=== PATIENT | male | born 1960 | race Caucasian/White ===

== ENCOUNTER 2023-10-06 09:21 | Outpatient (CLI) | payer OTHER, SELFPAY | END 2023-10-06 09:22 | disposition home or self-care (01) | PROVIDERS: PCP Family Medicine; Visit Provider Family Medicine | DX: Z00.00 Encounter for general adult medical examination without abnormal findings (principal); R53.83 Other fatigue; E01.0 Iodine-deficiency related diffuse (endemic) goiter; R06.00 Dyspnea, unspecified; Z12.5 Encounter for screening for malignant neoplasm of prostate | CPT/HCPCS: 80053; 84439; 84443; G0103 ==

== ENCOUNTER 2023-10-13 16:35 | Outpatient (CLI) | payer OTHER, SELFPAY ==
--- NOTE | 2023-10-13 17:00 | US_ITS ---
Patient: DAISY PATEL Facility:?[facility] Patient ID:?[id number] Site Patient ID:?[id number]. Site :?1960 Study:?US-Thyroid THYROID-10/13/2023 5:09:00 PM Ordering Physician:?VAIBHAV MEADE M.D. Final Report: INDICATION: Iodine-deficiency related diffuse (endemic) goiter COMPARISON: none TECHNIQUE: Aguilar scale and color Doppler images were acquired of the thyroid gland. FINDINGS: Large isoechoic/hypoechoic mostly solid nodule left thyroid lobe with a few internal cystic areas measuring 7.0 x 4.2 x 4.6 cm. The right lobe measures 3.7 x 1.5 x 1.5 cm and the left lobe measures 7.4 x 5.3 x 5.0 cm in size. Isthmus measures 3 millimeters. The color Doppler images demonstrate normal vascularity. There is no evidence of cervical lymphadenopathy or parathyroid mass. IMPRESSION: 7.0 cm left thyroid lobe nodule. FNA recommended. Dictated by Eddie Tenorio MD @ 10/14/2023 8:54:34 AM Signed by:?Eddie Tenorio MD @10/14/2023 8:54:34 AM (Electronic Signature)
== END 2023-10-13 16:36 | disposition home or self-care (01) ==
LOC: US 16:36
PROVIDERS: PCP Family Medicine; Visit Provider Family Medicine
DX: E01.0 Iodine-deficiency related diffuse (endemic) goiter (principal); E04.1 Nontoxic single thyroid nodule
CPT/HCPCS: 76536

== ENCOUNTER 2023-11-12 07:43 | Outpatient (CLI) | payer OTHER, SELFPAY ==
--- NOTE | 2023-11-12 08:15 | US_ITS ---
Patient: DAISY PATEL Facility:?[facility] Patient ID:?[id number] Site Patient ID:?[id number] Site :?1960 Study:?US-Thyroid Dr. Tenorio to read-11/12/2023 9:42:49 AM Ordering Physician:?Kenroy Ly Final Report: INDICATION : Left thyroid nodule. TECHNIQUE : Ultrasound-guided fine needle aspiration of thyroid nodule. Comparison : 10/13/2023 FINDINGS : PROCEDURE: After the informed consent and time-out, multiple fine needle aspirations were obtained from the thyroid nodule. Fine needle performed. 25 gauge needles were used. No complications. Lidocaine was used for local anesthesia. The preliminary cytology was adequate for interpretation. Real-time imaging was used for guidance and needle placement. Post imaging ultrasound demonstrates no immediate complication. IMPRESSION : Successful fine needle aspiration of left thyroid nodule. Dictated by Eddie Tenorio MD @ 11/12/2023 10:00:33 AM Signed by:?Eddie Tenorio MD @11/12/2023 10:00:33 AM (Electronic Signature)
== END 2023-11-12 07:44 | disposition home or self-care (01) ==
LOC: US 07:44
PROVIDERS: PCP Family Medicine; Visit Provider Family Medicine
DX: E04.1 Nontoxic single thyroid nodule (principal); D34 Benign neoplasm of thyroid gland
CPT/HCPCS: 10005; 88173

== ENCOUNTER 2023-12-10 16:26 | Outpatient (CLI) | payer OTHER, SELFPAY ==
--- NOTE | 2023-12-10 16:45 | CRLHL7_ITS ---
For Patients: As a result of the Century Cures Act, medical imaging exams and procedure reports are released immediately into your electronic medical record. You may view this report before your referring provider. If you have questions, please contact your health care provider. INDICATION: Nontoxic single thyroid nodule. COMPARISON: Ultrasound 11/12/2023. TECHNIQUE: CT soft tissue neck with IV contrast. ICD 370, 112 cc. FINDINGS: Normal bilateral parotid and submandibular glands. Large heterogeneous enhancing mass of the left thyroid lobe measures 4.9 x 5.2 x 5.8 cm (transverse by AP by cephalocaudal) and has been biopsied previously. This mass extends just below the thoracic inlet. No surrounding inflammatory change. Associated mass effect and deviation of the trachea esophagus to the right. Scattered small normal-sized cervical lymph nodes bilaterally. No supraclavicular or superior mediastinal adenopathy. Nasopharynx and oropharynx are clear. No inflammation within the parapharyngeal fat pads or retropharyngeal space. Normal thickness of the epiglottis. Normal glottis with symmetric vocal cords. Airway patent. Lung apices are clear. Normal alignment of the cervical spine. No prevertebral soft tissue swelling. Visualized paranasal sinuses and mastoid air cells are clear. IMPRESSION: 1. Heterogeneous enhancing mass of the left thyroid lobe. This has been biopsied previously. Mass effect and deviation of the trachea and esophagus to the right. 2. No adenopathy. 3. Normal deep soft tissues of the neck. Please note that all CT scans at this facility use dose modulation, iterative reconstruction, and/or weight-based dosing when appropriate to reduce radiation dose to as low as reasonably achievable. Dictated by Myles Grace MD @ 12/13/2023 12:45:36 PM (Electronically Signed)
[2023-12-10 16:58] LABS: Creatinine* 0.8 mg/dL (0.5-1.5); Estimated Glomerular Filt Rate 100 ml/min
== END 2023-12-10 16:27 | disposition home or self-care (01) ==
LOC: CT 16:27
PROVIDERS: PCP Family Medicine; Visit Provider Surgery
DX: E04.1 Nontoxic single thyroid nodule (principal)
CPT/HCPCS: 36415; 70491; 82565; Q9967

== ENCOUNTER 2023-12-17 16:35 | Outpatient (CLI) | payer OTHER, SELFPAY | END 2023-12-17 16:36 | disposition home or self-care (01) | LOC: LKVREF 18:54 | PROVIDERS: PCP Family Medicine; Referring Provider Family Medicine; Visit Provider Surgery | DX: C73 Malignant neoplasm of thyroid gland (principal) | CPT/HCPCS: 82308; 82310; 82378; 83835 ==

== ENCOUNTER 2024-02-05 01:36 | Inpatient (IN) | payer OTHER, SELFPAY ==
[2024-02-05] VITALS (40 sets, daily range): BP systolic 136–206; BP diastolic 87–116; PULSE 68–96; RESP 20–24; TEMP 36.2–36.8; O2SAT 81–95; BMI 32.3; BMI 33.6
--- OUTSIDE RECORDS SUMMARY | 2024-02-05 02:22 | XMS_ITS | Encounter Summary ---
Author Organization [facility] Address [address] [place] [address] Care Team Providers Care Prison Guard Supervisor Name Role Phone No Ref-Primary, Physician Primary Care Provider Clinic - [facility] Unavailabl e Encounter Details Date Type Department Care Team (Late st Contact Info) Description 11/18/2023 MyC Medical Advice [facility] [id number] [place] [phone] Caitlyn Alfred, SCREWDOWN OPERATOR Social History Tobacco Use Types Packs/Day Years Used Date Smoking Tobacco: Never Smokeless Tobacco: Never Social Connection and Isolat ion Panel [NHANES] Answer Date Recorded Frequency of Communication w ith Friends and Family Not on file 04/02/2023 How often do you get togethe r with friends or relatives? Twice a week 04/02/2023 How often do you attend [facility] or adventist services? 1 to 4 times per year 04/02/2023 Do you belong to any clubs o r organizations such as worship groups, unions, fraternal or athletic groups, or school groups? Yes 04/02/2023 How often do you attend meet ings of the clubs or organizations you belong to? More than 4 times per year 04/02/2023 Are you , , di vorced, , never , or living with a partner? 04/02/2023 AUDIT-C Answer Date Recorded Q1: How often do you have a drink containing alcohol? Never 04/02/2023 Q2: How many drinks containi ng alcohol do you have on a typical day when you are drinking? Patient does not drink 3 Q3: How often do you have si x or more drinks on one occasion? Never 04/02/2023 PHQ-2 Answer Date Recorded PHQ-2 Score 0 04/02/2023 [facility] - Occupational Stress Questionnaire Answer Date Recorded Do you feel stress - tense, restless, nervous, or anxious, or unable to sleep at night because your mind is troubled all the time - these days? Not at all 04/02/2023 Exercise Vital Sign Answer Date Recorde d On average, how many days pe r week do you engage in moderate to strenuous exercise (like a brisk walk)? 3 days 04/02/2023 On average, how many minutes do you engage in exercise at this level? 150+ min 04/02/2023 Adolescent Education Answer Date Record ed Getting School Help Needed Not on file 04/03 Food Insecurity Answer Date Recorded Within the past 12 months, d id you worry that your food would run out before you got money to buy more? No 04/02/2023 Within the past 12 months, d id the food you bought just not last and you didn? t have money to get more? No 04/02/2023 Housing Stability Answer Date Recorded Do you have housing? (Gem oseguera is defined as stable permanent housing and does not include staying ouside in a car, in a tent, in an abandoned building, in an overnight mcc, or couch-surfing.) Yes 04/02/2023 Are you worried about losing your housing? No 04/02/2023 Financial Resource Strain Answer Date R ecorded Within the past 12 months, h ave you or your family members you live with been unable to get utilities (heat, electricity) when it was really needed? No 04/02/2023 Transportation Needs Answer Date Record ed Within the past 12 months, h as lack of transportation kept you from medical appointments, getting your medicines, non-medical meetings or appointments, work, or from getting things that you need? No 04/02/2023 Interpersonal Safety Answer Date Record ed Do you feel physically and e motionally safe where you currently live? Yes 04/02/2023 Within the past 12 months, h ave you been hit, slapped, kicked or otherwise physically hurt by someone? No 04/02/2023 Within the past 12 months, h ave you been humiliated or emotionally abused in other ways by your partner or ex-partner? No 04/02/2023 Sex and Gender Information Value Date Recorded Sex Assigned at Not on file Gender Identity Not on file Sexual Orientation Not on file documented as of this encounter Plan of Treatment Not on file documented as of this encounter Visit Diagnoses Not on filedocumented in this encounter Care Teams Prison Guard Supervisor Relationship Specialty Start Date End Date No Ref-Primary, Physician PCP - General 04/05/23 Clinic - [facility] [address] [place] [address] Assigned PCP 11/02/23 documented as of this encounter
--- OUTSIDE RECORDS SUMMARY | 2024-02-05 02:22 | XMS_ITS | Encounter Summary ---
Author Organization [facility] Address [address] [place] [id number] Care Team Providers Care Record Press Supervisor Name Role Phone No Ref-Primary, Physician Primary Care Provider Clinic - [facility] Unavailabl e Reason for Visit * Reason Onset Date Comments Panel Management 11/11/2023 Encounter Details Date Type Department Care Team (Late st Contact Info) Description 11/11/2023 MyC Medical Advice [facility] [id number] [place] [phone] Deysi Patel, [facility] Panel Management Social History Tobacco Use Types Packs/Day Years Used Date Smoking Tobacco: Never Smokeless Tobacco: Never Social Connection and Isolat ion Panel [NHANES] Answer Date Recorded Frequency of Communication w ith Friends and Family Not on file 04/02/2023 How often do you get togethe r with friends or relatives? Twice a week 04/02/2023 How often do you attend chur ch or caodaism services? 1 to 4 times per year 04/02/2023 Do you belong to any clubs o r organizations such as baptism groups, unions, fraternal or athletic groups, or [...] you are drinking? Patient does not drink Q3: How often do you have si x or more drinks on one occasion? Never 04/02/2023 PHQ-2 Answer Date Recorded PHQ-2 Score 0 04/02/2023 [facility] - Occupational Stress Questionnaire Answer Date Recorded [...] on file documented as of this encounter Miscellaneous Notes * Telephone Encounter - Deysi Patel CMA - 11/11/2023 11:34 AM CDT Patient Quality Outreach Patient is due for the following: Colon Cancer Screening Next Steps: No follow up needed at this time. Type of outreach: Sent Phase III Development message. Next Steps: Reach out within 90 days via Phase III Development. Max number of attempts reached: No. Will try again in 90 days if patient still on fail list. Questions for provider review: None Deysi Patel CMA Chart routed to Care Team. documented in this encounter Plan of Treatment Not on file documented as of this encounter Visit Diagnoses Not on filedocumented in this encounter Care Teams Record Press Supervisor Relationship Specialty Start Date End Date No Ref-Primary, Physician PCP - General 04/05/23 Clinic - [facility] [address] [place] [address] Assigned PCP 11/02/23 documented as of this encounter
--- OUTSIDE RECORDS SUMMARY | 2024-02-05 02:22 | XMS_ITS | Encounter Summary ---
Author Organization [facility] Address [address] [place] [address] Care Team Providers Care Passenger Agent Name Role Phone No Primary/Referring, Phy Primary Care Provider Unavailable Encounter Details Date Type Department Care Team (Late st Contact Info) Description 11/04/2018 Correspondence None No Primary/Referring, Phy SPIROMETRY PRESCREEN QUESTIONNAIRE Social History Tobacco Use Types Packs/Day Years Used Date Smoking Tobacco: Never Smokeless Tobacco: Never Alcohol Use Standard Drinks/Week Comments Yes 0 (1 standard drink = 0.6 oz pur e alcohol) very rare Sex and Gender Information Value Date Recorded Sex Assigned at Not on file Gender Identity Not on file Sexual Orientation Not on file documented as of this encounter Plan of Treatment Not on file documented as of this encounter Visit Diagnoses Not on filedocumented in this encounter Care Teams Passenger Agent Relationship Specialty Start Date End Date No Primary/Referring, Phy PCP - General 11/04/18 documented as of this encounter
--- OUTSIDE RECORDS SUMMARY | 2024-02-05 02:22 | XMS_ITS | Encounter Summary ---
Author Organization [place] Address [address] [place] [address] Care Team Providers Care Striper Machine Name Role Phone No Ref-Primary, Physician Primary Care Provider Clinic - [facility] Unavailabl e Reason for Visit * Reason Onset Date Comments Consult Referral 12/20/2023 Encounter Details Date Type Department Care Team (Late st Contact Info) Description 12/20/2023 Telephone [facility] [place] [address] [place] [phone] Self, ReferredMD Consult Referral Social History Tobacco Use Types Packs/Day Years Used Date Smoking Tobacco: Never Smokeless Tobacco: Never Social Connection and Isolat ion Panel [NHANES] Answer Date Recorded Frequency of Communication w ith Friends and Family Not on file 04/02/2023 How often do you get togethe r with friends or relatives? Twice a week 04/02/2023 How often do you attend chur ch or jew services? 1 to 4 times per year 04/02/2023 Do you belong to any clubs o r organizations such as amish groups, unions, fraternal or athletic groups, or [...] Answer Date Recorded PHQ-2 Score 0 04/02/2023 [facility] - Occupational Stress Questionnaire Answer Date [...] Answer Date Recorded Do you have housing? (Housin g is defined as stable permanent housing and does not include staying ouside in a car, in a tent, in an abandoned building, in an overnight halfway, or couch-surfing.) Yes 04/02/2023 Are you worried [...] encounter Miscellaneous Notes * Telephone Encounter - Kristyn Mandujano - 12/20/2023 12:21 PM CDT [facility] received a referral for: Forest Long Sabina. Male, 63 year old, 1960 [facility] Thyroid Cancer Referring Dr. Carmela Basurto #1 VM 12/14/23 cag-let pt. know first available with [facility] is 01/20/24. [facility] does have openings 12/21/23 per Aysha... let know that also and provided phone #s for both offices. VM #2 12/16/23 cag VM #3 12/17/23 cag VM #4 12/20/23cag.... OK to send to [facility]. documented in this encounter Plan of Treatment Not on file documented as of this encounter Visit Diagnoses Not on filedocumented in this encounter Care Teams Striper Machine Relationship Specialty Start Date End Date No Ref-Primary, Physician PCP - General 04/05/23 Clinic - [facility] [address] [place] [address] Assigned PCP 11/02/23 documented as of this encounter
--- OUTSIDE RECORDS SUMMARY | 2024-02-05 02:22 | XMS_ITS | Encounter Summary ---
Author Organization [facility] Address [address] [place] [address] Care Team Providers Care Polyethylene Bag Machine Operator Name Role Phone No Primary/Referring, Phy Primary Care Provider Unavailable Encounter Details Date Type Department Care Team (Late st Contact Info) Description 11/04/2018 Correspondence None No Primary/Referring, Phy RESPIRATOR MEDICAL EVAL QUESTIONNAIRE Social History Tobacco Use Types Packs/Day [...] on filedocumented in this encounter Care Teams Polyethylene Bag Machine Operator Relationship Specialty Start Date End Date No Primary/Referring, Phy PCP - General 11/04/18 documented as of this encounter
--- OUTSIDE RECORDS SUMMARY | 2024-02-05 02:22 | XMS_ITS | Encounter Summary ---
Author Organization [facility] Address [address] [place] [address]. [place] [address] Care Team Providers Care Endbander Name Role Phone No Ref-Primary, Physician Primary Care Provider Clinic - [facility] Unavailabl e Encounter Details Date Type Department Care Team (Late st Contact Info) Description 12/14/2023 Medical Correspondence [facility] [address] [place] [phone] Scan, Non-Provider Social History Tobacco Use Types Packs/Day Years Used Date Smoking Tobacco: Never Smokeless Tobacco: Never Social Connection and Isolat ion Panel [NHANES] Answer Date Recorded Frequency of Communication w ith Friends and Family Not on file 04/02/2023 How often do you get togethe r with friends or relatives? Twice a week 04/02/2023 How often do you attend chur ch or religion services? 1 to 4 times per year 04/02/2023 Do you belong to any clubs o r organizations such as holiness groups, unions, fraternal or athletic groups, or [...] Answer Date Recorded PHQ-2 Score 0 04/02/2023 [facility]ational Stress Questionnaire Answer Date Recorded [...] in an abandoned building, in an overnight correction, or couch-surfing.) Yes 04/02/2023 Are you worried [...] on filedocumented in this encounter Care Teams Endbander Relationship Specialty Start Date End Date No Ref-Primary, Physician PCP - General 04/05/23 Clinic - [facility] [address] [place] [address] Assigned PCP 11/02/23 documented as of this encounter
--- OUTSIDE RECORDS SUMMARY | 2024-02-05 02:22 | XMS_ITS | Clinical Summary ---
Author Organization [facility] Address [address] [place] [address]. [place] [address] Care Team Providers Care Lock Master Name Role Phone No Ref-Primary, Physician Primary Care Provider [facility] Unavailabl e Allergies Active Allergy Reactions Criticality Noted Date Comments Seasonal Allergies 04/02/2023 Medications Medication Sig Dispensed Refills Start Date End Date Status loratadine (CLARITIN) 10 MG tablet Take 10 mg by mouth daily as needed (Takes daily during Spring and Summer) Active aspirin-acetaminophen -caffeine (EXCEDRIN MIGRAINE) 250-250-65 MG per tablet Take 1-2 tablets by mouth every 6 hours as needed for headaches Active albuterol (PROAIR HFA/PROVENTIL HFA/VENTOLIN HFA) 108 (90 Base) MCG/ACT inhaler Inhale 1-2 puffs into the lungs every 4 hours as needed for shortness of breath, wheezing or cough 08/04/2021 Active Active Problems Problem Noted Date Diagnosed Date 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 Encounters Date Type Department Care Team Description 12/20/2023 Telephone [facility] [place] [address] [place] [address] Self, Referred, Consult Referral 12/14/2023 Medical Correspondence [facility] [address] [facility] [place] [address] Scan, Non-Provider 11/18/2023 My[facility] Medical Advice [facility] [address] [phone] Caitlyn Alfred, KIERA 11/11/2023 MyC Medical Advice M [address] [address] Deysi Patel, KIERA Panel Management from Last 3 Months Immunizations Name Administration Dates Next Due [id number] Novel Flu- Nasal 08/10/2009 TDAP (Adacel,Boostrix) 04/02/2023,02/16/2007 Social History Tobacco Use Types Packs/Day Years Used Date Smoking Tobacco: Never Smokeless Tobacco: Never Tobacco Cessation:Counseling Given: Not Answered Social Connection and Isolat ion Panel [NHANES] Answer Date Recorded Frequency of Communication w ith Friends and Family Not on file 04/02/2023 How often do you get togethe r with friends or relatives? Twice a week 04/02/2023 How often do you attend [facility] or [facility] services? 1 to 4 times per year 04/02/2023 Do you belong to any clubs o r organizations such as christian groups, unions, fraternal or athletic groups, or [...] Answer Date Recorded PHQ-2 Score 0 04/02/2023 [facility] [place] of Occupat ional Health - Occupational Stress Questionnaire Answer Date [...] Date Recorded Do you have housing? (Gem g is defined as stable permanent housing and does not include staying ouside in a car, in a tent, in an abandoned building, in an overnight penitentiary, or couch-surfing.) Yes 04/02/2023 Are you worried [...] on file Sexual Orientation Not on file Last Filed Vital Signs Vital Sign Reading Time Taken Comments Blood Pressure 156/108 04/02/2023 9:00 AM CDT Pulse 78 04/02/2023 8:14 AM CDT Temperature 36.4 ??C (97.5 ??F) 04/02/2023 8:14 AM CD T Respiratory Rate 18 04/02/2023 8:14 AM CDT Oxygen Saturation 96% 04/02/2023 8:14 AM CDT Inhaled Oxygen Concentration - - Weight 107 kg (236 lb) 04/02/2023 8:14 AM CDT Height 171.5 cm (5' 7.5) 04/02/2023 8:14 AM CDT Body Mass Index 36.42 04/02/2023 8:14 AM CDT Plan of Treatment Health Maintenance Due Date Last Done Comments CT COLONOGRAPHY 1961 FIT 1961 FLEX SIG 1961 sDNA (Cologuard) 1961 COLONOSCOPY 1971 COLORECTAL CANCER SCREENING 1971 ZOSTER IMMUNIZATION (1 of 2) 2011 RSV VACCINE ( & 60+) (1 - 1-dose 60+ series) 2021 COVID-19 Vaccine ( season) 2023 06/10/2021, 11/01/2020, 10/01/2020 PHQ-2 (once per calendar year) 2023 04/02/2023 INFLUENZA VACCINE (#1) 2024 08/10/2009 ANNUAL REVIEW OF HM ORDERS 04/02/2024 04/02/2023 YEARLY PREVENTIVE VISIT 04/02/2024 04/02/2023 GLUCOSE 04/02/2026 04/02/2023, 08/12, 08/23/2016, Additional history exists ADVANCE CARE PLANNING 04/02/2028 04/02/2023 LIPID 04/02/2028 04/02/2023 DTAP/TDAP/TD IMMUNIZATION (3 - Td or Tdap) 04/02/2033 04/02/2023, 02/16/2007 HEPATITIS C SCREENING Completed 04/02/2023 HIV SCREENING Completed 04/02/2023 HPV IMMUNIZATION Aged Out No longer e ligible based on patient's age to complete this topic IPV IMMUNIZATION Aged Out No longer e ligible based on patient's age to complete this topic MENINGITIS IMMUNIZATION Aged Out No l onger eligible based on patient's age to complete this topic Pneumococcal Vaccine: Pediatrics (0 to 5 Years) and At-Risk Patients (6 to 64 Years) Aged Out No longer eligible based on patient's age to complete this topic RSV MONOCLONAL ANTIBODY Aged Out No l onger eligible based on patient's age to complete this topic Procedures Procedure Name Priority Date/Time Associated Diagnosis Comments CT IMAGING - HIM SCAN 12/10/2023 12:[address] IMAGING - HIM SCAN 12/10/2023 12:00 AM CDT US IMAGING - HIM SCAN 11/12/2023 12:00 AM CDT US IMAGING - HIM SCAN 11/12/2023 12:00 AM CDT COMPREHENSIVE METABOLIC PANEL Routine 04/02/2023 9:11 AM CDT Routine general medical examination at a [facility] White coat syndrome with high blood pressure but without hypertension HIV ANTIGEN ANTIBODY COMBO Routine 04/02/2023 9:11 AM CDT Screening for HIV (human immunodeficiency virus) HEPATITIS C SCREEN REFLEX TO HCV RNA QUANT AND GENOTYPE Routine 04/02/2023 9:11 AM CDT Need for hepatitis C screening test LIPID REFLEX TO DIRECT LDL PANEL Routine 04/02/2023 9:11 AM CDT Screening for lipid disorders from Last 3 Months or Most Recently Relevant to Health Maintenance Results * CT Imaging - HIM Scan (12/10/2023 12:00 AM CDT) Only the most recent of2 resultswithin the time period is included. Anatomical Region Laterality Modality Computed Tomogra phy 12/10/2023 Provider Outside [facility] CT ORDERABLES * US Imaging - HIM Scan (11/12/2023 12:00 AM CDT) Only the most recent of2 resultswithin the time period is included. Anatomical Region Laterality Modality Other 11/12/2023 Provider Outside [facility] US ORDERABLES * HIV Antigen Antibody Combo (04/02/2023 9:11 AM CDT) HIV Antigen Antibody Combo Nonreactive Nonreactive 04/03/2023 12:48 PM CDT [facility]EN DO Comment:HIV-1 p24 Ag & HIV-1 /HIV-2 Ab Not Detected Blood BLOOD SPECIMEN / Unknown Venipuncture / Unknown 04/02/2023 9:11 AM CDT 04/02/2023 9:11 AM CDT Cassandra Crystal RICHARDS LAB - BLOOD ORDERABL ES [facility]PROT/ENDO [facility]/Prot/Endo [address] [facility], [address] [phone] * Hepatitis C Screen Reflex to HCV RNA Quant and Genotype (04/02/2023 9:11 AM CDT) Hepatitis C Antibody Nonreactive Nonreactive 04/03/2023 10:46 AM CDT [facility]/EN DO Blood BLOOD SPECIMEN / Unknown Venipuncture / Unknown 04/02/2023 9:11 AM CDT 04/02/2023 9:11 AM CDT Narrative [facility]/ENDO - 04/03/2023 10:46 AM CDT Assay performance characteristics have not been established for newborns, infants, and children. Cassandra Rojas NP LAB - BLOOD ORDERABL ES Performing Organization Address City/[facility]/ZIP Co de Phone Number [facility]PROT/ENDO Specialty Core/Prot/Endo [address] [facility], [address] [phone] * (ABNORMAL) Lipid panel reflex to direct LDL Fasting (04/02/2023 9:11 AM CDT) Cholesterol 191 <200 mg/dL 04/02/2023 3:06 PM CDT [facility] Triglycerides 124 <150 mg/dL 04/02/2023 3:06 PM CDT [facility] Direct Measure HDL 40 >=40 mg/dL 04/02/2023 3:06 PM CDT [facility] LDL Cholesterol Calculated 126(H) <=100 mg/dL 04/02/2023 3:06 PM CDT [facility] Non HDL Cholesterol 151(H) <130 mg/dL 04/02/2023 3:06 PM CDT [facility] Blood BLOOD SPECIMEN / Unknown Venipuncture / Unknown 04/02/2023 9:11 AM CDT 04/02/2023 9:11 AM CDT Narrative [facility] - 04/02/2023 3:06 PM CDT Cholesterol Desirable: ??<200 mg/dL Triglycerides Normal: ??Less than 150 mg/dL Borderline High: ??150-199 mg/dL High: ??200-499 mg/dL Very High: ??Greater than or equal to 500 mg/dL Direct Measure HDL Female: ??Greater than or equal to 50 mg/dL Male: ??Greater than or equal to 40 mg/dL LDL Cholesterol Desirable: ??<100mg/dL Above Desirable: ??100-129 mg/dL Borderline High: ??130-159 mg/dL High: ??160-189 mg/dL Very High: ??>= 190 mg/dL Non HDL Cholesterol Desirable: ??130 mg/dL Above Desirable: ??130-159 mg/dL Borderline High: ??160-189 mg/dL High: ??190-219 mg/dL Very High: ??Greater than or equal to 220 mg/dL Cassandra Rojas NP LAB - BLOOD ORDERABL ES [facility] [address] [facility], [address] [place] [address], [facility] [phone] * (ABNORMAL) Comprehensive metabolic panel (BMP + Alb, Alk Phos, ALT, AST, Total. Bili, TP) (04/02/2023 9:11 AM CDT) Sodium 140 136 - 145 mmol/L 04/02/2023 3:06 PM CDT [facility] Potassium 4.2 3.4 - 5.3 mmol/L 04/02/2023 3:06 PM CDT [facility] Chloride 104 98 - 107 mmol/L 04/02/2023 3:06 PM CDT [facility] Carbon Dioxide (CO2) 21(L) 22 - 29 mmol/L 04/02/2023 3:06 PM CDT [facility] Anion Gap 15 7 - 15 mmol/L 04/02/2023 3:06 PM CDT [facility] Urea Nitrogen 13.4 8.0 - 23.0 mg/dL 04/02/2023 3:06 PM CDT [facility] Creatinine 0.75 0.67 - 1.17 mg/dL 04/02/2023 3:06 PM CDT [facility] Calcium 9.2 8.8 - 10.2 mg/dL 04/02/2023 3:06 PM CDT [facility] Glucose 94 70 - 99 mg/dL 04/02/2023 3:06 PM CDT [facility] Alkaline Phosphatase 88 40 - 129 U/L 04/02/2023 3:06 PM CDT [facility] AST 27 0 - 45 U/L 04/02/2023 3:06 PM CDT [facility] Comment:Reference intervals for this test were updated on 12/21/2022 to more accurately reflect our healthy population. There may be differences in the flagging of prior results with similar values performed with this method. Interpretation of those prior results can be made in the context of the updated reference intervals. ALT 28 0 - 70 U/L 04/02/2023 3:06 PM CDT [facility] Comment:Reference intervals for this test were updated on 12/21/2022 to more accurately reflect our healthy population. There may be differences in the flagging of prior results with similar values performed with this method. Interpretation of those prior results can be made in the context of the updated reference intervals. Protein Total 7.3 6.4 - 8.3 g/dL 04/02/2023 3:06 PM CDT [facility] Albumin 4.3 3.5 - 5.2 g/dL 04/02/2023 3:06 PM CDT [facility] Bilirubin Total 0.7 <=1.2 mg/dL 04/02/2023 3:06 PM CDT [facility] GFR Estimate >90 >60 mL/min/1. 73m2 04/02/2023 3:06 PM CDT [facility] Blood BLOOD SPECIMEN / Unknown Venipuncture / Unknown 04/02/2023 9:11 AM CDT 04/02/2023 9:11 AM CDT Cassandra Rojas NP LAB - BLOOD ORDERABL ES [facility] [address] [facility], [address] [place] [address], [facility] [phone] from Last 3 Months or Most Recently Relevant to Health Maintenance Advance Directives For more information, please contact: [phone] * Full Code (Latest Code Status on File) Date Activated Date Inactivated Comments 08/24/2016 12:28 PM * Full Code Date Activated Date Inactivated Comments 08/23/2016 5:10 PM 08/24/2016 12:28 PM Care Teams Lock Master Relationship Specialty Start Date End Date No Ref-Primary, Physician PCP - General 04/05/23 [facility] [address] [place] [address] Assigned PCP 11/02/23
--- OUTSIDE RECORDS SUMMARY | 2024-02-05 02:22 | XMS_ITS | Referral Summary ---
Author Organization [facility] Address [address] [place] [address]. [place] [address] Care Team Providers Care Order Analyst Name Role Phone No Ref-Primary, Physician Primary Care Provider [facility] Encounters Date Type Department Care Team Description 12/20/2023 Telephone [facility] [place] [id number] [place] [address] Self, Referred, MD Consult Referral 12/14/2023 Medical Correspondence [facility] [address] [place] [phone] Scan, Non-Provider 11/18/2023 [facility] Medical Advice [facility] [id number] [place] [phone] Caitlyn Alfred CMA 11/11/2023 MyC Medical Advice [facility] [address] [place] [phone] Deysi Patel, KIERA Panel Management from Last 3 Months Allergies Active Allergy Reactions Criticality Noted Date [...] Noted Date Diagnosed Date 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 1 to 4 times per year 04/02/2023 Do you belong to any clubs o r organizations such as hoahaoism groups, unions, fraternal or athletic groups, or [...] Answer Date Recorded PHQ-2 Score 0 04/02/2023 [facility] [place] of Occupat ional Health - Occupational Stress [...] in an abandoned building, in an overnight usp, or couch-surfing.) Yes 04/02/2023 Are you worried [...] 04/02/2023 8:14 AM CDT Plan of Treatment Not on file Procedures Procedure Name Priority Date/Time Associated Diagnosis Comments CT IMAGING - HIM SCAN 12/10/2023 12:[address] IMAGING - HIM SCAN 12/10/2023 12:00 AM CDT US IMAGING - HIM SCAN 11/12/2023 12:00 AM CDT US IMAGING - HIM SCAN 11/12/2023 12:00 AM CDT COMPREHENSIVE METABOLIC PANEL Routine 04/02/2023 9:11 AM CDT Routine general medical examination at a health care facility White coat syndrome with high [...] Modality Computed Tomogra phy 12/10/[address] ORDERABLES * US Imaging - HIM Scan (11/12/2023 12:00 AM CDT) Only the most recent of2 resultswithin the time period is included. Anatomical Region Laterality Modality Other 11/12/2023 Provider Outside [facility] US ORDERABLES * HIV Antigen Antibody Combo (04/02/2023 9:11 AM CDT) HIV Antigen Antibody Combo Nonreactive Nonreactive 04/03/2023 12:48 PM CDT [facility] DO Comment:HIV-1 p24 Ag & HIV-1 /HIV-2 Ab Not Detected Blood BLOOD SPECIMEN / Unknown Venipuncture / Unknown 04/02/2023 9:11 AM CDT 04/02/2023 9:11 AM CDT Cassandra Rojas NP LAB - BLOOD ORDERABL ES [facility]ENDO Specialty Core/Prot/Endo [address] [facility], [address] [phone] * Hepatitis C Screen Reflex to HCV RNA Quant and Genotype (04/02/2023 9:11 AM CDT) Hepatitis C Antibody Nonreactive Nonreactive 04/03/2023 10:46 AM CDT SPECIALTY CORE/PROT/EN DO Blood BLOOD SPECIMEN / Unknown Venipuncture / Unknown 04/02/2023 9:11 AM CDT 04/02/2023 9:11 AM CDT Narrative [facility]/ENDO - 04/03/2023 10:46 AM CDT Assay performance characteristics have not been established for newborns, infants, and children. Cassandra Rojas NP LAB - BLOOD ORDERABL ES [facility]/PROT/ENDO Specialty Core/Prot/Endo [address] [facility], [address] [phone] * (ABNORMAL) Lipid panel reflex to direct [...] LAB - BLOOD ORDERABL ES [facility] [place] [facility] [address] [facility], [address] [place] [address], [facility] [phone] * (ABNORMAL) Comprehensive metabolic panel (BMP + [...] LAB - BLOOD ORDERABL ES [facility] [place] [facility] [address] [facility] [address] [facility], [address] [place] [address], [facility] [phone] from Last 3 Months or Most Recently Relevant to Health Maintenance Advance Directives For more information, please contact: [phone] * Full Code (Latest Code Status on File) Date Activated Date Inactivated Comments 08/24/2016 12:28 PM * Full Code Date Activated Date Inactivated Comments 08/23/2016 5:10 PM 08/24/2016 12:28 PM Care Teams Order Analyst Relationship Specialty Start Date End Date No Ref-Primary, Physician PCP - General 04/05/23 [facility] [address] [place] [address] Assigned PCP 11/02/23
--- OUTSIDE RECORDS SUMMARY | 2024-02-05 02:22 | XMS_ITS | Clinical Summary ---
Author Organization [facility] Address [address], [place] [address] Care Team Providers Care Head Stock Transfer Clerk Name Role Phone No Primary/Referring, Phy Primary Care Provider Unavailable Source Comments You are receiving this document as you are listed as the primary care provider,follow-up provider, or the patient has been referred to you for consultation.This is in compliance with the Medicare and[facility] EHR Incentive Program,which states Providers who transition their patient to another setting of careor provider of care or refers their patient to another provider of care shouldprovide summary care record for each transition of care or referral. [facility] Allergies No known active allergies Medications Medication Sig Dispensed Refills Start Date End Date Status ibuprofen (MOTRIN) 200 MG tablet Take 200-400 mg by mouth every 4 hours as needed for Pain. Active Active Problems No known active problems Social History Tobacco Use Types Packs/Day Years [...] Sign Reading Time Taken Comments Blood Pressure 123/77 11/04/2018 1:58 PM CDT Pulse 80 11/04/2018 1:58 PM CDT Temperature 37 ??C (98.6 ??F) 09/12/2018 2:54 PM INCLUSION SPECIAL EDUCATOR Respiratory Rate 16 09/12/2018 4:43 PM INCLUSION SPECIAL EDUCATOR Oxygen Saturation 95% 09/12/2018 4:43 PM INCLUSION SPECIAL EDUCATOR Inhaled Oxygen Concentration - - Weight 103 kg (227 lb) 11/04/2018 1:58 PM CDT Height 177.8 cm (5' 10) 11/04/2018 1:58 PM CDT Body Mass Index 32.57 11/04/2018 1:58 PM CDT Plan of Treatment Health Maintenance Due Date Last Done Comments Colon Cancer Screening Plan Due 1960 Hep C Screening (Preventive Services) 1961 PSA Screening Discussion 1961 HIV Screening (Preventive Services) 1977 Adult Preventive Visit 1979 Cholesterol 1996 Zoster/Shingles (1 of 2) 2011 DTaP/Tdap/Td (2 - Tdap) 02/16/2017 02/16/2007 COVID-19 Vaccine (2 - 2022-2 4 season) 2023 10/01/2020 Influenza (#1) 2024 HepA Aged Out No longer eligi ble based on patient's age to complete this topic HepB Aged Out No longer eligi ble based on patient's age to complete this topic Hib Aged Out No longer eligi ble based on patient's age to complete this topic IPV (Polio) Aged Out No longer eligi ble based on patient's age to complete this topic MCV4 Aged Out No longer eligi ble based on patient's age to complete this topic Pneumococcal Aged Out No longer eligi ble based on patient's age to complete this topic Advance Directives * Full Code (Latest Code Status on File) Date Activated Date Inactivated Comments 09/12/2018 1:21 PM 09/12/2018 7:27 PM Full code in e ffect for 30 days Care Teams Head Stock Transfer Clerk Relationship Specialty Start Date End Date No Primary/Referring, Phy PCP - General 11/04/18
--- OUTSIDE RECORDS SUMMARY | 2024-02-05 02:22 | XMS_ITS | Encounter Summary ---
Author Organization [facility] Address [address] [place] [address] Care Team Providers Care Ui Ux Web Developer Name Role Phone No Primary/Referring, Phy Primary Care Provider Unavailable Encounter Details Date Type Department Care Team (Latest Contact Info) Description 11/04/2018 Correspondence None No Primary/Referring, Phy RESPIRATOR EXAM Social History Tobacco Use Types Packs/Day Years [...] on filedocumented in this encounter Care Teams Ui Ux Web Developer Relationship Specialty Start Date End Date No Primary/Referring, Phy PCP - General 11/04/18 documented as of this encounter
--- OUTSIDE RECORDS SUMMARY | 2024-02-05 02:23 | XMS_ITS | Encounter Summary ---
Author Organization [facility] Address [address] [place] [address] Care Team Providers Care Field Laborer Name Role Phone Elsewhere, Pcp Primary Care Provider Unavailabl e Encounter Details Date Type Department Care Team (Late st Contact Info) Description 01/31/2024 Orders Only Division of Endocrinology in [place], [place] [address] [place] [phone] Phuc Torres M.D. [address] [place] [address] Social History Tobacco Use Types Packs/Day Years Used Date Smoking Tobacco: Never Assessed [facility] Utilities Answer Date Recorded In the past 12 months has th e electric, gas, oil, or water company threatened to shut off services in your home? No 01/23/2024 Exercise Vital Sign Answer Date Recorde d On average, how many days pe r week do you engage in moderate to strenuous exercise (like a brisk walk)? 3 days 01/23/2024 On average, how many minutes do you engage in exercise at this level? 130 min 01/23/2024 Hunger Vital Sign Answer Date Recorded Within the past 12 months, y ou worried that your food would run out before you got the money to buy more. Never true 01/23/20 24 Within the past 12 months, t he food you bought just didn't last and you didn't have money to get more. Never true 01/23/2024 PRAPARE - Transportation Answer Date Re corded In the past 12 months, has l ack of transportation kept you from medical appointments or from getting medications? No 01/09 In the past 12 months, has l ack of transportation kept you from meetings, work, or from getting things needed for daily living? No 01/23/2024 Nutrition Answer Date Recorded On average, how many serving s of fruits and vegetables do you eat per day (serving size is equal to 1 cup or approximately the size of a tennis ball)? 0-2 01/23/2024 Dental Answer Date Recorded Dental: Regular Dentist No 01/23/20 Employment Answer Date Recorded Employment status Employed and actively working without restrictions 01/23/2024 Housing Stability Answer Date Recorded What is your living situation today? I have a [facility] place to live 01/23/2024 Sex and Gender Information Value Date Recorded Sex Assigned at Male 01/23/2024 9:14 PM CDT Gender Identity Male 01/23/2024 9:14 PM CDT Sexual Orientation Straight 01/23/2024 9: 14 PM CDT documented as of this encounter Plan of Treatment Not on file documented as of this encounter Visit Diagnoses Not on filedocumented in this encounter Care Teams Field Laborer Relationship Specialty Start Date End Date Elsewhere, Pcp PCP - General Internal Medicine 01/27/24 documented as of this encounter
--- OUTSIDE RECORDS SUMMARY | 2024-02-05 02:23 | XMS_ITS | Encounter Summary ---
Author Organization [facility] Address [address] [place] [address] Care Team Providers Care [employer] Safety Program Coordinator Name Role Phone Elsewhere, Pcp Primary Care Provider Unavailabl e Reason for Referral * Outpatient (Routine) - Closed Specialty Diagnoses / Procedures Referred By Vinicius t Referred To Contact Diagnoses Malignant Neoplasm Of Thyroid (HCC) Procedures US Superficial Tissue Fine Needle Aspiration Phuc Torres M.D. [address] [place] [address] [facility] Referral ID Status Reason Start Date Expiration Date Visits Re quested Visits Authorized [id number] Closed 01/27/2024 01/26/2025 1 1 Reason for Visit * Outpatient (Routine) - Closed Specialty Diagnoses / Procedures Referred By Vinicius reid Referred To Contact Diagnoses Malignant Neoplasm Of Thyroid (HCC) Procedures US Superficial Tissue Fine Needle Aspiration Phuc Torres M.D. [address] [place] [address] [facility] Referral ID Status Reason Start Date Expiration Date Visits Re quested Visits Authorized [id number] Closed 01/27/2024 01/26/2025 1 1 Encounter Details Date Type Department Care Team (Latest Contact Info) Description 01/31/2024 8:37 AM CDT - 01/31/2024 10:21 AM CDT Hospital Encounter Department of Radiology, [facility], in [place], [place] [address] [place] [phone] Phuc Torres M.D. [address] [place] [address] Agueda Larios M.D. [address] [place] [address] Malignant Neoplasm Of Thyroid (HCC) Discharge Disposition: Home or Self Care Social History Tobacco Use Types Packs/Day Years Used Date Smoking Tobacco: Never Assessed [facility] Utilities Answer Date Recorded In the past [...] money to buy more. Never true 01/23/20 Within the past 12 months, t he [...] Date Recorded Dental: Regular Dentist No 01/23/20 24 Employment Answer Date Recorded Employment status Employed and actively working without restrictions 01/23/2024 Housing Stability Answer Date Recorded What is your living situation today? I have a [facility] place to live 01/23/2024 Sex and Gender Information Value Date Recorded Sex Assigned at Male 01/23/2024 9:14 PM CDT Gender Identity Male 01/23/2024 9:14 PM CDT Sexual Orientation Straight 01/23/2024 9: 14 PM CDT documented as of this encounter Medications at Time of Discharge Medication Sig Dispensed Refills Start Date End Date acetaminophen (TylenoL) 500 mg tablet Take 2 tablets (1,000 mg total) by mouth every 6 (six) hours as needed for pain. 02/04/2024 albuterol 90 mcg/actuation inhaler Inhale 1-2 puffs every 4 (four) hours as needed. Patient states he takes Advair, and does not have any other inhaler prescriptions. 08/04/2021 cholecalciferol (Vitamin D3) 1,250 mcg (50,000 Unit) capsule Take 1 capsule (50,000 Units total) by mouth 2 (two) times a week. 16 capsule 01/31/2024 clotrimazole (Lotrimin AF, clotrimazole,) 1 % cream Apply 1 Application topically 2 (two) times a day as needed (Rash). 09/12/2004 fluticasone propion-salmeteroL 250-50 mcg/dose diskus inhaler Inhale 1 puff 2 (two) times a day. Rinse mouth with water after use to reduce aftertaste and incidence of candidiasis. Do not swallow. ibuprofen 200 mg tablet Take 400 mg by mouth every 6 (six) hours as needed for pain. levothyroxine 175 mcg tablet Take 1 tablet (175 mcg total) by mouth daily before morning meal. 60 tablet 02/04/2024 loratadine (Claritin) 10 mg tablet Take 10 mg by mouth 2 (two) times a day. 10/06/2023 oxyCODONE (Roxicodone) 5 mg immediate release tabletIndications:Acu te Pain Take 1 tablet (5 mg total) by mouth every 4 (four) hours as needed for severe pain or score 7-10 of 10 Indication: Acute Pain. 10 tablet 02/04/2024 levothyroxine 150 mcg tablet Take 1 tablet (150 mcg total) by mouth daily before morning meal. 60 tablet 02/04/2024 02/04/2024 documented as of this encounter Plan of Treatment Not on file documented as of this encounter Procedures Procedure Name Priority Date/Time Associated Diagnosis Comments US SUPERFICIAL TISSUE FINE NEEDLE ASPIRATION RAD - Routine (most inpatients and all outpatients) 01/31/2024 10:20 AM CDT Malignant Neoplasm Of Thyroid (HCC) CYTOLOGY FINE NEEDLE ASPIRATION (INCLUDES CORE BIOPSIES Routine 01/31/2024 9:19 AM CDT Malignant Neoplasm Of Thyroid (HCC) CYTOLOGY FINE NEEDLE ASPIRATION (INCLUDES CORE BIOPSIES Routine 01/31/2024 9:17 AM CDT Malignant Neoplasm Of Thyroid (HCC) CALCITONIN, FNAB, LYMPH NODE Routine 01/31/2024 9:16 AM CDT Malignant Neoplasm Of Thyroid (HCC) CALCITONIN, FNAB, LYMPH NODE Timed 01/31/2024 9:12 AM CDT documented in this encounter Results * US Superficial Tissue Fine Needle Aspiration (01/31/2024 10:20 AM CDT) Anatomical Region Laterality Modality Body, Ultrasound RST LOS, Mu sculoskeletal ARZ LOS, Ultrasound ARZ LOS, Ultrasound FLA LOS, Procedure FLA LOS, Muskuloskeletal FLA LOS, Abdominal FLA LOS, Procedural, Procedural NWWI LOS N/A Ultrasound Impressions 01/31/2024 10:27 AM CDT 1. Ultrasound-guided fine-needle aspiration of right cervical level 4 and left cervical level 5. 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 COMPARISON: Thyroid sonogram dated 01/25/2024. PRE-PROCEDURE: Patient seen and evaluated. Allergies, pertinent medications, and history reviewed. Discussed risks, benefits, alternatives for procedure, and obtained informed consent. Patient understands information and questions answered. Immediately prior to starting the procedure, in the presence of the assisting personnel, procedural pause was conducted to verify correct patient identity and verification of procedure to be performed, and as applicable, correct side and site, correct patient position, availability of implants, special equipment, or special requirements, and all image and specimen identification data. The roles and responsibilities of care team members, residents, and fellows were discussed. TECHNIQUE: Sterile. 1% lidocaine for local anesthesia. Location: Right cervical level 4 lymph node (near junction of cervical level 3 and 4). Target lesion size: 0.7 x 0.8 x 2.0 cm. Needle size: 25-gauge Number of passes: 6 Complication: None. Blood loss: None. Location: Left cervical level 5 lymph node Target lesion size: 0.9 x 0.8 x 1.1 cm Needle size: 25-gauge Number of passes: 6 Complication: None. Blood loss: None. PATIENT INSTRUCTIONS: Patient may be dismissed from the radiology department when dismissal criteria met. POST-PROCEDURE DIAGNOSIS: Suspicious bilateral cervical lymph nodes. Procedure Note Agueda Larios M.D. - 01/31/2024 EXAM: US SUPERFICIAL TISSUE FINE NEEDLE ASPIRATION HISTORY: Medullary thyroid cancer with suspicious bilateral cervical lymphnodes. COMPARISON: Thyroid sonogram dated 01/25/2024. PRE-PROCEDURE: Patient seen and evaluated. Allergies, pertinentmedications, and history reviewed. Discussed risks, benefits, alternativesfor procedure, and obtained informed consent. Patient understandsinformation and questions answered. Immediately prior to starting the procedure, in the presence of the assistingpersonnel, procedural pause was conducted to verify correct patientidentity and verification of procedure to be performed, and as applicable,correct side and site, correct patient position, availability of implants, special equipment, or specialrequirements, and all image and specimen identification data. The rolesand responsibilities of care team members, residents, and fellows werediscussed. TECHNIQUE: Sterile. 1% lidocaine for local anesthesia. Location: Right cervical level 4 lymph node (near junction of cervicallevel 3 and 4). Target lesion size: 0.7 x 0.8 x 2.0 cm. Needle size: 25-gauge Number of passes: 6 Complication: None. Blood loss: None. Location: Left cervical level 5 lymph node Target lesion size: 0.9 x 0.8 x 1.1 cm Needle size: 25-gauge Number of passes: 6 Complication: None. Blood loss: None. PATIENT INSTRUCTIONS: Patient may be dismissed from the radiologydepartment when dismissal criteria met. POST-PROCEDURE DIAGNOSIS: Suspicious bilateral cervical lymph nodes. IMPRESSION: 1. Ultrasound-guided fine-needle aspiration of right cervical level 4 andleft cervical level 5. NR Phuc Torres M.D. IMG US PROCEDURES * Cytology Fine Needle Aspiration (including core biopsies) (01/31/2024 9:19 AM CDT) 01/31/2024 11:34 AM CDT DTL Report electronically signed by Forest Aguero M.D., Ph.D. I verify that I have examined all relevant slides/materi als for the specimen(s) and rendered or confirmed the diagnosis. 01/31/2024 11:34 AM CDT DTL Gross Description Received 12 alcohol-fixed smears. 01/31/2024 11:34 AM CDT DTL Source A. Lymph node, Right neck, Right cervical level 4, fine needle aspiration 01/31/2024 11:34 AM CDT DTL Interpretation A. Lymph node, Right neck, Right cervical level 4, fine needle aspiration (smears): Negative for malignancy. Lymphocytes consistent with sampled lymph node. 01/31/2024 11:34 AM CDT DTL Aspirate (Neck, Right) 01/31/2024 9:19 AM CDT Comment:Right Cervical Level 4 Phuc Torres M.D. LAB SURG PATH [facility] [address] [place] [address], [facility] DTL [address] [place] [address] * (ABNORMAL) Cytology Fine Needle Aspiration (including core biopsies) (01/31/2024 9:17 AM CDT) (A ) 01/31/2024 11:37 AM CDT DTL Report electronically signed by Forest Aguero M.D., Ph.D. I verify that I have examined all relevant slides/materi als for the specimen(s) and rendered or confirmed the diagnosis. (A) 01/31/2024 11:37 AM CDT DTL Gross Description Received 12 alcohol-fixed smears.(A) 01/31/2024 11:37 AM CDT DTL Source A. Lymph node, Left neck, Left cervical level 5, fine needle aspiration (A) 01/31/2024 11:37 AM CDT DTL Interpretation A. Lymph node, Left neck, Left cervical level 5, fine needle aspiration (smears): Positive for malignancy. Cytomorpholog ic features consistent with medullary thyroid carcinoma. (A) 01/31/2024 11:37 AM CDT DTL Aspirate (Neck, Left) 01/31/2024 9:17 AM CDT Comment:Left Cervical Level 5 Phuc Torres M.D. LAB SURG PATH [facility] [address] [place] [address], [facility] DTL [address] [facility] [address] [place] [address] * Calcitonin, Fine-Needle Aspiration Biopsy (FNAB)-Needle Wash, Lymph Node (01/31/2024 9:16 AM CDT) Calcitonin, FNAB, Lymph Node [id number] pg/mL 01/31/2024 6:10 PM CDT [facility] Comment: Calcitonin values = or > 5.0 pg/mL are suspicious for the presence of medullary thyroid carcinoma at the biopsied lymph node. ??This result assumes thyroid tissue and/or patient blood was not inadvertently aspirated. In the context of an elevated serum calcitonin, blood contamination during the biopsy might lead to false elevations of calcitonin in the FNAB washings. ??If blood was present in the washings, only calcitonin values significantly higher than the serum should be considered as true positives. ??This test should be interpreted in the context of clinical presentation, serum calcitonin levels, imaging and cytology findings. ----ADDITIONAL INFORMATION---- This test has been modified from the hr business partner's instructions. Its performance characteristics were determined by [facility] in a manner consistent with CLIA requirements. This test has not been cleared or approved by the U.S. Food and Drug Administration. The testing method is an electrochemiluminescence assay manufactured by [employer] and performed on the [employer] System. Values obtained with different assay methods or kits may be different and cannot be used interchangeably. Site Left FNA Needle Washings, Lymph Node 02/01/2024 10:16 AM CDT [facility] Comment:REVISED RESULTS FNA Needle Washings (Lymph Node) 01/31/2024 9:16 AM CDT Phuc Torres M.D. LAB BODY FLUIDS AN D STOOLS ORDERABLES [facility] [address] [place] [address] [facility] [address] [place] [address] * Calcitonin, Fine-Needle Aspiration Biopsy (FNAB)-Needle Wash, Lymph Node (01/31/2024 9:12 AM CDT) Pathologist [facility] Calcitonin, FNAB, Lymph Node 31 pg/mL 02/01/2024 9:36 AM CDT [facility] Comment: Calcitonin values = or > 5.0 pg/mL are suspicious for the presence of medullary thyroid carcinoma at the biopsied lymph node. ??This result assumes thyroid tissue and/or patient blood was not inadvertently aspirated. In the context of an elevated serum calcitonin, blood contamination during the biopsy might lead to false elevations of calcitonin in the FNAB washings. ??If blood was present in the washings, only calcitonin values significantly higher than the serum should be considered as true positives. ??This test should be interpreted in the context of clinical presentation, serum calcitonin levels, imaging and cytology findings. ----ADDITIONAL INFORMATION---- This test has been modified from the hr business partner's instructions. Its performance characteristics were determined by [facility] in a manner consistent with CLIA requirements. This test has not been cleared or approved by the U.S. Food and Drug Administration. The testing method is an electrochemiluminescence assay manufactured by [employer] and performed on the [employer] System. Values obtained with different assay methods or kits may be different and cannot be used interchangeably. Site Right FNA Needle Washings, Lymph Node 02/01/2024 10:17 AM CDT [facility] Comment:REVISED RESULTS FNA Needle Washings (Lymph Node) 01/31/2024 9:12 AM CDT 01/31/2024 3:14 PM CDT Narrative Authorizing Provider Result Clive Trores M.D. LAB BODY FLUIDS AN D STOOLS ORDERABLES [facility] [address] [place] [address] [facility] [address] [place] [address] documented in this encounter Visit Diagnoses Diagnosis Malignant Neoplasm Of Thyroid (HCC) documented in this encounter Administered Medications Inactive Administered Medications - up to 3 most recent administrations Medication Order MAR Action Action Date Dose Rate Site lidocaine 10 mg/mL (1 %) injection (Xylocaine) As needed, Starting on Wed01/31/24 at 0951, Intra-Op Given 01/31/2024 9:51 AM CDT 12 mL documented in this encounter Active and Recently Administered Medications Times are shown in CDT. PRN Medication Order 01/29/2024 01/30/2024 01/31/2024 lidocaine 10 mg/mL (1 %) injection (Xylocaine) (COMPLETED) As needed, Starting on Wed01/31/24 at 0951, Intra-Op 0951 (Given - Provid er: Agueda Larios M.D. - Comment: Bilateral Neck) documented in this encounter Care Teams [employer] Safety Program Coordinator Relationship Specialty Start Date End Date Elsewhere, Pcp PCP - General Internal Medicine 01/27/24 documented as of this encounter
--- OUTSIDE RECORDS SUMMARY | 2024-02-05 02:23 | XMS_ITS | Encounter Summary ---
Author Organization [facility] Address [address] [place] [address] Care Team Providers Care Painter Assistant Name Role Phone Elsewhere, Pcp Primary Care Provider Unavailabl e Reason for Visit * Reason Onset Date Comments Pathology Request 01/27/2024 Encounter Details Date Type Department Care Team (Latest Contact Info) Description 01/27/2024 Clinical Communication Division of Endocrinology in [place], [place] [address] [place] [address] Phuc Torres M.D. [address] [place] [address] Pathology Request Social History Tobacco Use Types Packs/Day Years Used Date Smoking Tobacco: Never Assessed [facility] Utilities Answer Date Recorded In [...] your living situation today? I have a [facility] place to live 01/23/2024 Sex and Gender Information Value Date Recorded Sex Assigned at Male 01/23/2024 9:14 PM CDT Gender Identity Male 01/23/2024 9:14 PM CDT Sexual Orientation Straight 01/23/2024 9: 14 PM CDT documented as of this encounter Plan of Treatment Not on file documented as of this encounter Visit Diagnoses Not on filedocumented in this encounter Care Teams Painter Assistant Relationship Specialty Start Date End Date Elsewhere, Pcp PCP - General Internal Medicine 01/27/24 documented as of this encounter
--- OUTSIDE RECORDS SUMMARY | 2024-02-05 02:23 | XMS_ITS | Encounter Summary ---
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 [address] [place] [address] Referral ID Status Reason Start Date Expiration Date Visits Re quested Visits Authorized [id number] 1 1 Encounter Details Date Type Department Care Team (Late st Contact Info) Description 02/03/2024 12:13 PM CDT - 02/03/2024 3:42 PM CDT Surgery [facility] [address] [place] [id number] Dakota Morrow M.D. [address] [place] [phone] THYROIDECTOMY - TOTAL. Social History Tobacco Use Types Packs/Day Years Used Date Smoking Tobacco: Never Smokeless Tobacco: Never Alcohol Use Standard Drinks/Week Comments Not Currently 0 (1 standard drink = 0.6 oz pur e alcohol) [facility] Utilities Answer Date Recorded In the past 12 months has e [employer], gas, oil, or water [employer] threatened to shut off services in your [...] your living situation today? I have a [facility] place to live 01/23/2024 Sex and Gender Information Value Date Recorded Sex Assigned at Male 01/23/2024 9:14 PM CDT Gender Identity Male 01/23/2024 9:14 PM CDT Sexual Orientation Straight 01/23/2024 9: 14 PM CDT documented as of this encounter Last Filed Vital Signs Vital Sign Reading Time Taken Comments Blood Pressure 180/97 02/03/2024 11:03 AM CDT Pulse 82 02/03/2024 11:03 AM CDT Temperature 36.7 ??C (98.1 ??F) 02/03/2024 11:03 AM C DT Respiratory Rate - - Oxygen Saturation 95% 02/03/2024 11:03 AM CDT Inhaled Oxygen Concentration - - Weight 104 kg (229 lb 4.5 oz) 02/03/2024 11:03 A M CDT Height 171.5 cm (5' 7.52) 02/03/2024 11:03 AM C DT Body Mass Index 35.36 02/03/2024 11:03 AM CDT documented in this encounter Discharge Summaries * Hemalatha Barrow M.D. - 02/04/2024 7:48 AM CDT DISCHARGE SUMMARY BRIEF OVERVIEW Hospital: [facility] Discharge Provider: Dakota Morrow M.D. Primary Team: Mya General Surgery - Cristhian Primary Care Providers: Elsewhere, Pcp (General) No address on file Primary Care Provider Phone Number: None Primary Care Provider Fax Number: None Admission Date: 02/03/2024 Discharge Date: 02/04/24 PRINCIPAL DIAGNOSIS Malignant Neoplasm Of Thyroid Medullary (HCC) SECONDARY DIAGNOSES Principal Problem: Malignant Neoplasm Of Thyroid Medullary (HCC) Resolved Problems: * No resolved hospital problems. * Surgery Information This Encounter Past Procedures (02/04/2023 to Today) Date Procedures Providers Loc / Dept 02/03/2024 THYROIDECTOMY - TOTAL., MODIFIED DISSECTION NECK, LEVEL 2, 3, 4 AND 5A Dakota Morrow M.D.Flaris, Alexandros N, M.D.Pierce, Erika M, M.D. [facility] OR DISCHARGE DISPOSITION Home or Self Care [1] ACTIVE ISSUES REQUIRING FOLLOW UP Check TSH with PCP or supervisor audit clerks in 6 weeks OUTPATIENT FOLLOW UP For appointment details refer to your Patient Appointment Guide. TEST RESULTS PENDING AT DISCHARGE Pending Labs Order Current Status Surgical Pathology, Frozen Lab Preliminary result DETAILS OF HOSPITAL STAY REASON FOR ADMISSION Malignant Neoplasm Of Thyroid Medullary (HCC) HOSPITAL COURSE Malignant neoplasm of thyroid status post total thyroidectomy and modified lateral neck dissection,Levels 2, 3, 4, 5A, 02/03/24 The patient was admitted to [facility]. The patient was taken to the operating room and underwent the above procedures on 02/03/24. The patient tolerated the procedure well. After ashort stay in the post-anesthesia care unit, the patient was transferred to the general surgical floor. The patients PTH in the PACU was 28 pg/mL. He does not require calcium or calcitriol supplementation. Patient was discharged with levothyroxine dose of 175 mcg. He requires follow-up with his PCP or supervisor audit clerks in 6 weeks. At the time of discharge, the patient was tolerating a general diet, and pain was controlled on oral pain medication alone. CONSULTS ORDERED DURING THIS ADMISSION None CONDITION AT DISCHARGE stable Discharge instructions were provided to the patient and caregiver(s). documented in this encounter Discharge Instructions * Attachments The following attachments cannot be sent through Care Everywhere. * Acetaminophen (By mouth) (Indonesian) * Levothyroxine (By mouth) (Indonesian) * Oxycodone, Rapid Release (By mouth) (Indonesian) documented in this encounter Medications at Time of Discharge [...] 10/06/2023 oxyCODONE (Roxicodone) 5 mg immediate release tabletIndications:Acut e Pain Take 1 tablet (5 mg total) by mouth every 4 (four) hours as needed for severe pain or score 7-10 of 10 Indication: Acute Pain. 10 tablet 02/04/2024 documented as of this encounter Progress Notes * Leland Walters, Pharm.D., R.Ph. - 02/03/2024 10:25 PM CDT Images from the original note were not included. Admission Medication History Note Adherence issues: No concerns Medication list source: Patient Medication related information: Confirms he hasn't taken albuterol or clotrimazole in several months or possibly even years. Prior to Admission Medications Med List Status: Pharmacy Complete Set By: Leland Walters PharmKeith., R.Ph. at 02/03/2024 10:23 PM Taking? Last Dose Informant Start Date End Date LT albuterol 90 mcg/actuation inhaler Unknown at 0800 -- 08/04/21 -- Inhale 1-2 puffs every 4 (four) hours as needed. Patient states he takes Advair, and does not have any other inhaler prescriptions. cholecalciferol (Vitamin D3) 1,250 mcg (50,000 Unit) capsule 02/02/2024 -- 01/31/24 -- Take 1 capsule (50,000 Units total) by mouth 2 (two) times a week. Patient taking differently: Take 1,250 mcg by mouth 2 (two) times a week. Wednesday and Wednesday 1250mcg = 50,000 Units clotrimazole (Lotrimin AF, clotrimazole,) 1 % cream Unknown -- 09/12/04 -- Apply 1 Application topically 2 (two) times a day as needed (Rash). fluticasone propion-salmeteroL 250-50 mcg/dose diskus inhaler 02/03/2024 at 0700 -- -- -- Inhale 1 puff 2 (two) times a day. Rinse mouth with water after use to reduce aftertaste and incidence of candidiasis. Do not swallow. ibuprofen 200 mg tablet Past Month -- -- -- Take 400 mg by mouth every 6 (six) hours as needed for pain. loratadine (Claritin) 10 mg tablet 02/03/2024 at 0800 -- 10/06/23 -- Take 10 mg by mouth 2 (two) times a day. documented in this encounter Nursing Notes * Carol Dean R.N. - 02/04/2024 12:43 PM CDT Shift Goals: Clinical Goals for the Shift: Prepare to discharge Identify possible barriers to meeting goals/advancing plan of care: None End of Shift Summary: VSS. Patient is ambulating independently. Patient is tolerating a regular diet. Patient is voiding,but has not yet had a BM. Patient stated no pain upon discharge. Education was given to patient andfamily. All questions and concerns were addressed. Patient's oxygen saturations were 87-89 on room air when leaving. Patient reported some shortness of breath this morning, but then said he was feeling asymptomatic. Patient took several laps around the unit and reported feeling okay. Service was notified of oxygen saturation and came to see patient. Patient left unit with family on foot. Problem: SAFETY ADULT Goal: Maintain a safe environment Outcome: Adequate for Discharge Problem: SAFETY ADULT - RISK FOR FALL AND OR FALL INJURY Goal: Patient remains free from fall/fall injury Outcome: Adequate for Discharge Problem: PAIN - ADULT Goal: PT VERBALIZES/DEMONSTRATES ADEQUATE COMFORT LEVEL OR BASELINE Outcome: Adequate for Discharge Problem: KNOWLEDGE DEFICIT Goal: Patient/family/caregiver demonstrates understanding of disease process, treatment plan, medications, and discharge instructions Outcome: Adequate for Discharge Problem: INFECTION - ADULT Goal: Absence of infection during hospitalization Outcome: Adequate for Discharge Problem: SKIN/TISSUE INTEGRITY Goal: Skin/Tissue integrity maintained or improved Outcome: Adequate for Discharge Goal: Oral and Nasal mucous membranes remain intact Outcome: Adequate for Discharge Problem: DISCHARGE PLANNING Goal: Patient discharge needs identified Outcome: Adequate for Discharge documented in this encounter OR Notes * Op Note - Dakota Morrow M.D. - 02/03/2024 2:38 PM CDT Pre-op Diagnosis Malignant Neoplasm Of Thyroid Medullary (HCC) Post-op Diagnosis Malignant Neoplasm Of Thyroid Medullary (HCC) Aligning Inspector A animal care assistant actively participated and was necessary for one or more of the following: opening, exposure and visualization during the case, maintaining hemostasis, wound closure resulting in itssafe and expeditious completion. Findings As expected. Complications None Operative Note Narrative Patient was brought to the operating room and placed in the supine position. Under general endotracheal anesthesia, a transverse Fadi incision was made. We dissected through the subcutaneous tissueand platysma. The strap muscles were identified and divided in the avascular plane. The strap muscles were retracted laterally. We began on the left side. The superior pole was isolated and the vessels divided using the LigaSure device. The thyroid was rotated medially. The recurrent laryngeal nerve and superior and inferior parathyroids were identified and protected throughout the case. The thyroid was dissected off the trachea. The procedure was repeated on the contralateral side in a similar fashion. This was sent to pathology. Hemostasis was obtained. We then directed our attention to the lateral neck. The sternocleidomastoid was retracted laterally. The omohyoid was divided. The lymph node tissue from levels IIa, III, IV and Va were resected and sent to pathology. Hemostasis was obtained. The strap muscles were reapproximated using interrupted 3 Vicryl suture. Platysma was closed using interrupted 3 0 Vicryl suture. Skin was closed using running 4 Monocryl suture. Patient was extubated and transferred to PACU in satisfactory condition. Dakota Morrow M.D. documented in this encounter Plan of Treatment Pending Results Name Type Priority Associated Diagnoses Date /Time Surgical Pathology, Frozen Lab Pathology and Cytology Routine Malignant Neoplasm Of Thyroid Medullary (HCC) 02/03/2024 3:20 PM CDT documented as of this encounter Procedures Procedure Name Priority Date/Time Associated Diagnosis Comments ADULT OXYGEN THERAPY Routine 02/03/2024 9:17 PM CDT PARATHYROID HORMONE (PTH), S Routine 02/03/2024 7:15 PM CDT ADULT OXYGEN THERAPY Routine 02/03/2024 6:51 PM CDT SURGICAL PATHOLOGY, [facility] LAB Routine 02/03/2024 3:20 PM CDT Malignant Neoplasm Of Thyroid Medullary (HCC) MODIFIED DISSECTION NECK 02/03/2024 1:31 PM CDT Malignant Neoplasm Of Thyroid Medullary (HCC) THYROIDECTOMY - TOTAL 02/03/2024 1:31 PM CDT Malignant Neoplasm Of Thyroid Medullary (HCC) documented in this encounter Results * Parathyroid Hormone (PTH) (02/03/2024 7:15 PM CDT) Parathyroid Hormone (PTH), S 28 15 - 65 pg/mL 02/03/2024 8:48 PM CDT DTL Blood (Blood, Venous) 02/03/2024 7:15 PM CDT 02/03/2024 8:02 PM CDT Jaret Salas M.D. LAB BLOOD ADD-O N [facility] [address] [place] [address], [facility] [address] [place] [address] documented in this encounter Visit Diagnoses Diagnosis Malignant Neoplasm Of Thyroid Medullary (HCC)- Primary Malignant Neoplasm Of Thyroid Medullary (HCC) documented in this encounter Admitting Diagnoses Diagnosis Malignant Neoplasm Of Thyroid Medullary (HCC) Thyroidectomy Status Post documented in this encounter Administered Medications Inactive Administered Medications - up to 3 most recent administrations Medication Order MAR Action Action Date Dose Rate Site acetaminophen injection 1,000 mg 1,000 mg, intravenous, at 400 mL/hr, Administer over 15 Minutes, Once, On Renata 02/03/24 at 2000, For 1 dose, PACU (only), Restriction Criteria (Pharmacy will review and approve if criteria met): Unable to take or tolerate medications administered via the enteral route or orally (not just NPO) New Bag 02/03/2024 7:30 PM CDT 1,000 mg 400 mL/hr acetaminophen tablet 1,000 mg (TylenoL) 1,000 mg, oral, Once, On Renata 02/03/24 at 1300, For 1 dose, Pre-Op, Rater Associate, PreOp with sips Given 02/03/2024 12:52 PM CDT 1,000 mg acetaminophen tablet 1,000 mg (TylenoL) 1,000 mg, oral, Every 6 hours, First dose on Wed02/04/24 at 0200, (not to exceed 4 grams in 24 hours) Given 02/04/2024 1:10 AM CDT 1,000 mg benzocaine-menthoL 15-3.6 mg per lozenge 1 lozenge (CepacoL) 1 lozenge, oral, As needed, sore throat, Starting on Wed02/03/24 at 2147 Given 02/03/2024 10:12 PM CDT 1 lozenge cellulose, oxidized 1 X 2 pad (Surgicel) As needed, Starting on Wed02/03/24 at 1724, Intra-Op Given 02/03/2024 5:24 PM CDT 1 each fentaNYL injection 25 mcg (Sublimaze) 25 mcg, intravenous, Every 2 min PRN, moderate pain or score 4-6 of 10, severe pain or score 7-10 of 10, Starting on Wed02/03/24 at 1851, PACU (only), Up to maximum total dose of 200 mcg Given 02/03/2024 8:11 PM CDT 25 mcg Given 02/03/2024 7:55 PM CDT 25 mcg Given 02/03/2024 7:40 PM CDT 25 mcg fluticasone furoate-vilanteroL 100-25 mcg/actuation inhaler 1 puff (Breo Ellipta) 1 puff, inhalation, Daily (RT), First dose on Wed02/04/24 at 0800, fluticasone/vilanterol diskus 100/25 mcg was interchanged for fluticasone/salmeterol MDI 250/50 mcg 1. Hold device upright in right hand with rough edge. 2. Using left hand open lid (toward left) until click is heard. 3. Tilt inhaler flat so air entrainment vents & counter face up. 4. Inhale to full breath somewhat fast. 5. Hold breath up to 10 seconds. 6. Remove inhaler from mouth. 7. Close lid. Given 02/04/2024 9:03 AM CDT 1 puff ipratropium-albuteroL 0.5-2.5 mg/3 mL nebulizer solution 3 mL (DuoNeb) 3 mL, nebulization, Once, On Renata 02/03/24 at 1315, For 1 dose, Pre-Op Given 02/03/2024 1:01 PM CDT 3 mL ipratropium-albuteroL 0.5-2.5 mg/3 mL nebulizer solution 3 mL (DuoNeb) 3 mL, nebulization, 4 times daily PRN, wheezing, shortness of breath, Starting on Renata 02/03/24 at 2147 Given 02/03/2024 10:11 PM CDT 3 mL Lactated Ringer's 1,000 mL 1,000 mL, intravenous, at 100 mL/hr, Continuous, Starting on Renata 02/03/24 at 1300, Pre-Op New Bag 02/03/2024 1:02 PM CDT 1,000 mL 100 mL/hr Lactated Ringer's 75 mL/hr, intravenous, Continuous, Starting on Renata 02/03/24 at 1800, PACU & Post-Op Continued from OR 02/03/2024 7:04 PM CDT 75 mL/hr 75 mL/hr levothyroxine tablet 150 mcg 150 mcg, oral, Daily before morning meal, First dose on Wed02/04/24 at 0830 Given 02/04/2024 9:03 AM CDT 150 mcg loratadine tablet 10 mg (Claritin) 10 mg, oral, 2 times daily, First dose (after last modification) on Renata 02/03/24 at 2245 Given 02/04/2024 8:28 AM CDT 10 mg oxyCODONE IR tablet 10 mg (Roxicodone) 10 mg, oral, Every 4 hours PRN, severe pain or score 7-10 of 10, Starting on Renata 02/03/24 at 2117 oxyCODONE IR tablet 5 mg (Roxicodone) 5 mg, oral, Every 4 hours PRN, moderate pain or score 4-6 of 10, Starting on Renata 02/03/24 at 2117 oxyCODONE IR tablet 5 mg (Roxicodone) 5 mg, oral, Every 3 hours PRN, moderate pain or score 4-6 of 10, severe pain or score 7-10 of 10, Starting on Renata 02/03/24 at 1935, PACU (only) Given 02/03/2024 7:25 PM CDT 5 mg prochlorperazine injection 5 mg (Compazine) 5 mg, intravenous, Every 6 hours PRN, nausea, vomiting, Starting on Renata 02/03/24 at 2117, For 48 hours, RASS must be -2 or higher to administer. Reassess for nausea/vomiting after at least 10 minutes. If nausea or vomiting persists administer next ordered antiemetic medications (order for antiemetic medication administration ondansetron then prochlorperazine) Given 02/03/2024 10:23 PM CDT 5 mg documented in this encounter Active and Recently Administered Medications Times are shown in CDT. Scheduled Medication Order 02/02/2024 02/03/2024 02/04/2024 acetaminophen injection 1,000 mg (COMPLETED) 1,000 mg, intravenous, at 400 mL/hr, Administer over 15 Minutes, Once, On Renata 02/03/24 at 2000, For 1 dose, PACU (only), Restriction Criteria (Pharmacy will review and approve if criteria met): Unable to take or tolerate medications administered via the enteral route or orally (not just NPO) 1930 (New Bag - Provider: Filomena Lomas RRenateNRenate) acetaminophen tablet 1,000 mg (TylenoL) (COMPLETED) 1,000 mg, oral, Once, On Renata 02/03/24 at 1300, For 1 dose, Pre-Op, Rater Associate, PreOp with sips 1252 (Given - Provider: Sarai Yip RDerrell) acetaminophen tablet 1,000 mg (TylenoL) 1,000 mg, oral, Every 6 hours, First dose on Wed02/04/24 at 0200, (not to exceed 4 grams in 24 hours) 0110 (Given - Provid er: Peng Brooks RRenateNRenate)0808 (Not Given - Provider: Carol Dean RDiamond. - Reason: Patient/family refused) fluticasone furoate-vilanteroL 100-25 mcg/actuation inhaler 1 puff (Breo Ellipta) 1 puff, inhalation, Daily (RT), First dose on Wed02/04/24 at 0800, fluticasone/vilanterol diskus 100/25 mcg was interchanged for fluticasone/salmeterol MDI 250/50 mcg 1. Hold device upright in right hand with rough edge. 2. Using left hand open lid (toward left) until click is heard. 3. Tilt inhaler flat so air entrainment vents & counter face up. 4. Inhale to full breath somewhat fast. 5. Hold breath up to 10 seconds. 6. Remove inhaler from mouth. 7. Close lid. 0903 (Given - Provid er: Michelle Hylton R.N.) ipratropium-albuteroL 0.5-2.5 mg/3 mL nebulizer solution 3 mL (DuoNeb) (COMPLETED) 3 mL, nebulization, Once, On Renata 02/03/24 at 1315, For 1 dose, Pre-Op 1301 (Given - Provider: Sarai Yip R.N.) levothyroxine tablet 150 mcg 150 mcg, oral, Daily before morning meal, First dose on Wed02/04/24 at 0830 0903 (Given - Provid er: Michelle Hylton R.N.) loratadine tablet 10 mg (Claritin) 10 mg, oral, 2 times daily, First dose (after last modification) on Renata 02/03/24 at 2245 2247 (Not Given - Provider: Gwendolyn Coleman R.N. - Reason: Patient/family refused) 0828 (Given - Provider: Carol Dean R.N.) sennosides-docusate sodium 8.6-50 mg per tablet 2 tablet (Senokot-S) 2 tablet, oral, Daily at bedtime, First dose on Wed02/03/24 at 2200, hold for diarrhea 2212 (Not Given - Provider: Gwendolyn Coleman R.N. - Reason: Patient/family refused) Continuous Medication Order 02/02/2024 02/03/2024 02/04/2024 Lactated Ringer's 1,000 mL (CANCELED) 1,000 mL, intravenous, at 100 mL/hr, Continuous, Starting on Renata 02/03/24 at 1300, Pre-Op 1302 (New Bag - Provider: Sarai Yip R.N.) Lactated Ringer's (CANCELED) 75 mL/hr, intravenous, Continuous, Starting on Renata 02/03/24 at 1800, PACU & Post-Op 1904 (Continued from OR - Provider: Filomena Lomas R.N. - Comment: full bag) PRN Medication Order 02/02/2024 02/03/2024 02/04/2024 albuterol nebulizer solution 2.5 mg 2.5 mg, nebulization, Every 4 hours PRN, wheezing, shortness of breath, Starting on Renata 02/03/24 at 2143, Albuterol nebs were interchanged for albuterol/levalbuterol MDI (same frequency) benzocaine-menthoL 15-3.6 mg per lozenge 1 lozenge (CepacoL) 1 lozenge, oral, As needed, sore throat, Starting on Renata 02/03/24 at 2147 2212 (Given - Provider: Gwendolyn Coleman R.N.) cellulose, oxidized 1 X 2 pad (Surgicel) (CANCELED) As needed, Starting on Renata 02/03/24 at 1724, Intra-Op 1724 (Given - Provider: Jaret Salas M.D. - Comment: Neck) fentaNYL injection 25 mcg (Sublimaze) (CANCELED) 25 mcg, intravenous, Every 2 min PRN, moderate pain or score 4-6 of 10, severe pain or score 7-10 of 10, Starting on Renata 02/03/24 at 1851, PACU (only), Up to maximum total dose of 200 mcg 1931 (Given - Provider: Alfred Lomas RDerrell)1939 (Given - Provider: Filomena Lomas R.N.)1954 (Given - Provider: Graciela FangN.)2010 (Given - Provider: Graciela FangN.) ipratropium-albuteroL 0.5-2.5 mg/3 mL nebulizer solution 3 mL (DuoNeb) 3 mL, nebulization, 4 times daily PRN, wheezing, shortness of breath, Starting on Renata 02/03/24 at 2147 2211 (Given - Provider: Gwendolyn Coleman R.N.) naloxone injection 0.2 mg (Narcan) 0.2 mg, intravenous, As needed, respiratory depression, Starting on Renata 02/03/24 at 2117, For RASS Score -4 or less, respiratory rate of less than 8 breaths/min. Notify provider/service and rapid response team (if available at institution). ondansetron (PF) injection 4 mg (Zofran) 4 mg, intravenous, Every 6 hours PRN, nausea, vomiting, Starting on Renata 02/03/24 at 2117, For 48 hours, Reassess for nausea or vomiting after at least 10 minutes. If nausea or vomiting persists administer next ordered antiemetic medications (order for antiemetic medication administration ondansetron then prochlorperazine). oxyCODONE IR tablet 10 mg (Roxicodone)(Linked Group 1) 10 mg, oral, Every 4 hours PRN, severe pain or score 7-10 of 10, Starting on Renata 02/03/24 at 2116 oxyCODONE IR tablet 5 mg (Roxicodone)(Linked Group 1) 5 mg, oral, Every 4 hours PRN, moderate pain or score 4-6 of 10, Starting on Renata 02/03/24 at 2116 oxyCODONE IR tablet 5 mg (Roxicodone) (CANCELED) 5 mg, oral, Every 3 hours PRN, moderate pain or score 4-6 of 10, severe pain or score 7-10 of 10, Starting on Renata 02/03/24 at 1935, PACU (only) 192 (Given - Provider: Alfred Lomas RDerrell) prochlorperazine injection 5 mg (Compazine) 5 mg, intravenous, Every 6 hours PRN, nausea, vomiting, Starting on Renata 02/03/24 at 2116, For 48 hours, RASS must be -2 or higher to administer. Reassess for nausea/vomiting after at least 10 minutes. If nausea or vomiting persists administer next ordered antiemetic medications (order for antiemetic medication administration ondansetron then prochlorperazine) 2223 (Given - Provider: Gwendolyn Coleman R.N.) Linked Groups Order Group 1: oxyCODONE IR tablet 5 mg (Roxicodone)Jump to med 5 mg, oral, Every 4 hours PRN, moderate pain or score 4-6 of 10, Starting on Renata 02/03/24 at 2116 Or oxyCODONE IR tablet 10 mg (Roxicodone)Jump to med 10 mg, oral, Every 4 hours PRN, severe pain or score 7-10 of 10, Starting on Renata 7/25/24 at 2117 documented in this encounter Care Teams Stone Repairer Relationship Specialty Start Date End Date Elsewhere, Pcp PCP - General Internal Medicine 01/27/24 documented as of this encounter
--- OUTSIDE RECORDS SUMMARY | 2024-02-05 02:23 | XMS_ITS | Encounter Summary ---
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 [address] [place] [address] [facility] Referral ID Status Reason Start Date Expiration Date Visits Re quested Visits Authorized [id number] Closed 01/27/2024 01/26/2025 1 1 Encounter Details Date Type Department Care Team (Latest Contact Info) Description 01/27/2024 3:23 PM CDT - 01/27/2024 11:59 PM CDT Hospital Encounter Department of Laboratory Medicine and Pathology, [facility] in [place], [place] [address] [place] [address] Phuc Torres M.D. [address] [place] [address] Malignant Neoplasm Of Thyroid (HCC) Discharge Disposition: Home or Self Care Social History Tobacco Use Types Packs/Day Years Used Date Smoking Tobacco: Never Assessed [facility] Utilities Answer Date Recorded In the past 12 months has th e [employer], gas, oil, or water [employer] threatened to shut off services in your [...] your living situation today? I have a [facility] place to live 01/23/2024 Sex and Gender [...] not have any other inhaler prescriptions. 08/04/2021 clotrimazole (Lotrimin AF, clotrimazole,) 1 % cream [...] as of this encounter Plan of Treatment Pending Results Name Type Priority Associated Diagnoses Date /Time Multiple Endocrine Neoplasia Type 2 Syndrome, RET Full Gene Analysis Lab Routine Malignant Neoplasm Of Thyroid (HCC) 01/27/2024 3:44 PM CDT Scheduled Orders Name Type Priority Associated Diagnoses Orde r Schedule Multiple Endocrine Neoplasia Type 2 Syndrome, RET Full Gene Analysis Lab Routine Malignant Neoplasm Of Thyroid (HCC) Once for 1 Occurrences starting 01/27/2024 until 01/27/2024 documented as of this encounter Visit Diagnoses Diagnosis Malignant Neoplasm Of Thyroid (HCC) documented in this encounter Care Teams 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
--- OUTSIDE RECORDS SUMMARY | 2024-02-05 02:23 | XMS_ITS | Referral Summary ---
Author Organization [facility] Address [address] [place] [address] Care Team Providers Care Blocker Metal Base Name Role Phone Elsewhere, Pcp Primary Care Provider Unavailabl e Source Comments Patient records contain information from all sites at [facility]. For routine questions regarding patient records, call [phone] during business hours, M-F 8:00 AM - 5:00 PM Central Time. Record requests for emergency care only can be directed to [phone] at any time.[facility] Encounters Date Type Department Care Team Description 02/03/2024 10:28 AM CDT - 02/04/2024 12:44 PM CDT Hospital Encounter [facility], [facility], Sixth Floor [address] [place] [address] Dakota Morrow M.D. Malignant Neoplasm Of Thyroid Medullary (HCC) Discharge Disposition: Home or Self Care 02/03/2024 1:52 PM CDT Anesthesia Event [facility] OR [address] [place] [address] Paulino Love D.O. Willem Baker M.D., M.S. 02/03/2024 12:13 PM CDT - 02/03/2024 3:42 PM CDT Surgery [facility] MAIN OR [address] [place] [address] Dakota Morrow M.D. THYROIDECTOMY - TOTAL. 02/02/2024 2:00 PM CDT Office Visit Division of Endocrine Surgery in [place], [place] [address] [place] [phone] Dakota Morrow M.D. Castro, M. Regina, M.D. Malignant Neoplasm Of Thyroid Medullary (HCC) (Primary Dx) 01/31/2024 Orders Only Division of Endocrinology in [place], [place] [address] [place] [phone] Phuc Torres M.D. 01/31/2024 8:37 AM CDT - 01/31/2024 10:21 AM CDT Hospital Encounter Department of Radiology, [place], [place] [address] [place] [phone] Phuc Torres M.D. Robinson, Kathryn A, M.D. Malignant Neoplasm Of Thyroid (HCC) Discharge Disposition: Home or Self Care 01/27/2024 Clinical Communication Division of Endocrinology in [place], [place] [address] [place] [phone] Phuc Torres M.D. Pathology Request 01/27/2024 3:23 PM CDT - 01/27/2024 11:59 PM CDT Hospital Encounter Department of Laboratory Medicine and Pathology, [facility] in [place], [place] [address] [place] [phone] Phuc Torres M.D. Malignant Neoplasm Of Thyroid (HCC) Discharge Disposition: Home or Self Care 01/27/2024 2:40 PM CDT Lab RST [facility] [address] [place] [phone] Phuc Torres M.D. Malignant Neoplasm Of Thyroid (HCC) 01/27/2024 6:21 AM CDT - 01/27/2024 3:22 PM CDT Hospital Encounter Department of Laboratory Medicine and Pathology, [facility] in [place], [place] [address] [place] [phone] Phuc Torres M.D. Malignant Neoplasm Of Thyroid Medullary (HCC) Discharge Disposition: Home or Self Care 01/27/2024 1:30 PM CDT Comprehensive Visit Division of Endocrinology in [place], [place] [address] [place] [phone] Phuc Torres M.D. Malignant Neoplasm Of Thyroid (HCC) 01/27/2024 3:00 PM CDT Comprehensive Visit Division of Endocrine Surgery in [place], [place] [address] [place] [address] Dakota Morrow M.D. Castro, M. Regina, M.D. Malignant Neoplasm Of Thyroid Medullary (HCC) 01/25/2024 10:16 AM CDT - 01/25/2024 11:59 PM CDT Hospital Encounter Department of Radiology, [facility], in [place], [place] [address] [place] [address] Phuc Torres M.D. Malignant Neoplasm Of Thyroid Medullary (HCC) Discharge Disposition: Home or Self Care 12/30/2023 Clinical Communication Division of Endocrine Surgery in [place], [place] [address] [place] [address] Dakota Morrow M.D. 12/28/2023 2:00 PM CDT Clinical Communication Division of Endocrinology in [place], [place] [address] [place] [address] Pre-visit Intake (thyroid) 12/23/2023 Clinical Communication Department of Otorhinolaryngology in [place], [place] [address] [place] [phone] Provider, Unknown [facility] (ENT ) 12/22/2023 [facility] AND [address] [address] Carmela Basurto M.D. Malignant Neoplasm Of Thyroid (HCC) (Primary Dx) from Last 3 Months Allergies Active Allergy Reactions Criticality Noted Date Comments House Dust Shortness of breath 01/27/2024 Mold Shortness of breath 01/27/2024 Pollen Extracts Other (see comments) 04/02/2023 Medications Medication Sig Dispensed Refills Start Date End Date Status albuterol 90 mcg/actuation inhaler Inhale 1-2 puffs every 4 (four) hours as needed. Patient states he takes Advair, and does not have any other inhaler prescriptions. 08/04/2021 Active clotrimazole (Lotrimin AF, clotrimazole,) 1 % cream Apply 1 Application topically 2 (two) times a day as needed (Rash). 09/12/2004 Active ibuprofen 200 mg tablet Take 400 mg by mouth every 6 (six) hours as needed for pain. Active loratadine (Claritin) 10 mg tablet Take 10 mg by mouth 2 (two) times a day. 10/06/2023 Active cholecalciferol (Vitamin D3) 1,250 mcg (50,000 Unit) capsule Take 1 capsule (50,000 Units total) by mouth 2 (two) times a week. 16 capsule 01/31/2024 Active Additional Information Patient taking differently: 1,250 mcgoral 2 times weekly,Wednesday and Wednesday 1250 mcg = 50,000 Units, Reported on 02/03/2024 fluticasone propion-salmeter oL 250-50 mcg/dose diskus inhaler Inhale 1 puff 2 (two) times a day. Rinse mouth with water after use to reduce aftertaste and incidence of candidiasis. Do not swallow. Active acetaminophen (TylenoL) 500 mg tablet Take 2 tablets (1,000 mg total) by mouth every 6 (six) hours as needed for pain. 02/04/2024 Active oxyCODONE (Roxicodone) 5 mg immediate release tabletIndication s:Acute Pain Take 1 tablet (5 mg total) by mouth every 4 (four) hours as needed for severe pain or score 7-10 of 10 Indication: Acute Pain. 10 tablet 02/04/2024 Active levothyroxine 175 mcg tablet Take 1 tablet (175 mcg total) by mouth daily before morning meal. 60 tablet 02/04/2024 Active amoxicillin (AmoxiL) 500 mg capsule 01/10/2024 4 Discontinued amoxicillin-pot clavulanate (Augmentin) 875-125 mg per tablet 10/25/2023 4 Discontinued aspirin-acetamin ophen-caffeine (Excedrin Migraine) 250-250-65 mg per tablet Take 1-2 tablets by mouth. 4 Discontinued doxycycline monohydrate (Adoxa) 100 mg tablet Take 1 tablet by mouth 2 (two) times a day. 12/14/2021 4 Discontinued fluticasone propion-salmeter oL 250-50 mcg/dose diskus inhaler Inhale 2 (two) times a day. 10/20/2023 4 Discontinued predniSONE (Deltasone) 5 mg tablet Take 20 mg oral daily for 2 days, then Take 10 mg oral daily for 2 days, then Take 5 mg oral daily for 2 days, take with foods 12/14/2021 4 Discontinued levothyroxine 150 mcg tablet Take 1 tablet (150 mcg total) by mouth daily before morning meal. 60 tablet 02/04/2024 4 Discontinued Active Problems Problem Noted Date Diagnosed Date Thyroidectomy Status Post 02/04/2024 Malignant Neoplasm Of Thyroid Medullary 12/30/19 Social History Tobacco Use Types Packs/Day Years Used Date Smoking Tobacco: Never Smokeless Tobacco: Never Alcohol Use Standard Drinks/Week Comments Not Currently 0 (1 standard drink = 0.6 oz pur e alcohol) [facility] [employer] Answer Date Recorded In the past 12 months has e [employer], gas, oil, or water [employer] threatened to shut off services in your [...] your living situation today? I have a [facility] place to live 01/23/2024 Sex and Gender Information Value Date Recorded Sex Assigned at Male 01/23/2024 9:14 PM CDT Gender Identity Male 01/23/2024 9:14 PM CDT Sexual Orientation Straight 01/23/2024 9: 14 PM CDT Last Filed Vital Signs Vital Sign Reading Time Taken Comments Blood Pressure 138/73 02/04/2024 12:10 PM CDT Pulse 84 02/04/2024 12:10 PM CDT Temperature 37.1 ??C (98.8 ??F) 02/04/2024 12:10 PM C DT Respiratory Rate 24 02/04/2024 12:10 PM CDT Oxygen Saturation 93% 02/04/2024 12:10 PM CDT Inhaled Oxygen Concentration - - Weight 104 kg (229 lb 4.5 oz) 02/03/2024 11:03 A M CDT Height 171.5 cm (5' 7.52) 02/03/2024 11:03 AM C DT Body Mass Index 35.36 02/03/2024 11:03 AM CDT Plan of Treatment Not on file Medical Devices Implanted Type Area Radio Frequency Engineer Device Identifier Shelf Expiration Date Model / Serial / Lot Clp Hrzn Ti 6 Clp Sm Red - [id number] Implanted:Qty: 1 on 02/03/2024 by Dakota Morrow M.D. at [facility] Hardware e.g. pins/screws/r ods Neck Teleflex [place] [id number] / / Procedures Procedure Name Priority Date/Time Associated Diagnosis Comments ADULT OXYGEN THERAPY Routine 02/03/2024 9:17 PM CDT PARATHYROID HORMONE (PTH), S Routine 02/03/2024 7:15 PM CDT ADULT OXYGEN THERAPY Routine 02/03/2024 6:51 PM CDT SURGICAL PATHOLOGY, [facility] Routine 02/03/2024 3:20 PM CDT Malignant Neoplasm Of Thyroid Medullary (HCC) AIRWAY MANAGEMENT Routine 02/03/2024 2:0 4 PM CDT MODIFIED DISSECTION NECK 02/03/2024 1:31 PM CDT Malignant Neoplasm Of Thyroid Medullary (HCC) THYROIDECTOMY - TOTAL 02/03/2024 1:31 PM CDT Malignant Neoplasm Of Thyroid Medullary (HCC) US SUPERFICIAL TISSUE FINE NEEDLE ASPIRATION RAD [...] LYMPH NODE Timed 01/31/2024 9:12 AM CDT 25-HYDROXYVITAMIN D2 AND D3, S Routine 01/27/2024 6:47 AM CDT Malignant Neoplasm Of Thyroid Medullary (HCC) CALCIUM, TOT, S/P Routine 01/27/2024 6:4 7 AM CDT Malignant Neoplasm Of Thyroid Medullary (HCC) METANEPHRINES, FRACTIONATED, FREE, P Routine 01/27/2024 6:47 AM CDT Malignant Neoplasm Of Thyroid Medullary (HCC) CARCINOEMBRYONIC AG (CEA), S Routine 01/27/2024 6:47 AM CDT Malignant Neoplasm Of Thyroid Medullary (HCC) CALCITONIN, S Routine 01/27/2024 6:47 AM CDT Malignant Neoplasm Of Thyroid Medullary (HCC) T4 (THYROXINE), FREE, S Routine 01/27/2024 6:47 AM CDT Malignant Neoplasm Of Thyroid Medullary (HCC) THYROID-STIMULATING HORMONE-SENSITIVE (S-TSH) Routine 01/27/2024 6:47 AM CDT Malignant Neoplasm Of Thyroid Medullary (HCC) US THYROID RAD - Routine (most inpatients and all outpatients) 01/25/2024 11:23 AM CDT Malignant Neoplasm Of Thyroid Medullary (HCC) OUTSIDE CT NEURO Routine 12/10/2023 5:20 PM CDT PATHOLOGY REVIEW OF OUTSIDE MATERIAL Routine 11/12/2023 8:45 AM CDT Malignant Neoplasm Of Thyroid (HCC) OUTSIDE US BODY Routine 11/12/2023 8:10 AM CDT from Last 3 Months Results * Parathyroid Hormone (PTH) (02/03/2024 7:15 PM CDT) Parathyroid Hormone (PTH), S 28 15 - 65 pg/mL 02/03/2024 8:48 PM CDT DTL Blood (Blood, Venous) 02/03/2024 7:15 PM CDT 02/03/2024 8:02 PM CDT Jaret Salas M.D. LAB BLOOD ADD-O N [facility] [address] [place] [address], [facility] [address] [place] [address] * Airway (02/03/2024 2:04 PM CDT) Narrative Lenny Hebert M.D. - 02/03/2024 2:04 PM CDT Lenny Hebert M.D. ? 02/03/2024 ??3:02 PM Airway Date/Time: 02/03/2024 2:04 PM Performed by: Lenny Hebert M.D. Authorized by: Willem Baker M.D., M.S. ?? Patient location during procedure: OR / Procedure Area PROCEDURE DETAILS: Mask difficulty assessment: oral/nasal airway needed Final airway type: video laryngoscope Laryngeal Manipulation: no ?? Final best view of glottic structures - Cormack/Lehane Score: grade 2A ETT location: oral VL device: glide scope [place] scope blade size: 4 Tube size: 7 ETT distance at teeth/gum: 22 Oral tube type: monitored ETT Cuffed: yes Number of attempt to successful placement: 1 Airway confirmation: bilateral breath sounds, positive ETCO2 and bilateral chest rise Other previous techniques attempted: none PRE PROCEDURE DETAILS: Pre evaluation for airway management: procedure Urgency: elective Preop assessment of probable difficulty: no difficulty anticipated Preoxygenation: bag valve mask SEDATION / ANESTHESIA Anesthesia method: anesthesia POST PROCEDURE DETAILS: ? Procedure outcome: successful ?? Notable Events: no complications Willem Baker M.D., M.S. ANESTHESIA ORDERABLES * US Superficial Tissue Fine Needle Aspiration [...] (including core biopsies) (01/31/2024 9:19 AM CDT) Only the most recent of2 resultswithin the time period is included. 01/31/2024 11:34 AM CDT DTL Report electronically [...] Torres M.D. LAB SURG PATH [facility] [address] [place] [address], [facility] DTL [address] [place] [address] * Calcitonin, Fine-Needle Aspiration Biopsy (FNAB)-Needle Wash, Lymph Node (01/31/2024 9:16 AM CDT) Only the most recent of2 resultswithin the time period is included. Calcitonin, FNAB, Lymph Node [id number] pg/mL 01/31/2024 6:10 PM CDT [facility] Comment: Calcitonin values = or > 5.0 [...] This test has been modified from the welding machine operator helper gas's instructions. Its performance characteristics were determined by [facility] in a manner consistent with CLIA requirements. [...] Washings, Lymph Node 02/01/2024 10:16 AM CDT [facility] Comment:REVISED RESULTS FNA Needle Washings (Lymph Node) 01/31/2024 9:16 AM CDT Phuc Torres M.D. LAB BODY FLUIDS AN D STOOLS ORDERABLES [facility] [address] [place] [address] [facility] [address] [place] [address] * Metanephrines, Fractionated, Free (01/27/2024 6:47 AM CDT) Normetanephrine, Free 0.64 <0.90 nmol/L 01/28/2024 3:30 PM CDT [facility] Metanephrine, Free <0.20 <0.50 nmol/L 01/28/2024 3:30 PM CDT [facility] Comment: ----ADDITIONAL INFORMATION---- This test was developed and its performance characteristics determined by [facility] in a manner consistent with CLIA requirements. This test has not been cleared or approved by the U.S. Food and Drug Administration. Blood (Blood, Venous) 01/27/2024 6:47 AM CDT 01/27/2024 10:31 AM CDT Phuc Torres M.D. LAB BLOOD NON ADD- ON Performing Organization Address [facility]/ZIP Co de Phone Number [facility] [address] [place] [address] [facility] [address] [place] [address] [place] [address] * (ABNORMAL) 25-Hydroxyvitamin D2 and D3 (01/27/2024 6:47 AM CDT) 25-Hydroxy D2 <4.0 ng/mL 01/29/2024 3:28 PM CDT SDS 25-Hydroxy D3 16 ng/mL 01/29/2024 3:28 PM CDT SDS 25-Hydroxy D Total 16(L) ng/mL 2023 3:28 PM CDT [facility] Comment: Interpretation: 10-19 ng/mL (mild to moderate deficiency) ----REFERENCE VALUE---- 25-HYDROXY D TOTAL (D2+D3) Optimum levels in the healthy population are 20-50. ----ADDITIONAL INFORMATION---- This test was developed and its performance characteristics determined by [facility] in a manner consistent with CLIA requirements. This test has not been cleared or approved by the U.S. Food and Drug Administration. Blood (Blood, Venous) 01/27/2024 6:47 AM CDT 01/27/2024 9:16 AM CDT Phuc Torres M.D. LAB BLOOD ADD-ON Performing Organization Address [facility] Co de Phone Number [facility] [address] [place] [address] [facility] [address] [place] [address] [place] [address] * (ABNORMAL) Calcitonin (01/27/2024 6:47 AM CDT) Calcitonin, S 5061(H) <=14.3 pg/mL 01/27/2024 1:35 PM CDT [facility] Comment: ----ADDITIONAL INFORMATION---- The testing method is an electrochemiluminescence assay manufactured by [employer] and performed on the Lovely system. Values obtained with different assay methods or kits may be different and cannot be used interchangeably. Test results cannot be interpreted as absolute evidence for the presence or absence of malignant disease. Blood (Blood, Venous) 01/27/2024 6:47 AM CDT 01/27/2024 11:54 AM CDT Phuc Torres M.D. LAB BLOOD NON ADD- ON Performing Organization Address City/[facility]/ZIP Co de Phone Number [facility] [address] [place] [address] [facility] [address] [place] [address] * S-TSH (Thyroid-Stimulating Hormone - Sensitive) (01/27/2024 6:47 AM CDT) Pathologist [facility] TSH, Sensitive 2.3 0.3 - 4.2 mIU/L 01/27/2024 8:08 AM CDT DTL Blood (Blood, Venous) 01/27/2024 6:47 AM CDT 01/27/2024 7:31 AM CDT Phuc Torres M.D. LAB BLOOD ADD-ON Performing Organization Address [facility]/ZIP Co de Phone Number [facility] [address] [place] [address] * T4 (Thyroxine), Free (01/27/2024 6:47 AM CDT) T4 (Thyroxine), Free, S 1.4 0.9 - 1.7 ng/dL 01/27/2024 8:08 AM CDT DTL Blood (Blood, Venous) 01/27/2024 6:47 AM CDT 01/27/2024 7:31 AM CDT Phuc Torres M.D. LAB BLOOD ADD-ON Performing Organization Address City/[facility]/ZIP Co de Phone Number [facility] [address] [place], [place] [id number] [place] [address] [address] [place] [address] * (ABNORMAL) CEA (Carcinoembryonic Antigen) (01/27/2024 6:47 AM CDT) Pathologist [facility] Carcinoembryonic Ag (CEA), S 313.0(H) ng/mL 01/27/2024 10:54 AM CDT [facility] Comment: ----REFERENCE VALUE---- <=3.0 (Non-smokers) Some smokers may have elevated CEA, usually <5.0. ----ADDITIONAL INFORMATION---- The testing method is an immunoenzymatic assay manufactured by [employer]. and performed on the AtteroI 800. ? Values obtained with different assay methods or kits may be different and cannot be used interchangeably. ? Test results cannot be interpreted as absolute evidence for the presence or absence of malignant disease. Blood (Blood, Venous) 01/27/2024 6:47 AM CDT 01/27/2024 9:56 AM CDT Phuc Torres M.D. LAB BLOOD ADD-ON [facility] [address] [place] [address] [facility] [address] [place] [address] * Calcium, Total (01/27/2024 6:47 AM CDT) Pathologist [facility] Calcium, Total, S 9.3 8.8 - 10.2 mg/dL 01/27/2024 8:08 AM CDT DTL Blood (Blood, Venous) 01/27/2024 6:47 AM CDT 01/27/2024 7:31 AM CDT Phuc Torres M.D. LAB BLOOD ADD-ON [facility] [address] [place] [address], [place] DTL [facility] [address] [place] [address] * US Thyroid (01/25/2024 11:23 AM CDT) Anatomical Region Laterality Modality Head and Neck, Ultrasound RS T LOS, Ultrasound ARZ LOS, Ultrasound FLA LOS N/A Ultrasound Impressions 01/25/2024 1:52 PM CDT 1. Dominant left 7 cm thyroid nodule, with previous outside biopsy. 2. Suspicious left level 3 and 5 lymph nodes with abnormal morphology. 3. Indeterminate right level 4 node with effaced hilum. Narrative 01/25/2024 1:52 PM CDT EXAM: US THYROID COMPARISON: CT neck 12/10/2023 and outside thyroid ultrasounds from 11/12/2023 and 10/13/2023. FINDINGS: The right thyroid lobe measures: 1.6 cm x 1.8 cm x 5.3 cm The left thyroid lobe measures: 4.8 cm x 4.7 cm x 7.4 cm The isthmus measures: 3.6 mm in AP diameter. Thyroid parenchymal evaluation shows: A few nodules, with remarkable nodules described below. RIGHT LOBE: 1. Solid 3 x 4 x 5 mm hypoechoic nodule in the mid lobe, not taller than wide, with smooth margins and no associated calcifications. Intermediate suspicion, but below size threshold for FNA or follow-up. LEFT LOBE: 1. Dominant 4.7 x 4.8 x 6.9 cm solid hypoechoic nodule in the left lobe, not taller than wide, with smooth margins and no associated calcifications. Intermediate suspicion, reportedly biopsied in November 2022. Lymph nodes: ??Neck levels 1-7 were surveyed and demonstrated: -Indeterminate prominent right 4 lymph node measuring 7 x 7 x 21 mm without clear fatty hilum. -Suspicious morphologically abnormal left level 5 nodes, largest 9 x 9 x 10 mm, irregular-shaped and with effaced fatty hilum. A smaller adjacent left level 5 node measuring 4 x 5 x 6 mm is rounded in shape, has effaced fatty hilum, and contains a punctate echogenic focus. -Suspicious left level 3 node, 5 x 12 x 19 mm, with effaced fatty hilum and a few echogenic foci. Procedure Note Brandi Garcia M.D. - 01/25/2024 EXAM: US THYROID COMPARISON: CT neck 12/10/2023 and outside thyroid ultrasounds from11/12/2023 and 10/13/2023. FINDINGS: The right thyroid lobe measures: 1.6 cm x 1.8 cm x 5.3 cm The left thyroid lobe measures: 4.8 cm x 4.7 cm x 7.4 cm The isthmus measures: 3.6 mm in AP diameter. Thyroid parenchymal evaluation shows: A few nodules, with remarkablenodules described below. RIGHT LOBE: 1. Solid 3 x 4 x 5 mm hypoechoic nodule in the mid lobe, not taller thanwide, with smooth margins and no associated calcifications. Intermediatesuspicion, but below size threshold for FNA or follow-up. LEFT LOBE: 1. Dominant 4.7 x 4.8 x 6.9 cm solid hypoechoic nodule in the left lobe,not taller than wide, with smooth margins and no associatedcalcifications. Intermediate suspicion, reportedly biopsied in November 2022. Lymph nodes: Neck levels 1-7 were surveyed and demonstrated: -Indeterminate prominent right 4 lymph node measuring 7 x 7 x 21 mmwithout clear fatty hilum. -Suspicious morphologically abnormal left level 5 nodes, largest 9 x 9 x10 mm, irregular-shaped and with effaced fatty hilum. A smaller adjacentleft level 5 node measuring 4 x 5 x 6 mm is rounded in shape, has effacedfatty hilum, and contains a punctate echogenic focus. -Suspicious left level 3 node, 5 x 12 x 19 mm, with effaced fatty hilumand a few echogenic foci. IMPRESSION: 1. Dominant left 7 cm thyroid nodule, with previous outside biopsy. 2. Suspicious left level 3 and 5 lymph nodes with abnormal morphology. 3. Indeterminate right level 4 node with effaced hilum. Phuc VALVERDE US PROCEDURES * CT SOFT TISSUE NECK W CON-Outside CT Neuro (12/10/2023 5:20 PM CDT) Narrative [facility] - 12/22/2023 10:05 AM CDT This order has been created and auto-finalized to support the import of outside images. If available, original interpretation can be found on the Media Tab in Chart Review, in Document Viewer, as an image in QREADS or as an Addendum. If a re-interpretation or overread is required please follow defined workflow.?? Provider Not In System IMG CT PROCEDURES [facility]IMO NA * Pathology Review of Outside Material (11/12/2023 8:45 AM CDT) 02/03/2024 10:51 AM CDT DTL Report electronically signed by Marsha Graff M.D. I verify that I have examined all relevant slides/materials for the specimen(s) and rendered or confirmed the diagnosis. A comprehensive consult with review of records that included clinical notes was performed to assist in the diagnostic assessment of the case. 02/03/2024 10:51 AM CDT DTL Material Received A. [id number]: Left thyroid ? 7 stained slides 02/03/2024 10:51 AM CDT DTL Interpretation FINAL DIAGNOSIS Thyroid, left lobe nodule ultrasound-guide d fine needle aspiration ([id number]; smears and thin prep; 11/12/2023): Suspicious for malignancy. ??Discohesive cells with nuclear hyperchromasia and atypia worrisome for medullary carcinoma. 02/03/2024 10:51 AM CDT DTL Varies 11/12/2023 8:45 AM CDT 02/02/2024 11:56 AM CDT Phuc Torres M.D. LAB SURG PATH [facility] [address] [place] [address], [facility] DTL [address] [place] [address] * US biopsy (FNA) thyroid-Outside US Body (11/12/2023 8:10 AM CDT) Narrative [facility] - 12/22/2023 10:03 AM CDT This order has been created and auto-finalized to support the import of outside images. If available, original interpretation can be found on the Media Tab in Chart Review, in Document Viewer, as an image in QREADS or as an Addendum. If a re-interpretation or overread is required please follow defined workflow.?? Provider Not In System IMG US PROCEDURES [facility]IMS NA from Last 3 Months Advance Directives For more information, please contact: [phone] * Full Code (Latest Code Status on File) Date Activated Date Inactivated Comments 02/03/2024 10:45 AM 02/04/2024 2:49 PM Question Answer Comments Full Code: Not Discussed Due to: Patient not available Care Teams [employer] Relationship Specialty Start Date End Date Elsewhere, Pcp PCP - General Internal Medicine 01/27/24
--- OUTSIDE RECORDS SUMMARY | 2024-02-05 02:23 | XMS_ITS | Encounter Summary ---
Author Organization [facility] Address [address] [place] [id number] Care Team Providers Care Transitional Studies Instructor Name Role Phone Elsewhere, Pcp Primary Care Provider Unavailabl e Encounter Details Date Type Department Care Team (Late st Contact Info) Description 01/27/2024 2:40 PM CDT Lab RST RO LMP [address] [place] [phone] Phuc Torres M.D. [address] [place] [phone] Malignant Neoplasm Of Thyroid (HCC) Social History Tobacco Use Types Packs/Day Years Used Date Smoking Tobacco: Never Assessed [facility] Utilities Answer Date Recorded In the [...] your living situation today? I have a [facility] place to live 01/23/2024 Sex and Gender Information Value Date Recorded Sex Assigned at Male 01/23/2024 9:14 PM CDT Gender Identity Male 01/23/2024 9:14 PM CDT Sexual Orientation Straight 01/23/2024 9: 14 PM CDT documented as of this encounter Plan of Treatment Not on file documented as of this encounter Procedures Procedure Name Priority Date/Time Associated Diagnosis Comments PATHOLOGY REVIEW OF OUTSIDE MATERIAL Routine 11/12/2023 8:45 AM CDT Malignant Neoplasm Of Thyroid (HCC) documented in this encounter Results * Pathology Review of Outside Material (11/12/2023 [...] 10:51 AM CDT DTL Material Received A. [id number]: Left thyroid ? 7 stained slides 02/03/2024 10:51 AM CDT DTL Interpretation FINAL DIAGNOSIS Thyroid, left lobe nodule ultrasound-guide d fine needle aspiration ([id number]; smears and thin prep; 11/12/2023): Suspicious for malignancy. ??Discohesive cells with nuclear hyperchromasia and atypia worrisome for medullary carcinoma. 02/03/2024 10:51 AM CDT DTL Varies 11/12/2023 8:45 AM CDT 02/02/2024 11:56 AM CDT Phuc Torres M.D. LAB SURG PATH AMY [facility] Performing Organization Address City/State/[facility] Co de Phone Number [facility] [address] [place] [address], [facility] DTL [address] [place] [address] documented in this encounter Visit Diagnoses Diagnosis Malignant Neoplasm Of Thyroid (HCC) documented in this encounter Care Teams Transitional Studies Instructor Relationship Specialty Start Date End Date Elsewhere, Pcp PCP - General Internal Medicine 01/27/24 documented as of this encounter
--- OUTSIDE RECORDS SUMMARY | 2024-02-05 02:23 | XMS_ITS | Encounter Summary ---
Author Organization [facility] Address [address] [place] [address] Care Team Providers Care Powder Line Repairer Name Role Phone Elsewhere, Pcp Primary Care Provider Unavailabl e Reason for Visit * Outpatient (Routine) - Closed Specialty Diagnoses / Procedures Referred By Vinicius t Referred To Contact General Surgery Dakota Morrow M.D. [address] [place] [phone] Dakota Morrow M.D. [address] [place] [phone] Referral ID Status Reason Start Date Expiration Date Visits Re quested Visits Authorized [id number] Closed 01/27/2024 07/28/2025 1 1 Encounter Details Date Type Department Care Team (Late st Contact Info) Description 02/02/2024 2:00 PM CDT Office Visit Division of Endocrine Surgery in [place], [place] [address] [place] [phone] Dakota Morrow M.D. [address] [place] [phone] Phuc Torres M.D. [address] [place] [phone] Malignant Neoplasm Of Thyroid Medullary (HCC) (Primary Dx) Social History Tobacco Use Types Packs/Day Years Used Date Smoking Tobacco: Never Assessed [facility] Utilities Answer Date Recorded In the past 12 months has th e [email or web address], gas, oil, or water [employer] threatened to shut off services in your [...] your living situation today? I have a [facility] place to live 01/23/2024 Sex and Gender Information Value Date Recorded Sex Assigned at Male 01/23/2024 9:14 PM CDT Gender Identity Male 01/23/2024 9:14 PM CDT Sexual Orientation Straight 01/23/2024 9: 14 PM CDT documented as of this encounter Consult Notes * Dakota Morrow M.D. - 02/02/2024 2:00 PM CDT SUBJECTIVE CHIEF COMPLAINT / REASON FOR VISIT Forest Long is a 63 y.o. male presenting in referral from Dakota Morrow M.D. for consultation in the evaluation of metastatic medullary thyroid cancer. HISTORY OF PRESENT ILLNESS Had FNA of lateral neck. Left side came back positive for medullary cancer in level 5. On right side level 4 lymph node was negative for cancer on cytology. REVIEW OF SYSTEMS REVIEW OF SYSTEMS OBJECTIVE PHYSICAL EXAM Physical Exam No acute distress Neck is soft supple ASSESSMENT / PLAN 1. Medullary thyroid cancer Recommend total thyroidectomy and left modified radical neck dissection. documented in this encounter Plan of Treatment Not on file documented as of this encounter Visit Diagnoses Diagnosis Malignant Neoplasm Of Thyroid Medullary (HCC)- Primary documented in this encounter Care Teams Powder Line Repairer Relationship Specialty Start Date End Date Elsewhere, Pcp PCP - General Internal Medicine 01/27/24 documented as of this encounter
--- OUTSIDE RECORDS SUMMARY | 2024-02-05 02:23 | XMS_ITS | Encounter Summary ---
Author Organization [facility] Address [address] [place] [address] Care Team Providers Care Mc Kay Machine Operator Name Role Phone Elsewhere, Pcp Primary Care Provider Unavailabl e Reason for Visit * Auth/Cert (Routine) Specialty Diagnoses / Procedures Referred By Vinicius t Referred To Contact Diagnoses Malignant Neoplasm Of Thyroid Medullary (HCC) Malignant Neoplasm Of Thyroid Medullary (HCC) [C73] Procedures VT LBCTMY THYROID TOTAL UNILAT VT THYROIDECTOMY TOTAL/COMPLETE VT CERV LMPH MOD/RAD NECK DISSECT THYROIDECTOMY - LOBECTOMY, MODIFIED NECK DISSECTION Dakota Morrow M.D. 200 [place] [phone] Referral ID Status Reason Start Date Expiration Date Visits Re quested Visits Authorized [id number] 1 1 Encounter Details Date Type Department Care Team (Latest Contact Info) Description 02/03/2024 10:28 AM CDT - 02/04/2024 12:44 PM CDT Hospital Encounter [facility], Sixth Floor [address] [place] [phone] Dakota Morrow M.D. 200 [place] [phone] Malignant Neoplasm Of Thyroid Medullary (HCC) Discharge Disposition: Home or Self Care Social History Tobacco Use Types Packs/Day Years Used Date Smoking Tobacco: Never Smokeless Tobacco: Never Alcohol Use Standard Drinks/Week Comments Not Currently 0 (1 standard drink = 0.6 oz pur e alcohol) [facility] Utilities Answer Date Recorded In the past 12 months has th e [employer], gas, oil, or water [employer] threatened to shut off services in your [...] your living situation today? I have a [facility] place to live 01/23/2024 Sex and [...] AM CDT DISCHARGE SUMMARY BRIEF OVERVIEW Hospital: [facility] [place] Provider: Dakota Morrow M.D. Primary Team: T General Surgery - Cristhian Primary Care Providers: [...] M.D.Flaris, Alexandros N, M.D.Pierce, Erika M, M.D. [facility] OR DISCHARGE DISPOSITION Home or Self Care [1] ACTIVE ISSUES REQUIRING FOLLOW UP Check TSH with PCP or fork lift mechanic in 6 weeks OUTPATIENT FOLLOW UP For [...] 5A, 02/03/24 The patient was admitted to [facility]. The patient was taken to the operating [...] He requires follow-up with his PCP or fork lift mechanic in 6 weeks. At the time of [...] through Care Everywhere. * Acetaminophen (By mouth) (Yakut) * Levothyroxine (By mouth) (Yakut) * Oxycodone, Rapid Release (By mouth) (Yakut) documented in this encounter Medications at Time [...] this encounter Progress Notes * Leland Walters, PharmRenateD., R.Ph. - 02/03/2024 10:25 PM CDT Images from the original note were not included. Admission Medication History Note Adherence issues: No concerns Medication list source: Patient Medication related information: Confirms he hasn't taken albuterol or clotrimazole in several months or possibly even years. Prior to Admission Medications Med List Status: Pharmacy Complete Set By: Leland Walters, Pharm.D., R.Ph. at 02/03/2024 10:23 PM Taking? Last [...] Diagnosis Malignant Neoplasm Of Thyroid Medullary (HCC) Routeman A sampler first actively participated and was necessary for one [...] Jaret Salas M.D. LAB BLOOD ADD-O N [address] [address], [facility] [address] [address] documented in this encounter Visit Diagnoses Diagnosis Malignant Neoplasm Of Thyroid Medullary (HCC)- Primary Thyroidectomy Status Post documented in this encounter Admitting Diagnoses Diagnosis [...] 02/03/24 at 1300, For 1 dose, Pre-Op, Head Teacher, PreOp with sips Given 02/03/2024 12:52 PM [...] Given 02/03/2024 10:12 PM CDT 1 lozenge fentaNYL injection 25 mcg (Sublimaze) 25 mcg, [...] mL (DuoNeb) 3 mL, nebulization, Once, On Wed02/03/24 at 1315, For 1 dose, Pre-Op Given [...] 02/03/24 at 1300, For 1 dose, Pre-Op, Head Teacher, PreOp with sips 1252 (Given - Provider: Sarai Yip RDerrell) acetaminophen tablet 1,000 mg (TylenoL) 1,000 mg, oral, Every 6 hours, First dose on Wed02/04/24 at 0200, (not to exceed 4 grams in 24 hours) 0110 (Given - Provid er: ePng Brooks RDerrell)0827 (Not Given - Provider: Carol Dean RDerrell - Reason: Patient/family refused) fluticasone furoate-vilanteroL 100-25 [...] (DuoNeb) (COMPLETED) 3 mL, nebulization, Once, On Wed02/03/24 at 1315, For 1 dose, Pre-Op 1301 (Given - Provider: Sarai Yip R.N.) levothyroxine tablet 150 mcg 150 mcg, oral, Daily before morning meal, First dose on Wed02/04/24 at 0830 0903 (Given - Provid er: Michelle Hylton R.N.) loratadine tablet 10 mg (Claritin) 10 mg, oral, 2 times daily, First dose (after last modification) on Wed02/03/24 at 2245 2247 (Not Given - Provider: Gwendolyn Coleman R.N. - Reason: Patient/family refused) 0828 (Given - Provider: Carol Dean R.N.) sennosides-docusate sodium 8.6-50 mg per tablet 2 tablet (Senokot-S) 2 tablet, oral, Daily at bedtime, First dose on Wed02/03/24 at 2200, hold for diarrhea 2211 (Not Given - Provider: Gwendolyn Coleman R.N. - Reason: Patient/family refused) Continuous Medication Order 02/02/2024 02/03/2024 02/04/2024 Lactated Ringer's 1,000 mL (CANCELED) 1,000 mL, intravenous, at 100 mL/hr, Continuous, Starting on Wed02/03/24 at 1300, Pre-Op 1302 (New Bag - Provider: Sarai Yip R.N.) Lactated Ringer's (CANCELED) 75 mL/hr, intravenous, Continuous, Starting on Wed02/03/24 at 1800, PACU & Post-Op 1904 (Continued [...] sore throat, Starting on Renata 02/03/24 at 214 221 (Given - Provider: Gwendolyn Coleman R.N.) cellulose, [...] mcg 1931 (Given - Provider: Alfred Lomas RRenateN.)1939 (Given - Provider: Graciela FangN.)1954 (Given - Provider: Filomena Lomas R.N.)2010 (Given - Provider: Filomena Lomas R.N.) ipratropium-albuteroL 0.5-2.5 mg/3 mL nebulizer solution 3 mL (DuoNeb) 3 mL, nebulization, 4 times daily PRN, wheezing, shortness of breath, Starting on Rneata 02/03/24 at 7 2211 (Given - Provider: Gwendolyn Coleman RRenateN.) naloxone injection 0.2 mg (Narcan) 0.2 mg, intravenous, As needed, respiratory depression, Starting on Renata 02/03/24 at 2116, For RASS Score -4 or less, respiratory rate of less than 8 breaths/min. Notify provider/service and rapid response team (if available at institution). ondansetron (PF) injection 4 mg (Zofran) 4 mg, intravenous, Every 6 hours PRN, nausea, vomiting, Starting on Renata 02/03/24 at 7, For 48 hours, Reassess for nausea or [...] on Renata 02/03/24 at 1935, PACU (only) 1925 (Given - Provider: Alfred Lomas R.N.) prochlorperazine injection 5 mg (Compazine) 5 mg, [...] 10, Starting on Renata 02/03/24 at 2116 documented in this encounter Care Teams Mc Kay Machine Operator Relationship Specialty Start Date End Date Elsewhere, Pcp PCP - General Internal Medicine 01/27/24 documented as of this encounter
--- OUTSIDE RECORDS SUMMARY | 2024-02-05 02:23 | XMS_ITS | Encounter Summary ---
Author Organization [facility] Address [address] [place] [id number] Care Team Providers Care Textile Slitting Machine Operator Name Role Phone Elsewhere, Pcp Primary Care Provider Unavailabl e Reason for Visit * Auth/Cert (Routine) Specialty Diagnoses / Procedures Referred By Vinicius t Referred To Contact Diagnoses Malignant Neoplasm Of Thyroid Medullary (HCC) Malignant Neoplasm Of Thyroid Medullary (HCC) [C73] Procedures NM LBCTMY THYROID TOTAL UNILAT NM THYROIDECTOMY TOTAL/COMPLETE NM CERV LMPH MOD/RAD NECK DISSECT THYROIDECTOMY - LOBECTOMY, MODIFIED NECK DISSECTION Dakota Morrow M.D. [address] [place] [phone] Referral ID Status Reason Start Date Expiration Date Visits Re quested Visits Authorized [id number] 1 1 Encounter Details Date Type Department Care Team (Late st Contact Info) Description 02/03/2024 1:52 PM CDT Anesthesia Event [facility] [address] [place] [phone] Paulino Love, D.O. [address] [place] [phone] Willem Baker M.D., M.S. [address] [place] [phone] Anesthesia Record Procedure Summary Procedure Name Responsible Anesthesiologist Anesthesia Start Time Anesthesia Stop Time THYROIDECTOMY - TOTAL. Paulino Love, D.O. 1352 02/03/24 1848 Events Date Time Event Comment 02/03/2024 1322 1352 An Start Machine/Equipme nt Checked Infection Precautions Followed Procedure/Site Verified NPO Status Verified Supine Standard ASA Monitors Applied 1400 An Induction 1404 An Intubation 1404 Turnover to Proceduralist 1438 Proc Start 1452 Quick Note Changed BP cuff to L calf 1511 Anes CS Handoff I, Lenny Strauss M.D., attest that I have reconciled the controlled substances and that I have reviewed all the significant information with the next anesthesia provider assuming care of this patient. 1552 an serene now 1809 Proc Fin 1827 Turnover to ANE Staff 1836 Airway Removal Criteria Met 1836 Extubation/Airway Removed 183 an stop data 1848 An End I completed my handoff to the receiving staff during which we 1. Identified the patient 2. Identified the responsible provider 3. Reviewed the pertinent medical history 4. Discussed the surgical course 5. Reviewed intra-op anesthesia management and issues during anesthesia 6. Set expectations for post-procedure period 7. Allowed opportunity for questions and acknowledgement of understanding. Meds Name Total lidocaine 2% (mg) injection 100 mg succinylcholine 20 mg/mL injection 100 m g phenylephrine 100 mcg/mL injection 1,200 mcg ePHEDrine PF 5 mg/mL syringe injection 2 5 mg ondansetron 4 mg/2 mL injection 4 mg propofol 10 mg/mL infusion 2,639 mg propofol 10 mg/mL injection 85 mg ketamine 10 mg/mL injection 100 mg remifentaniL 20 mcg/mL in NaCl 0.9% 100 mL infusion (Ultiva) 3.73 mg dexAMETHasone (Decadron) injection 4 mg/ mL 4 mg phenylephrine 20 mg/250 mL infusion 6.1 mg ketorolac (TORADOL) 15 mg/mL injection 1 5 mg Lactated Ringers Free Drip 1,000 mL * Agents No agents on file. * Blood No blood administrations on file. Lines, Drains, and Airways Type Details Placement Removal Wound 02/03/24; 1439; N; Incision; Neck 02/03/24 1439 by Bushra Quan, R.NRenate Peripheral IV Placement Date: 01/10 12/02; Placement Time: 1117; Catheter Size: 20 G; Orientation: Anterior, Distal, Left, Lower; Location: Forearm; Site Prep: Chlorhexidine (Preferred); Technique: Anatomical landmarks; Inserted by: JORDYN; Insertion Attempts: 1; Removal Date: 02/04/24; Removal Time: 1215; Removal Reason: Per order 02/03/24 1117 by Lynda Rausch R.N. 02/04/24 1215 by Lucy Munroe ETT Placement Date: 01/10 12/02; Placement Time: 1404 (created via procedure documentation); Mask Ventilation: Oral/Nasal airway needed; Technique: Video laryngoscopy; Single Lumen Tube Size: 7 mm; Cuffed: Yes; Location: Oral; Grade View: Grade 2A; Insertion Attempts: 1; Placement Verification: Bilateral breath sounds, Positive ETCO2, Symmetrical chest wall movement; Removal Date: 02/03/24; Removal Time: 183502/03/24 1404 by Lenny Hebert M.D. 02/03/24 183 by Cassandra Cedeno APRN, HONING JOB SETTER, DNAP documented in this encounter Social History Tobacco Use Types Packs/Day Years Used Date Smoking Tobacco: Never Smokeless Tobacco: Never Alcohol Use Standard Drinks/Week Comments Not Currently 0 (1 standard drink = 0.6 oz pur e alcohol) [facility] Utilities Answer Date Recorded In the past 12 months has [employer] gas, oil, or water [employer] threatened to shut off services in your [...] your living situation today? I have a [facility] place to live 01/23/2024 Sex and Gender Information Value Date Recorded Sex Assigned at Male 01/23/2024 9:14 PM CDT Gender Identity Male 01/23/2024 9:14 PM CDT Sexual Orientation Straight 01/23/2024 9: 14 PM CDT documented as of this encounter OR Notes * Anesthesia Postprocedure Evaluation - Paulino Love D.O. - 02/04/2024 6:58 AM CDT Patient: Forest Long Procedure Summary Date: 02/03/24 Room / Location: [address] / [facility] in [place], [place] Anesthesia Start: 1352 Anesthesia Stop: 1847 Procedures: THYROIDECTOMY - TOTAL. MODIFIED DISSECTION NECK, LEVEL 2, 3, 4 AND 5A (Left) Diagnosis: Malignant Neoplasm Of Thyroid Medullary (HCC) (Malignant Neoplasm Thyroid Medullary (HCC) [C73].) Providers: Dakota Morrow M.D. Responsible Provider: Paulino Love DMoe Anesthesia Type: general ASA Status: 2 Anesthesia Type: general Last vitals Vitals Value Taken Time BP 170/92 02/03/242044 Temp 37 ??C 02/03/242054 Pulse 97 02/03/242099 Resp 19 02/03/24 2100 SpO2 92 % 02/03/242099 Please reference Vitals flowsheet for most recent vital signs. Anesthesia Post Evaluation Patient Disposition: general care unit Cardiovascular status: hemodynamics (HR & BP) acceptable Respiratory status: patent airway with spontaneous effort Temperature: normothermic Oxygen requirements: nasal cannula Level of consciousness: awake Pain score: pain adequately controlled and/or at baseline Post Op nausea/vomiting: none Hydration status: euvolemic * Anesthesia Procedure Notes - Lenny Hebert M.D. - 02/03/2024 3:02 PM CDTAssociated Order(s): Airway Airway Date/Time: 02/03/2024 2:04 PM Performed by: Lenny Hebert M.D. Authorized by: Willem Baker M.D., M.S. Patient location during procedure: OR / Procedure Area PROCEDURE DETAILS: Mask difficulty assessment: oral/nasal airway needed Final airway type: video laryngoscope Laryngeal Manipulation: no Final best view of glottic structures - Cormack/Lehane Score: grade 2A ETT location: oral VL device: glide scope [place] scope blade size: 4 Tube size: 7 [...] ANESTHESIA Anesthesia method: anesthesia POST PROCEDURE DETAILS: Procedure outcome: successful Notable Events: no complications * Anesthesia Preprocedure Evaluation - Willem Baker M.D., M.S. - 02/03/2024 11:37 AM CDT Preprocedure Anesthesia & H&P Assessment Procedure Summary Date/Time: 02/03/24 1213 Procedures: *Consent Scanned into [facility]* THYROIDECTOMY - TOTAL. 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 Location: [address] [facility] / [facility] in [place], [place] Providers: Dakota Morrow M.D. Pertinent components of the patient's history including current problem list, medical history, surgical history, family history, social history, medications and allergies were reviewed. Present illness and pre-op diagnosis were confirmed. The planned surgery / procedure was verified with the patient / legal guardian. The patient's general health condition remains unchanged RELEVANT COMORBID CONDITIONS No relevant active problems OBJECTIVE PHYSICAL EXAMINATION Airway (HEENT) Mallampati: III TM Distance: >3 FB Neck ROM: Full Mouth Opening: >3 cm Cardiovascular Rhythm: Regular Rate: Normal Functional Capacity: >4 METS Pulmonary Pulmonary Assessment: Non labored General / Constitutional Constitutional Assessment: Obese General State of Health:: healthy appearing and calm Neurological Neurologic Assessment: alert and alert and oriented x 3 Dental Dental Assessment: dentition intact ASSESSMENT / PLAN ANESTHESIA PLAN ASA: 2 Anesthesia Plan: general Patient seen and allergies reviewed, anesthesia plan and risks discussed directly with patient /legal guardian or through an amusement centre manager. The use of blood products not discussed Approval to Proceed: approved for anesthesia documented in this encounter Plan of Treatment Not on file documented as of this encounter Procedures Procedure Name Priority Date/Time Associated Diagnosis Comments AIRWAY MANAGEMENT Routine 02/03/2024 2:0 4 PM CDT documented in this encounter Results * Airway (02/03/2024 2:04 PM CDT) Narrative [...] ETT location: oral VL device: glide scope [place] scope blade size: 4 Tube size: 7 [...] complications Willem Baker M.D., M.S. ANESTHESIA ORDERABLES documented in this encounter Visit Diagnoses Not on filedocumented in this encounter Administered Medications Inactive Administered Medications - up to 3 most recent administrations Medication Order MAR Action Action Date Dose Rate Site dexAMETHasone injection (Decadron) intravenous, As needed, Starting on Renata 02/03/24 at 1438, Anesthesia Intra-op Given 02/03/2024 2:38 PM CDT 4 mg ePHEDrine (PF) injection intravenous, As needed, Starting on Ernata 02/03/24 at 1412, Anesthesia Intra-op Given 02/03/2024 2:41 PM CDT 5 mg Given 02/03/2024 2:26 PM CDT 10 mg Given 02/03/2024 2:12 PM CDT 10 mg ketamine injection (Ketalar) intravenous, As needed, Starting on Renata 02/03/24 at 1401, Anesthesia Intra-op Given 02/03/2024 5:01 PM CDT 5 mg Given 02/03/2024 4:00 PM CDT 10 mg Given 02/03/2024 2:01 PM CDT 85 mg ketorolac injection (ToradoL) intravenous, As needed, Starting on Renata 02/03/24 at 1736, Anesthesia Intra-op Given 02/03/2024 5:36 PM CDT 15 mg Lactated Ringer's intravenous, Continuous Infusion: Per Instructions PRN, Starting on Renata 02/03/24 at 1401, Anesthesia Intra-op New Bag 02/03/2024 6:25 PM CDT New Bag 02/03/2024 2:01 PM CDT lidocaine (PF) (cardiac) injection intravenous, As needed, Starting on Renata 02/03/24 at 1400, Anesthesia Intra-op Given 02/03/2024 2:00 PM CDT 100 mg ondansetron (PF) injection (Zofran) intravenous, As needed, Starting on Renata 02/03/24 at 1750, Anesthesia Intra-op Given 02/03/2024 5:50 PM CDT 4 mg phenylephrine 80 mcg/mL in NaCl 0.9% 250 mL infusion intravenous, Continuous Infusion: Per Instructions PRN, Starting on Renata 02/03/24 at 1424, Anesthesia Intra-op Rate/Dose Change 02/03/2024 4:43 PM CDT 0.3 mcg/kg/min 23.4 mL/hr Rate/Dose Change 02/03/2024 4:02 PM CDT 0.2 mcg/kg/min 15. 6 mL/hr Rate/Dose Change 02/03/2024 3:26 PM CDT 0.1 mcg/kg/min 7.8 mL/hr phenylephrine injection intravenous, As needed, Starting on Renata 02/03/24 at 1410, Anesthesia Intra-op Given 02/03/2024 6:25 PM CDT 200 mcg Given 02/03/2024 6:13 PM CDT 100 mcg Given 02/03/2024 2:41 PM CDT 100 mcg propofol 10 mg/mL infusion (Diprivan) intravenous, Continuous Infusion: Per Instructions PRN, Starting on Renata 02/03/24 at 1400, Anesthesia Intra-op Rate/Dose Change 02/03/2024 4:13 PM CDT 115 mcg/kg/min 71.76 mL/hr Rate/Dose Change 02/03/2024 2:18 PM CDT 125 mcg/kg/min 78 mL/hr New Bag 02/03/2024 2:00 PM CDT 100 mcg/kg/min 62.4 mL/h r propofoL injection (Diprivan) intravenous, As needed, Starting on Renata 02/03/24 at 1401, Anesthesia Intra-op Given 02/03/2024 2:01 PM CDT 85 mg remifentaniL 20 mcg/mL in NaCl 0.9% 100 mL infusion (Ultiva) intravenous, Continuous Infusion: Per Instructions PRN, Starting on Renata 02/03/24 at 1401, Anesthesia Intra-op Rate/Dose Change 02/03/2024 5:50 PM CDT 0.05 mcg/kg/min 15.6 mL/hr Rate/Dose Change 02/03/2024 5:21 PM CDT 0.1 mcg/kg/min 31. 2 mL/hr New Bag 02/03/2024 4:39 PM CDT 0.15 mcg/kg/min 46.8 mL/ hr succinylcholine (PF) injection (Anectine) intravenous, As needed, Starting on Renata 02/03/24 at 1401, Anesthesia Intra-op Given 02/03/2024 2:01 PM CDT 100 mg documented in this encounter Care Teams Textile Slitting Machine Operator Relationship Specialty Start Date End Date Elsewhere, Pcp PCP - General Internal Medicine 01/27/24 documented as of this encounter
--- OUTSIDE RECORDS SUMMARY | 2024-02-05 02:23 | XMS_ITS | Encounter Summary ---
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 [address] [place] [phone] [facility] Referral ID Status Reason Start Date Expiration Date Visits Re quested Visits Authorized [id number] Closed 01/27/2024 01/26/2025 1 1 * Outpatient (Routine) - Closed Specialty Diagnoses / Procedures Referred By Vinicius reid Referred To Contact Diagnoses Malignant Neoplasm Of Thyroid (HCC) Procedures US Superficial Tissue Fine Needle Aspiration Phuc Torres M.D. [address] [place] [phone] [facility] Referral ID Status Reason Start Date Expiration Date Visits Re quested Visits Authorized [id number] Closed 01/27/2024 01/26/2025 1 1 Reason for Visit * Appointment Request (Routine) - Closed Specialty Diagnoses / Procedures Referred By Vinicius reid Referred To Contact Endocrinology Diagnoses Malignant Neoplasm Of Thyroid Medullary (HCC) Referral ID Status Reason Start Date Expiration Date Visits Re quested Visits Authorized [id number] Closed 12/20/2023 12/19/2024 1 1 Encounter Details Date Type Department Care Team (Latest Contact Info) Description 01/27/2024 1:30 PM CDT Comprehensive Visit Division of Endocrinology in [place], [place] [address] [place] [phone] Phuc Torres M.D. [address] [place] [phone] Malignant Neoplasm Of Thyroid (HCC) Social History Tobacco Use Types Packs/Day Years Used Date Smoking Tobacco: Never Assessed [facility] Utilities Answer Date Recorded In [...] your living situation today? I have a [facility] place to live 01/23/2024 Sex and Gender Information Value Date Recorded Sex Assigned at Male 01/23/2024 9:14 PM CDT Gender Identity Male 01/23/2024 9:14 PM CDT Sexual Orientation Straight 01/23/2024 9: 14 PM CDT documented as of this encounter Last Filed Vital Signs Vital Sign Reading Time Taken Comments Blood Pressure 151/95 01/27/2024 1:30 PM CDT Pulse 79 01/27/2024 1:30 PM CDT Temperature - - Respiratory Rate - - Oxygen Saturation - - Inhaled Oxygen Concentration - - Weight 107 kg (235 lb 10.8 oz) 01/27/2024 1:30 P M CDT Height 176.9 cm (5' 9.65) 01/27/2024 1:30 PM CD T Body Mass Index 34.16 01/27/2024 1:30 PM CDT documented in this encounter Consult Notes * Phuc Torres M.D. - 01/27/2024 1:30 PM CDT SUBJECTIVE REASON FOR CONSULT Patient is here for evaluation of thyroid cancer. HISTORY OF PRESENT ILLNESS Mr. Ethan Wise) is a 63-year-old man from [facility], about [place] hour [place] 15 minutes away, who about 4 months ago had an episode of acute bronchitis. Symptoms persisted, and he hadcontinued breathing issues for which he ultimately saw his PCP. Because he has struggled with allergies, they thought he had asthma, but during examination his primary care doc noted a lump in his neck. He recommended getting an ultrasound which showed what he describes as a ping-pong ball sized nodule. A biopsy was performed locally, which was read as suspicious for a thyroid neoplasm, includingpossibilities of a follicular adenoma, follicular carcinoma, or a follicular variant of PTC. Duringit appears additional testing, calcitonin and CEA were obtained, and reportedly his calcitonin cameback at around 7000, and CEA was also elevated around 300, which prompted a change in the diagnosisto medullary thyroid cancer. As such, he was referred to us for further management, as his local surgeon did not feel comfortable managing this case. His father has some sort of thyroid problem, but not cancer; there is no known family history of thyroid cancer. He has some white coat hypertension,but otherwise his blood pressure has been okay when tested at home. No history of any other adrenaltumors. He denies any significant pressure, dysphonia, or dysphagia. He has had the issues with breathing trouble, but is uncertain whether it relates to this. MEDICAL HISTORY Significant for allergies on inhaler, question asthma, an episode of global amnesia happening a dayafter zip lining. He had a surgery for a torn meniscus. No other past medical history of significance. SOCIAL HISTORY He is . Has 3 children ages 31-34, all in good health. He had 1 child who before the age of 2 from Down syndrome. No tobacco. 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 Review of his chart, though, shows that in [address] of the chest done, which at the time mentioned the presence of a 4.1-cm nodule in the thyroid, but it does not appear that this was subsequently followed up with additional imaging or ultrasound or biopsy. Aside from this, no other issues of significance. He had lab work as well as imaging done here during this visit. The thyroid ultrasound shows a 4.7 x 4.8 x 7 cm solid hypoechoic nodule in the left lobe with smooth margins and no calcifications. This is the nodule that was biopsied locally that is now known to represent a medullary thyroid cancer.There is an additional 3 x 4 x 5 mm hypoechoic nodule in the mid lobe, not taller than wide, of intermediate suspicion. This is located in the right lobe. There are several abnormal-looking lymph nodes including a right prominent level 4 measuring 21 mm without a clear fatty hilum as well as suspicious morphologically abnormal left level 5 lymph nodes, largest 1 measuring 9 x 9 x 10, which is irregularly-shaped with effaced fatty hilum and an adjacent level 5 nodule measuring 4 x 5 x 6, rounded, without fatty hilum as well, and with punctate echogenic foci. An additional left level 3 lymph node measures 19 mm in greatest dimension, again without a fatty hilum and few echogenic foci. Laboratory testing done during this visit includes a normal TSH of 2.3, free T4 of 1.4, calcitonin that is m arkedly elevated at 5061, a CEA that is elevated at 313, a normal serum calcium of 9.3, and a vitamin D that is currently pending and metanephrines that are currently pending. Unfortunately, althoughthe path slides were requested over a month ago, they were never received for confirmation of the diagnosis. He is expected to meet with Dr. Morrow later today for consideration of surgery. OBJECTIVE PHYSICAL EXAMINATION General: This is a pleasant middle-aged man in no acute distress. Vital Signs: Height 176.9 cm. Weight 106.9 kg. Pulse 79. Blood pressure 151/95. Eyes: Negative. Neck: He has a short, thick neck. There is an easily palpable mass on the left lobe of the thyroid that moves freely with swallowing. No palpable masses on the right. No palpable neck adenopathy. Lungs: Clear to auscultation bilaterally. Heart: Regular without murmurs. Extremities: Show no edema, clubbing, or cyanosis. ASSESSMENT / PLAN #1 7-cm left thyroid nodule consistent with medullary thyroid cancer #2 Suspicious bilateral lymphadenopathy I reviewed with Forest the results of our labs as well as imaging. Before proceeding with surgery,we need to sort out a few things. We discussed that although medullary thyroid cancer is more rare,the majority of the medullary thyroid cancers (about 75%) are sporadic and not familial. Genetic testing with measurement of red oncogene is indicated. Although highly unlikely, we also need to awaitthe results of the metanephrines to rule out possibility of MEN2, even though this is highly unlikely given the lack of any family history of either pheo or even thyroid cancer. Before proceeding with surgery, it will also be important to evaluate the abnormal lymph nodes on both sides of the neck, as if positive, that would entail a more extensive surgery. Because of the sheer size of the tumor, a total thyroidectomy would be indicated with or without lateral neck dissection depending on the outcome of the FNAs. We will arrange for biopsies of the right level 4 and leftlevel 3 lymph nodes at the earliest opportunity. I have also requested red oncogene testing to be completed as soon as possible. After surgery, we will need to continue to monitor including testing, followup calcitonin postoperatively, and subsequent imaging depending on the calcitonin levels postop. If they remain elevated, we will proceed with additional testing with CT chest and abdomen to rule out any potential distant METS. I reviewed with patient current plan and impressions and recommendations. I will communicate with him when the results become available. He will be meeting with Dr. Morrow later today with whom I have already had the opportunity to discuss the clinical scenario of this patient. Phuc Torres M.D. CT CT Job ID: [id number] documented in this encounter Plan of Treatment [...] Lab Routine Malignant Neoplasm Of Thyroid (HCC) Expected: 01/27/2024, Expires: 04/28/2025 documented as of this encounter Results * US Superficial Tissue [...] Phuc Torres M.D. IMG US PROCEDURES * Pathology Review of Outside Material (11/12/2023 [...] 10:51 AM CDT DTL Material Received A. [id number]: Left thyroid ? 7 stained slides 02/03/2024 10:51 AM CDT DTL Interpretation FINAL DIAGNOSIS Thyroid, left lobe nodule ultrasound-guide d fine needle aspiration ([id number]; smears and thin prep; 11/12/2023): Suspicious for malignancy. ??Discohesive cells with nuclear hyperchromasia and atypia worrisome for medullary carcinoma. 02/03/2024 10:51 AM CDT DTL Varies 11/12/2023 8:45 AM CDT 02/02/2024 11:56 AM CDT Phuc Torres M.D. LAB SURG PATH [facility] [address] [place] [address], [facility] [address] [place] [address] documented in this encounter Visit Diagnoses Diagnosis Malignant Neoplasm Of Thyroid (HCC) Malignant Neoplasm Of Thyroid (HCC) documented in this encounter Care Teams Education Professor Relationship Specialty Start Date End Date Elsewhere, Pcp PCP - General Internal Medicine 01/27/24 documented as of this encounter
--- OUTSIDE RECORDS SUMMARY | 2024-02-05 02:23 | XMS_ITS | Clinical Summary ---
Author Organization [facility] Address [address] [place] [address] Care Team Providers Care Ostrich Farmer Name Role Phone Elsewhere, Pcp Primary Care Provider Unavailabl e Source Comments Patient records contain information from all sites at [facility]. For routine questions regarding patient records, call [phone] during business hours, M-F 8:00 AM - 5:00 PM Central Time. Record requests for emergency care only can be directed to [phone] at any time.[facility] Allergies Active Allergy Reactions Criticality Noted Date [...] 02/04/2024 Malignant Neoplasm Of Thyroid Medullary 12/30/19 24 Encounters Date Type Department Care Team Description 02/03/2024 1:52 PM CDT Anesthesia Event RST [facility] [place] [address] [place] [address] Paulino Love D.O. Smischney, Nathan J, M.D., M.S. 02/03/2024 12:13 PM CDT - 02/03/2024 3:42 PM CDT Surgery RST [facility] [place] [address] [place] [address] Dakota Morrow M.D. THYROIDECTOMY - TOTAL. 02/03/2024 10:28 AM CDT - 02/04/2024 12:44 PM CDT Hospital Encounter [facility], [facility], Sixth Floor [address] [place] [address] Dakota Morrow M.D. Malignant Neoplasm Of Thyroid Medullary (HCC) Discharge Disposition: Home or Self Care 02/02/2024 2:00 PM CDT Office Visit Division of Endocrine Surgery in [place], [place] [address] [place] [address] Dakota Morrow M.D. Castro, M. Regina, M.D. Malignant Neoplasm Of Thyroid Medullary (HCC) (Primary Dx) 01/31/2024 8:37 AM CDT - 01/31/2024 10:21 AM CDT Hospital Encounter Department of Radiology, [facility] in [place], [place] [address] [place] [address] Phuc Torres M.D. Robinson, Kathryn A, M.D. Malignant Neoplasm Of Thyroid (HCC) Discharge Disposition: Home or Self Care 01/31/2024 Orders Only Division of Endocrinology in [place], [place] [address] [place] [phone] Phuc Torres M.D. 01/27/2024 3:23 PM CDT - 01/27/2024 11:59 PM CDT Hospital Encounter Department of Laboratory Medicine and Pathology, [facility] in [place], [place] [address] [place] [address] Phuc Torres M.D. Malignant Neoplasm Of Thyroid (HCC) Discharge Disposition: Home or Self Care 01/27/2024 3:00 PM CDT Comprehensive Visit Division of Endocrine Surgery in [place], [place] [address] [place] [phone] Dakota Morrow M.D. Castro, M. Regina, M.D. Malignant Neoplasm Of Thyroid Medullary (HCC) 01/27/2024 2:40 PM CDT Lab RST RO [facility] [address] [place] [phone] Phuc Torres M.D. Malignant Neoplasm Of Thyroid (HCC) 01/27/2024 1:30 PM CDT Comprehensive Visit Division of Endocrinology in [place], [place] [address] [place] [phone] Phuc Torres M.D. Malignant Neoplasm Of Thyroid (HCC) 01/27/2024 6:21 AM CDT - 01/27/2024 3:22 PM CDT Hospital Encounter Department of Laboratory Medicine and Pathology, [facility] in [place], [place] [address] [place] [address] Phuc Torres M.D. Malignant Neoplasm Of Thyroid Medullary (HCC) Discharge Disposition: Home or Self Care 01/27/2024 Clinical Communication Division of Endocrinology in [place], [place] [address] [place] [phone] Phuc Torres M.D. Pathology Request 01/25/2024 10:16 AM CDT - 01/25/2024 11:59 PM CDT Hospital Encounter Department of Radiology, [facility] in [place], [place] [address] [place] [address] Phuc Torres M.D. Malignant Neoplasm Of Thyroid Medullary (HCC) Discharge Disposition: Home or Self Care 12/30/2023 Clinical Communication Division of Endocrine Surgery in [place], [place] [address] [place] [address] Dakota Morrow M.D. 12/28/2023 2:00 PM CDT Clinical Communication Division of Endocrinology in [place], [place] [address] [place] [address] Pre-visit Intake (thyroid) 12/23/2023 Clinical Communication Department of Otorhinolaryngology in [place], [place] [address] [place] [address] Provider, Unknown [facility] (ENT ) 12/22/2023 [facility] [address] [place] [address] Carmela Basurto M.D. Malignant Neoplasm Of Thyroid (HCC) (Primary Dx) from Last 3 Months Social History Tobacco Use Types Packs/Day Years Used Date Smoking Tobacco: Never Smokeless Tobacco: Never Alcohol Use Standard Drinks/Week Comments Not Currently 0 (1 standard drink = 0.6 oz pur e alcohol) [facility] Utilities Answer Date Recorded In the past 12 months has e electric, gas, oil, or water [employer] threatened to shut off services in your [...] Answer Date Recorded Dental: Regular Dentist No 07/14/20 24 Employment Answer Date Recorded Employment status Employed and actively working without restrictions 01/23/2024 Housing Stability Answer Date Recorded What is your living situation today? I have a [facility] place to live 01/23/2024 Sex and [...] 02/03/2024 11:03 AM CDT Plan of Treatment Health Maintenance Due Date Last Done Comments CT Colonography 1961 Cologuard 1961 Colonoscopy 1961 Colorectal Cancer Screening 1961 FIT 1961 HIV Screening 1961 Hepatitis C Screening 1961 Zoster Vaccines (1 of 2) 2011 COVID-19 Vaccine (4 - 2022-2 4 season) 2023 06/10/2021, 11/01/2020, 10/01/2020 Depression Screening (Annual PHQ-2) 07/12/2023 Influenza Vaccine (#1) 2024 08/10/2009 Thyroid Stimulating Hormone (TSH) test for thyroid function 01/26/2025 01/27/2024 Fasting Glucose for Diabetes Screening 04/02/2026 04/02/2023 Lipid (Cholesterol) Screening 04/02/2028 04/02/2023 DTaP,Tdap,and Td Vaccines (3 - Td or Tdap) 04/02/2033 04/02/2023, 02/16/2007 Pneumococcal vaccine (0-64 years) Aged Out No longer eligible b ased on patient's age to complete this topic Medical Devices Implanted Type Area Mining Technician Device Identifier Shelf Expiration Date Model / Serial / Lot Clp Hrzn Ti 6 Clp Sm Red - [id number] Implanted:Qty: 1 on 02/03/2024 by Dakota Morrow M.D. at [facility] Hardware e.g. pins/screws/r ods Neck Teleflex [employer] [id number] / / Procedures Procedure Name Priority Date/Time [...] Jaret Salas M.D. LAB BLOOD ADD-O N [facility] [address] [place] [address], [facility] [address] [place] [address] * Airway (02/03/2024 2:04 PM CDT) Narrative [...] ETT location: oral VL device: glide scope [place] scope blade size: 4 Tube size: 7 [...] 4 Phuc Torres M.D. LAB SURG PATH SALMAVinnie RHOADESMAKSIM [facility] [address] [place] [address], [facility] DT [address] [place] [address] * Calcitonin, Fine-Needle Aspiration Biopsy (FNAB)-Needle Wash, Lymph Node (01/31/2024 9:16 AM CDT) Only the most recent of2 resultswithin the time period is included. Calcitonin, FNAB, Lymph Node [id number] pg/mL 01/31/2024 6:10 PM CDT [facility] Comment: Calcitonin values = or > [...] This test has been modified from the automotive heavy mechanic's instructions. Its performance characteristics were determined by [facility] in a manner consistent with CLIA requirements. [...] Washings, Lymph Node 02/01/2024 10:16 AM CDT [facility] Comment:REVISED RESULTS FNA Needle Washings (Lymph Node) 01/31/2024 9:16 AM CDT M. Princess Torres M.D. LAB BODY FLUIDS AN D STOOLS ORDERABLES Performing Organization Address [facility] Co de Phone Number [facility] [address] [place] [address] [facility] [address] [place] [address] * Metanephrines, Fractionated, Free (01/27/2024 6:47 AM CDT) Normetanephrine, Free 0.64 <0.90 nmol/L 01/28/2024 3:30 PM CDT SDSC Metanephrine, Free <0.20 <0.50 nmol/L 01/28/2024 3:30 PM CDT [facility] Comment: ----ADDITIONAL INFORMATION---- This test was developed and its performance characteristics determined by [facility] in a manner consistent with CLIA requirements. This test has not been cleared or approved by the U.S. Food and Drug Administration. Blood (Blood, Venous) 01/27/2024 6:47 AM CDT 01/27/2024 10:31 AM CDT Phuc Torres M.D. LAB BLOOD NON ADD- ON Performing Organization Address [facility] Co de Phone Number [facility] [address] [place] [address] [facility] [address] [place] [address] [place] [address] * (ABNORMAL) 25-Hydroxyvitamin D2 and D3 (01/27/2024 6:47 AM CDT) 25-Hydroxy D2 <4.0 ng/mL 01/29/2024 3:28 PM CDT SDS 25-Hydroxy D3 16 ng/mL 01/29/2024 3:28 PM CDT SDS 25-Hydroxy D Total 16(L) ng/mL 2023 3:28 PM CDT [facility] Comment: Interpretation: 10-19 ng/mL (mild to moderate deficiency) ----REFERENCE VALUE---- 25-HYDROXY D TOTAL (D2+D3) Optimum levels in the healthy population are 20-50. ----ADDITIONAL INFORMATION---- This test was developed and its performance characteristics determined by [facility] in a manner consistent with CLIA requirements. This test has not been cleared or approved by the U.S. Food and Drug Administration. Blood (Blood, Venous) 01/27/2024 6:47 AM CDT 01/27/2024 9:16 AM CDT Phuc Torres M.D. LAB BLOOD ADD-ON Performing Organization Address [facility] Co de Phone Number [facility] [address] [place] [address] [facility] [address] [place] [address] [place] [address] * (ABNORMAL) Calcitonin (01/27/2024 6:47 AM CDT) [facility] Calcitonin, S 5061(H) <=14.3 pg/mL 01/27/2024 1:35 PM CDT [facility] Comment: ----ADDITIONAL INFORMATION---- The testing method is an electrochemiluminescence assay manufactured by [employer] and performed on the Lovely system. Values obtained with different assay methods or kits may be different and cannot be used interchangeably. Test results cannot be interpreted as absolute evidence for the presence or absence of malignant disease. Blood (Blood, Venous) 01/27/2024 6:47 AM CDT 01/27/2024 11:54 AM CDT Phuc Torres M.D. LAB BLOOD NON ADD- ON Performing Organization Address [facility] Co de Phone Number [facility] [address] [place] [address] [facility] [address] [place] [address] * S-TSH (Thyroid-Stimulating Hormone - Sensitive) (01/27/2024 6:47 AM CDT) [facility] TSH, Sensitive 2.3 0.3 - 4.2 mIU/L 01/27/2024 8:08 AM CDT DTL Blood (Blood, Venous) 01/27/2024 6:47 AM CDT 01/27/2024 7:31 AM CDT Phuc Torres M.D. LAB BLOOD ADD-ON Performing Organization Address City/State/[facility] Co de Phone Number [facility] [address] [place] [address] * T4 (Thyroxine), Free (01/27/2024 6:47 AM CDT) T4 (Thyroxine), Free, S 1.4 0.9 - 1.7 ng/dL 01/27/2024 8:08 AM CDT DT Blood (Blood, Venous) 01/27/2024 6:47 AM CDT 01/27/2024 7:31 AM CDT Phuc Torres M.D. LAB BLOOD ADD-ON Performing Organization Address City/[facility] Co de Phone Number [facility] [address] [place] [address] * (ABNORMAL) CEA (Carcinoembryonic Antigen) (01/27/2024 6:47 AM CDT) Carcinoembryonic Ag (CEA), S 313.0(H) ng/mL 01/27/2024 10:54 AM CDT [facility] Comment: ----REFERENCE VALUE---- <=3.0 (Non-smokers) Some smokers may have elevated CEA, usually <5.0. ----ADDITIONAL INFORMATION---- The testing method is an immunoenzymatic assay manufactured by [employer] and performed on the fitaborateI 800. ? Values obtained with different assay methods or kits may be different and cannot be used interchangeably. ? Test results cannot be interpreted as absolute evidence for the presence or absence of malignant disease. Blood (Blood, Venous) 01/27/2024 6:47 AM CDT 01/27/2024 9:56 AM CDT Phuc Torres M.D. LAB BLOOD ADD-ON [facility] [address] [place] [address] [facility] [address] [place] [address] * Calcium, Total (01/27/2024 6:47 AM CDT) Calcium, Total, S 9.3 8.8 - 10.2 mg/dL 01/27/2024 8:08 AM CDT DTL Blood (Blood, Venous) 01/27/2024 6:47 AM CDT 01/27/2024 7:31 AM CDT Phuc Torres M.D. LAB BLOOD ADD-ON Performing Organization Address City/[facility]/ZIP Co de Phone Number [facility] [address] [place] [address], [facility] [address] [place] [address] * US Thyroid (01/25/2024 11:23 AM CDT) [...] level 4 node with effaced hilum. Phuc Torres M.D. IMG US PROCEDURES * CT SOFT TISSUE NECK W CON-Outside CT Neuro (12/10/2023 5:20 PM CDT) Narrative IILA - 12/22/2023 10:05 AM CDT This order has been created and auto-finalized to support the import of outside images. If available, original interpretation can be found on the Media Tab in Chart Review, in Document Viewer, as an image in QREADS or as an Addendum. If a re-interpretation or overread is required please follow defined workflow.?? Provider Not In System IMG CT PROCEDURES [facility] NA * Pathology Review of Outside Material [...] 10:51 AM CDT DTL Material Received A. [id number]: Left thyroid ? 7 stained slides 02/03/2024 10:51 AM CDT DTL Interpretation FINAL DIAGNOSIS Thyroid, left lobe nodule ultrasound-guide d fine needle aspiration ([id number]; smears and thin prep; 11/12/2023): Suspicious for malignancy. ??Discohesive cells with nuclear hyperchromasia and atypia worrisome for medullary carcinoma. 02/03/2024 10:51 AM CDT DTL Varies 11/12/2023 8:45 AM CDT 02/02/2024 11:56 AM CDT Phuc Torres M.D. LAB SURG PATH SALMAVinnie RHOADESMAKSIM [facility] [address] [place] [address], [facility] DTL [address] [place] [address] * US biopsy (FNA) thyroid-Outside US Body [...] Provider Not In System IMG US PROCEDURES Performing Organization Address City/[facility] Co de Phone Number [facility] NA from Last 3 Months Advance Directives For more information, please contact: [phone] * Full Code (Latest Code Status on File) Date Activated Date Inactivated Comments 02/03/2024 10:45 AM 02/04/2024 2:49 PM Question Answer Comments Full Code: Not Discussed Due to: Patient not available Care Teams Ostrich Farmer Relationship Specialty Start Date End Date Elsewhere, Pcp PCP - General Internal Medicine 01/27/24
--- OUTSIDE RECORDS SUMMARY | 2024-02-05 02:23 | XMS_ITS ---
Author Organization [facility] Address [address] [place] [address] Care Team Providers Care Quantitative Analyst Developer Name Role Phone Unavailable Unavailable Unavailable Surgery Details Not on file Complications Check Surgery Details section. Procedure Estimated Blood Loss Check Surgery Details section. Procedure Findings Check Surgery Details section. Procedure Specimens Taken Check Surgery Details section.
--- OUTSIDE RECORDS SUMMARY | 2024-02-05 02:23 | XMS_ITS | Encounter Summary ---
Author Organization [facility] Address [address] [place] [address] Care Team Providers Care Security And Compliance Analyst Name Role Phone Elsewhere, Pcp Primary Care Provider Unavailabl e Encounter Details Date Type Department Care Team (Latest Contact Info) Description 01/27/2024 6:21 AM CDT - 01/27/2024 3:22 PM CDT Hospital Encounter Department of Laboratory Medicine and Pathology, [facility] in [place], [place] [address] [place] [address] Phuc Torres M.D. [address] [place] [phone] Malignant Neoplasm Of Thyroid Medullary (HCC) Discharge Disposition: Home or Self Care Social History Tobacco Use Types Packs/Day Years Used Date Smoking Tobacco: Never Assessed [facility] Utilities Answer Date Recorded In the past 12 months has [facility] [employer], gas, oil, or water [employer] threatened to shut off services in your [...] Procedure Name Priority Date/Time Associated Diagnosis Comments METANEPHRINES, FRACTIONATED, FREE, P Routine 01/27/2024 6:47 AM CDT Malignant Neoplasm Of Thyroid Medullary (HCC) 25-HYDROXYVITAMIN D2 AND D3, S Routine 01/27/2024 6:47 AM CDT Malignant Neoplasm Of Thyroid Medullary (HCC) CALCITONIN, S Routine 01/27/2024 6:47 AM CDT Malignant Neoplasm Of Thyroid Medullary (HCC) THYROID-STIMULATING HORMONE-SENSITIVE (S-TSH) Routine 01/27/2024 6:47 AM CDT Malignant Neoplasm Of Thyroid Medullary (HCC) T4 (THYROXINE), FREE, S Routine 01/27/20 6:47 AM CDT Malignant Neoplasm Of Thyroid Medullary (HCC) CARCINOEMBRYONIC AG (CEA), S Routine 01/27/2024 6:47 AM CDT Malignant Neoplasm Of Thyroid Medullary (HCC) CALCIUM, TOT, S/P Routine 01/27/2024 6:4 7 AM CDT Malignant Neoplasm Of Thyroid Medullary (HCC) documented in this encounter Results * (ABNORMAL) 25-Hydroxyvitamin D2 and D3 (01/27/2024 6:47 AM CDT) 25-Hydroxy D2 <4.0 ng/mL 01/29/2024 3:28 PM CDT [facility] 25-Hydroxy D3 16 ng/mL 01/29/2024 3:28 PM CDT [facility] 25-Hydroxy D Total 16(L) ng/mL 2023 3:28 PM CDT [facility] Comment: Interpretation: 10-19 ng/mL (mild to moderate deficiency) ----REFERENCE VALUE---- 25-HYDROXY D TOTAL (D2+D3) Optimum levels in the healthy population are 20-50. ----ADDITIONAL INFORMATION---- This test was developed and its performance characteristics determined by [facility] in a manner consistent with CLIA requirements. This test has not been cleared or approved by the U.S. Food and Drug Administration. Blood (Blood, Venous) 01/27/2024 6:47 AM CDT 01/27/2024 9:16 AM CDT Phuc Torres M.D. LAB BLOOD ADD-ON Performing Organization Address City/[facility] [address] [facility]/ZIP Co de Phone Number [facility] [address] [place] [address] [facility] [address] [place] [address] [place] [address] * Calcium, Total (01/27/2024 6:47 AM CDT) Pathologist [facility] Calcium, Total, S 9.3 8.8 - 10.2 mg/dL 01/27/2024 8:08 AM CDT DTL Blood (Blood, Venous) 01/27/2024 6:47 AM CDT 01/27/2024 7:31 AM CDT Phuc Torres M.D. LAB BLOOD ADD-ON Performing Organization Address City/[facility] [address]/ZIP Co de Phone Number [facility] [address] [place] [address], [facility] [address] [place] [address] * Metanephrines, Fractionated, Free (01/27/2024 6:47 AM CDT) Normetanephrine, Free 0.64 <0.90 nmol/L 01/28/2024 3:30 PM CDT [facility] Metanephrine, Free <0.20 <0.50 nmol/L 01/28/2024 3:30 PM CDT [facility] Comment: ----ADDITIONAL INFORMATION---- This test was developed and its performance characteristics determined by [facility] in a manner consistent with CLIA requirements. This test has not been cleared or approved by the U.S. Food and Drug Administration. Blood (Blood, Venous) 01/27/2024 6:47 AM CDT 01/27/2024 10:31 AM CDT Phuc Torres M.D. LAB BLOOD NON ADD- ON Performing Organization Address [facility] [address] [facility] Co de Phone Number [facility] [address] [place] [address] [facility] [address] [place] [address] [place] [address] * (ABNORMAL) CEA (Carcinoembryonic Antigen) (01/27/2024 6:47 AM CDT) Carcinoembryonic Ag (CEA), S 313.0(H) ng/mL 01/27/2024 10:54 AM CDT [facility] Comment: ----REFERENCE VALUE---- <=3.0 (Non-smokers) Some smokers may have elevated CEA, usually <5.0. ----ADDITIONAL INFORMATION---- The testing method is an immunoenzymatic assay manufactured by [employer] and performed on the [employer] DxI 800. ? Values obtained with different assay methods or kits may be different and cannot be used interchangeably. ? Test results cannot be interpreted as absolute evidence for the presence or absence of malignant disease. Blood (Blood, Venous) 01/27/2024 6:47 AM CDT 01/27/2024 9:56 AM CDT Phuc Torres M.D. LAB BLOOD ADD-ON Performing Organization Address City/[facility] [address]/ZIP Co de Phone Number [facility] [address] [place] [address] [facility] [address] [place] [address] * (ABNORMAL) Calcitonin (01/27/2024 6:47 AM CDT) [facility] Calcitonin, S 5061(H) <=14.3 pg/mL 01/27/2024 1:35 PM CDT [facility] Comment: ----ADDITIONAL INFORMATION---- The testing method is an electrochemiluminescence assay manufactured by [employer] and performed on the Lovely system. Values obtained with different assay methods or kits may be different and cannot be used interchangeably. Test results cannot be interpreted as absolute evidence for the presence or absence of malignant disease. Blood (Blood, Venous) 01/27/2024 6:47 AM CDT 01/27/2024 11:54 AM CDT Phuc Torres M.D. LAB BLOOD NON ADD- ON Performing Organization Address City/[facility] [address]/ZIP Co de Phone Number [facility] [address] [place] [address] [place] [address] * T4 (Thyroxine), Free (01/27/2024 6:47 AM CDT) [facility] T4 (Thyroxine), Free, S 1.4 0.9 - 1.7 ng/dL 01/27/2024 8:08 AM CDT [facility] Blood (Blood, Venous) 01/27/2024 6:47 AM CDT 01/27/2024 7:31 AM CDT Phuc Torres M.D. LAB BLOOD ADD-ON [facility] [address] [place] [address], [facility] [address] [place] [address] * S-TSH (Thyroid-Stimulating Hormone - Sensitive) (01/27/2024 6:47 AM CDT) TSH, Sensitive 2.3 0.3 - 4.2 mIU/L 01/27/2024 8:08 AM CDT DTL Blood (Blood, Venous) 01/27/2024 6:47 AM CDT 01/27/2024 7:31 AM CDT Phuc Torres M.D. LAB BLOOD ADD-ON [facility] [address] [place] [address], [facility] [address] [place] [address] documented in this encounter Visit Diagnoses Diagnosis Malignant Neoplasm Of Thyroid Medullary (HCC) documented in this encounter Care Teams Security And Compliance Analyst Relationship Specialty Start Date End Date Elsewhere, Pcp PCP - General Internal Medicine 01/27/24 documented as of this encounter
--- OUTSIDE RECORDS SUMMARY | 2024-02-05 02:24 | XMS_ITS | Encounter Summary ---
Author Organization [facility] Address [address] [place] [address] Care Team Providers Care Surgical Rn Name Role Phone Unavailable Primary Care Provider Unavailabl e Reason for Referral * Outpatient (Routine) - Closed Specialty Diagnoses / Procedures Referred By Vinicius reid Referred To Contact Diagnoses Malignant Neoplasm Of Thyroid Medullary (HCC) Procedures US Thyroid US Head Neck Soft Tissue Phuc Torres M.D. [address] [place] [address] [facility] Referral ID Status Reason Start Date Expiration Date Visits Re quested Visits Authorized [id number] Closed 12/28/2023 12/27/2024 1 1 Reason for Visit * Outpatient (Routine) - Closed Specialty Diagnoses / Procedures Referred By Vinicius reid Referred To Contact Diagnoses Malignant Neoplasm Of Thyroid Medullary (HCC) Procedures US Thyroid US Head Neck Soft Tissue Phuc Torres M.D. [address] [place] [address] [facility] Referral ID Status Reason Start Date Expiration Date Visits Re quested Visits Authorized [id number] Closed 12/28/2023 12/27/2024 1 1 Encounter Details Date Type Department Care Team (Latest Contact Info) Description 01/25/2024 10:16 AM CDT - 01/25/2024 11:59 PM CDT Hospital Encounter Department of Radiology, [facility], in [place], [place] [address] [place] [address] Phuc Torres M.D. [address] [place] [address] Malignant Neoplasm Of Thyroid Medullary (HCC) Discharge Disposition: Home or Self Care Social History Tobacco Use Types Packs/Day Years Used Date Smoking Tobacco: Never Assessed [facility] Utilities Answer Date Recorded In the past [...] your living situation today? I have a [facility] place to live 01/23/2024 Sex and [...] and incidence of candidiasis. Do not swallow. levothyroxine 175 mcg tablet Take 1 tablet [...] 10 Indication: Acute Pain. 10 tablet 02/04/2024 amoxicillin (AmoxiL) 500 mg capsule 01/10/2024 01/27/2024 amoxicillin-pot clavulanate (Augmentin) 875-125 mg per tablet 10/25/2023 01/27/2024 doxycycline monohydrate (Adoxa) 100 mg tablet Take 1 tablet by mouth 2 (two) times a day. 12/14/2021 01/27/2024 fluticasone propion-salmeteroL 250-50 mcg/dose diskus inhaler Inhale 2 (two) times a day. 10/20/2023 01/27/2024 levothyroxine 150 mcg tablet Take 1 tablet (150 mcg total) by mouth daily before morning meal. 60 tablet 02/04/2024 02/04/2024 predniSONE (Deltasone) 5 mg tablet Take 20 mg oral daily for 2 days, then Take 10 mg oral daily for 2 days, then Take 5 mg oral daily for 2 days, take with foods 12/14/2021 01/27/2024 documented as of this encounter Plan of Treatment Not on file documented as of this encounter Procedures Procedure Name Priority Date/Time Associated Diagnosis Comments US THYROID RAD - Routine (most inpatients and all outpatients) 01/25/2024 11:23 AM CDT Malignant Neoplasm Of Thyroid Medullary (HCC) documented in this encounter Results * US Thyroid (01/25/2024 11:23 AM CDT) [...] node with effaced hilum. Phuc Torres M.D. IMSheri US PROCEDURES documented in this encounter Visit Diagnoses Diagnosis Malignant Neoplasm Of Thyroid Medullary (HCC) documented in this encounter
--- OUTSIDE RECORDS SUMMARY | 2024-02-05 02:24 | XMS_ITS | Encounter Summary ---
Author Organization [facility] Address [address] [place] [address] Care Team Providers Care Folding Machine Feeder Name Role Phone Elsewhere, Pcp Primary Care Provider Unavailabl e Reason for Referral * Outpatient (Routine) - Closed Specialty Diagnoses / Procedures Referred By Vinicius reid Referred To Contact General Surgery Dakota Morrow M.D. [address] [place] [phone] Dakota Morrow M.D. [address] [place] [phone] Referral ID Status Reason Start Date Expiration Date Visits Re quested Visits Authorized [id number] Closed 01/27/2024 07/28/2025 1 1 Scheduling Instructions Please schedule with Dr. Morrow; Reason for Visit * Outpatient (Routine) - Closed Specialty Diagnoses / Procedures Referred By Vinicius reid Referred To Contact General Surgery Diagnoses Malignant Neoplasm Of Thyroid Medullary (HCC) Phuc Torres M.D. [address] [place] [phone] [facility] Referral ID Status Reason Start Date Expiration Date Visits Re quested Visits Authorized [id number] Closed 12/28/2023 06/28/2025 1 1 Encounter Details Date Type Department Care Team (Latest Contact Info) Description 01/27/2024 3:00 PM CDT Comprehensive Visit Division of Endocrine Surgery in [place], [place] [address] [place] [address] [place] [phone] Dakota Morrow M.D. [address] [place] [phone] Phuc Torres M.D. [address] [place] [phone] Malignant Neoplasm Of Thyroid Medullary (HCC) Social History Tobacco Use Types Packs/Day Years Used Date Smoking Tobacco: Never Assessed [facility] Utilities Answer Date Recorded In [...] your living situation today? I have a [facility] place to live 01/23/2024 Sex and Gender Information Value Date Recorded Sex Assigned at Male 01/23/2024 9:14 PM CDT Gender Identity Male 01/23/2024 9:14 PM CDT Sexual Orientation Straight 01/23/2024 9: 14 PM CDT documented as of this encounter Consult Notes * Dakota Morrow M.D. - 01/27/2024 3:00 PM CDT SUBJECTIVE REASON FOR CONSULT Forest Long is a 63 y.o. male who presents for evaluation of medullary thyroid cancer. He was referred by Phuc Torres M.D.. HISTORY OF PRESENT ILLNESS Mr. Long was referred for surgical consultation regarding a 7 cm medullary thyroid cancer. Has had this for at least 2 years as was seen on an outside CT at 4 cm a couple years ago. Now has possible bilateral lymphadenopathy pending biopsy. The following portions of the patient's history were reviewed and updated as appropriate: allergies, current medications, family history, medical history, social history, surgical history, and problem list. REVIEW OF SYSTEMS Pertinent items are noted in HPI; all other review of systems was negative. OBJECTIVE PHYSICAL EXAM General appearance: alert, oriented, and no acute distress. Neck: soft supple Diagnostics TSH, Sensitive Date Value Ref Range Status 01/27/2024 2.3 0.3 - 4.2 mIU/L Final Calcium, Total, S Date Value Ref Range Status 01/27/2024 9.3 8.8 - 10.2 mg/dL Final ASSESSMENT / PLAN He needs FNA of bilateral lateral neck lymph nodes to determine extent of surgery. Will plan to see back on Wednesday to finalize surgical planning. Risk, benefits and alternatives were discussed with the patient. Risks discussed included, but not limited to recurrent laryngeal nerve injury, hypoparathyroidism, bleeding, infection, failure to cure, and the potential need for thyroid hormone replacement. Today, I personally spent 15 minutes with the patient, of which greater than 50% of the time was spent in patient education, counseling, and coordination of care as described above. documented in this encounter Plan of Treatment Scheduled Referrals Name Type Priority Associated Diagnoses Orde r Schedule General Surgery office visit (clinic) Outpatient Referral Routine Expected: 02/02/2024, Expires: 04/28/2025 documented as of this encounter Visit Diagnoses Diagnosis Malignant Neoplasm Of Thyroid Medullary (HCC) documented in this encounter Care Teams Folding Machine Feeder Relationship Specialty Start Date End Date Elsewhere, Pcp PCP - General Internal Medicine 01/27/24 documented as of this encounter
--- OUTSIDE RECORDS SUMMARY | 2024-02-05 02:24 | XMS_ITS | Clinical Summary ---
Author Organization [facility] Address [place], [place] [address] Care Team Providers Care Catalytic Case Operator Name Role Phone Pcp, No Primary Care Provider Unavailabl e Allergies No known active allergies Medications Medication Sig Dispensed Refills Start Date End Date Status LOTRIMIN AF 1 % TOP CREA as needed ? 0 09/12/2004 Active albuterol HFA (PRO-AIR; VENTOLIN; PROVENTIL) 90 mcg/actuation inhalerIndications: COVID-19 virus infection,Cough Inhale 1-2 Puffs by mouth every 4 hours if needed for Wheezing 1st choice (wheezing or coughing spell). 1 Each 08/04/2021 Active doxycycline (ADOXA) 100 mg tabletIndications:C ough,Lung crackles,Abnormal CXR,Pneumonia of both lower lobes due to infectious organism Take 1 Tablet (100 mg) by mouth 2 times daily. 20 Tablet 12/14/2021 Active Additional Information Patient not taking.Reported on 10/25/2023 predniSONE (DELTASONE) 5 mg tabletIndications:C ough,Lung crackles,SOB (shortness of breath) Take 20 mg oral daily for 2 days, then Take 10 mg oral daily for 2 days, then Take 5 mg oral daily for 2 days, take with foods 14 Tablet 12/14/2021 Active Active Problems No known active problems Encounters Date Type Department Care Team Description 11/12/2023 Lab Requisition [facility] [phone] Kenroy Ly MD from Last 3 Months Immunizations Name Administration Dates Next Due Influenza A (H1N1), Live Intranasal 08/10/2009 Tdap 02/16/2007 Social History Tobacco Use Types Packs/Day Years Used Date Smoking Tobacco: Former Smokeless Tobacco: Never Comments:Smoking History Pac ks/day: <0.1 Alcohol Use Standard Drinks/Week Comments Never 0 (1 standard drink = 0.6 oz pur e alcohol) Social Connections Answer Date Recorded Frequency of Communication with Friends and Fami ly Not on file 08/04/2021 Financial Resource Strain Answer Date R ecorded Difficulty of Paying Living Expenses Not on file 08/04/2021 Difficulty of Paying Living Expenses Not on file 08/04/2021 Sex and Gender Information Value Date Recorded Sex Assigned at Not on file Gender Identity Not on file Sexual Orientation Not on file Obstetrics History Last Filed Vital Signs Vital Sign Reading Time Taken Comments Blood Pressure 161/85 10/25/2023 8:09 AM CDT Pulse 90 10/25/2023 8:09 AM CDT Temperature 36.6 ??C (97.8 ??F) 10/25/2023 8:09 AM CD T Respiratory Rate 18 10/25/2023 8:09 AM CDT Oxygen Saturation 96% 10/25/2023 8:09 AM CDT Inhaled Oxygen Concentration - - Weight 107.5 kg (237 lb) 10/25/2023 8:09 AM CDT Height 177.8 cm (5' 10) 10/25/2023 8:09 AM CDT Body Mass Index 34.01 10/25/2023 8:09 AM CDT Plan of Treatment Health Maintenance Due Date Last Done Comments Depression screening for age 12+ 1973 HIV for age 15-65 1976 Hepatitis C screening for ag e 18-79 1979 Colonoscopy through age 75 2006 Lipids for age 45-75 2006 Zoster (shingles) series for age 50+ (1 of 2) 2011 Tetanus booster 02/16/2017 02/16/2007 COVID-19 vaccine series ( season) 2023 06/10/2021, 11/01/2020, 10/01/2020 Influenza for age 50-64 03/12/2024 BMI (ht and wt on same day) for age 18+ 10/24/2024 10/25/2023, 12/14/2021 Tdap Completed 02/16/2007 Pneumococcal series for age 6-64 Aged Out No longer eligible b ased on patient's age to complete this topic Procedures Procedure Name Priority Date/Time Associated Diagnosis Comments LAB TRACKING EVENT Routine 11/12/2023 8: 45 AM CDT PATH FNA CYTOLOGY ASP CYTOLOGY Routine 11/12/2023 8:45 AM CDT from Last 3 Months Results * LAB TRACKING EVENT (11/12/2023 8:45 AM CDT) Other (Other) Client Collect / Unknown 11/12/2023 8:45 AM CDT 11/12/2023 1:53 PM CDT Kenroy Ly MD LAB BILL ONLY [facility] [address] [place] [address], * PATH FNA CYTOLOGY ASP CYTOLOGY (11/12/2023 8:45 AM CDT) Case Report Medical Cytology Report ? Case: [id number] ? Authorizing Provider: ??Kenroy Ly MD ? Collected: ? 11/12/2023 0845 ? Ordering Location: ? [facility] ?Received: ?11/12/2023 1515 ? Pathologist: ? Zoey Nielsen ? MD Danielle ? Specimen: ?Left Thyroid ? 11/15/2023 12:58 PM CDT [facility] Final Diagnosis THYROID, LEFT, ULTRASOUND-GUIDE D FINE NEEDLE ASPIRATION: 1. Suspicious for thyroid neoplasm ?? 2. See comment 11/15/2023 12:58 PM T [facility] Comment The differential diagnosis includes follicular adenoma, follicular carcinoma, or variant of papillary carcinoma. While excisional biopsy is the next recommended diagnostic step, a genomic specimen has been received, and therefore genomic testing can be performed on order by the treating clinician or proceduralist directly from the testing vendor if this is clinically helpful. The genomic specimen will be retained in cytology for two months from the date of collection for this purpose. Such testing is not automatically reflexed. Call [facility] at [phone] with any questions regarding this process. 11/15/2023 12:58 PM CDT [facility] Clinical Information Mr. Long is a 63 y.o. with a 7.0 x 4.2 x 4.6 cm mostly solid left thyroid nodule. 11/15/2023 12:58 PM CDT [facility] Gross Description A) Received identified as Left Thyroid is a fine needle aspirate specimen. The following were received: ? -6 Air dried slides ? -1 CytoLyt vial ? -1 FNA Protect vial The following were prepared from the specimen submitted: ? -6 Diff-Quik stained slides ? -1 Papanicolaou stained ThinPrep slide 11/15/2023 12:58 PM CDT [facility] Microscopic Description Specimen adequacy: Adequate for interpretation. All slides were reviewed. The microscopic appearance substantiates the diagnosis. 11/15/2023 12:58 PM CDT [facility] Additional Information Cytology is screened at [facility] - [address], [place] [address] and [facility] - [address], [place] [address] and [facility] - [address] [place] [address] Interpreted at [facility] - [address], [place] [address] 11/15/2023 12:58 PM CDT [facility] Aspirate (Left Thyroid) 11/12/2023 8:45 AM CDT 11/12/2023 3:15 PM CDT Kenroy Ly MD PATHOLOGY/CYTOLOGY Performing Organization Address City/State/[facility] Co de Phone Number [facility] [address] [place] [address], [place] from Last 3 Months Care Teams Catalytic Case Operator Relationship Specialty Start Date End Date Pcp, No . PCP - General 06/10/23
--- OUTSIDE RECORDS SUMMARY | 2024-02-05 02:24 | XMS_ITS | Encounter Summary ---
Author Organization [facility] Address [address] [place] [address] Care Team Providers Care Cook Restaurant Name Role Phone Unavailable Primary Care Provider Unavailabl e Reason for Referral * Outpatient (Routine) - Closed Specialty Diagnoses / Procedures Referred By Vinicius reid Referred To Contact Diagnoses Malignant Neoplasm Of Thyroid Medullary (HCC) Procedures US Thyroid US Head Neck Soft Tissue Phuc Torres M.D. [address] [place] [phone] [facility] Referral ID Status Reason Start Date Expiration Date Visits Re quested Visits Authorized [id number] Closed 12/28/2023 12/27/2024 1 1 * Outpatient (Routine) - Authorized Specialty Diagnoses / Procedures Referred By Vinicius reid Referred To Contact Endocrinology Diagnoses Malignant Neoplasm Of Thyroid Medullary (HCC) Phuc Torres M.D. [address] [place] [phone] [facility] Referral ID Status Reason Start Date Expiration Date V isits Requested Visits Authorized [id number] Authorized 12/28/2023 06/28/2025 1 1 Scheduling Instructions Schedule in conjunction with the General Surgery - Endocrine Consult (clinic) Please use the move up process for neck ultrasound for thyroid cancer patients * Outpatient (Routine) - Closed Specialty Diagnoses / Procedures Referred By Contac t Referred To Contact General Surgery Diagnoses Malignant Neoplasm Of Thyroid Medullary (HCC) Phuc Torres M.D. [address] [place] [address] [facility] Referral ID Status Reason Start Date Expiration Date Visits Re quested Visits Authorized [id number] Closed 12/28/2023 06/28/2025 1 1 Scheduling Instructions Please use the move up process for neck ultrasound for thyroid cancer patients Reason for Visit * Reason Onset Date Comments Pre-visit Intake 12/28/2023 thyroid * Appointment Request (Routine) - Closed Specialty Diagnoses / Procedures Referred By Vinicius reid Referred To Contact Endocrinology Diagnoses Malignant Neoplasm Of Thyroid Medullary (HCC) Referral ID Status Reason Start Date Expiration Date Visits Re quested Visits Authorized [id number] Closed 12/20/2023 12/19/2024 1 1 Encounter Details Date Type Department Care Team (Latest Contact Info) Description 12/28/2023 2:00 PM CDT Clinical Communication Division of Endocrinology in [place], [place] [address] [place] [address] Pre-visit Intake (thyroid) Social History Tobacco Use Types Packs/Day Years Used Date Smoking Tobacco: Never Assessed [facility] Utilities Answer Date Recorded In the [...] today? I have a [facility] place to live 01/23/2024 Sex and Gender Information Value Date Recorded Sex Assigned at Male 01/23/2024 9:14 PM CDT Gender Identity Male 01/23/2024 9:14 PM CDT Sexual Orientation Straight 01/23/2024 9: 14 PM CDT documented as of this encounter Miscellaneous Notes * Telephone Encounter - Kelsie Nolen R.N. - 12/28/2023 2:06 PM CDT SUBJECTIVE CHIEF COMPLAINT / REASON FOR VISIT Thyroid Cancer Evaluation - Nurse Assessment HISTORY OF PRESENT ILLNESS Forest Long is contacted for a nursing pre-visit assessment prior to the Thyroid Cancer Evaluation appointment on January [address] Bashir. Patient identifies reason for visit as patient reports he has medullary thyroid cancer Patient reports the following: thyroid nodule was diagnostic for thyroid cancer, November/2023. Performed at [facility].. Reports the following: Completed a neck ultrasound in . Performed at [place]. Did complete a Cat Scan of the neck/chest November/2023. Performed at [place]. Did not complete a whole body scan. Did not receive radioactive iodine. No prior neck surgery. No prior treatment with external beam radiation to the neck. Having additional imaging: none Diabetes: denies Not taking anticoagulant medication. Not taking a GLP1 medication. medullary genetic testing : Having genetic testing for medullary thyroid cancer. Instructed patientto fax/bring results ASSESSMENT / PLAN Forest Long reports no prior surgery to remove the thyroid. Reports having Medullary thyroid cancer. The following labs and tests were ordered per nurse protocol: Ultrasound of neck TSH Free T4 Calcitonin CEA Plasma Metanephrines Serum Calcium 25-Hydroxyvitamin D2 and D3 Patient meets protocol criteria. Patient does want to meet with an Endocrine surgeon. Patient is not taking an anticoagulation medication and denies being a high risk for next day surgery related to lung or heart disease. Patient is interested in next day surgery. The following were placed by nurseprotocol: General Surgery - Endocrine Consult (clinic) and Endocrine Office Visit, Short is scheduled in conjunction with that visit. Protocol complete. Patient was instructed to bring and/or fax the following information: Results of previous Fine Needle Aspiration of the Thyroid and pathology slides CD image of the neck ultrasound within past 2 years Printed copy of lab tests within past 2 years Provided information to complete authorization to release medical information (pathology slides) topatient Disposition/Recommendation: notified provider and awaiting recommendations, protocol orders, and self-care is appropriate at this time, patient encouraged to call back with questions Education: patient/caller able to teach back Caller agreeable to plan of care: yes The following references were used: [facility] protocols: Thyroid Cancer Evaluation ([id number]) documented in this encounter Plan of Treatment Scheduled Referrals Name Type Priority Associated Diagnoses Order Schedule General Surgery - Endocrine consult (clinic) Outpatient Referral Routine Malignant Neoplasm Of Thyroid Medullary (HCC) Expected: 12/28/2023, Expires: 12/20/2024 Endocrinology office visit (clinic) Outpatient Referral Routine Malignant Neoplasm Of Thyroid Medullary (HCC) Expected: 12/28/2023 (Approximate), Expires: 12/20/2024 documented as of this encounter Results * (ABNORMAL) 25-Hydroxyvitamin D2 and D3 (01/27/2024 6:47 AM CDT) 25-Hydroxy D2 <4.0 ng/mL 01/29/2024 3:28 PM CDT [facility] 25-Hydroxy D3 16 ng/mL 01/29/2024 3:28 PM CDT [facility] 25-Hydroxy D Total 16(L) ng/mL 2023 3:28 PM CDT [facility] Comment: Interpretation: 10-19 ng/mL (mild to moderate deficiency) ----REFERENCE VALUE---- 25-HYDROXY D TOTAL (D2+D3) Optimum levels in the healthy population are 20-50. ----ADDITIONAL INFORMATION---- This test was developed and its performance characteristics determined by [facility] in a manner consistent with CLIA requirements. This test has not been cleared or approved by the U.S. Food and Drug Administration. Blood (Blood, Venous) 01/27/2024 6:47 AM CDT 01/27/2024 9:16 AM CDT Phuc Torres M.D. LAB BLOOD ADD-ON Performing Organization Address [facility] Co de Phone Number [facility] [address] [place] [address] [facility] [address] [place] [address] [place] [address] * Calcium, Total (01/27/2024 6:47 AM CDT) Calcium, Total, S 9.3 8.8 - 10.2 mg/dL 01/27/2024 8:08 AM CDT DTL Blood (Blood, Venous) 01/27/2024 6:47 AM CDT 01/27/2024 7:31 AM CDT Phuc Torres M.D. LAB BLOOD ADD-ON Performing Organization Address [facility] de Phone Number [address] [address], [facility] [address] [address] * Metanephrines, Fractionated, Free (01/27/2024 6:47 AM CDT) Normetanephrine, Free 0.64 <0.90 nmol/L 01/28/2024 3:30 PM CDT SDS Metanephrine, Free <0.20 <0.50 nmol/L 01/28/2024 3:30 PM CDT [facility] Comment: ----ADDITIONAL INFORMATION---- This test was developed and its performance characteristics determined by [facility] in a manner consistent with CLIA requirements. This test has not been cleared or approved by the U.S. Food and Drug Administration. Blood (Blood, Venous) 01/27/2024 6:47 AM CDT 01/27/2024 10:31 AM CDT Phuc Torres M.D. LAB BLOOD NON ADD- ON Performing Organization Address [facility] Co de Phone Number [facility] [address] [place] [address] [facility] [address] [place] [address] [place] [address] * (ABNORMAL) CEA (Carcinoembryonic Antigen) (01/27/2024 6:47 AM CDT) Pathologist [facility] Carcinoembryonic Ag (CEA), S 313.0(H) ng/mL 01/27/2024 10:[address] [facility] Comment: ----REFERENCE VALUE---- <=3.0 (Non-smokers) Some smokers may have elevated CEA, usually <5.0. ----ADDITIONAL INFORMATION---- The testing method is an immunoenzymatic assay manufactured by [employer]. and performed on the [employer] DxI 800. ? Values obtained with different assay methods or kits may be different and cannot be used interchangeably. ? Test results cannot be interpreted as absolute evidence for the presence or absence of malignant disease. Blood (Blood, Venous) 01/27/2024 6:47 AM CDT 01/27/2024 9:56 AM CDT Phuc Torres M.D. LAB BLOOD ADD-ON Performing Organization Address [facility] Co de Phone Number [facility] [address] [place] [address] [facility] [address] [place] [address] * (ABNORMAL) Calcitonin (01/27/2024 6:47 AM CDT) Calcitonin, S 5061(H) <=14.3 pg/mL 01/27/2024 1:[address] [facility] Comment: ----ADDITIONAL INFORMATION---- The testing method is [...] Torres M.D. LAB BLOOD NON ADD- ON [facility] [address] [place] [address] [facility] [address] [place] [address] * T4 (Thyroxine), Free (01/27/2024 6:47 AM CDT) T4 (Thyroxine), Free, S 1.4 0.9 - 1.7 ng/dL 01/27/2024 8:08 AM CDT DTL Blood (Blood, Venous) 01/27/2024 6:47 AM CDT 01/27/2024 7:31 AM CDT Phuc Torres M.D. LAB BLOOD ADD-ON Performing Organization Address [facility]/ZIP Co de Phone Number [facility] [address] [place] [address], [facility] [place]note 2[facility] [address] [place] [address] * S-TSH (Thyroid-Stimulating Hormone - Sensitive) (01/27/2024 6:47 AM CDT) TSH, Sensitive 2.3 0.3 - 4.2 mIU/L 01/27/2024 8:08 AM CDT DTL Blood (Blood, Venous) 01/27/2024 6:47 AM CDT 01/27/2024 7:31 AM CDT Phuc Torres M.D. LAB BLOOD ADD-ON [facility] [address] [place] [address], [place] DTL [facility] [address] [place] [address] * US Thyroid (01/25/2024 11:23 AM CDT) [...] with effaced hilum. Phuc VALVERDE US PROCEDURES documented in this encounter Visit Diagnoses Diagnosis Malignant Neoplasm Of Thyroid Medullary (HCC)- Primary Malignant Neoplasm Of Thyroid Medullary (HCC) documented in this encounter
--- OUTSIDE RECORDS SUMMARY | 2024-02-05 02:24 | XMS_ITS | Encounter Summary ---
Author Organization [facility] Address [address] [place] [address] Care Team Providers Care [employer] Name Role Phone Unavailable Primary Care Provider Unavailabl e Reason for Referral * Outpatient (Routine) - Closed Specialty Diagnoses / Procedures Referred By Vinicius reid Referred To Contact Otorhinolaryngology Diagnoses Malignant Neoplasm Of Thyroid (HCC) Carmela Basurto M.D. [address] [place] [address] [facility] Referral ID Status Reason Start Date Expiration Date Visits Re quested Visits Authorized [id number] Closed 12/22/2023 06/22/2025 1 1 Encounter Details Date Type Department Care Team (Late st Contact Info) Description 12/22/2023 [facility] [address] [place] [address] Carmela Basurto M.D. [address] [place] [phone] Malignant Neoplasm Of Thyroid (HCC) (Primary Dx) Social History Tobacco Use Types Packs/Day Years Used Date Smoking Tobacco: Never Assessed Dental Answer Date Recorded Dental: Regular Dentist Unknown 12/20/19 Sex and Gender Information Value Date Recorded Sex Assigned at Male 01/23/2024 9:14 PM CDT Gender Identity Male 01/23/2024 9:14 PM CDT Sexual Orientation Straight 01/23/2024 9: 14 PM CDT documented as of this encounter Plan of Treatment Scheduled Referrals Name Type Priority Associated Diagnoses Order Schedule Otolaryngology Referral Outpatient Referral Routine Malignant Neoplasm Of Thyroid (HCC) Expected: 12/22/2023 (Approximate), Expires: 03/23/2025 documented as of this encounter Visit Diagnoses Diagnosis Malignant Neoplasm Of Thyroid (HCC)- Primary documented in this encounter
--- OUTSIDE RECORDS SUMMARY | 2024-02-05 02:24 | XMS_ITS | Encounter Summary ---
Author Organization [facility] Address [address] [place] [address] Care Team Providers Care Extrusion Press Adjuster Name Role Phone Elsewhere, Pcp Primary Care Provider Unavailabl e Encounter Details Date Type Department Care Team (Late st Contact Info) Description 12/30/2023 Clinical Communication Division of Endocrine Surgery in [place], [place] [address] [place] [phone] Dakota Morrow M.D. [address] [place] [address] Social History Tobacco Use Types Packs/Day Years Used Date Smoking Tobacco: Never Assessed [facility] Utilities Answer Date Recorded In [...] your living situation today? I have a [facility] place to live 01/23/2024 Sex and Gender Information Value Date Recorded Sex Assigned at Male 01/23/2024 9:14 PM CDT Gender Identity Male 01/23/2024 9:14 PM CDT Sexual Orientation Straight 01/23/2024 9: 14 PM CDT documented as of this encounter Plan of Treatment Not on file documented as of this encounter Visit Diagnoses Not on filedocumented in this encounter Care Teams Extrusion Press Adjuster Relationship Specialty Start Date End Date Elsewhere, Pcp PCP - General Internal Medicine 01/27/24 documented as of this encounter
--- OUTSIDE RECORDS SUMMARY | 2024-02-05 02:24 | XMS_ITS | Encounter Summary ---
Author Organization [facility] Address [address] [place] [address] Care Team Providers Care Cash Teller Name Role Phone Unavailable Primary Care Provider Unavailabl e Reason for Visit * Reason Onset Date Comments [facility] 12/23/2023 ENT Encounter Details Date Type Department Care Team (Latest Contact Info) Description 12/23/2023 Clinical Communication Department of Otorhinolaryngology in [place], [place] [address] [place] [address] Provider, Unknown [facility] (ENT ) Social History Tobacco Use Types Packs/Day Years Used Date Smoking Tobacco: Never Assessed [facility] Utilities Answer Date Recorded In the past [...] your living situation today? I have a [facility] place to live 01/23/2024 Sex and [...]
--- NOTE | 2024-02-05 02:32 | ED.GENADULT ---
HPI - General Adult General Date Seen: 02/05/24 Chief complaint: Post Op Complication Stated complaint: low o2 Time Seen by Provider: 02/05/24 01:49 Source: patient Mode of arrival: ambulatory Limitations: no limitations History of Present Illness HPI narrative: Patient is a 63-year-old male presenting to the emergency department for shortness of breath. 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 He spent the night at the [facility] and was discharged in the morning of 02/04/2024. He has continued to few shortness of breath since the surgery. He states at rest he was standing 80-89% at the [facility] and was down 84% on ambulation. He was then discharged. He continued to feel short of breath at home in states his oxygen level got down to 81% with ambulation. He was also last low in the emergency department with ambulation walking to the bed from the triage box. Denies chest pain, shortness of breath, previous blood clots, headache, vision changes, weakness. Does state he has a sore throat but has been like that since his intubation for the surgery. His a mildly hoarse voice also that has been going on since the intubation. Thinks his neck swelling might be a little bit worse since discharge but cannot say for certain. No other concerns noted. Related Data Home Medications ?Medication ?Instructions ?Recorded ?Confirmed loratadine 10 mg tablet (Claritin) 10 mg PO BID 10/06/23 01/10/24 levothyroxine 175 mcg tablet 175 mcg PO DAILY 02/05/24 02/05/24 oxycodone 5 mg tablet PO 02/05/24 Previous Rx's ?Medication ?Instructions ?Recorded fluticasone 250 mcg-salmeterol 50 1 inh inhalation BID #60 ea 10/20/23 mcg/dose blistr powdr for inhalation Allergies Allergy/AdvReac Type Severity Reaction Status Date / Time No Known Drug Allergies Allergy Verified 02/05/24 02:04 Review of Systems Status of ROS: Reports: 10 or more systems reviewed and unremarkable except as noted in History and below [facility] Medical History Nodule of left lobe of thyroid gland ?E04.1 - Nontoxic single thyroid nodule (ICD-10) Surgical History Status post arthroscopy of right knee ?Z98.890 - Other specified postprocedural states (ICD-10) Status post tonsillectomy and adenoidectomy ?Z90.89 - Acquired absence of other organs (ICD-10) Social History Narrative: 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 Does not drink alcohol. Non-prescribed substance use: denies use Little interest or pleasure in doing things: not at all Feeling down, depressed, or hopeless: not at all Exam Narrative: Exam Narrative: Const: Well-nourished, Well-developed, in mild distress Eyes: PERRL, no conjunctival injection, and symmetrical lids HENT: Atraumatic external nose and ears. Moist mucous membranes. Neck: Swollen neck noted bilaterally with incisional sites covered with Steri-Strips CVS: RRR, No murmurs or gallops. Peripheral pulses 2+ and equal in all extremities RESP: Unlabored respiratory effort. Crackles heard bilaterally lower lobe. GI: Nontender/Nondistended, No rebound or guarding. MSK:Extremities w/o deformity, Normal Active ROM Skin: Warm, Dry. No rashes or lesions.\ Neuro: Normal Muscle tone, No focal neurological deficits. Psych: Awake, Alert, & Oriented x3. Appropriate mood and affect. Const: Vital Signs, click to edit/add: Vital Signs - 24 hr 02/05/24 01:45 02/05/24 01:46 02/05/24 01:51 Temperature Pulse Rate 90 89 80 Pulse Rate [Left P ulse Oximeter] Respiratory Rate Blood Pressure 206/116 H 178/102 H Blood Pressure [Ri ght Upper Arm] Pulse Oximetry 83 L 87 L 90 Oxygen Delivery Me thod Room Air Room Air Nasal Cannula Oxygen Flow Rate 02/05/24 01:54 02/05/24 01:58 02/05/24 02:00 Temperature 97.7 F Pulse Rate 80 Pulse Rate [Left P ulse Oximeter] 79 Respiratory Rate 20 Blood Pressure Blood Pressure [Ri ght Upper Arm] 178/102 H Pulse Oximetry 81 L 93 92 Oxygen Delivery Me thod Room Air Nasal Cannula Oxygen Flow Rate 3 02/05/24 02:15 02/05/24 02:36 02/05/24 02:37 Temperature Pulse Rate 83 82 80 Pulse Rate [Left P ulse Oximeter] Respiratory Rate Blood Pressure 171/98 H Blood Pressure [Ri ght Upper Arm] Pulse Oximetry 92 92 92 Oxygen Delivery Me thod Oxygen Flow Rate 02/05/24 02:45 02/05/24 02:47 02/05/24 03:00 Temperature Pulse Rate 84 80 76 Pulse Rate [Left P ulse Oximeter] Respiratory Rate Blood Pressure 179/98 H Blood Pressure [Ri ght Upper Arm] Pulse Oximetry 92 91 92 Oxygen Delivery Me thod Oxygen Flow Rate 02/05/24 03:03 02/05/24 03:15 02/05/24 03:17 Temperature Pulse Rate 81 81 82 Pulse Rate [Left P ulse Oximeter] Respiratory Rate Blood Pressure 149/88 H 150/91 H Blood Pressure [Ri ght Upper Arm] Pulse Oximetry 92 93 92 Oxygen Delivery Me thod Oxygen Flow Rate 02/05/24 03:30 02/05/24 03:32 02/05/24 03:45 Temperature Pulse Rate 74 81 77 Pulse Rate [Left P ulse Oximeter] Respiratory Rate Blood Pressure 136/87 Blood Pressure [Ri ght Upper Arm] Pulse Oximetry 93 93 92 Oxygen Delivery Me thod Oxygen Flow Rate 02/05/24 03:47 02/05/24 04:00 02/05/24 04:02 Temperature Pulse Rate 80 79 77 Pulse Rate [Left P ulse Oximeter] Respiratory Rate Blood Pressure 149/87 H 137/89 Blood Pressure [Ri ght Upper Arm] Pulse Oximetry 93 94 93 Oxygen Delivery Me thod Oxygen Flow Rate 02/05/24 04:42 02/05/24 04:50 02/05/24 04:53 Temperature Pulse Rate 77 90 Pulse Rate [Left P ulse Oximeter] Respiratory Rate Blood Pressure 167/101 H Blood Pressure [Ri ght Upper Arm] Pulse Oximetry 92 83 L Oxygen Delivery Me thod Oxygen Flow Rate 02/05/24 05:00 02/05/24 05:02 02/05/24 05:15 Temperature Pulse Rate 76 76 74 Pulse Rate [Left P ulse Oximeter] Respiratory Rate Blood Pressure 151/92 H Blood Pressure [Ri ght Upper Arm] Pulse Oximetry 93 93 94 Oxygen Delivery Me thod Oxygen Flow Rate 02/05/24 05:30 02/05/24 05:32 02/05/24 05:45 Temperature Pulse Rate 71 75 75 Pulse Rate [Left P ulse Oximeter] Respiratory Rate Blood Pressure 151/100 H Blood Pressure [Ri ght Upper Arm] Pulse Oximetry 94 93 95 Oxygen Delivery Me thod Oxygen Flow Rate 02/05/24 06:00 02/05/24 06:02 02/05/24 06:15 Temperature Pulse Rate 75 76 68 Pulse Rate [Left P ulse Oximeter] Respiratory Rate Blood Pressure 167/107 H Blood Pressure [Ri ght Upper Arm] Pulse Oximetry 93 94 94 Oxygen Delivery Me thod Oxygen Flow Rate Course Vital Signs Vital signs: Initial Vital Signs Pulse Rate 90 02/05/24 01:45 Blood Pressure 206/116 H 02/05/24 01:45 Blood Pressure Mean 146 H 02/05/24 01:45 Pulse Oximetry 83 L 02/05/24 01:45 Oxygen Delivery Method Room Air 02/05/24 01:45 Vital Signs Pulse Rate 90 02/05/24 01:45 Blood Pressure 206/116 H 02/05/24 01:45 Pulse Oximetry 83 L 02/05/24 01:45 Oxygen Delivery Method Room Air 02/05/24 01:45 Temperature 97.7 F 02/05/24 01:54 Pulse Rate 68 02/05/24 06:15 Respiratory Rate 20 02/05/24 01:54 Blood Pressure 167/107 H 02/05/24 06:02 Pulse Oximetry 94 02/05/24 06:15 Oxygen Delivery Method Nasal Cannula 02/05/24 01:58 Oxygen Flow Rate 3 02/05/24 01:58 Medical Decision Making [facility] Narrative Medical decision making narrative: Patient is a 63-year-old male presenting to the emergency department for shortness of breath. No stridor is heard on exam. I did notice crackles in lower lobes. No wheezing. Neck is swollen but not notably worse compared to when he was discharged according to the patient and family. The cause for his shortness of breath could be secondary to this surgery causes some airway impingement but this time I see no signs of imminent airway demise. I will do a CBC, BMP, COVID/flu/RSV, and troponin, EKG, TSH, D-dimer. D-dimer returned elevated. We do CT scan with contrast of the neck along with a CTA of the chest. CBC shows a slightly elevated white blood cell count at 12.76 but this is likely secondary to his recent surgery he is showing no overt signs of infection. BMP shows no concerning abnormalities. COVID/flu/RSV is negative. Point of care troponin is normal. EKG shows no concerning findings. CT scan of the neck showed the recent thyroidectomy. There is fluid in the thyroid bed bilaterally that is probably representing a hematoma. There is also mild induration extended into the retro manubrial area. Asymmetric well coupled seen. There is also mild narrowing of the subglottic trachea. Is believe this is likely predating the surgery. CT scan of the chest shows no signs of acute PE. There is atelectasis seen in the mid lungs and lung bases but anteriorly with consultation in significant gets of lobar volume loss that is commonly seen with aspiration. Patient does not remember any aspiration episodes. I spoke to his surgical service at [facility] and based on my description they do not believe this is a surgical issue but are willing to take him for transfer on their service. I spoke to patient at this time he would prefer to stay at [facility] if possible. His surgical team does recommend a swallow study. I spoke to our admitting hospitalist and the patient was accepted for admission. Lab Data Labs: Lab Results 02/05/24 02/05/24 02/05/24 Range/Units 02:17 02:35 02:41 WBC 12.76 H (4.50-11.00) K/uL RBC 5.43 (4.30-5.90) m/uL Hgb 15.7 (13.5-17.5) gm/dL Hct 46.6 (37.0-53.0) % MCV 86 (80-100) fL MCH 29 (26-34) pg MCHC 34 (32-36) gm/dL RDW Coeff of Jakob 13.1 (11.5-15.5) % Plt Count 340 (140-440) K/uL Neut % (Auto) 76.1 H (42.0-72.0) % Lymph % (Auto) 10.0 L (20-44) % Glynn % (Auto) 12.4 H (0.0-11.0) % Eos % (Auto) 0.9 (0.0-7.0) % Baso % (Auto) 0.3 (0.0-3.0) % Neut # (Auto) 9.70 H (1.7-7.0) K/uL Lymph # (Auto) 1.30 (0.90-2.90) K/uL Glynn # (Auto) 1.60 H (0.00-0.90) K/UL Eos # (Auto) 0.10 (0.00-0.50) K/uL Baso # (Auto) 0.00 (0.00-0.30) K/uL Abs Immat Gran (auto) 0.00 (0.00-0.30) K/uL Imm/Tot Granulo (auto) 0.3 % D-Dimer Quant (PE/DVT) 1.67 H (0.00-0.50) ug/ml Sodium 136 (135-149) mmol/L Potassium 3.5 L (3.6-5.1) mmol/L Chloride 105 (96-114) mmol/L Carbon Dioxide 25 (20-32) mmol/L Anion Gap 6 L (7-15) mEq/L BUN 17 (7-30) mg/dL Creatinine 0.9 (0.5-1.5) mg/dL Estimated Creat Clear 79.08 Estimated GFR 97 ml/min Glucose 116 H (60-115) mg/dL Calcium 8.9 (8.4-10.6) mg/dL TSH 0.830 (0.270-4.200) uIU/mL SARS-CoV-2 (PCR) Negative SARS-CoV-2 (Negative) Influenza Type A (PCR) Negative PCR FLU A (Negative) Influenza Type B (PCR) Negative PCR FLU B (Negative) RSV (PCR) Negative PCR RSV (Negative) POC Troponin I 0.00 L (0.01-0.04) ng/ml Imaging Data CT scan neck: Attestation: I have reviewed the pertinent imaging results. Radiologist's impression: Preliminary Report: There are of her recent thyroidectomy. There is cutaneous and subcutaneous induration in the anterior inferior cervical area. Fluid is identified in the thyroid bed and in the regional soft tissues, mainly deep to the platysma muscle, left greater than right probably representing hematoma. There is mild induration extending into the retro manubrial area. There is mild narrowing of the subglottic trachea. This does not appear to be at a peak surrounding soft tissue induration and probably predated the surgery. Asymmetric vocal folds which can be seen and paralysis/paresis of the vocal folds. No acute osseous abnormality Dictated by Reji Soto MD @ 02/05/2024 5:01:12 AM CTA chest: Attestation: I have reviewed the pertinent imaging results. Radiologist's impression: 1. There is no finding of acute pulmonary embolus. 2. Postsurgical changes related to thyroidectomy more fully described in the separate CT neck report. 3. Atelectasis in the mid lungs and lung bases anteriorly. Consolidation and significant sub lobar volume loss of the basilar segments of the lower lobes . This pattern posteriorly as often due to aspiration. No significant pleural fluid and no pneumothorax Please note that all CT scans at this facility use dose modulation, iterative reconstruction, and/or weight-based dosing when appropriate to reduce radiation dose to as low as reasonably achievable. Dictated by Reji Soto MD @ 02/05/2024 4:56:44 AM ECG Data Attestation: I personally reviewed and interpreted this ECG as follows: Prior ECG tracings: not available for review Interpretation: Normal sinus rhythm with a rate of 82 beats per minute, normal intervals, normal axis, no ST or T-wave abnormalities Discharge Plan Discharge Clinical Impression: Shortness of breath Patient Disposition: Admitted As Observation Condition: Stable
[2024-02-05 02:57] LABS: Basophils Percent Auto 0.3 % (0.0-3.0); Eosinophils Percent Auto 0.9 % (0.0-7.0); Hematocrit 46.6 % (37.0-53.0); Hemoglobin* 15.7 gm/dL (13.5-17.5); Immature Granulocytes Pct Auto 0.3 %; Mean Corpuscular HGB Conc 34 gm/dL (32-36); Mean Corpuscular Hemoglobin 29 pg (26-34); Mean Corpuscular Volume 86 fL (80-100); Monocytes Percent Auto 12.4 % (0.0-11.0); Neutrophils Percent Auto 76.1 % (42.0-72.0); Platelet Count* 340 K/uL (140-440); RDW Coefficient of Variation % 13.1 % (11.5-15.5); Red Blood Count 5.43 m/uL (4.30-5.90); White Blood Count* 12.76 K/uL (4.50-11.00)
[2024-02-05 03:00] LABS: Slide Review Reflex No
[2024-02-05 03:18] LABS: Chloride* 105 mmol/L (96-114); Potassium* 3.5 mmol/L (3.6-5.1); Sodium* 136 mmol/L (135-149)
[2024-02-05 03:20] LABS: Creatinine* 0.9 mg/dL (0.5-1.5); Est. Creatinine Clearance* 79.08; Estimated Glomerular Filt Rate 97 ml/min
[2024-02-05 03:21] LABS: Anion Gap 6 mEq/L (7-15); Blood Urea Nitrogen* 17 mg/dL (7-30); Calcium* 8.9 mg/dL (8.4-10.6); Carbon Dioxide* 25 mmol/L (20-32); D Dimer Quantitative* 1.67 ug/ml (0.00-0.50); Glucose* 116 mg/dL (60-115)
--- NOTE | 2024-02-05 03:29 | CRLHL7_ITS ---
For Patients: As a result of the Century Cures Act, medical imaging exams and procedure reports are released immediately into your electronic medical record. You may view this report before your referring provider. If you have questions, please contact your health care provider. INDICATION: Low oxygen levels status post thyroidectomy. TECHNIQUE: CT images of the neck following intravenous contrast. COMPARISON: None. FINDINGS: Postsurgical changes of recent thyroidectomy. Ill-defined fluid, stranding, and emphysema thyroidectomy bed and anterior cervical neck. Ill-defined stranding in the visualized superior mediastinum. No organized postoperative hematoma. Mild retropharyngeal fluid without peripheral enhancement. Mild narrowing of the supraglottic airway. The true vocal cords are adducted. Mild narrowing of the superior trachea. No enhancing lesions in the oral cavity or floor of mouth. The parotid and submandibular glands are unremarkable. Multiple mildly enlarged bilateral cervical lymph nodes, several of which demonstrate elongated morphology. Minimal right maxillary sinus mucosal thickening. The visualized mastoid air cells are clear. Multifocal dental disease including periapical lucencies and dental caries involving maxillary and mandibular teeth. No aggressive osseous lesions. No concerning opacities in the lung apices. IMPRESSION: 1. Postsurgical changes of recent thyroidectomy with ill-defined fluid, stranding, and emphysema in the operative bed and anterior cervical neck. Ill-defined stranding extending into the visualized superior mediastinum. No organized postoperative hematoma. Mild retropharyngeal fluid contributes to mild narrowing of the supraglottic airway. There is mild narrowing of the superior tracheal airway. 2. Multiple mildly enlarged bilateral cervical lymph nodes, likely reactive. 3. Multifocal dental disease. Please note that all CT scans at this facility use dose modulation, iterative reconstruction, and/or weight-based dosing when appropriate to reduce radiation dose to as low as reasonably achievable. Dictated by Noah Holly MD @ 02/06/2024 10:26:41 AM (Electronically Signed)
--- NOTE | 2024-02-05 03:29 | CRLHL7_ITS ---
For Patients: As a result of the Century Cures Act, medical imaging exams and procedure reports are released immediately into your electronic medical record. You may view this report before your referring provider. If you have questions, please contact your health care provider. INDICATION: Low oxygen levels. Status post thyroidectomy COMPARISON: None TECHNIQUE: : CT examination of the chest was performed with the uneventful intravenous administration of 95 cc of Isovue 370 while thin axial sections were obtained from above the apices of the lungs to the lung bases. The examination was timed as a pulmonary artery angiogram. Please note that all CT scans at this facility use dose modulation, iterative reconstruction, and/or weight-based dosing when appropriate to reduce radiation dose to as low as reasonably achievable. FINDINGS: : HEART and MEDIASTINUM: The heart size is normal. There is no mediastinal or hilar adenopathy or mass. No pericardial effusion there are postsurgical changes related to thyroidectomy which will be more fully described in the separate but contemporaneous neck CT report. PULMONARY ARTERIAL CIRCULATION: There is no visible intraluminal filling defect to suggest pulmonary embolus. LUNGS and PLEURAL SPACES: Linear opacities in the mid lungs and bases most notably in the right middle lobe and lingula most consistent with atelectasis. Consolidation is noted at the posterior bases bilaterally. This is associated with significant volume loss of basilar segments.This pattern is sometimes seen in aspiration. VISUALIZED UPPER ABDOMEN: Hepatic steatosis. Otherwise, the limited visualized upper abdominal structures appear normal. OSSEOUS STRUCTURES: Age-appropriate appearance. No acute fracture or destructive process. TUBES and LINES: None. IMPRESSION: 1. There is no finding of acute pulmonary embolus. 2. Postsurgical changes related to thyroidectomy more fully described in the separate CT neck report. 3. Atelectasis in the mid lungs and lung bases anteriorly. Consolidation and significant sub lobar volume loss of the basilar segments of the lower lobes . This pattern posteriorly as often due to aspiration. No significant pleural fluid and no pneumothorax Please note that all CT scans at this facility use dose modulation, iterative reconstruction, and/or weight-based dosing when appropriate to reduce radiation dose to as low as reasonably achievable. Dictated by Reji Soto MD @ 02/05/2024 4:56:44 AM (Electronically Signed)
[2024-02-05 03:34] LABS: PCR FLU A Negative PCR FLU A (Negative); PCR FLU B Negative PCR FLU B (Negative); PCR RSV Negative PCR RSV (Negative); SARS PCR* Negative SARS-CoV-2 (Negative)
--- NOTE | 2024-02-05 12:02 | P.IMHP_ITS ---
Hospitalist- H&P: HPI History of Present Illness Date Seen: 02/05/24 Chief complaint: low o2 Narrative: Forest Long is a 63 year old man who presents to the emergency department with dyspnea and low oxygen saturations. Patient found to have thyroid nodule in October 2023. 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 Patient underwent elective thyroidectomy on 02/03/2024 at [place], [place], successfully without any apparent immediate complications. On date of discharge he was hypoxic with resting oxygen saturations in the mid 80s that would drop down to 82-84 with ambulation. Despite this he was discharged home without oxyg en support or additional assessment on 02/04/2024. When at home he continues to note dyspnea with exertion and low oxygen saturations and thus he presents to the emergency department for further assessment. He denies awareness of an aspiration event in distant as well as recent past. Did undergo general anesthesia with endotracheal intubation for the thyroidectomy that he underwent on 02/03/2024. Did have the hypoxia episode on 02/04/2024 in has had hypoxia since. Denies fevers, rigors, diaphoresis. No recent illnesses. At times has exercise-induced cough which is primary care physician has referred to as mild intermittent asthma. Review of Systems Status of ROS: Reports: 10 or more systems reviewed and unremarkable except as noted in History and below Narrative: Generally healthy. Up until recently when he has had the workup for his thyroid mass he had been playing [employer] ball 3 hours at a time 2 to 3 times a week. 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 Lives at home with his and I believe 2 or 3 children still. 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 Requests full resuscitation in the event of cardiopulmonary demise. Dr. Ly is his primary care physician. Does not use any tobacco products. Does not drink alcoholic beverages. Denies use of any street or recreational drugs. Has not required any postoperative opioid analgesia for over 24 hours. [facility] Medical History (Updated 02/05/24 @ 12:30 by Ron De Anda MD) Sleep disorder breathing ?G47.30 - Sleep apnea, unspecified (ICD-10) Obesity (BMI 30.0-34.9) ?E66.9 - Obesity, unspecified (ICD-10) Retrograde amnesia (08/23/16) ?R41.2 - Retrograde amnesia (ICD-10) Seasonal allergic rhinitis ?J30.2 - Other seasonal allergic rhinitis (ICD-10) Mild persistent asthma ?J45.30 - Mild persistent asthma, uncomplicated (ICD-10) Thyroid cancer, medullary carcinoma ?C73 - Malignant neoplasm of thyroid gland (ICD-10) Nodule of left lobe of thyroid gland ?E04.1 - Nontoxic single thyroid nodule (ICD-10) Surgical History (Updated 02/05/24 @ 12:29 by Ron De Anda MD) Status post thyroidectomy ?E89.0 - Postprocedural hypothyroidism (ICD-10) Status post arthroscopy of right knee ?Z98.890 - Other specified postprocedural states (ICD-10) Status post tonsillectomy and adenoidectomy ?Z90.89 - Acquired absence of other organs (ICD-10) Family History (Updated 02/05/24 @ 12:01 by Ron De Anda MD) Other Diabetes Hodgkins lymphoma Social History Narrative: Nonsmoker, works as a property 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 Does not drink alcohol. Non-prescribed substance use: denies use Little interest or pleasure in doing things: not at all Feeling down, depressed, or hopeless: not at all Meds Home Medications and Allergies Home Medications ?Medication ?Instructions ?Recorded ?Confirmed ?Type loratadine 10 mg tablet (Claritin) 10 mg PO BID 10/06/23 02/05/24 History levothyroxine 175 mcg tablet 175 mcg PO DAILY 02/05/24 02/05/24 History oxycodone 5 mg tablet 5 mg PO .UD PRN 02/05/24 02/05/24 History Allergies Allergy/AdvReac Type Severity Reaction Status Date / Time No Known Drug Allergies Allergy Verified 02/05/24 02:04 Exam 2 Narrative: Exam Narrative: Examined patient in his hospital room. He is sitting upright in the recliner chair at his bedside. Appears comfortable and in no acute distress. Receiving oxygen supplementation at 3 L of oxygen per minute via nasal cannula and maintaining saturations in the mid 90s. Able to speak without any apparent dyspnea. Not utilizing accessory muscles of respiration. No pursed lip breathing. Vision and hearing are adequate. Alert and oriented x4. Friendly, articulate, cooperative. External auditory canals are clear with tympanic membranes normal. Midline nasal septum. Mallampati class 3-4 airway. No icterus. No conjunctival injection. Conjugate gaze. Neck is full with greater than 19 in circumference. Midline trachea. Incision from thyroidectomy observed to be clean and dry. Aside from the surgical incision site the skin is intact. No icterus, jaundice, petechiae, cyanosis, or rashes. No stridor. Lungs with bibasilar rales. No wheezing or rhonchi. Chest wall excursions are minimally diminished. No CVA tenderness to thumping. Heart tones with regular rhythm, normal S1-S2, without murmur, gallop, or rub. PMI is not laterally displaced. Abdomen is obese with active bowel sounds, soft, nontender. Extremities with 1-2 mm pitting edema pretibially bilaterally. Moves all 4 extremities. No tremor, asterixis, or ataxia. Cranial nerves 3-12 are grossly normal. Const: Vital Signs, click to edit/add: Vital Signs - 24 hr 02/05/24 01:45 02/05/24 01:46 02/05/24 01:51 Temperature Pulse Rate 90 89 80 Pulse Rate [Left P ulse Oximeter] Pulse Rate [Left] Respiratory Rate Blood Pressure 206/116 H 178/102 H Blood Pressure [Le ft Arm] Blood Pressure [Ri ght Upper Arm] Pulse Oximetry 83 L 87 L 90 Oxygen Delivery Me thod Room Air Room Air Nasal Cannula Oxygen Flow Rate 02/05/24 01:54 02/05/24 01:58 02/05/24 02:00 Temperature 97.7 F Pulse Rate 80 Pulse Rate [Left P ulse Oximeter] 79 Pulse Rate [Left] Respiratory Rate 20 Blood Pressure Blood Pressure [Le ft Arm] Blood Pressure [Ri ght Upper Arm] 178/102 H Pulse Oximetry 81 L 93 92 Oxygen Delivery Me thod Room Air Nasal Cannula Oxygen Flow Rate 3 02/05/24 02:15 02/05/24 02:36 02/05/24 02:37 Temperature Pulse Rate 83 82 80 Pulse Rate [Left P ulse Oximeter] Pulse Rate [Left] Respiratory Rate Blood Pressure 171/98 H Blood Pressure [Le ft Arm] Blood Pressure [Ri ght Upper Arm] Pulse Oximetry 92 92 92 Oxygen Delivery Me thod Oxygen Flow Rate 02/05/24 02:45 02/05/24 02:47 02/05/24 03:00 Temperature Pulse Rate 84 80 76 Pulse Rate [Left P ulse Oximeter] Pulse Rate [Left] Respiratory Rate Blood Pressure 179/98 H Blood Pressure [Le ft Arm] Blood Pressure [Ri ght Upper Arm] Pulse Oximetry 92 91 92 Oxygen Delivery Me thod Oxygen Flow Rate 02/05/24 03:03 02/05/24 03:15 02/05/24 03:17 Temperature Pulse Rate 81 81 82 Pulse Rate [Left P ulse Oximeter] Pulse Rate [Left] Respiratory Rate Blood Pressure 149/88 H 150/91 H Blood Pressure [Le ft Arm] Blood Pressure [Ri ght Upper Arm] Pulse Oximetry 92 93 92 Oxygen Delivery Me thod Oxygen Flow Rate 02/05/24 03:30 02/05/24 03:32 02/05/24 03:45 Temperature Pulse Rate 74 81 77 Pulse Rate [Left P ulse Oximeter] Pulse Rate [Left] Respiratory Rate Blood Pressure 136/87 Blood Pressure [Le ft Arm] Blood Pressure [Ri ght Upper Arm] Pulse Oximetry 93 93 92 Oxygen Delivery Me thod Oxygen Flow Rate 02/05/24 03:47 02/05/24 04:00 02/05/24 04:02 Temperature Pulse Rate 80 79 77 Pulse Rate [Left P ulse Oximeter] Pulse Rate [Left] Respiratory Rate Blood Pressure 149/87 H 137/89 Blood Pressure [Le ft Arm] Blood Pressure [Ri ght Upper Arm] Pulse Oximetry 93 94 93 Oxygen Delivery Me thod Oxygen Flow Rate 02/05/24 04:42 02/05/24 04:50 02/05/24 04:53 Temperature Pulse Rate 77 90 Pulse Rate [Left P ulse Oximeter] Pulse Rate [Left] Respiratory Rate Blood Pressure 167/101 H Blood Pressure [Le ft Arm] Blood Pressure [Ri ght Upper Arm] Pulse Oximetry 92 83 L Oxygen Delivery Me thod Oxygen Flow Rate 02/05/24 05:00 02/05/24 05:02 02/05/24 05:15 Temperature Pulse Rate 76 76 74 Pulse Rate [Left P ulse Oximeter] Pulse Rate [Left] Respiratory Rate Blood Pressure 151/92 H Blood Pressure [Le ft Arm] Blood Pressure [Ri ght Upper Arm] Pulse Oximetry 93 93 94 Oxygen Delivery Me thod Oxygen Flow Rate 02/05/24 05:30 02/05/24 05:32 02/05/24 05:45 Temperature Pulse Rate 71 75 75 Pulse Rate [Left P ulse Oximeter] Pulse Rate [Left] Respiratory Rate Blood Pressure 151/100 H Blood Pressure [Le ft Arm] Blood Pressure [Ri ght Upper Arm] Pulse Oximetry 94 93 95 Oxygen Delivery Me thod Oxygen Flow Rate 02/05/24 06:00 02/05/24 06:02 02/05/24 06:15 Temperature Pulse Rate 75 76 68 Pulse Rate [Left P ulse Oximeter] Pulse Rate [Left] Respiratory Rate Blood Pressure 167/107 H Blood Pressure [Le ft Arm] Blood Pressure [Ri ght Upper Arm] Pulse Oximetry 93 94 94 Oxygen Delivery Me thod Oxygen Flow Rate 02/05/24 10:15 02/05/24 10:30 Temperature 97.2 F L Pulse Rate Pulse Rate [Left P ulse Oximeter] Pulse Rate [Left] 79 Respiratory Rate 24 24 Blood Pressure Blood Pressure [Le ft Arm] 172/96 H Blood Pressure [Ri ght Upper Arm] Pulse Oximetry 94 94 Oxygen Delivery Me thod Nasal Cannula Nasal Cannula Oxygen Flow Rate 3 3 Hospitalist - H&P: Result Labs Labs: Short CBC 02/05/24 Range/Units 02:35 WBC 12.76 H (4.50-11.00) K/uL Hgb 15.7 (13.5-17.5) gm/dL Hct 46.6 (37.0-53.0) % Plt Count 340 (140-440) K/uL BMP 02/05/24 02:35 Sodium 136 Potassium 3.5 L Chloride 105 Carbon Dioxide 25 BUN 17 Creatinine 0.9 Glucose 116 H Calcium 8.[address] scan - chest: Attestation: I have reviewed the pertinent imaging results. Radiologist's impression: 1. There is no finding of acute pulmonary embolus. 2. Postsurgical changes related to thyroidectomy more fully described in the separate CT neck report. 3. Atelectasis in the mid lungs and lung bases anteriorly. Consolidation and significant sub lobar volume loss of the basilar segments of the lower lobes . This pattern posteriorly as often due to aspiration. No significant pleural fluid and no pneumothorax. Assessment and Plan Assessment and plan (1) Shortness of breath: Problem comment: - suspect primarily related to pulmonary infiltrates as specified below. - doubt related to history of exercise-induced coughing which has been referred to his mild intermittent asthma - while in hospital we will administer albuterol nebulizers q.6 hours Status: Acute (2) Pulmonary infiltrate present on computed tomography: Problem comment: - [place] [address], hypoxia - Noted POD 2 S/p elective thyroidectomy due to medullary thyroid cancer - D/Dx: aspiration pneumonitis, pneumonia, pulmonary atelectasis, CAP - Initiated imipenem-cilastin 500 mg IV q 6 hours and vancomycin 15 mg/kg IV q 12 hours and consider eliminating in next 1-2 days, depending on how he does clinically - will ask for bedside swallow eval to assess for feeding aspiration even though I suspect if it was an aspiration event that occurred during intubation and ventilation for his thyroidectomy - O2 supplementation to maintain his oxygen saturations > or = to 92% - RT to follow- with us while he is in hospital - patient prefers to stay in our hospital rather than return to the [facility] in [facility]. Status: Acute (3) Status post thyroidectomy: Problem comment: - 02/03/2024 at the [place], [place] - our physician in the emergency department spoke directly to surgical team who cared for the patient at the [facility] in [facility]. They reviewed the CT scan and concluded that patient's shortness of breath is not related to the surgery primarily. They indicated they would be willing to readmit the patient in [place], but the patient declined to do so and stated a preference to remain at the hospital in [place] at this time. Status: Acute (4) Sleep disorder breathing: Problem comment: - neck circumference greater than 19 inches - snores and has apneic episodes - Mallampati III airway - suspect BARBARA and recommended he obtain a formal sleep study on 02/05/24 Status: Acute (5) Thyroid cancer, medullary carcinoma: Problem comment: - s/p thyroidectomy 02/03/24, [place], [place] - Initiated levothyroxine 175 mcg po daily on 02/04/2024 - follow-up with PCP and [facility] Status: Acute (6) Mild persistent asthma: Status: Acute (7) Nodule of left lobe of thyroid gland: Problem comment: Biopsy suspicious for thyroid neoplasm Status: Acute Plan 1. Reviewed impression and plan with patient and family 2. Answered their questions to their satisfaction. 3. They are agreeable with above stated plans and recommendations Total Time Spent Total Time Spent: 75 minutes
[2024-02-05 16:38] LABS: C Reactive Protein* 7.6 mg/dL (0.5-1.0)
[2024-02-05 16:53] LABS: Procalcitonin* 1.05 ng/mL (<0.50)
--- NOTE | 2024-02-05 18:16 | PC.NURSE ---
shift note: vss stable. pt using 1L pnc O2 to keep sats 91-92%. Pt denies sob. ptup indept in room. IV patent. drsg to throat c/d/i
[2024-02-05] MEDS: BREO ELLIPTA INH (21:04)
[2024-02-05] MEDS: LORATADINE 10 MG TABLET PO (21:04)
[2024-02-05] MEDS: SODIUM CHLORIDE 0.9 % (FLUSH) 10 ML SYRINGE 5 ML IVF (21:05)
[2024-02-05] MEDS: ACETAMINOPHEN 325 MG TABLET 650 MG PO (21:16)
[2024-02-06] VITALS (7 sets, daily range): BP systolic 163–179; BP diastolic 97–125; PULSE 77–103; RESP 18–20; TEMP 36.4–36.7; O2SAT 89–92
[2024-02-06 06:13] LABS: HCO3 VBG 28 mmol/L (21-28); PCO2 VBG 43 mmHG (40-50); PO2 VBG 45.3 mmHG (25-47); pH VBG 7.423 (7.32-7.43)
[2024-02-06 06:20] LABS: Basophils Absolute Auto 0.05 K/uL (0.00-0.30); Basophils Percent Auto 0.6 % (0.0-3.0); Eosinophils Absolute Auto 0.21 K/uL (0.00-0.50); Eosinophils Percent Auto 2.6 % (0.0-7.0); Hematocrit 45.8 % (37.0-53.0); Hemoglobin* 15.1 gm/dL (13.5-17.5); Immature Granulocytes Abs Auto 0.06 K/uL (0.00-0.30); Immature Granulocytes Pct Auto 0.7 %; Lymphocytes Percent Auto 12.2 % (20-44); Mean Corpuscular HGB Conc 33 gm/dL (32-36); Mean Corpuscular Hemoglobin 29 pg (26-34); Mean Corpuscular Volume 87 fL (80-100); Monocytes Percent Auto 13.2 % (0.0-11.0); Neutrophils Absolute Auto 5.77 K/uL (1.7-7.0); Neutrophils Percent Auto 70.7 % (42.0-72.0); Platelet Count* 324 K/uL (140-440); RDW Coefficient of Variation % 13.2 % (11.5-15.5); Red Blood Count 5.27 m/uL (4.30-5.90); White Blood Count* 8.17 K/uL (4.50-11.00)
[2024-02-06] MEDS: LEVOTHYROXINE 75 MCG TABLET PO (06:42)
[2024-02-06] MEDS: LEVOTHYROXINE 100 MCG TABLET PO (06:42)
[2024-02-06 06:44] LABS: Chloride* 106 mmol/L (96-114); Potassium* 4.2 mmol/L (3.6-5.1); Sodium* 138 mmol/L (135-149)
[2024-02-06 06:46] LABS: Creatinine* 0.7 mg/dL (0.5-1.5); Est. Creatinine Clearance* 79.08; Estimated Glomerular Filt Rate 104 ml/min
[2024-02-06 06:47] LABS: Anion Gap 7 mEq/L (7-15); Blood Urea Nitrogen* 19 mg/dL (7-30); Calcium* 8.5 mg/dL (8.4-10.6); Carbon Dioxide* 25 mmol/L (20-32); Glucose* 102 mg/dL (60-115)
[2024-02-06 06:50] LABS: C Reactive Protein* 6.7 mg/dL (0.5-1.0)
[2024-02-06 06:51] LABS: Slide Review Reflex No
--- NOTE | 2024-02-06 07:20 | PC.NURSE ---
Pt alert and oriented x3. Afebrile. Pt reports 2/10 headache, managed with PRN Tylenol. Pt was on 1.5L O2 via nasal cannula to maintain stats 88% and above, pt's stats were between 90-95% titrated pt down to 0.5 L. O2 stats maintained between 88-92%. Pt is up ind in room, voiding and tolerating regular diet.
[2024-02-06] MEDS: ACETAMINOPHEN 325 MG TABLET 650 MG PO (08:26)
[2024-02-06] MEDS: BREO ELLIPTA INH ×2 (08:27→20:41)
[2024-02-06] MEDS: LORATADINE 10 MG TABLET PO ×2 (08:27→20:41)
--- NOTE | 2024-02-06 12:47 | PM.IMPN1 ---
Progress Note: A&P Assessment and plan (1) Shortness of breath: Problem details: - suspect primarily related to pulmonary infiltrates as specified below. - doubt related to history of exercise-induced coughing which has been referred to his mild intermittent asthma - while in hospital we will administer albuterol nebulizers q.6 hours Status: Acute (2) Pulmonary infiltrate present on computed tomography: Problem details: - [place] fever[place] [address], hypoxia - Noted POD 2 S/p elective thyroidectomy due to medullary thyroid cancer - D/Dx: aspiration pneumonitis, pneumonia, pulmonary atelectasis, CAP. My sense is that most likely this is a pulmonary atelectasis. May have an element of pneumonitis. Will continue with empiric treatment for possible pneumonia for now but I doubt this. - Initiated imipenem-cilastin 500 mg IV q 6 hours and vancomycin 15 mg/kg IV q 12 hours and consider eliminating in next 1-2 days, depending on how he does clinically - continue with empiric antibiotic for now. Anticipate we may be able to discontinue this as early as tomorrow. - will ask for bedside swallow eval to assess for feeding aspiration even though I suspect that if it was an aspiration event, more likely it occurred during intubation and ventilation for his thyroidectomy and not while conscious and awake and eating and drinking. - O2 supplementation to maintain his oxygen saturations > or = to 92% - RT to follow- with us while he is in hospital. Encourage patient to ambulate halls as much as possible and utilize incentive spirometer properly every hour on the hour while awake. - patient prefers to stay in our hospital rather than return to the [facility] in [place], [place], if possible. Status: Acute (3) Status post thyroidectomy: Problem details: - 02/03/2024 at the [facility], [place], [place] - our physician in the emergency department spoke directly to surgical team who cared for the patient at the [facility] in [facility]. They reviewed the CT scan and concluded that patient's shortness of breath is not related to the surgery primarily. They indicated they would be willing to readmit the patient in [place], but the patient declined to do so and stated a preference to remain at the hospital in [place] at this time. Status: Acute (4) Sleep disorder breathing: Problem details: - neck circumference greater than 19 inches - snores and has apneic episodes - Mallampati III airway - suspect BARBARA and recommended he obtain a formal sleep study on 02/05/24 Status: Acute (5) Thyroid cancer, medullary carcinoma: Problem details: - s/p thyroidectomy 02/03/24, [place], [place] - Initiated levothyroxine 175 mcg po daily on 02/04/2024 - follow-up with PCP and [facility] Status: Acute (6) Mild persistent asthma: Problem details: - historically has been exercise-induced Status: Acute Plan 1. Reviewed impression with patient, , and son. Answered their questions. 2. Patient agreeable to stay in the hospital overnight again. If patient is improving tomorrow our hope is that he can return home safely. 3. Continue with aggressive pulmonary hygiene efforts with walking an appropriate use of bedside incentive spirometer. Time Spent With Patient Total time spent: 40 minutes Subjective Date Seen: 02/06/24 Interval history: Admission history of present illness: ?Forest Long is a 63 year old man who presents to the emergency department with dyspnea and low oxygen saturations. ?Patient found to have thyroid nodule in October 2023. 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 Patient underwent elective thyroidectomy on 02/03/2024 at [place], [place], successfully without any apparent immediate complications. On date of discharge he was hypoxic with resting oxygen saturations in the mid 80s that would drop down to 82-84 with ambulation. Despite this he was discharged home without oxygen support or additional assessment on 02/04/2024. When at home he continues to note dyspnea with exertion and low oxygen saturations and thus he presents to the emergency department for further assessment. ?He denies awareness of an aspiration event in distant as well as recent past. Did undergo general anesthesia with endotracheal intubation for the thyroidectomy that he underwent on 02/03/2024. Did have the hypoxia episode on 02/04/2024 in has had hypoxia since. Denies fevers, rigors, diaphoresis. No recent illnesses. At times has exercise-induced cough which is primary care physician has referred to as mild intermittent asthma.? Hospital day 2. Admission date 02/05/2024. Starting to feel improved. Still has dyspnea with exertion. No longer has dyspnea at rest. Notes coughing when taking deep breath with appropriate use of incentive spirometer. Notes saturations are improving slightly, particularly when using incentive spirometer properly. Denies chest heaviness, pressure, tightness, or pain. Denies syncope or near-syncope. Denies nausea vomiting or palpitations. Denies fevers, rigors, diaphoresis. Exam Narrative: Exam Narrative: Examined patient in his hospital room. Appears comfortable. Vision and hearing are adequate. Alert and oriented x4. Friendly, articulate, cooperative. No stridor. Bibasilar fine, end inspiratory rales, less prominent than yesterday but certainly still present. No wheezing or rhonchi. Heart tones with regular rhythm, normal S1-S2. Abdomen with active bowel sounds, soft, nontender. Extremities without edema. Independent transfer, station, and gait. No tremor, asterixis, or ataxia. Thyroid incision appears clean and dry. Amount of swelling around incision site is stable compared to yesterday, with known subcutaneous hematoma status post surgery on 02/03/2024. Const: Vital Signs, click to edit/add: Vital Signs - 24 hr 02/05/24 15:00 02/05/24 15:00 02/05/24 19:18 Temperature 97.7 F 97.5 F L Pulse Rate [Left] 96 96 Respiratory Rate 20 20 20 Blood Pressure [Le ft Arm] 177/104 H 172/99 H Pulse Oximetry 92 93 91 Oxygen Delivery Me thod Nasal Cannula Nasal Cannula Nasal Cannula Oxygen Flow Rate 1 1 1.5 02/05/24 22:58 02/05/24 23:50 02/05/24 23:56 Temperature 98.2 F Pulse Rate [Left] 75 Respiratory Rate 20 20 20 Blood Pressure [Le ft Arm] 143/88 H Pulse Oximetry 95 94 Oxygen Delivery Me thod Nasal Cannula Nasal Cannula Oxygen Flow Rate 1.5 1.5 02/06/24 03:52 02/06/24 07:00 Temperature 97.9 F Pulse Rate [Left] 77 Respiratory Rate 18 18 Blood Pressure [Le ft Arm] 163/100 H Pulse Oximetry 90 92 Oxygen Delivery Me thod Room Air Nasal Cannula Oxygen Flow Rate 1 0.5 Labs Labs: Laboratory Results - last 24 hr 02/05/24 02/05/24 02/06/24 02:35 15:56 05:38 WBC 8.17 RBC 5.27 Hgb 15.1 Hct 45.8 MCV 87 MCH 29 MCHC 33 RDW Coeff of Jakob 13.2 Plt Count 324 Neut % (Auto) 70.7 Lymph % (Auto) 12.2 L Greene % (Auto) 13.2 H Eos % (Auto) 2.6 Baso % (Auto) 0.6 Neut # (Auto) 5.77 Lymph # (Auto) 1.00 Greene # (Auto) 1.10 H Eos # (Auto) 0.21 Baso # (Auto) 0.05 Abs Immat Gran (auto) 0.06 Imm/Tot Granulo (auto) 0.7 VBG pH 7.423 VBG pCO2 43 VBG pO2 45.3 VBG HCO3 28 Sodium 138 Potassium 4.2 Chloride 106 Carbon Dioxide 25 Anion Gap 7 BUN 19 Creatinine 0.7 Estimated Creat Clear 79.08 Estimated GFR 104 Glucose 102 Calcium 8.5 C-Reactive Protein 7.6 H 6.7 H Procalcitonin 1.05 H 0.70 H Lab Acknowledgement Test Added
--- NOTE | 2024-02-06 12:52 | PC.NURSE ---
shift note: ambulating in [place] with sats 90% RA begining. pt states he stopped half way through walk due to feeling a little sob then checked sats to be 87%. pt states he took a few breaths while standing still and found sats returned to 91%. pt ambulated in [place] 300ft. noted bruising and slight swelling at incision site on throat. pt icing area for comfort / swelling.
[2024-02-06] MEDS: CHOLECALCIFEROL 50000 EACH PO (12:58)
[2024-02-06] MEDS: LACTOBACILLUS ACIDOPHILUS 1 TABLET 2 TAB PO (17:28)
--- NOTE | 2024-02-06 19:53 | PC.NURSE ---
Nursing Care Hours: [id number] Pt this shift calm and cooperative, alert and oriented. Independent in room, walking the [place]. Pt c/o pain at IV site with Primaxin ABX. Added NS line to dilute and provided relief. Tolerating regular diet. Intermittent use of ice to neck. Slight bruising and swelling noted. Breathing easily, stable on RA while up. IS 750ml with cough afterwards.
[2024-02-06] MEDS: IBUPROFEN 400 MG TABLET PO (20:41)
[2024-02-06] MEDS: SODIUM CHLORIDE 0.9 % (FLUSH) 10 ML SYRINGE 5 ML IVF (20:43)
[2024-02-06] MEDS: 0.9 % SODIUM CHLORIDE 250 ml IV (22:35)
[2024-02-07] VITALS (9 sets, daily range): BP systolic 147–184; BP diastolic 89–122; PULSE 80–99; RESP 18–20; TEMP 36.6–37.4; O2SAT 88–90
[2024-02-07] MEDS: LEVOTHYROXINE 100 MCG TABLET PO (05:56)
[2024-02-07] MEDS: LEVOTHYROXINE 75 MCG TABLET PO (05:57)
--- NOTE | 2024-02-07 07:57 | PC.NURSE ---
Pt is alert and oriented x3. Afebrile. Denies pain, chest pain, and N/V. Pt remained on room air most of night O2 stats 88-91%, placed pt on 0.5L once for 30 mins due to period of O2 stats dropping to 87% for a short period. Pt reports SOB with exertion, O2 stats dropped to 84% while briskly walking in [place]. Pt is up independent in room and walking halls with oximeter and is regularly using IS. Pt's IV in left arm was red, sore and had some swelling, removed IV catheter intact, wrapped arm warm blanket. New IV placed in right arm. Pt's blood pressure continues to be high, pt reports white coat syndrome and this is normal for him, pt denies headache, SOB at rest, updated MD Márquez, no new orders given, continued plan of care.
[2024-02-07] MEDS: LORATADINE 10 MG TABLET PO ×2 (09:10→20:36)
[2024-02-07] MEDS: SODIUM CHLORIDE 0.9 % (FLUSH) 10 ML SYRINGE 5 ML IVF ×2 (09:10→20:36)
[2024-02-07] MEDS: BREO ELLIPTA INH ×2 (09:10→20:36)
[2024-02-07] MEDS: LACTOBACILLUS ACIDOPHILUS 1 TABLET 2 TAB PO ×3 (09:10→17:45)
--- NOTE | 2024-02-07 11:17 | PM.IMPN1 ---
Progress Note: A&P Assessment and plan (1) Shortness of breath: Problem details: - Of note, patient was reported to be hypoxic, mid-high 80s, upon discharge from [place] on 02/04/24 (see Epic note 02/04) - suspect primarily related to pulmonary infiltrates as specified below - doubt related to history of exercise-induced coughing which has been referred to his mild intermittent asthma - while in hospital we will administer albuterol nebulizers q.6 hours 02/06: O2 saturations, on room air, 86-90% at rest while speaking. 86-87% with ambulation, recovering to 90% at rest. Continues on IV antibiotics, procalcitonin trended down. Will trial dose of IV lasix today, strict I&Os, daily weights. 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 My sense is that most likely this is a pulmonary atelectasis. May have an element of pneumonitis. Will continue with empiric treatment for possible pneumonia for now but I doubt this. - Initiated imipenem-cilastin 500 mg IV q 6 hours and vancomycin 15 mg/kg IV q 12 hours to cover HAP and consider eliminating in next 1-2 days, depending on how he does clinically - will ask for bedside swallow eval to assess for feeding aspiration even though I suspect that if it was an aspiration event, more likely it occurred during intubation and ventilation for his thyroidectomy and not while conscious and awake and eating and drinking. - O2 supplementation to maintain his oxygen saturations > or = to 92% - RT to follow- with us while he is in hospital. Encourage patient to ambulate halls as much as possible and utilize incentive spirometer properly every hour on the hour while awake. - patient prefers to stay in our hospital rather than return to the [facility] in [place], [place], if possible. 02/06: In reviewing Epic note from [place] dated 02/04, agreed with plan to continue IV antibiotics for concern of possible aspiration from an anatomic standpoint Status: Acute (3) Status post thyroidectomy: Problem details: - Surgical date 02/03/2024 at the [place], [place] - our physician in the emergency department spoke directly to surgical team who cared for the patient at the [facility] in [facility]. They reviewed the CT scan and concluded that patient's shortness of breath is not related to the surgery primarily. They indicated they would be willing to readmit the patient in [place], but the patient declined to do so and stated a preference to remain at the hospital in [place] at this time. Status: Acute (4) Sleep disorder breathing: Problem details: - neck circumference greater than 19 inches - snores and has apneic episodes - Mallampati III airway - suspect BARBARA and recommended he obtain a formal sleep study on 02/05/24 Status: Acute (5) Thyroid cancer, medullary carcinoma: Problem details: - s/p thyroidectomy 02/03/24, [place], [place] - Initiated levothyroxine 175 mcg po daily on 02/04/2024 - follow-up with PCP and [facility] Status: Acute (6) Mild persistent asthma: Problem details: - historically has been exercise-induced. Receiving nebs Status: Acute (7) Hypertension: Problem details: Majority of diastolic readings >100, despite checking with different cuff sizes, opposite arms Self reported white coat syndrome Review of pressures in clinic setting, August and October 2023, show pressures 139/84 and 161/85. 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 IV lasix today. Continue with aggressive pulmonary hygiene efforts with walking and appropriate use of bedside incentive spirometer. Consider d/c to home 1-2 days pending clinical improvement. Time Spent With Patient Total time spent: Total time spent caring for the patient today was 45 minutes. This includes time spent for the visit reviewing the chart, time spent during the visit, time spent after the visit and documentation and planning in coordination of care. Subjective Date Seen: 02/07/24 Interval history: Patient is seen sitting up in a chair this morning. Anxious to improve and be discharged from the hospital. Continues to be hypoxic at rest and with ambulation. Oxygen saturations 86-90% while speaking in a sitting position. Saturations 86-87% while ambulating though quickly recovers to 90% at rest. Continues to feel short of breath with ambulation as well. Remains afebrile. Tolerating orals. No lower extremity peripheral edema. Left hand an arm mildly edematous following IV extravasation. Mild swelling of neck has been improving postoperatively. Exam Narrative: Exam Narrative: PHYSICAL EXAM General: Pleasant, mildly anxious, conversant, NAD HEENT: Normocephalic, atraumatic, sclera white, EOMI, oral mucosa moist. Mild swelling anterior neck noted with mild bruising Cardiovascular: RRR, S1S2. No pitting edema Pulmonary: CTA bilaterally without rhonchi, rales, expiratory wheezes. No tachypnea or dyspnea on room air Neurological: Alert, answering questions appropriately, cranial nerves intact, no focal findings Extremities: No gross joint deformity or swelling. AROMI. Neurovascularly intact Skin: Warm, dry. Const: Vital Signs, click to edit/add: Vital Signs - 24 hr 02/06/24 11:30 02/06/24 15:00 02/06/24 15:00 Temperature 97.6 F Pulse Rate [Left] 100 89 Respiratory Rate 20 20 20 Blood Pressure [Le ft Arm] 174/97 H Blood Pressure [Ri ght Arm] Pulse Oximetry 90 89 Oxygen Delivery Me thod Room Air Room Air 02/06/24 15:00 02/06/24 20:20 02/06/24 22:19 Temperature 98 F 98.0 F Pulse Rate [Left] 89 102 H 103 H Respiratory Rate 20 20 Blood Pressure [Le ft Arm] 174/114 H 179/125 H Blood Pressure [Ri ght Arm] Pulse Oximetry 89 90 Oxygen Delivery Me thod Room Air Room Air 02/07/24 00:06 02/07/24 00:06 02/07/24 05:13 Temperature 98.0 F Pulse Rate [Left] 82 80 Respiratory Rate 18 18 18 Blood Pressure [Le ft Arm] Blood Pressure [Ri ght Arm] 166/103 H 166/119 H Pulse Oximetry 89 89 88 Oxygen Delivery Me thod Room Air Room Air Room Air 02/07/24 10:31 02/07/24 10:32 Temperature 97.8 F Pulse Rate [Left] 89 Respiratory Rate 20 20 Blood Pressure [Le ft Arm] Blood Pressure [Ri ght Arm] 184/122 H Pulse Oximetry 90 90 Oxygen Delivery Me thod Room Air Room Air
[2024-02-07] MEDS: FUROSEMIDE 10 MG/ML inj 40 MG IVP (11:51)
[2024-02-07] MEDS: ACETAMINOPHEN 325 MG TABLET 650 MG PO (19:25)
--- NOTE | 2024-02-07 19:58 | PC.NURSE ---
End of shift - Pt alert, oriented, cooperative. Up independently in room and observed to ambulate in halls. Pt afebrile, tolerating RA, regular diet/fluids. Denies pain and SOB. Dressing on neck CDI. L forearm redness and swelling noted to decrease during shift. Pt continent of bowel and bladder, family at bedside. Pt proactively applying ice pack to neck, using I/S, and ambulating in halls. Appears to be resting comfortably at end of shift with call light within reach.
[2024-02-08 03:00] VITALS: BP 152/98; PULSE 79; RESP 20; TEMP 36.6; O2SAT 88
[2024-02-08] MEDS: ACETAMINOPHEN 325 MG TABLET 650 MG PO (05:14)
--- NOTE | 2024-02-08 05:54 | PC.NURSE ---
End of shift [id number]: Pt has been A&O and afebrile. BP was elevated beginning of shift d/t pt?s reported white coat syndrome but has been trending down to 150s/80s-90s. SpO2 has been 88-90% on RA with no need for supplemental O2. Pt reports feeling ?winded? after walking but no SOB at rest. He?s independent up ad kyle in his room. PIV in right FA is SL and C/D/I; becoming more tender as the night went on. Left arm still reddened and tender from previous IV extravasation. Anterior neck steri-strips C/D/I and some bruising around incision sites. Pt did not get much sleep in between cares; seemed to be awake whenever nurse entered his room. ?
[2024-02-08 06:38] LABS: Hematocrit 43.7 % (37.0-53.0); Hemoglobin* 14.7 gm/dL (13.5-17.5); Mean Corpuscular HGB Conc 34 gm/dL (32-36); Mean Corpuscular Hemoglobin 29 pg (26-34); Mean Corpuscular Volume 86 fL (80-100); Platelet Count* 355 K/uL (140-440); White Blood Count* 8.34 K/uL (4.50-11.00)
[2024-02-08 06:51] LABS: Slide Review Reflex No
[2024-02-08 07:00] LABS: Chloride* 105 mmol/L (96-114); Sodium* 137 mmol/L (135-149)
[2024-02-08 07:01] LABS: Potassium* 3.5 mmol/L (3.6-5.1)
[2024-02-08] MEDS: LEVOTHYROXINE 75 MCG TABLET PO (07:02)
[2024-02-08] MEDS: LEVOTHYROXINE 100 MCG TABLET PO (07:02)
[2024-02-08 07:03] LABS: Anion Gap 7 mEq/L (7-15); Carbon Dioxide* 25 mmol/L (20-32); Creatinine* 0.8 mg/dL (0.5-1.5); Est. Creatinine Clearance* 79.08; Estimated Glomerular Filt Rate 100 ml/min
[2024-02-08 07:04] LABS: Blood Urea Nitrogen* 14 mg/dL (7-30); Calcium* 8.7 mg/dL (8.4-10.6); Glucose* 102 mg/dL (60-115)
[2024-02-08 07:05] VITALS: RESP 18; O2SAT 91
[2024-02-08] MEDS: LORATADINE 10 MG TABLET PO (08:41)
[2024-02-08] MEDS: LACTOBACILLUS ACIDOPHILUS 1 TABLET 2 TAB PO (08:41)
[2024-02-08] MEDS: BREO ELLIPTA INH (08:42)
[2024-02-08 09:46] VITALS: BP 162/98; PULSE 85; RESP 20; TEMP 36.4; O2SAT 90
--- NOTE | 2024-02-08 12:39 | P.DS_ITS ---
DS: Providers Provider Date Seen: 02/08/24 Date of admission: 02/07/24 09:55 Primary care physician: Kenroy Ly MD Admitting Clinician: Ron De Anda MD Consults: 02/05/24 11:21 Consult to Respiratory Therapy [CONS] Routine Comment: Reason(s) for RT Consult:: Consult Comment: post-thyroidectomy hypoxia concerning for intubation associated aspiration Consult to Speech Therapy [CONS] Routine Comment: Reason(s) for Speech Consult:: Swallowing Difficulty 02/06/24 07:24 Consult to Respiratory Therapy [CONS] Routine Comment: Reason(s) for RT Consult:: Consult Comment: aerobika device Attending Physician on discharge: Lillie Thrasher [facility] Date of Discharge: 02/08/24 DS: Diagnosis Discharge Diagnosis (1) Shortness of breath: Status: Acute Problem details: Admitted with shortness of breath, present postoperatively, of note, patient was reported to be hypoxic, mid-high 80s, upon discharge from [place] on 02/04/24 (see Epic note 02/04). Suspect primarily related to pulmonary infiltrates as outlined below. Doubt related to history of exercise-induced coughing which has been referred to his mild intermittent asthma Received albuterol nebulizers q.6 hours during hospital course. 02/06: O2 saturations, on room air, 86-90% at rest while speaking. 86-87% with ambulation, recovering to 90% at rest. Continues on IV antibiotics, procalcitonin trended down. Received 1 dose of IV lasix resulting in 1650 urine output and 2 kg weight loss. 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 (2) Pulmonary infiltrate present on computed tomography: Status: Acute Problem details: On admission no fever[place] [address], hypoxia, procalcitonin 1.05. Patient prefers to stay in our hospital rather than return to the [facility] - D/Dx: aspiration pneumonitis, pneumonia, pulmonary atelectasis, chronic bronchitis, BARBARA complicating, acute CAP versus HAP status post thyroidectomy. High risk of aspiration event, likely occurring during intubation/extubation and ventilation for his thyroidectomy and not while conscious and awake and eating and drinking. - Initiated imipenem-cilastin 500 mg IV q 6 hours and vancomycin 15 mg/kg IV q 12 hours to cover HAP. Discharged on oral levaquin to complete 5 day course abx therapy. - O2 supplementation to maintain his oxygen saturations > or = to 92%. Weaned to room air. RT consulted. Encouraged patient to ambulate halls as much as possible and utilize incentive spirometer properly every hour on the hour while awake. 02/06: In reviewing Epic note from [place] dated 02/04, agreed with plan to continue IV antibiotics for concern of possible aspiration from an anatomic standpoint 02/07: Discussed with member of his surgical team at [facility] (patient tells me he asked that we call him). Agreed with plan to discharge on oral Levaquin, close follow-up with PCP, postsurgical follow-up as previously scheduled. (3) Status post thyroidectomy: Status: Acute Problem details: - Surgical date 02/03/2024 at the [place], [place] - our physician in the emergency department spoke directly to surgical team who cared for the patient at the [facility] in [facility]. They reviewed the CT scan and concluded that patient's shortness of breath is not related to the surgery primarily. They indicated they would be willing to readmit the patient in [place], but the patient declined to do so and stated a preference to remain at the hospital in [place] at this time. (4) Sleep disorder breathing: Status: Acute Problem details: - neck circumference greater than 19 inches - snores and has apneic episodes - Mallampati III airway - suspect BARBARA and recommended he obtain a formal sleep study on 02/05/24 (5) Thyroid cancer, medullary carcinoma: Status: Acute Problem details: - s/p thyroidectomy 02/03/24, [place], [place] - Initiated levothyroxine 175 mcg po daily on 02/04/2024 - follow-up with PCP and [facility] (6) Mild persistent asthma: Status: Acute Problem details: - historically has been exercise-induced. Receiving nebs (7) Hypertension: Status: Acute Problem details: Majority of diastolic readings >100, despite checking with different cuff sizes, opposite arms Self reported white coat syndrome Review of pressures in clinic setting, August and October 2023, show pressures 139/84 and 161/85. 138/73 on 02/04/24 post op visit Prn hydralazine ordered but not utilized. Outpatient follow up with PCP to evaluate if normalized or need for further management recommendations DS: Summary Hospital Course Hospital Course: [age] year old female was admitted to the medical floor for further management acute shortness of breath status post thyroidectomy. Course of care and details as noted above. CT showing pulmonary infiltrates, atelectasis as well as consolidation suspici ous for aspiration pneumonia. Given recent surgical intervention requiring intubation/extubation, patient was empirically started on antibiotics for hospital-acquired pneumonia. Also underwent diuresis with good urine output and weight loss however no significant improvement in breathing to say this was clearly only a volume problem. Patient is discharged on oral antibiotics to complete 5 day course of antibiotics for pneumonia. Close outpatient follow-up with PCP as well as postsurgical follow-up. Discussed with patient's surgical team at [facility] on day of discharge. Remainder of chronic medical comorbidities were monitored and managed with home medications. Status at Discharge Functional status at discharge: independent ambulation Overall status at discharge: patient is back to baseline Time Spent with Patient Time attestation: Total time spent providing and/or coordinating discharge services: Time spent: Greater than 30 minutes Exam Narrative: Exam Narrative: PHYSICAL EXAM General: Pleasant, conversant, NAD Cardiovascular: RRR Pulmonary: No dyspnea Neurological: Alert, answering questions appropriately Skin: Warm, dry. Const: Vital Signs, click to edit/add: Vital Signs - 24 hr 02/07/24 15:00 02/07/24 19:00 02/07/24 19:56 Temperature 98.0 F 99.4 F Pulse Rate [Left] 89 Pulse Rate [Pulse Oximeter] 99 Respiratory Rate 20 18 20 Blood Pressure [Ri ght Arm] 165/109 H 168/116 H Pulse Oximetry 89 89 89 Oxygen Delivery Me thod Room Air Room Air Room Air 02/07/24 20:40 02/07/24 23:00 02/07/24 23:00 Temperature Pulse Rate [Left] Pulse Rate [Pulse Oximeter] 88 Respiratory Rate 18 18 Blood Pressure [Ri ght Arm] 147/105 H Pulse Oximetry 90 Oxygen Delivery Me thod Room Air 02/07/24 23:00 02/08/24 03:00 02/08/24 07:05 Temperature 97.9 F 98 F Pulse Rate [Left] Pulse Rate [Pulse Oximeter] 88 79 Respiratory Rate 18 20 18 Blood Pressure [Ri ght Arm] 150/89 H 152/98 H Pulse Oximetry 90 88 91 Oxygen Delivery Me thod Room Air Room Air Room Air 02/08/24 09:46 Temperature 97.5 F L Pulse Rate [Left] Pulse Rate [Pulse Oximeter] 85 Respiratory Rate 20 Blood Pressure [Ri ght Arm] 162/98 H Pulse Oximetry 90 Oxygen Delivery Me thod Room Air DS: Data Data Completed and Pending Labs on day of discharge: Labs from last 24 hours 02/08/24 05:58 WBC 8.34 RBC 5.10 Hgb 14.7 Hct 43.7 MCV 86 MCH 29 MCHC 34 Plt Count 355 Sodium 137 Potassium 3.5 L Chloride 105 Carbon Dioxide 25 Anion Gap 7 BUN 14 Creatinine 0.8 Estimated Creat Clear 79.08 Estimated GFR 100 Glucose [address] soft tissue neck: Attestation: I have reviewed the pertinent imaging results. Radiologist's impression: CT images of the neck following intravenous contrast. COMPARISON: None. FINDINGS: Postsurgical changes of recent thyroidectomy. Ill-defined fluid, stranding, and emphysema thyroidectomy bed and anterior cervical neck. Ill-defined stranding in the visualized superior mediastinum. No organized postoperative hematoma. Mild retropharyngeal fluid without peripheral enhancement. Mild narrowing of the supraglottic airway. The true vocal cords are adducted. Mild narrowing of the superior trachea. No enhancing lesions in the oral cavity or floor of mouth. The parotid and submandibular glands are unremarkable. Multiple mildly enlarged bilateral cervical lymph nodes, several of which demonstrate elongated morphology. Minimal right maxillary sinus mucosal thickening. The visualized mastoid air cells are clear. Multifocal dental disease including periapical lucencies and dental caries involving maxillary and mandibular teeth. No aggressive osseous lesions. No concerning opacities in the lung apices. IMPRESSION: 1. Postsurgical changes of recent thyroidectomy with ill-defined fluid, stranding, and emphysema in the operative bed and anterior cervical neck. Ill-defined stranding extending into the visualized superior mediastinum. No organized postoperative hematoma. Mild retropharyngeal fluid contributes to mild narrowing of the supraglottic airway. There is mild narrowing of the superior tracheal airway. 2. Multiple mildly enlarged bilateral cervical lymph nodes, likely reactive. 3. Multifocal dental disease. CT scan - chest: Attestation: I have reviewed the pertinent imaging results. Radiologist's impression: CT examination of the chest was performed with the uneventful intravenous administration of 95 cc of Isovue 370 while thin axial sections were obtained from above the apices of the lungs to the lung bases. The examination was timed as a pulmonary artery angiogram. Please note that all CT scans at this facility use dose modulation, iterative reconstruction, and/or weight-based dosing when appropriate to reduce radiation dose to as low as reasonably achievable. FINDINGS: : HEART and MEDIASTINUM: The heart size is normal. There is no mediastinal or hilar adenopathy or mass. No pericardial effusion there are postsurgical changes related to thyroidectomy which will be more fully described in the separate but contemporaneous neck CT report. PULMONARY ARTERIAL CIRCULATION: There is no visible intraluminal filling defect to suggest pulmonary embolus. LUNGS and PLEURAL SPACES: Linear opacities in the mid lungs and bases most notably in the right middle lobe and lingula most consistent with atelectasis. Consolidation is noted at the posterior bases bilaterally. This is associated with significant volume loss of basilar segments.This pattern is sometimes seen in aspiration. VISUALIZED UPPER ABDOMEN: Hepatic steatosis. Otherwise, the limited visualized upper abdominal structures appear normal. OSSEOUS STRUCTURES: Age-appropriate appearance. No acute fracture or destructive process. TUBES and LINES: None. IMPRESSION: 1. There is no finding of acute pulmonary embolus. 2. Postsurgical changes related to thyroidectomy more fully described in the separate CT neck report. 3. Atelectasis in the mid lungs and lung bases anteriorly. Consolidation and significant sub lobar volume loss of the basilar segments of the lower lobes . This pattern posteriorly as often due to aspiration. No significant pleural fluid and no pneumothorax Discharge Plan Discharge Disposition: Home, Self-Care Date of Admission: 02/07/24 09:55 Attending Provider on Discharge: Lillie Thrasher Primary Care Provider: Kenroy Ly Condition: Stable Anticipated Discharge Date/Time: 02/08/24 14:00 Discharge Medications: New levofloxacin 750 mg tablet 750 mg PO DAILY Qty: 3 0RF Continued fluticasone propion-salmeterol 250-50 mcg/dose blister with device 1 inh inhalation BID Qty: 60 11RF loratadine [Claritin] 10 mg tablet 10 mg PO BID levothyroxine 175 mcg tablet 175 mcg PO DAILY cholecalciferol (vitamin D3) 1,250 mcg (50,000 unit) capsule 50,000 unit PO 2XW Rx Instructions: TAKES ON SUNDAYS AND WEDNESDAYS PRESCRIBED BY PLANNING OFFICIAL Discontinued oxycodone 5 mg tablet 5 mg PO .UD PRN Hold Instructions: ACUTE ~ 2 DAY ORDER Discharge Orders: Discharge Order (Routine); Ordered 02/08/24 Ordered By: Lillie Thrasher Patient Education: Levofloxacin (By mouth), Aspiration Pneumonia (GEN) Additional Instructions: Finish the levofloxacin for your aspiration pneumonia. Continue to ambulate frequently daily and use your incentive spirometer. Your blood pressures were elevated during your hospital stay. Follow up with your PCP to see that these have improved or if you need further management recommendations. Recommend follow up with PCP for formal sleep study Activity Level: No Restrictions Discharge Diet: Regular Follow Up Appointments: Kenroy Ly MD [Primary Care Provider] - 02/12/24 11:15 am ([facility] for post hospital follow-up.) Forms: [employer] Info Instructions
--- NOTE | 2024-02-08 14:06 | PC.NURSE ---
Discharge - Pt alert, oriented, cooperative and pleasant. Up independent in room and observed to ambulate independently in halls. Pt tolerating RA, regular diet/fluids. Pt denied pain, SOB, and N/V. Continent of bowel and bladder during shift. IV removed with catheter intact. Discharge education given with pt verbalizing understanding. Pt d/c'd to home with son via ambulation at approximately 1345.
== END 2024-02-08 13:45 | disposition home or self-care (01) | DRG 205 ==
LOC: ED 09:37 → MEDSURG 10:11
PROVIDERS: Physician Assistant; Admitting Provider Internal Medicine; Emergency Provider Student in an Organized Health Care Education/Training Program; PCP Family Medicine; Visit Provider Family Medicine
DX: J95.89 Other postprocedural complications and disorders of respiratory system, not elsewhere classified (principal); J69.0 Pneumonitis due to inhalation of food and vomit; J98.11 Atelectasis; J45.30 Mild persistent asthma, uncomplicated; C73 Malignant neoplasm of thyroid gland; E04.1 Nontoxic single thyroid nodule; E89.0 Postprocedural hypothyroidism; R91.8 Other nonspecific abnormal finding of lung field; G47.30 Sleep apnea, unspecified; I10 Essential (primary) hypertension; R13.10 Dysphagia, unspecified; R06.02 Shortness of breath; R09.02 Hypoxemia
CPT/HCPCS: 36415; 70491; 71275; 80048; 82803; 84145; 84443; 84484; 85025; 85027; 85379; 86140; 87631; 92610; 93005; 94761; 99283; 99285; A9270; G0378; J0743; J1940; J3370; J7030; J7050; Q9967

== ENCOUNTER 2024-02-08 21:36 | Emergency (ER) | payer OTHER, SELFPAY ==
[2024-02-08 21:55] VITALS: BP 182/109; PULSE 93; RESP 16; TEMP 36.8; O2SAT 90; BMI 33.0
[2024-02-08 22:15] VITALS: BP 160/106; PULSE 86; RESP 16; O2SAT 91
--- OUTSIDE RECORDS SUMMARY | 2024-02-08 22:15 | XMS_ITS | Encounter Summary ---
Author Organization [facility] Address [address] [place] [id number] Care Team Providers Care Hand Spring Repairer Helper Name Role Phone No Ref-Primary, Physician Primary Care Provider Clinic - [facility] Unavailabl e Reason for Visit * Reason Onset Date Comments Panel Management 11/11/2023 Encounter Details Date Type Department Care Team (Late st Contact Info) Description 11/11/2023 MyC Medical Advice [facility] [id number] [place] [id number] Deysi Patel, [facility] Panel Management Social History Tobacco Use Types Packs/Day Years Used Date Smoking Tobacco: Never Smokeless Tobacco: Never Social Connection and Isolat ion Panel [NHANES] Answer Date Recorded Frequency of Communication w ith Friends and Family Not on file 04/02/2023 How often do you get togethe r with friends or relatives? Twice a week 04/02/2023 How often do you attend chur ch or nondenominational services? 1 to 4 times per year [...] Answer Date Recorded PHQ-2 Score 0 04/02/2023 [facility] - Occupational Stress Questionnaire Answer Date [...] in an abandoned building, in an overnight fdc, or couch-surfing.) Yes 04/02/2023 Are you worried [...] at this time. Type of outreach: Sent [employer] message. Next Steps: Reach out within 90 days via [employer]. Max number of attempts reached: No. Will try again in 90 days if patient still on fail list. Questions for provider review: None Deysi Patel CMA Chart routed to Care Team. documented in this encounter Plan of Treatment Not on file documented as of this encounter Visit Diagnoses Not on filedocumented in this encounter Care Teams Hand Spring Repairer Helper Relationship Specialty Start Date End Date No Ref-Primary, Physician PCP - General 04/05/23 Clinic - [facility] [address] [place] [address] Assigned PCP 11/02/23 documented as of this encounter
--- OUTSIDE RECORDS SUMMARY | 2024-02-08 22:15 | XMS_ITS | Encounter Summary ---
Author Organization [facility] Address [address] [place] [id number] Care Team Providers Care Automobile Engine Assembler Name Role Phone No Primary/Referring, Phy Primary [...] on filedocumented in this encounter Care Teams Automobile Engine Assembler Relationship Specialty Start Date End Date No Primary/Referring, Phy PCP - General 11/04/18 documented as of this encounter
--- OUTSIDE RECORDS SUMMARY | 2024-02-08 22:15 | XMS_ITS | Encounter Summary ---
Author Organization [facility] Address [address] [place] [address]. [place] [address] Care Team Providers Care Payable Manager Name Role Phone No Ref-Primary, Physician Primary Care Provider [facility] - [facility] Unavailabl e Encounter Details Date Type Department Care Team (Late st Contact Info) Description 12/14/2023 Medical Correspondence [facility] Health Info Mgmt [facility] [address] [place] [phone] Scan, Non-Provider Social History Tobacco Use Types Packs/Day Years Used Date Smoking Tobacco: Never Smokeless Tobacco: Never Social Connection and Isolat ion Panel [NHANES] Answer Date Recorded Frequency of Communication w ith Friends and Family Not on file 04/02/2023 How often do you get togethe r with friends or relatives? Twice a week 04/02/2023 How often do you attend chur ch or orthodoxy services? 1 to 4 times per year 04/02/2023 Do you belong to any clubs o r organizations such as hinduism groups, unions, fraternal or athletic groups, or [...] Answer Date Recorded PHQ-2 Score 0 04/02/2023 [facility] - Occupational Stress Questionnaire Answer Date [...] in an abandoned building, in an overnight care home, or couch-surfing.) Yes 04/02/2023 Are you worried [...] on filedocumented in this encounter Care Teams Payable Manager Relationship Specialty Start Date End Date No Ref-Primary, Physician PCP - General 04/05/23 [facility] [address] [place] [address] Assigned PCP 11/02/23 documented as of this encounter
--- OUTSIDE RECORDS SUMMARY | 2024-02-08 22:15 | XMS_ITS | Encounter Summary ---
Author Organization [facility] Address [address] [place] [address] Care Team Providers Care Curing Oven Attendant Name Role Phone No Ref-Primary, Physician Primary Care Provider [facility] - [facility] Unavailabl e Encounter Details Date Type Department Care Team (Late st Contact Info) Description 11/18/2023 [facility] Medical Advice [facility] [id number] [place] [phone] Caitlyn Alfred, YARD MOTOR OPERATOR Social History Tobacco Use Types Packs/Day Years Used Date Smoking Tobacco: Never Smokeless Tobacco: Never Social Connection and Isolat ion Panel [NHANES] Answer Date Recorded Frequency of Communication w ith Friends and Family Not on file 04/02/2023 How often do you get togethe r with friends or relatives? Twice a week 04/02/2023 How often do you attend [facility] or episcopal services? 1 to 4 times per year 04/02/2023 Do you belong to any clubs o r organizations such as presybeterian groups, unions, fraternal or athletic groups, or [...] Date Recorded PHQ-2 Score 0 04/02/2023 [facility] - Occupational Stress Questionnaire Answer Date [...] in an abandoned building, in an overnight half-way, or couch-surfing.) Yes 04/02/2023 Are you worried [...] on filedocumented in this encounter Care Teams Curing Oven Attendant Relationship Specialty Start Date End Date No Ref-Primary, Physician PCP - General 04/05/23 [facility] - [facility] [address] [place] [address] Assigned PCP 11/02/23 documented as of this encounter
--- OUTSIDE RECORDS SUMMARY | 2024-02-08 22:15 | XMS_ITS | Encounter Summary ---
Author Organization [facility] Address [address] [place] [address] Care Team Providers Care Faith Doctor Name Role Phone No Primary/Referring, Phy Primary [...] on filedocumented in this encounter Care Teams Faith Doctor Relationship Specialty Start Date End Date No Primary/Referring, Phy PCP - General 11/04/18 documented as of this encounter
--- OUTSIDE RECORDS SUMMARY | 2024-02-08 22:15 | XMS_ITS | Referral Summary ---
Author Organization [facility] Address [address] [place] [address]. [place] [address] Care Team Providers Care Incident Response Manager Name Role Phone No Ref-Primary, Physician Primary Care Provider [facility] Encounters Date Type Department Care Team Description 12/20/2023 Telephone [facility] [place] [id number] [place] [phone] Self, Referred, MD Consult Referral 12/14/2023 Medical Correspondence [facility] [address] [place] [phone] Scan, Non-Provider 11/18/2023 [facility] Medical Advice [facility] [address] [place] [phone] Caitlyn Alfred CMA 11/11/2023 MyC Medical Advice [facility] [address] [place] [phone] Deysi Patel, KIERA Panel Management from Last [...] 08/23/2016 Immunizations Name Administration Dates Next Due [id number] Novel Flu- Nasal 08/10/2009 TDAP (Adacel,Boostrix) 04/02/2023,02/16/2007 [...] week 04/02/2023 How often do you attend [facility] or buddhism services? 1 to 4 times per year 04/02/2023 Do you belong to any clubs o r organizations such as gnosticism groups, unions, fraternal or athletic groups, or [...] Answer Date Recorded PHQ-2 Score 0 04/02/2023 [facility] [place] of Occupat ional Health - Occupational Stress [...] in an abandoned building, in an overnight jail, or couch-surfing.) Yes 04/02/2023 Are you worried [...] Region Laterality Modality Other 11/12/2023 Provider Outside [facility] [place] [place] US ORDERABLES * HIV Antigen Antibody Combo [...] ES [facility]/PROT/ENDO Specialty Core/Prot/Endo [facility], [address] [phone] * Hepatitis C Screen Reflex to HCV [...] ES [facility] C[facility]/PROT/ENDO Specialty Core/Prot/Endo [facility], [address] [phone] * (ABNORMAL) Lipid panel reflex to direct [...] LAB - BLOOD ORDERABL ES [facility] [place] [facility], [address] [place] [address], [facility] [phone] * (ABNORMAL) Comprehensive metabolic panel (BMP + [...] LAB - BLOOD ORDERABL ES [facility] [place] [facility], [address] [place] [address], [facility] [phone] from Last 3 Months or Most Recently Relevant to Health Maintenance Advance Directives For more information, please contact: [phone] * Full Code (Latest Code Status on File) Date Activated Date Inactivated Comments 08/24/2016 12:28 PM * Full Code Date Activated Date Inactivated Comments 08/23/2016 5:10 PM 08/24/2016 12:28 PM Care Teams Incident Response Manager Relationship Specialty Start Date End Date No Ref-Primary, Physician PCP - General 04/05/23 [facility] [address] [place] [address] Assigned PCP 11/02/23
--- OUTSIDE RECORDS SUMMARY | 2024-02-08 22:15 | XMS_ITS | Encounter Summary ---
Author Organization [facility] Address [address] [place] [address] Care Team Providers Care Plant Hr Manager Name Role Phone No Ref-Primary, Physician Primary Care Provider Clinic - [facility] Unavailabl e Reason for Visit * Reason Onset Date Comments Consult Referral 12/20/2023 Encounter Details Date Type Department Care Team (Late st Contact Info) Description 12/20/2023 Telephone [facility] [place] [address] [place] [address] Self, ReferredMD Consult Referral Social [...] often do you attend chur ch or jain services? 1 to 4 times per year 04/02/2023 Do you belong to any clubs o r organizations such as roman catholic groups, unions, fraternal or athletic groups, or [...] Answer Date Recorded PHQ-2 Score 0 04/02/2023 [facility] - Occupational Stress Questionnaire Answer Date [...] in an abandoned building, in an overnight nursing home, or couch-surfing.) Yes 04/02/2023 Are you [...] Long [place]. Male, 63 year old, 1960 [facility] Thyroid Cancer Referring Dr. Carmela Basurto #1 [...] on filedocumented in this encounter Care Teams Plant Hr Manager Relationship Specialty Start Date End Date No Ref-Primary, Physician PCP - General 04/05/23 Clinic - [facility] [address] [place] [address] Assigned PCP 11/02/23 documented as of this encounter
--- OUTSIDE RECORDS SUMMARY | 2024-02-08 22:15 | XMS_ITS | Clinical Summary ---
Author Organization [facility] Address [address] [place] [id number] Care Team Providers Care [place] Constable Name Role Phone Elsewhere, Pcp Primary Care Provider Unavailabl e Source Comments Patient records contain information from all sites at [facility]. For routine questions regarding patient records, call [phone] during business hours, M-F 8:00 AM - 5:00 PM Central Time. Record requests for emergency care only can be directed to [phone] at any time.[facility] Allergies Active Allergy Reactions Criticality Noted Date [...] Encounters Date Type Department Care Team Description 02/08/2024 Clinical Communication Division of Endocrine Surgery in [place], [place] [address] [place] [address] Jaret Salas M.D. 02/07/2024 Clinical Communication Division of Endocrine Surgery in [place], [place] [address] [place] [address] Jaret Salas M.D. 02/06/2024 Clinical Communication Division of Endocrine Surgery in [place], [place] [address] [place] [address] Jaret Salas M.D. 02/05/2024 Clinical Communication Division of Endocrine Surgery in [place], [place] [address] [place] [address] Jaret Salas M.D. 02/05/2024 Clinical Communication Division of Endocrine Surgery in [place], [place] [address] [place] [address] Jaret Salas M.D. 02/05/2024 Intake [facility] 02/03/2024 1:52 PM CDT Anesthesia Event [facility] OR [address] [place] [phone] Paulino Love D.O. Smischney, Nathan J, M.D., M.S. 02/03/2024 12:13 PM CDT - 02/03/2024 3:42 PM CDT Surgery [facility] OR [address] [place] [phone] Dakota Morrow M.D. THYROIDECTOMY - TOTAL. 02/03/2024 10:28 AM CDT - 02/04/2024 12:44 PM CDT Hospital Encounter [facility], [facility], Sixth Floor [address] [place] [address] Dakota Morrow M.D. Malignant Neoplasm Of Thyroid Medullary (HCC) Discharge Disposition: Home or Self Care 02/02/2024 2:00 PM CDT Office Visit Division of Endocrine Surgery in [place], [place] [address] [place] [phone] Dakota Morrow M.D. Castro, M. Regina, M.D. Malignant Neoplasm Of Thyroid Medullary (HCC) (Primary Dx) 01/31/2024 8:37 AM CDT - 01/31/2024 10:21 AM CDT Hospital Encounter Department of Radiology, [facility] in [place], [place] [address] [place] [phone] Phuc Torres M.D. Robinson, Kathryn A, M.D. Malignant Neoplasm Of Thyroid (HCC) Discharge Disposition: Home or Self Care 01/31/2024 Orders Only Division of Endocrinology in [place], [place] [address] [place] [phone] Phuc Torres M.D. 01/27/2024 3:23 PM CDT - 01/27/2024 11:59 PM CDT Hospital Encounter Department of Laboratory Medicine and Pathology, [facility] in [place], [place] [address] [place] [phone] Phuc Torres M.D. Malignant Neoplasm Of Thyroid (HCC) Discharge Disposition: Home or Self Care 01/27/2024 3:00 PM CDT Comprehensive Visit Division of Endocrine Surgery in [place], [place] [address] [place] [phone] Daktoa Morrow M.D. Castro, M. Regina, M.D. Malignant Neoplasm Of Thyroid Medullary (HCC) 01/27/2024 2:40 PM CDT Lab RST RO [facility] [address] [place] [phone] Phuc Torres M.D. Malignant Neoplasm Of Thyroid (HCC) 01/27/2024 1:30 PM CDT Comprehensive Visit Division of Endocrinology in [place], [place] [address] [place] [phone] Phuc Torres M.D. Malignant Neoplasm Of Thyroid (HCC) 01/27/2024 6:21 AM CDT - 01/27/2024 3:22 PM CDT Hospital Encounter Department of Laboratory Medicine and Pathology, [facility] in [place], [place] [address] [place] [address] Phuc Torres M.D. Malignant Neoplasm Of Thyroid Medullary (HCC) Discharge Disposition: Home or Self Care 01/27/2024 Clinical Communication Division of Endocrinology in [place], [place] [address] [place] [address] Phuc Torres M.D. Pathology Request 01/25/2024 10:16 AM CDT - 01/25/2024 11:59 PM CDT Hospital Encounter Department of Radiology, [facility] in [place], [place] [address] [place] [address] Phuc Torres M.D. Malignant Neoplasm Of Thyroid Medullary (HCC) Discharge Disposition: Home or Self Care 12/30/2023 Clinical Communication Division of Endocrine Surgery in [place], [place] [address] [place] [phone] Dakota Morrow M.D. 12/28/2023 2:00 PM CDT Clinical Communication Division of Endocrinology in [place], [place] [address] [place] [phone] Pre-visit Intake (thyroid) 12/23/2023 Clinical Communication Department of Otorhinolaryngology in [place], [place] [address] [place] [phone] Provider, Unknown [facility] (ENT ) 12/22/2023 [facility] AND [address] [address] Carmela Basurto M.D. Malignant Neoplasm Of Thyroid (HCC) (Primary Dx) from Last 3 Months Social History Tobacco Use Types Packs/Day Years Used Date Smoking Tobacco: Never Smokeless Tobacco: Never Alcohol Use Standard Drinks/Week Comments Not Currently 0 (1 standard drink = 0.6 oz pur e alcohol) [facility] Utilities Answer Date Recorded In the past 12 months has [employer], gas, oil, or water [employer] threatened to shut off services in your [...] your living situation today? [facility] 01/23/2024 Sex and Gender [...] this topic Medical Devices Implanted Type Area Laundry Washer Device Identifier Shelf Expiration Date Model / Serial / Lot Clp Hrzn Ti 6 Clp Sm Red - [id number] Implanted:Qty: 1 on 02/03/2024 by Dakota Morrow M.D. at [facility] Hardware e.g. pins/screws/r ods [employer] [id number] / / Procedures Procedure Name Priority Date/Time Associated Diagnosis Comments OUTSIDE CT BODY Routine 02/05/2024 3:[address] NEURO Routine 02/05/2024 3:40 AM CDT ADULT OXYGEN THERAPY Routine 02/03/2024 9:17 PM [...] LYMPH NODE Timed 01/31/2024 9:12 AM CDT RET FULL GENE ANALYSIS Routine 3:44 PM CDT Malignant Neoplasm Of Thyroid (HCC) 25-HYDROXYVITAMIN D2 AND D3, S Routine [...] CDT from Last 3 Months Results * CT Angio Chest PE Protocol-Outside CT Body (02/05/2024 3:45 AM CDT) 02/05/2024 3:37 AM CDT Narrative IIMS - 02/05/2024 4:58 AM CDT This order has been created and auto-finalized to support the import of outside images. If available, original interpretation can be found on the Media Tab in Chart Review, in Document Viewer, as an image in QREADS or as an Addendum. If a re-interpretation or overread is required please follow defined workflow.?? Provider Not In System IMG CT PROCEDURES IIMS NA * CT SOFT TISSUE NECK W CON-Outside CT Neuro (02/05/2024 3:40 AM CDT) Only the most recent of2 resultswithin the time period is included. 02/05/2024 3:37 AM CDT Narrative IIMS - 02/05/2024 4:55 AM CDT This order has been created and auto-finalized to support the import of outside images. If available, original interpretation can be found on the Media Tab in Chart Review, in Document Viewer, as an image in QREADS or as an Addendum. If a re-interpretation or overread is required please follow defined workflow.?? Provider Not In System IMG CT PROCEDURES IITN NA * Parathyroid Hormone (PTH) (02/03/2024 7:15 PM CDT) Parathyroid Hormone (PTH), S 28 15 - 65 pg/mL 02/03/2024 8:48 PM CDT DTL Blood (Blood, Venous) 02/03/2024 7:15 PM CDT 02/03/2024 8:02 PM CDT Jaret Salas M.D. LAB BLOOD ADD-O N Performing Organization Address City/[facility]/ZIP Co de Phone Number [address] [place] [address] * Surgical Pathology, Frozen Lab (02/03/2024 3:20 PM CDT) 02/07/2024 2:56 PM CDT METH Participated in the Interpretation Sonal Eden M.D.-Pathology Fellow 02/07/2024 2:56 PM CDT METH Report electronically signed by Carlos Morejon M.D., Ph.D. I verify that I have examined all relevant slides/materials for the specimen(s) and rendered or confirmed the diagnosis. 02/07/2024 2:56 PM CDT METH Frozen Intraoperative Report C. ??Lymph nodes, left neck levels II, III, IV, and VA, dissection: ??At least 1 (of 17) lymph node is positive for metastatic carcinoma. Signed by Carlos Morejon M.D., Ph.D. 02/03/2024 5:59 PM 02/07/2024 2:56 PM CDT METH Gross Description A. ??Received fresh labeled left thyroid lobe is an 86 g partial thyroidectomy with a 7 x 4.7 x 3.8 cm left lobe and A 2.8 x 1.5 x 1 cm isthmus. ??Capsule margin is inked and margins are taken perpendicularly, isthmus margin is shaved. ??There is a white, red, soft unifocal nodule located in the superior mid inferior pole of the left lobe, compromising almost the entire lobe in 3 dimensions. 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 Grossed by Donovan Trinidad M.D., Ph.D.-Pathology Resident. B. ??Received fresh labeled right thyroid lobe is a 7 g completion thyroidectomy with a 4.5 x 3.3 x 1.3 cm right lobe. ??The margin is inked and margins are taken perpendicularly. ??No nodules are identified. ??All submitted for permanent sections. ??Grossed by Ray Amado., P.A. ([facility]). C. ??Received fresh labeled left neck level 2, 3, 4, and 5A lymph nodes is an 8 x 3 x 2 cm aggregate of adipose and lymphatic tissue. ??Lymph nodes are submitted for frozen and permanent sections. ??Grossed by Ray Amado., P.A. ([facility]). 02/07/2024 2:56 PM CDT METH Block Summary A Left thyroid lobe A1 Inferior edge A2 Isthmus transition level A3 Mid- lateral level A4 Mid- medial level A5 Superior- lateral level A6 Superior- medial level A7 Superior edge A8 Lymph nodes 4(A1) A9 Lymph nodes 1(A2) B Right thyroid lobe B1 Superior pole - 1 B2 Superior pole - 2 B3 Mid pole - 1 B4 Mid pole - 2 B5 Lower pole - 1 B6 Lower pole - 2 C Left neck level 2, 3, 4, and 5A lymph nodes C1 Lymph nodes 2(C1) - frozen C2 Lymph nodes 2(C2) - frozen C3 Lymph nodes 2(C3) - frozen C4 Lymph nodes 2(C4) - frozen C5 Lymph nodes 2(C5) - frozen C6 Lymph nodes 1(C6) - frozen C7 Lymph nodes 3(C7) - frozen C8 Lymph nodes 2(C8) - frozen C9 Lymph nodes 2(C9) - frozen C10 Lymph nodes 2(C10) - frozen C11 Lymph nodes 1of2(C11) - frozen C12 Lymph nodes 2of2(C11) - frozen 02/07/2024 2:56 PM CDT METH Interpretation FINAL DIAGNOSIS A. ??Thyroid, left lobe, lobectomy: ??Medullary carcinoma forming a mass measuring 7 x 4.7 x 3.8 cm, comprising almost the entire left lobe. ??All surgical margins are negative for tumor. ??Extrathyroidal extension is present, with invasion into perithyroidal fibroadipose tissue. Parathyroid tissue is present. ??Multiple (2 of 2) lymph nodes are positive for metastatic carcinoma. ??See synoptic report. B. ??Thyroid, right lobe, lobectomy: ??Benign thyroid tissue with mild chronic inflammation. ??Multiple (2) lymph nodes are negative for metastatic carcinoma. C. ??Lymph nodes, left neck levels II, III, IV, and VA, dissection: ??Multiple (2 of 21) lymph nodes are positive for metastatic carcinoma. Immunohistochemic al studies were performed on block A4. The neoplastic cells are positive for synaptophysin, chromogranin and calcitonin, supporting the diagnosis. SYNOPTIC REPORT: Thyroid Procedure: ??Left lobectomy Tumor Focality: ??Unifocal Tumor Identifier: ??Not applicable Tumor Site: ??Left lobe Tumor Size: ??7.0 x 4.7 x 3.8 cm Histologic Tumor Types and Subtypes: ??Medullary thyroid carcinoma Mitotic Rate: ??Less than 3 mitoses per 2 mm2 Ki-67 Labeling Index: ??Not applicable Tumor Necrosis: ??Not applicable Angioinvasion (Vascular Invasion): ??Not identified Lymphatic Invasion: ??Present Perineural Invasion: ??Not identified Extrathyroidal Extension: ??Present, microscopic invasion of perithyroidal soft tissue Margin Status: ??All margins negative for carcinoma Regional Lymph Nodes Status Tumor Present in Regional Lymph Node(s) ?? Number of Lymph Nodes with Tumor: ??4 ?? Sarbjit Level(s) Involved: and ??II, III, IV, VA (submitted together) ?? Size of Largest Metastatic Deposit: ??10 mm ?? Extranodal Extension: ??Can not be determined ?? Number of Lymph Nodes Examined: ??25 ?? Sarbjit Level(s) Examined: Left neck level and II, III, IV, VA (submitted together) Distant Metastasis. ??Distant Site(s) Involved: ??N/A pTNM Classification (AJCC, 8th edition) Modified Classification: ??Not applicable pT Category: pT3a T Suffix: ??Not applicable pN Category: pN1b pM Category: ??Not applicable Best Tumor Block for Ancillary Testing: ??A3 The synoptic report incorporates information from all relevant surgical material and includes all required data elements of the current CAP Cancer Protocol. 02/07/2024 2:56 PM CDT METH Tissue (Thyroid) 02/03/2024 3:20 PM CDT Tissue (Lymph Node) 02/03/2024 5:15 PM CDT Tissue (Thyroid) 02/03/2024 3:33 PM CDT Dakota Morrow M.D. LAB SURG PATH ORDERA BLES Performing Organization Address City/State/[facility] Co de Phone Number [facility] [address] [place] [address], [facility] METH [address] [place] [address] * Airway (02/03/2024 2:04 PM CDT) Narrative [...] ETT location: oral VL device: glide scope Winfred scope blade size: 4 Tube size: 7 [...] Torres M.D. LAB SURG PATH AMY DURHAM [facility] [address] [place] [address], [facility] DTL [address] [place] [address] * Calcitonin, Fine-Needle Aspiration Biopsy (FNAB)-Needle Wash, Lymph Node (01/31/2024 9:16 AM CDT) Only the most recent of2 resultswithin the time period is included. Calcitonin, FNAB, Lymph Node [id number] pg/mL 01/31/2024 6:10 PM CDT [facility] Comment: Calcitonin values = or > [...] This test has been modified from the premium auditor's instructions. Its performance characteristics were determined by [facility] in a manner consistent with CLIA requirements. [...] Washings, Lymph Node 02/01/2024 10:16 AM CDT [facility] Comment:REVISED RESULTS FNA Needle Washings (Lymph Node) 01/31/2024 9:16 AM CDT Phuc Torers M.D. LAB BODY FLUIDS AN D STOOLS ORDERABLES Performing Organization Address City/State/[facility] Co de Phone Number [facility] [address] [place] [address] [facility] [address] [place] [address] * Multiple Endocrine Neoplasia Type 2 Syndrome, RET Full Gene Analysis (01/27/2024 3:44 PM CDT) Test Description Evaluation of the RET gene associated with multiple endocrine neoplasia type 2 02/08/2024 3:38 PM CDT DTL Specimen WB Whole Blood 02/08/2024 3:38 PM CDT DTL Disclaimer Clinical Correlations An online research opportunity called menschmaschine publishingneCultureMap ([email or web address]) , a project of [employer], is available for the recipient of this genetic test. This patient registry collects de-identified genetic and health information to advance the knowledge of genetic variants. [facility] is a collaborator of [employer]. This may not be applicable for all tests. If testing was performed because of a clinically significant family history it is often useful to first test an affected family member. Detection of a reportable variant(s) in an affected family member would allow for more informative testing of at risk individuals. To discuss the availability of further testing options or for assistance in the interpretation of these results, [facility] Laboratory genetic counselors can be contacted at . Technical Limitations Next generation sequencing may not detect all types of genomic variants. In rare cases, false negative or false positive results may occur. The depth of coverage may be variable for some target regions, but assay performance below the minimum acceptable criteria or for failed regions will be noted. Given these limitations, negative results do not rule out the diagnosis of a genetic disorder. If a specific clinical disorder is suspected, evaluation by alternative methods can be considered. There may be regions of genes that cannot be effectively evaluated for sequencing or deletion and duplication analysis as a result of technical limitations of the assay, including regions of homology, high GC content, and repetitive sequences. Confirmation of select reportable variants was performed by alternate methodologies based on internal laboratory criteria. Additionally, low level mosaic variants may not be detected. This test is not designed to differentiate between somatic and germline variants. If there is a possibility that any detected variant is somatic, additional testing may be necessary to clarify the significance of results. Reclassification of Variants Policy See www.little [email or web address] [employer] (TEST ID RETZZ) for information regarding the laboratory's policy for reclassification of variants. Variant Evaluation Variant curation is performed using published ACMG-AMP recommendations as a guideline. Other gene-specific guidelines may also be considered. Variants classified as benign or likely benign are not reported. Results from in silico evaluation tools may exchange mechanic time and should be interpreted with caution and professional clinical judgment. TEST CLASSIFICATION This test was developed and its performance characteristics determined by [facility] in a manner consistent with CLIA requirements. This test has not been cleared or approved by the U.S. Food and Drug Administration. 02/08/2024 3:38 PM CDT DTL Released By Tony Flynn, Ph.D. 02/08/20 24 3:38 PM CDT DTL Result Summary Negative 02/08/2024 3:38 PM CDT DTL Result No reportable variants were detected. 02/08/2024 3:38 PM CDT DTL Method Next generation sequencing (NGS) and/or Jinny sequencing was performed to test for the presence of variants in coding regions and intron/exon boundaries of the gene analyzed. The human genome reference GRCh37/hg19 build was used for sequence read alignment. At least 99% of the bases are covered at a read depth >30X. Sensitivity is estimated at >99% for single nucleotide variants, >94% for indels up to 39 base pairs, >95% for deletions up to 75 base pairs and insertions up to 47 base pairs. NGS and/or a PCR-based quantitative method was performed to test for the presence of deletions and duplications in the gene analyzed. See the Genes Analyzed field for a list of gene(s) tested. There may be regions of genes that cannot be effectively evaluated for sequencing or deletion and duplication analysis as a result of technical limitations of the assay, including regions of homology, high GC content, and repetitive sequences. Confirmation of select reportable variants was performed by alternate methodologies based on internal laboratory criteria. See [email or web address]. [employer] (TEST ID RETZZ) for details regarding genes with regions not routinely covered. 02/08/2024 3:38 PM CDT DTL Genes Analyzed RET 02/08/2024 3:38 PM CDT DTL Interpretation This result decreases the likelihood but does not rule out the presence of a variant in the RET gene. Individuals may have a pathogenic variant in the RET gene that is not detectable by the methods utilized. Additionally, pathogenic variants in other genes not interrogated by this assay may cause a similar phenotype. This result should be interpreted in the context of clinical findings, family history, and other laboratory testing. Given this result, additional genetic testing, such as Hereditary Endocrine Cancer Panel; Test ID: ENDCP or Hereditary Expanded Cancer Panel Test ID: XCP, may be considered. A genetic consultation may be of benefit. 02/08/2024 3:38 PM CDT DTL Blood (Blood, Venous) 01/27/2024 3:44 PM CDT 01/27/2024 4:27 PM CDT Phuc Torres M.D. LAB GENETIC TESTIN G [facility] [address] [place] [address], [facility] DTL [address] [place] [address] * Metanephrines, Fractionated, Free (01/27/2024 6:47 AM CDT) Normetanephrine, Free 0.64 <0.90 nmol/L 01/28/2024 3:30 PM CDT SDSC Metanephrine, Free <0.20 <0.50 nmol/L 01/28/2024 3:30 PM CDT [facility] Comment: ----ADDITIONAL INFORMATION---- This test was developed and its performance characteristics determined by [facility] in a manner consistent with CLIA requirements. This test has not been cleared or approved by the U.S. Food and Drug Administration. Blood (Blood, Venous) 01/27/2024 6:47 AM CDT 01/27/2024 10:31 AM CDT Phuc Torres M.D. LAB BLOOD NON ADD- ON Performing Organization Address [facility]/ZIP Co de Phone Number [facility] [address] [place] [address] [facility] [address] [place] [address] [place] [address] * (ABNORMAL) 25-Hydroxyvitamin D2 and D3 (01/27/2024 6:47 AM CDT) [facility] Signature 25-Hydroxy D2 <4.0 ng/mL 01/29/2024 3:28 PM CDT SDS 25-Hydroxy D3 16 ng/mL 01/29/2024 3:28 PM CDT [facility] 25-Hydroxy D Total 16(L) ng/mL 2023 3:28 PM CDT [facility] Comment: Interpretation: 10-19 ng/mL (mild to moderate deficiency) ----REFERENCE VALUE---- 25-HYDROXY D TOTAL (D2+D3) Optimum levels in the healthy population are 20-50. ----ADDITIONAL INFORMATION---- This test was developed and its performance characteristics determined by [facility] in a manner consistent with CLIA requirements. This test has not been cleared or approved by the U.S. Food and Drug Administration. Blood (Blood, Venous) 01/27/2024 6:47 AM CDT 01/27/2024 9:16 AM CDT Phuc Torres M.D. LAB BLOOD ADD-ON Performing Organization Address City/[facility]/ZIP Co de Phone Number [facility] [address] [place] [address] [facility] [address] [place] [address] [place] [address] * (ABNORMAL) Calcitonin (01/27/2024 6:47 AM CDT) Pathologist [facility] Calcitonin, S 5061(H) <=14.3 pg/mL 01/27/2024 1:35 PM CDT [facility] Comment: ----ADDITIONAL INFORMATION---- The testing method is an electrochemiluminescence assay manufactured by [employer] and performed on the Lovely system. Values obtained with different assay methods or kits may be different and cannot be used interchangeably. Test results cannot be interpreted as absolute evidence for the presence or absence of malignant disease. Blood (Blood, Venous) 01/27/2024 6:47 AM CDT 01/27/2024 11:54 AM CDT Phuc Torres M.D. LAB BLOOD NON ADD- ON Performing Organization Address City/[facility]/ZIP Co de Phone Number [facility] [address] [place] [address] [facility] [address] [place] [address] * S-TSH (Thyroid-Stimulating Hormone - Sensitive) (01/27/2024 6:47 AM CDT) [facility] TSH, Sensitive 2.3 0.3 - 4.2 mIU/L 01/27/2024 8:08 AM CDT DT Blood (Blood, Venous) 01/27/2024 6:47 AM CDT 01/27/2024 7:31 AM CDT Phuc Torres M.D. LAB BLOOD ADD-ON [facility] [address] [place] [address], [facility] [address] [place] [address] * T4 (Thyroxine), Free (01/27/2024 6:47 AM CDT) Pathologist [facility] T4 (Thyroxine), Free, S 1.4 0.9 - 1.7 ng/dL 01/27/2024 8:08 AM CDT DTL Blood (Blood, Venous) 01/27/2024 6:47 AM CDT 01/27/2024 7:31 AM CDT Phuc Torres M.D. LAB BLOOD ADD-ON Performing Organization Address [facility]/ZIP Co de Phone Number [facility] [address] [place] [address], [facility] DTL [facility] [address] [place] [address] * (ABNORMAL) CEA (Carcinoembryonic Antigen) (01/27/2024 6:47 AM CDT) Carcinoembryonic Ag (CEA), S 313.0(H) ng/mL 01/27/2024 10:54 AM CDT [facility] Comment: ----REFERENCE VALUE---- <=3.0 (Non-smokers) Some smokers may have elevated CEA, usually <5.0. ----ADDITIONAL INFORMATION---- The testing method is an immunoenzymatic assay manufactured by [employer] and performed on the [employer] DxI 800. ? Values obtained with different assay methods or kits may be different and cannot be used interchangeably. ? Test results cannot be interpreted as absolute evidence for the presence or absence of malignant disease. Blood (Blood, Venous) 01/27/2024 6:47 AM CDT 01/27/2024 9:56 AM CDT Phuc Torres M.D. LAB BLOOD ADD-ON [facility] [address] [place] [address] [facility] [address] [place] [address] * Calcium, Total (01/27/2024 6:47 AM CDT) Calcium, Total, S 9.3 8.8 - 10.2 mg/dL 01/27/2024 8:08 AM CDT DTL Blood (Blood, Venous) 01/27/2024 6:47 AM CDT 01/27/2024 7:31 AM CDT Phuc Torres M.D. LAB BLOOD ADD-ON [facility] [address] [place] [address], [place] DTL [facility] [address] [place] [address] * US Thyroid (01/25/2024 11:23 AM CDT) [...] 10:51 AM CDT DTL Material Received A. [id number]: Left thyroid ? 7 stained slides 02/03/2024 10:51 AM CDT DTL Interpretation FINAL DIAGNOSIS Thyroid, left lobe nodule ultrasound-guide d fine needle aspiration ([id number]; smears and thin prep; 11/12/2023): Suspicious for malignancy. ??Discohesive cells with nuclear hyperchromasia and atypia worrisome for medullary carcinoma. 02/03/2024 10:51 AM CDT DTL Varies 11/12/2023 8:45 AM CDT 02/02/2024 11:56 AM CDT Phuc Torres M.D. LAB SURG PATH AMY [place] [facility] [address] [place] [address], [facility] DTL [address] [place] [address] * US biopsy (FNA) thyroid-Outside US Body [...] Advance Directives For more information, please contact: [phone] * Full Code (Latest Code Status on File) Date Activated Date Inactivated Comments 02/03/2024 10:45 AM 02/04/2024 2:49 PM Question Answer Comments Full Code: Not Discussed Due to: Patient not available Care Teams City Constable Relationship Specialty Start Date End Date Elsewhere, Pcp PCP - General Internal Medicine 01/27/24
--- OUTSIDE RECORDS SUMMARY | 2024-02-08 22:15 | XMS_ITS | Clinical Summary ---
Author Organization [facility] Address [address] [address] Care Team Providers Care Hvac Engineer Name Role Phone No Primary/Referring, Phy Primary Care Provider Unavailable Source Comments You are receiving this document as you are listed as the primary care provider,follow-up provider, or the patient has been referred to you for consultation.This is in compliance with the Medicare and[facility] Cent[facility] EHR Incentive Program,which states Providers who transition their patient to another setting of careor provider of care or refers their patient to another provider of care shouldprovide summary care record for each transition of care or referral. [facility] Allergies No known active allergies Medications Medication [...] 37 ??C (98.6 ??F) 09/12/2018 2:54 PM REPLANTING MACHINE CREWMAN Respiratory Rate 16 09/12/2018 4:43 PM REPLANTING MACHINE CREWMAN Oxygen Saturation 95% 09/12/2018 4:43 PM REPLANTING MACHINE CREWMAN Inhaled Oxygen Concentration - - Weight 103 [...] e ffect for 30 days Care Teams Hvac Engineer Relationship Specialty Start Date End Date No Primary/Referring, Phy PCP - General 11/04/18
--- OUTSIDE RECORDS SUMMARY | 2024-02-08 22:15 | XMS_ITS | Clinical Summary ---
Author Organization [facility] Address [address] [place] [address]. [place] [address] Care Team Providers Care Dental Technician Name Role Phone No Ref-Primary, Physician Primary Care Provider [facility] Unavailabl e Allergies Active Allergy Reactions Criticality [...] Type Department Care Team Description 12/20/2023 Telephone [facility] [place] [address] [place] [address] Self, Referred, Consult Referral 12/14/2023 Medical Correspondence [facility] [address] [facility] [place] [address] Scan, Non-Provider 11/18/2023 MyC Medical Advice [facility] [address] [phone] Caitlyn Alfred, KIERA 11/11/2023 MyC Medical Advice M [address] [phone] Deysi Patel, KIERA Panel Management from Last 3 Months Immunizations Name Administration Dates Next Due [id number] Novel Flu- Nasal 08/10/2009 TDAP (Adacel,Boostrix) 04/02/2023,02/16/2007 [...] week 04/02/2023 How often do you attend [facility] or sikh services? 1 to 4 times per year 04/02/2023 Do you belong to any clubs o r organizations such as anabaptist groups, unions, fraternal or athletic groups, or [...] Answer Date Recorded PHQ-2 Score 0 04/02/2023 [facility] - Occupational Stress [...] in an abandoned building, in an overnight group home, or couch-surfing.) Yes 04/02/2023 Are you [...] CDT Routine general medical examination at a [facility] care facility White coat syndrome with [...] Modality Computed Tomogra phy 12/10/2023 Provider Outside [facility] [place] ORDERABLES * US Imaging - HIM Scan (11/12/2023 12:00 AM CDT) Only the most recent of2 resultswithin the time period is included. Anatomical Region Laterality Modality Other 11/12/2023 Provider Outside [facility] [place] ORDER[place]LES * HIV Antigen Antibody Combo [...] [facility]/PROT/ENDO [facility]/Prot/Endo [address] [facility], [address] [phone] * Hepatitis C Screen Reflex to HCV [...] - BLOOD ORDERABL ES Performing Organization Address City/[facility]/ZIP Co de Phone Number [facility] SPECIAL[facility] CORE/PROT/ENDO Specialty Core/Prot/Endo [address] [facility], [address] [phone] * (ABNORMAL) Lipid panel reflex to direct [...] LAB - BLOOD ORDERABL ES [facility] Core Lab [address] [facility], [address] [place] [address], [facility] [phone] * (ABNORMAL) Comprehensive metabolic panel (BMP + [...] LAB - BLOOD ORDERABL ES [facility] [facility] Lab [address] [facility], [address] [place] [address], [facility] [phone] from Last 3 Months or Most Recently Relevant to Health Maintenance Advance Directives For more information, please contact: [phone] * Full Code (Latest Code Status on File) Date Activated Date Inactivated Comments 08/24/2016 12:28 PM * Full Code Date Activated Date Inactivated Comments 08/23/2016 5:10 PM 08/24/2016 12:28 PM Care Teams Dental Technician Relationship Specialty Start Date End Date No Ref-Primary, Physician PCP - General 04/05/23 [facility] [address] [place] [address] Assigned PCP 11/02/23
--- OUTSIDE RECORDS SUMMARY | 2024-02-08 22:15 | XMS_ITS | Encounter Summary ---
Author Organization [facility] Address [address] [place] [address] Care Team Providers Care Kelp Or Seagrass Gatherer Name Role Phone No Primary/Referring, Phy Primary [...] on filedocumented in this encounter Care Teams Kelp Or Seagrass Gatherer Relationship Specialty Start Date End Date No Primary/Referring, Phy PCP - General 11/04/18 documented as of this encounter
--- NOTE | 2024-02-08 22:16 | ED_ITS ---
HPI - General Adult General Chief complaint: Hypertension Stated complaint: High BP Time Seen by Provider: 02/08/24 21:42 Source: patient Mode of arrival: ambulatory Limitations: no limitations History of Present Illness HPI narrative: 63-year-old male coming in today with concerns of elevated blood pressure. He states that at home his blood pressure was 190 systolic. He was discharged home from the hospital this morning for pneumonia, is taking Levaquin. Was told has blood pressures were high during his hospital stay but was not sent home on any medications. Patient states that he has a history of white coat hypertension. But that ever since he had his thyroid removed he has been having daily elevated blood pressures without any normal readings. He denies chest pain, shortness of breath or headache. No confusion or slurred speech. No focal neurologic deficits. He is also concerned about left-sided arm swelling. He states that his IV infiltrated but he was told that it would go back to normal. He is concerned that it is not getting better. He denies it getting worse. Denies fevers or chills. Related Data Home Medications ?Medication ?Instructions ?Recorded ?Confirmed loratadine 10 mg tablet (Claritin) 10 mg PO BID 10/06/23 02/05/24 cholecalciferol (vitamin D3) 1,250 50,000 unit PO 2XW 02/05/24 02/05/24 mcg (50,000 unit) capsule levothyroxine 175 mcg tablet 175 mcg PO DAILY 02/05/24 02/05/24 Previous Rx's ?Medication ?Instructions ?Recorded fluticasone 250 mcg-salmeterol 50 1 inh inhalation BID #60 ea 10/20/23 mcg/dose blistr powdr for inhalation hydrochlorothiazide 25 mg tablet 25 mg PO DAILY #30 tabs 02/08/24 levofloxacin 750 mg tablet 750 mg PO DAILY #3 tabs 02/08/24 Allergies Allergy/AdvReac Type Severity Reaction Status Date / Time No Known Drug Allergies Allergy Verified 02/05/24 02:04 Review of Systems Status of ROS: Reports: 10 or more systems reviewed and unremarkable except as noted in History and below [facility] Medical History Sleep disorder breathing ?G47.30 - Sleep apnea, unspecified (ICD-10) Obesity (BMI 30.0-34.9) ?E66.9 - Obesity, unspecified (ICD-10) Retrograde amnesia (08/23/16) ?R41.2 - Retrograde amnesia (ICD-10) Seasonal allergic rhinitis ?J30.2 - Other seasonal allergic rhinitis (ICD-10) Mild persistent asthma ?J45.30 - Mild persistent asthma, uncomplicated (ICD-10) Thyroid cancer, medullary carcinoma ?C73 - Malignant neoplasm of thyroid gland (ICD-10) Nodule of left lobe of thyroid gland ?E04.1 - Nontoxic single thyroid nodule (ICD-10) Surgical History Status post thyroidectomy ?E89.0 - Postprocedural hypothyroidism (ICD-10) Status post arthroscopy of right knee ?Z98.890 - Other specified postprocedural states (ICD-10) Status post tonsillectomy and adenoidectomy ?Z90.89 - Acquired absence of other organs (ICD-10) Family History Other Diabetes Hodgkins lymphoma Social History Narrative: Nonsmoker, 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 Does not drink alcohol. What is your current living situation?: I presently have a place to live Problems where you live: no known problems Problems where you live details: none In the past 12 months, utilities in danger of being shut off: no In past 12 months, lack of transportation kept you from medical appts, meetings, work, or getting things needed for daily living: no In the past 12 mos, have been you worried that your food would run out before you had money to buy more?: never true In the past 12 mos, the food you bought just didn't last and you didn't have money to buy more?: never true Highest level of school completed/degree received: high school graduate Smoking Status: Never smoker Do you use any of these nicotine containing products: None Second hand tobacco smoke exposure: No How often do you have a drink containing alcohol: never AUDIT-C Alcohol total score: 0 Non-prescribed substance use: denies use Caffeine: No How often does anyone, including family, friends and others, physically hurt you : never How often does anyone, including family, friends and others, insult or talk down to you: never How often does anyone, including family, friends and others, threaten you with harm: never How often does anyone, including family, friends and others, scream or curse at you: never Little interest or pleasure in doing things: not at all Feeling down, depressed, or hopeless: not at all service: No Exam Narrative: Exam Narrative: Overweight, well-developed patient in no acute distress. Alert and oriented. Answers questions appropriately. Mood and affect are appropriate. Thoughts are goal oriented and rational. No tangential or magical thinking noted. Patient speaks in full sentences without needing to catch his breath. HEENT: Normocephalic atraumatic. Pupils are equally round reactive to light. Extraocular muscles are intact. Conjunctivae are moist without any icterus noted. Moist mucous membranes. Cardiovascular: Heart is regular rate and rhythm. Lungs: Clear to auscultation bilaterally. Abdomen: Soft and protuberant with normal bowel sounds. Extremities: Left upper extremity is swollen from about the mid forearm to the mid upper arm, it is slightly pink in color, the skin is not indurated, it is not hot to touch, is not tender. He has no tenderness with movement of the elbow. Skin: Well perfused . Const: Vital Signs, click to edit/add: Vital Signs - 24 hr 02/08/24 21:55 Temperature 98.2 F Pulse Rate [Pulse Oximeter] 93 Respiratory Rate 16 Blood Pressure [Ri ght Upper Arm] 182/109 H Pulse Oximetry 90 Oxygen Delivery Me thod Room Air Course Course ED Course: Discussed patient with the hospitalist who was able to review the nursing notes, IV extravasated and arm was swollen on discharge. I reviewed patient's blood pressures, immune he did not have any normal blood pressures during his hospitalization or prior. Vital Signs Vital signs: Initial Vital Signs Temperature 98.2 F 02/08/24 21:55 Temperature Source Temporal Artery Scan 02/08/24 21:55 Pulse Rate 93 02/08/24 21:55 Respiratory Rate 16 02/08/24 21:55 Blood Pressure 182/109 H 02/08/24 21:55 Blood Pressure Mean 133 H 02/08/24 21:55 Blood Pressure Position Sitting 02/08/24 21:55 Pulse Oximetry 90 02/08/24 21:55 Oxygen Delivery Method Room Air 02/08/24 21:55 Vital Signs Temperature 98.2 F 02/08/24 21:55 Pulse Rate 93 02/08/24 21:55 Respiratory Rate 16 02/08/24 21:55 Blood Pressure 182/109 H 02/08/24 21:55 Pulse Oximetry 90 02/08/24 21:55 Oxygen Delivery Method Room Air 02/08/24 21:55 Temperature 98.2 F 02/08/24 21:55 Pulse Rate 93 02/08/24 21:55 Respiratory Rate 16 02/08/24 21:55 Blood Pressure 182/109 H 02/08/24 21:55 Pulse Oximetry 90 02/08/24 21:55 Oxygen Delivery Method Room Air 02/08/24 21:55 Medical Decision Making MDM Narrative Medical decision making narrative: 63-year-old male with probable hypertension. Will start him on hydrochlorothiazide. Patient will follow-up with primary care provider this week, he already has an appointment scheduled in 3 days. Swelling of the arm secondary to extravasation. Discussed warm compresses and reasons for follow-up. Medical Records Medical records reviewed: Yes I reviewed the patient's medical records Discharge Plan Discharge Clinical Impression: Hypertension Patient Disposition: Home, Self-Care Condition: Stable Additional Instructions: Start with pressure medication 1 tablet daily, can start tomorrow. Follow-up with your primary care provider this coming week. Arm swelling due to extravasation, not infection. Return to the ER if you develop a fever. In the meantime, apply warm compresses to arm and elevate when possible. Prescriptions: New hydrochlorothiazide 25 mg tablet 25 mg PO DAILY Qty: 30 0RF No Action fluticasone propion-salmeterol 250-50 mcg/dose blister with device 1 inh inhalation BID Qty: 60 11RF loratadine [Claritin] 10 mg tablet 10 mg PO BID levothyroxine 175 mcg tablet 175 mcg PO DAILY cholecalciferol (vitamin D3) 1,250 mcg (50,000 unit) capsule 50,000 unit PO 2XW Rx Instructions: TAKES ON SUNDAYS AND WEDNESDAYS PRESCRIBED BY SOFTWARE PRODUCT SPECIALIST levofloxacin 750 mg tablet 750 mg PO DAILY Qty: 3 0RF Follow Up/Referrals: Kenroy Ly MD [Primary Care Provider] - Stand Alone Forms: [employer] Info Instructions
--- OUTSIDE RECORDS SUMMARY | 2024-02-08 22:16 | XMS_ITS | Encounter Summary ---
Author Organization [facility] Address [address] [place] [address] Care Team Providers Care Academic Services Coordinator Name Role Phone Elsewhere, Pcp Primary Care Provider Unavailabl e Encounter Details Date Type Department Care Team (Late st Contact Info) Description 02/06/2024 Clinical Communication Division of Endocrine Surgery in [place], [place] [address] [place] [phone] Jaret Salas M.D. [address] [place] [address] Social History Tobacco Use Types Packs/Day Years Used Date Smoking Tobacco: Never Smokeless Tobacco: Never Alcohol Use Standard Drinks/Week Comments Not Currently 0 (1 standard drink = 0.6 oz pur e alcohol) [facility] Utilities Answer Date Recorded In the past 12 months has [facility] [employer], gas, oil, or water [employer] threatened to shut off services in your [...] your living situation today? I have a [facility] place to live 01/23/2024 Sex and Gender Information Value Date Recorded Sex Assigned at Male 01/23/2024 9:14 PM CDT Gender Identity Male 01/23/2024 9:14 PM CDT Sexual Orientation Straight 01/23/2024 9: 14 PM CDT documented as of this encounter Miscellaneous Notes * Telephone Encounter - Jaret Salas M.D. - 02/06/2024 10:01 AM CDT Called Mr. Long. He is doing much better and feeling very well. Expectorating less and the color seems to be more yellow than green. Is not on oxygen at rest and he is satting 89-90% which is an improvement. Has been ambulating. Tolerating p.o., and he does not feel that he is aspirating. Overall we are moving in the right direction. We appreciate [facility] excellent care on this. Awaiting results from swallow. documented in this encounter Plan of Treatment Not on file documented as of this encounter Visit Diagnoses Not on filedocumented in this encounter Care Teams Academic Services Coordinator Relationship Specialty Start Date End Date Elsewhere, Pcp PCP - General Internal Medicine 01/27/24 documented as of this encounter
--- OUTSIDE RECORDS SUMMARY | 2024-02-08 22:16 | XMS_ITS | Encounter Summary ---
Author Organization [facility] Address [address] [place] [address] Care Team Providers Care Bookbinder Chief Name Role Phone Elsewhere, Pcp Primary Care Provider Unavailabl e Encounter Details Date Type Department Care Team (Late st Contact Info) Description 02/08/2024 Clinical Communication Division of Endocrine Surgery in [place], [place] [address] [place] [phone] Jaret Salas M.D. [address] [place] [address] Social History Tobacco Use Types Packs/Day Years Used Date Smoking Tobacco: Never Smokeless Tobacco: Never Alcohol Use Standard Drinks/Week Comments Not Currently 0 (1 standard drink = 0.6 oz pur e alcohol) [facility] Utilities Answer Date Recorded In the past 12 months has [facility] [employer] gas, oil, or water [employer] threatened to shut off services in your [...] your living situation today? I have a [facility] place to live 01/23/2024 Sex and Gender Information Value Date Recorded Sex Assigned at Male 01/23/2024 9:14 PM CDT Gender Identity Male 01/23/2024 9:14 PM CDT Sexual Orientation Straight 01/23/2024 9: 14 PM CDT documented as of this encounter Miscellaneous Notes * Telephone Encounter - Jaret Salas M.D. - 02/08/2024 10:40 AM CDT Called Mr. Long today. He is feeling better still. Saturation around 90-91%. Neck swelling decreasing. Finger numbness has almost completely resolved. Still some residual left arm erythema and pain, that seems to be going down after the IV was switched. Seems that he will be going home today withoxygen and p.o. antibiotics. No need for a swallow study. He has progressed very well and we appreciate [facility]'s excellent care. documented in this encounter Plan of Treatment Not on file documented as of this encounter Visit Diagnoses Not on filedocumented in this encounter Care Teams Bookbinder Chief Relationship Specialty Start Date End Date Elsewhere, Pcp PCP - General Internal Medicine 01/27/24 documented as of this encounter
--- OUTSIDE RECORDS SUMMARY | 2024-02-08 22:16 | XMS_ITS | Referral Summary ---
Author Organization [facility] Address [address] [place] [address] Care Team Providers Care Auto Driver Name Role Phone Elsewhere, Pcp Primary Care Provider Unavailabl e Source Comments Patient records contain information from all sites at [facility]. For routine questions regarding patient records, call [phone] during business hours, M-F 8:00 AM - 5:00 PM Central Time. Record requests for emergency care only can be directed to [phone] at any time.[facility] Encounters Date Type Department Care Team Description 02/08/2024 Clinical Communication Division of Endocrine Surgery in [place], [place] [address] [place] [address] Jaret Salas M.D. 02/07/2024 Clinical Communication Division of Endocrine Surgery in [place], [place] [address] [place] [address] Jaret Salas M.D. 02/06/2024 Clinical Communication Division of Endocrine Surgery in [place], [place] [address] [place] [address] Jaret Salas M.D. 02/05/2024 Clinical Communication Division of Endocrine Surgery in [place], [place] [address] [place] [phone] Jaret Salas M.D. 02/05/2024 Clinical Communication Division of Endocrine Surgery in [place], [place] [address] [place] [address] Jaret Salas M.D. 02/05/2024 Intake [facility] 02/03/2024 10:28 AM CDT - 02/04/2024 12:44 PM CDT Hospital Encounter [facility], [facility], Sixth Floor [address] [place] [address] Dakota Morrow M.D. 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 Willem Baker M.D., M.S. 02/03/2024 12:13 PM CDT - 02/03/2024 3:42 PM CDT Surgery T [facility] [place] [facility] [place] [address] Dakota Morrow M.D. THYROIDECTOMY - TOTAL. 02/02/2024 2:00 PM CDT Office Visit Division of Endocrine Surgery in [place], [place] [address] [place] [address] Dakota Morrow M.D. Castro, M. Regina, M.D. 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 01/31/2024 8:37 AM CDT - 01/31/2024 10:21 AM CDT Hospital Encounter Department of Radiology, [facility], in [place], [place] [address] [place] [address] Phuc Torres M.D. Robinson, Kathryn A, M.D. Malignant Neoplasm Of Thyroid (HCC) Discharge Disposition: Home or Self Care 01/27/2024 Clinical Communication Division of Endocrinology in [place], [place] [address] [place] [address] Phuc Torres M.D. Pathology Request 01/27/2024 3:23 PM CDT - 01/27/2024 11:59 PM CDT Hospital Encounter Department of Laboratory Medicine and Pathology, [facility] in [place], [place] [address] [place] [address] Phuc Torres M.D. Malignant Neoplasm Of Thyroid (HCC) Discharge Disposition: Home or Self Care 01/27/2024 2:40 PM CDT Lab RST RO [facility] [address] [place] [address] Phuc Torres M.D. Malignant Neoplasm Of Thyroid (HCC) 01/27/2024 6:21 AM CDT - 01/27/2024 3:22 PM CDT Hospital Encounter Department of Laboratory Medicine and Pathology, [facility] in [place], [place] [address] [place] [phone] Phuc Torres M.D. 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 Malignant Neoplasm Of Thyroid (HCC) 01/27/2024 3:00 PM CDT Comprehensive Visit Division of Endocrine Surgery in [place], [place] [address] [place] [phone] Dakota Morrow M.D. Castro, M. Regina, M.D. Malignant Neoplasm Of Thyroid Medullary (HCC) 01/25/2024 10:16 AM CDT - 01/25/2024 11:59 PM CDT Hospital Encounter Department of Radiology, [facility] in [place], [place] [address] [place] [address] Phuc Torres M.D. 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 12/28/2023 2:00 PM CDT Clinical Communication Division of Endocrinology in [place], [place] [address] [place] [phone] Pre-visit Intake (thyroid) 12/23/2023 Clinical Communication Department of Otorhinolaryngology in [place], [place] [address] [place] [address] Provider, Unknown OSM (ENT ) 12/22/2023 [facility] [address] [place] [address] Carmela Basurto M.D. Malignant Neoplasm Of Thyroid [...] Malignant Neoplasm Of Thyroid Medullary 12/30/19 24 Social History Tobacco Use Types Packs/Day Years Used Date Smoking Tobacco: Never Smokeless Tobacco: Never Alcohol Use Standard Drinks/Week Comments Not Currently 0 (1 standard drink = 0.6 oz pur e alcohol) [facility] Utilities Answer Date Recorded In the past 12 months has [employer], oil, or water [employer] threatened to shut off services in your [...] your living situation today? I have a [facility] place to live 01/23/2024 Sex [...] on file Medical Devices Implanted Type Area Criminal Intelligence Specialist Device Identifier Shelf Expiration Date Model / Serial / Lot Clp Hrzn Ti 6 Clp Sm Red - [id number] Implanted:Qty: 1 on 02/03/2024 by Dakota Morrow M.D. at [facility] Hardware e.g. pins/screws/r ods [employer] / / Procedures Procedure Name Priority Date/Time [...] AM CDT) 02/05/2024 3:37 AM CDT Narrative [facility] - 02/05/2024 4:58 AM CDT This order has been created and auto-finalized to support the import of outside images. If available, original interpretation can be found on the Media Tab in Chart Review, in Document Viewer, as an image in QREADS or as an Addendum. If a re-interpretation or overread is required please follow defined workflow.?? Provider Not In System IM CT PROCEDURES Performing Organization Address [facility] de Phone Number [facility] NA * CT SOFT TISSUE NECK W CON-Outside CT Neuro (02/05/2024 3:40 AM CDT) Only the most recent of2 resultswithin the time period is included. 02/05/2024 3:37 AM CDT Narrative [facility] - 02/05/2024 4:55 AM CDT This order has been created and auto-finalized to support the import of outside images. If available, original interpretation can be found on the Media Tab in Chart Review, in Document Viewer, as an image in QREADS or as an Addendum. If a re-interpretation or overread is required please follow defined workflow.?? Provider Not In System IM CT PROCEDURES Performing Organization Address [facility] de Phone Number [facility] NA * Parathyroid Hormone (PTH) (02/03/2024 7:15 PM CDT) Parathyroid Hormone (PTH), S 28 15 - 65 pg/mL 02/03/2024 8:48 PM CDT DTL Blood (Blood, Venous) 02/03/2024 7:15 PM CDT 02/03/2024 8:02 PM CDT Jaret Salas M.D. LAB BLOOD ADD-O N [facility] [address] [place] [address], [place] DTL [facility] [address] [place] [address] * Surgical Pathology, Frozen Lab (02/03/2024 3:20 [...] almost the entire lobe in 3 dimensions. Lunchroom Attendant tissue submitted for permanent sections. Grossed by Donovan Trinidad M.D., Ph.D.-Pathology Resident. B. ??Received fresh labeled right thyroid lobe is a 7 g completion thyroidectomy with a 4.5 x 3.3 x 1.3 cm right lobe. ??The margin is inked and margins are taken perpendicularly. ??No nodules are identified. ??All submitted for permanent sections. ??Grossed by Aaron Amado.Sabina., P.A. ([facility]). C. ??Received fresh labeled left neck level 2, 3, 4, and 5A lymph nodes is an 8 x 3 x 2 cm aggregate of adipose and lymphatic tissue. ??Lymph nodes are submitted for frozen and permanent sections. ??Grossed by Sachi Amado, P.A. ([facility]). 02/07/2024 2:56 PM CDT METH Block [...] Morrow M.D. LAB SURG PATH ORDERA BLES [facility] [address] [place], [place] [address] METH 200 [facility] [address] [place] [address] * Airway (02/03/2024 2:04 PM CDT) Narrative [...] ETT location: oral VL device: glide scope Freedom scope blade size: 4 Tube size: 7 [...] Torres M.D. LAB SURG PATH AMY DURHAM [facility] [address] [place] [address], [facility] 200 [facility] [address] [place] [address] * Calcitonin, Fine-Needle Aspiration Biopsy (FNAB)-Needle Wash, Lymph Node (01/31/2024 9:16 AM CDT) Only the most recent of2 resultswithin the time period is included. Calcitonin, FNAB, Lymph Node [id number] pg/mL 01/31/2024 6:10 PM CDT [facility] Comment: Calcitonin values = or [...] This test has been modified from the fish butcher's instructions. Its performance characteristics were determined by [facility] in a manner consistent with CLIA requirements. [...] Washings, Lymph Node 02/01/2024 10:16 AM CDT [facility] Comment:REVISED RESULTS FNA Needle Washings (Lymph Node) 01/31/2024 9:16 AM CDT Phuc Torres M.D. LAB BODY FLUIDS AN D STOOLS ORDERABLES [facility] [address] [place] [address] [facility] [address] [place] [address] * Multiple Endocrine Neoplasia Type 2 Syndrome, RET Full Gene Analysis (01/27/2024 3:44 PM CDT) Test Description Evaluation of the RET gene associated with multiple endocrine neoplasia type 2 02/08/2024 3:38 PM CDT DTL Specimen WB Whole Blood 02/08/2024 3:38 PM CDT DTL Disclaimer Clinical Correlations An online research opportunity called [employer] ([employer]) , a project of [employer], is available for the recipient of this genetic test. This patient registry collects de-identified genetic and health information to advance the knowledge of genetic variants. [facility] is a collaborator of [employer]. This may not be applicable for all [...] assistance in the interpretation of these results, [facility] Laboratory genetic counselors can be contacted at [...] of results. Reclassification of Variants Policy See www.Shweeb. WikiWand (TEST ID RETZZ) for information regarding the laboratory's policy for reclassification of variants. Variant Evaluation Variant curation is performed using published ACMG-AMP recommendations as a guideline. Other gene-specific guidelines may also be considered. Variants classified as benign or likely benign are not reported. Results from in silico evaluation tools may interchange agent time and should be interpreted with caution and professional clinical judgment. TEST CLASSIFICATION This test was developed and its performance characteristics determined by [facility] in a manner consistent with CLIA requirements. [...] methodologies based on internal laboratory criteria. See www.[email or web address] regional medical centerLeads Direct. com (TEST ID RETZZ) for details regarding genes [...] Phuc Torres M.D. LAB GENETIC TESTIN G Performing Organization Address [facility]/ZIP Co de Phone Number [facility] [address] [place] [address], [facility] DTL [address] [place] [address] * Metanephrines, Fractionated, Free (01/27/2024 6:47 AM CDT) Normetanephrine, Free 0.64 <0.90 nmol/L 01/28/2024 3:30 PM CDT [facility] Metanephrine, Free <0.20 <0.50 nmol/L 01/28/2024 3:30 PM CDT [facility] Comment: ----ADDITIONAL INFORMATION---- This test was developed and its performance characteristics determined by [facility] in a manner consistent with CLIA requirements. This test has not been cleared or approved by the U.S. Food and Drug Administration. Blood (Blood, Venous) 01/27/2024 6:47 AM CDT 01/27/2024 10:31 AM CDT Phuc Torres M.D. LAB BLOOD NON ADD- ON [facility] [address] [place] [address] [facility] [address] [place] [address] [place] [address] * (ABNORMAL) 25-Hydroxyvitamin D2 and D3 (01/27/2024 6:47 AM CDT) 25-Hydroxy D2 <4.0 ng/mL 01/29/2024 3:28 PM CDT [facility] 25-Hydroxy D3 16 ng/mL 01/29/2024 3:28 PM CDT [facility] 25-Hydroxy D Total 16(L) ng/mL 2023 3:28 PM T [facility] Comment: Interpretation: 10-19 ng/mL (mild to moderate deficiency) ----REFERENCE VALUE---- 25-HYDROXY D TOTAL (D2+D3) Optimum levels in the healthy population are 20-50. ----ADDITIONAL INFORMATION---- This test was developed and its performance characteristics determined by [facility] in a manner consistent with CLIA requirements. This test has not been cleared or approved by the U.S. Food and Drug Administration. Blood (Blood, Venous) 01/27/2024 6:47 AM CDT 01/27/2024 9:16 AM CDT Phuc Torres M.D. LAB BLOOD ADD-ON Performing Organization Address [facility] Co de Phone Number [facility] [address] [place] [address] [place] [facility] [place] [address] * (ABNORMAL) Calcitonin (01/27/2024 6:47 AM CDT) Pathologist [facility] Calcitonin, S 5061(H) <=14.3 pg/mL 01/27/2024 1:35 PM T [facility] Comment: ----ADDITIONAL INFORMATION---- The testing [...] BLOOD NON ADD- ON Performing Organization Address [facility]/ZIP Co de Phone Number [facility] [address] [place] [address] [facility] [address] [place] [address] * S-TSH (Thyroid-Stimulating Hormone - Sensitive) (01/27/2024 6:47 AM CDT) TSH, Sensitive 2.3 0.3 - 4.2 mIU/L 01/27/2024 8:08 AM CDT DT Blood (Blood, Venous) 01/27/2024 6:47 AM CDT 01/27/2024 7:31 AM CDT Phuc Torres M.D. LAB BLOOD ADD-ON Performing Organization Address [facility] Co de Phone Number [facility] [address] [place] [address] * T4 (Thyroxine), Free (01/27/2024 6:47 AM CDT) Pathologist [facility] T4 (Thyroxine), Free, S 1.4 0.9 - 1.7 ng/dL 01/27/2024 8:08 AM CDT DT Blood (Blood, Venous) 01/27/2024 6:47 AM CDT 01/27/2024 7:31 AM CDT Phuc Torres M.D. LAB BLOOD ADD-ON Performing Organization Address [facility] Co de Phone Number [facility] [address] [place] [address] * (ABNORMAL) CEA (Carcinoembryonic Antigen) (01/27/2024 6:47 AM CDT) Carcinoembryonic Ag (CEA), S 313.0(H) ng/mL 01/27/2024 10:54 AM CDT [facility] Comment: ----REFERENCE VALUE---- <=3.0 (Non-smokers) Some smokers may have elevated CEA, usually <5.0. ----ADDITIONAL INFORMATION---- The testing method is an immunoenzymatic assay manufactured by [employer] and performed on the UniCel DxI 800. ? Values obtained with different assay methods or kits may be different and cannot be used interchangeably. ? Test results cannot be interpreted as absolute evidence for the presence or absence of malignant disease. Blood (Blood, Venous) 01/27/2024 6:47 AM CDT 01/27/2024 9:56 AM CDT Phuc Torres M.D. LAB BLOOD ADD-ON [facility] [address] [place] [address] [facility] [address] [place] [address] * Calcium, Total (01/27/2024 6:47 AM CDT) Pathologist [facility] Calcium, Total, S 9.3 8.8 - 10.2 mg/dL 01/27/2024 8:08 AM CDT DTL Blood (Blood, Venous) 01/27/2024 6:47 AM CDT 01/27/2024 7:31 AM CDT Phuc Torres M.D. LAB BLOOD ADD-ON Performing Organization Address City/[facility] Co de Phone Number [facility] [address] [place] [address], [facility]TF[facility] [address] [place] [address] * US Thyroid (01/25/2024 11:23 AM CDT) [...] 10:51 AM CDT DTL Material Received A. [id number]: Left thyroid ? 7 stained slides 02/03/2024 10:51 AM CDT DTL Interpretation FINAL DIAGNOSIS Thyroid, left lobe nodule ultrasound-guide d fine needle aspiration ([id number]; smears and thin prep; 11/12/2023): Suspicious for malignancy. ??Discohesive cells with nuclear hyperchromasia and atypia worrisome for medullary carcinoma. 02/03/2024 10:51 AM CDT DTL Varies 11/12/2023 8:45 AM CDT 02/02/2024 11:56 AM CDT Phuc Torres M.D. LAB SURG PATH AMY DURHAM [facility] [address] [place] [address], [facility] DTL [address] [place] [address] * US biopsy (FNA) thyroid-Outside US Body [...] System IMG US PROCEDURES Performing Organization Address City/[facility]/ZIP Co de Phone Number [facility] NA from Last 3 Months Advance Directives For more information, please contact: [phone] * Full Code (Latest Code Status on File) Date Activated Date Inactivated Comments 02/03/2024 10:45 AM 02/04/2024 2:49 PM Question Answer Comments Full Code: Not Discussed Due to: Patient not available Care Teams Auto Driver Relationship Specialty Start Date End Date Elsewhere, Pcp PCP - General Internal Medicine 01/27/24
--- OUTSIDE RECORDS SUMMARY | 2024-02-08 22:16 | XMS_ITS | Encounter Summary ---
Author Organization [facility] Address [address] [place] [address] Care Team Providers Care Stock Wetter Name Role Phone Elsewhere, Pcp Primary Care Provider Unavailabl e Encounter Details Date Type Department Care Team (Late st Contact Info) Description 02/05/2024 Clinical Communication Division of Endocrine Surgery in [place], [place] [address] [place] [phone] Jaret Salas M.D. [address] [place] [address] Social History Tobacco Use Types Packs/Day Years Used Date Smoking Tobacco: Never Smokeless Tobacco: Never Alcohol Use Standard Drinks/Week Comments Not Currently 0 (1 standard drink = 0.6 oz pur e alcohol) [facility] Utilities Answer Date Recorded In the past 12 months has [facility] [employer], gas, oil, or water [employer] threatened to shut off services in your [...] your living situation today? I have a [facility] place to live 01/23/2024 Sex and Gender Information Value Date Recorded Sex Assigned at Male 01/23/2024 9:14 PM CDT Gender Identity Male 01/23/2024 9:14 PM CDT Sexual Orientation Straight 01/23/2024 9: 14 PM CDT documented as of this encounter Miscellaneous Notes * Telephone Encounter - Jaret Salas M.D. - 02/05/2024 8:34 PM CDT Called Mr. Long for an update. Pt is feeling better. He keeps icing the incision; this is helping with the pain. Also the neck hasnot become more swollen. On 1.5lt of O2, being weaned off. Voice sounds even stronger. Clearing of throat is stronger. Expectorate described as yellow and green which would argue for an infectious process. On IV Abx. Appreciate [facility] taking excellent care of Mr. Long for this. Will follow up again tomorrow. documented in this encounter Plan of Treatment Not on file documented as of this encounter Visit Diagnoses Not on filedocumented in this encounter Care Teams Stock Wetter Relationship Specialty Start Date End Date Elsewhere, Pcp PCP - General Internal Medicine 01/27/24 documented as of this encounter
--- OUTSIDE RECORDS SUMMARY | 2024-02-08 22:16 | XMS_ITS | Encounter Summary ---
Author Organization [facility] Address [address] [place] [address] Care Team Providers Care Automotive Production Worker Name Role Phone Elsewhere, Pcp Primary Care Provider Unavailabl e Encounter Details Date Type Department Care Team (Late st Contact Info) Description 02/07/2024 Clinical Communication Division of Endocrine Surgery in [place], [place] [address] [place] [phone] Jaret Salas M.D. [address] [place] [address] Social History Tobacco Use Types Packs/Day Years Used Date Smoking Tobacco: Never Smokeless Tobacco: Never Alcohol Use Standard Drinks/Week Comments Not Currently 0 (1 standard drink = 0.6 oz pur e alcohol) [facility] Utilities Answer Date Recorded In the past 12 months has [facility] [employer], gas, oil, or water [employer] threatened to shut off services in [...] Telephone Encounter - Jaret Salas M.D. - 02/07/2024 8:17 PM CDT Called Mr. Long today - he is feeling better than yesterday. Underwent bedside swallow eval, which per him, did not show any clinical signs of aspiration. He is tolerating PO intake and he is now clearing his throat as much as he did before surgery - the frequency has gone down significantly since POD#1 02/03. I think this potentially indicates that he has regained sensation of his glottis, if that were one of the problems. Video eval deferred for now. His is satting 90-91% which is an improvement since 02/04. He was able to walk 100-150 yards. Minimal coughing, with minimal expectoration. Describes some swelling, pain and erythema of L arm which is now getting better, after transferringIV to R arm. His 3 digit numbness/tingling of the L thumb, index and middle fingers has completely disappeared. His neck incision seems to have color changes compatible w/ ecchymosis. Some more swelling. Explained that at POD#4, this is most probably a seroma, which could become bigger still, however it will ultimately reabsorb. Icing it will not change the natural history at this point in time. He denies any neck pain. Overall, he seems to be doing very well and we appreciate [facility]'s excellent treatment. I sharedmy phone number with Mr. Long, so that he may call me tomorrow morning at rounds and so I may answer any questions that his care team may have for our surgical team. documented in this encounter Plan of Treatment Not on file documented as of this encounter Visit Diagnoses Not on filedocumented in this encounter Care Teams Automotive Production Worker Relationship Specialty Start Date End Date Elsewhere, Pcp PCP - General Internal Medicine 01/27/24 documented as of this encounter
--- OUTSIDE RECORDS SUMMARY | 2024-02-08 22:16 | XMS_ITS ---
Author Organization [facility] Address [address] [place] [address] Care Team Providers Care Hairspring Ii Inspector Name Role Phone Unavailable Unavailable Unavailable Surgery Details Not on file Complications Check Surgery Details section. Procedure Estimated Blood Loss Check Surgery Details section. Procedure Findings Check Surgery Details section. Procedure Specimens Taken Check Surgery Details section.
--- OUTSIDE RECORDS SUMMARY | 2024-02-08 22:16 | XMS_ITS | Encounter Summary ---
Author Organization [facility] Address [address] [place] [address] Care Team Providers Care Employee Benefits Attorney Name Role Phone Elsewhere, Pcp Primary Care Provider Unavailabl e Encounter Details Date Type Department Care Team (Latest Contact Info) Description 02/05/2024 Intake [facility] Social History Tobacco Use Types Packs/Day Years Used Date Smoking Tobacco: Never Smokeless Tobacco: Never Alcohol Use Standard Drinks/Week Comments Not Currently 0 (1 standard drink = 0.6 oz pur e alcohol) [facility] Utilities Answer Date Recorded In the past 12 months has e electric, gas, oil, or water company [...] your living situation today? I have a [facility] place to live 01/23/2024 Sex and Gender Information Value Date Recorded Sex Assigned at Male 01/23/2024 9:14 PM CDT Gender Identity Male 01/23/2024 9:14 PM CDT Sexual Orientation Straight 01/23/2024 9: 14 PM CDT documented as of this encounter Plan of Treatment Not on file documented as of this encounter Visit Diagnoses Not on filedocumented in this encounter Care Teams Employee Benefits Attorney Relationship Specialty Start Date End Date Elsewhere, Pcp PCP - General Internal Medicine 01/27/24 documented as of this encounter
--- OUTSIDE RECORDS SUMMARY | 2024-02-08 22:16 | XMS_ITS | Encounter Summary ---
Author Organization [facility] Address [address] [place] [address] Care Team Providers Care New Client Banking Services Clerk Name Role Phone Elsewhere, Pcp Primary Care Provider Unavailabl e Encounter Details Date Type Department Care Team (Late st Contact Info) Description 02/05/2024 Clinical Communication Division of Endocrine Surgery in [place], [place] [address] [place] [phone] Jaret Salas M.D. [address] [place] [address] Social History Tobacco Use Types Packs/Day Years Used Date Smoking Tobacco: Never Smokeless Tobacco: Never Alcohol Use Standard Drinks/Week Comments Not Currently 0 (1 standard drink = 0.6 oz pur e alcohol) [facility] Utilities Answer Date Recorded In the past 12 months has [facility], gas, oil, or water [employer] threatened to shut off services in your [...] your living situation today? I have a [facility] place to live 01/23/2024 Sex and Gender Information Value Date Recorded Sex Assigned at Male 01/23/2024 9:14 PM CDT Gender Identity Male 01/23/2024 9:14 PM CDT Sexual Orientation Straight 01/23/2024 9: 14 PM CDT documented as of this encounter Miscellaneous Notes * Telephone Encounter - Jaret Salas M.D. - 02/05/2024 9:42 AM CDT Received call from [facility] ER about pt being there for SOB. Yesterday he was satting occasionally in mid - high 80s when I saw him, without distress. Attributed it to yet unconfirmed BARBARA and post-bronchitis changes from earlier this year. Overnight his numbers kept dropping and he went to the ER. CTPE, no PE, however concern for aspiration (I cannot see the report - verbal communication from ERphysician). On my read, there are consolidations/atelectasis of b/l lower posterior segments L >R. WBC 12k. I am wondering if those are changes from the bronchitis (since that was discussed in previous xrays as well) w/ a WBC due to the surgery. No temps > 100.4. During the operation we lostsignal of the L RLN; anatomically intact, however this could contribute as well to a potential aspiration. Signal was lost throughout, without a definitive transition point to argue for stretch. The pt's voice is improving and getting stronger over the past two days, both on my exam and per the pt's report. I discussed all of this with the patient. We offered to transfer Mr. Long back to [place] to treat this, however he would prefer to stay at [facility] for now. That is definitely reasonable. I will stay in touch with him over the weekend. He shall receive antibiotics, and a swallow study on Wednesday. Requested bedside eval for the weekend, in the event that he requires thick consistency food. His neck is a little more swollen, but no stridor clinically. Finally, his numbness over his distal L thumb, index and middle finger is improving. Explained thatthe distribution implies distal nerve involvement (median n. rather than cervical plexus) possibly due to positioning or BP cuff and that will return to baseline with time. documented in this encounter Plan of Treatment Not on file documented as of this encounter Visit Diagnoses Not on filedocumented in this encounter Care Teams New Client Banking Services Clerk Relationship Specialty Start Date End Date Elsewhere, Pcp PCP - General Internal Medicine 01/27/24 documented as of this encounter
--- OUTSIDE RECORDS SUMMARY | 2024-02-08 22:17 | XMS_ITS | Encounter Summary ---
Author Organization [facility] Address [address] [place] [address] Care Team Providers Care Environmental Science Instructor Name Role Phone Unavailable Primary Care Provider Unavailabl e Reason for Referral * Outpatient (Routine) - Closed Specialty Diagnoses / Procedures Referred By Vinicius reid Referred To Contact Diagnoses Malignant Neoplasm Of Thyroid Medullary (HCC) Procedures US Thyroid US Head Neck Soft Tissue Phuc Torres M.D. [address] [place] [phone] [facility] Referral ID Status Reason Start Date Expiration Date Visits Re quested Visits Authorized [id number] Closed 12/28/2023 12/27/2024 1 1 Reason for Visit * Outpatient (Routine) - Closed Specialty Diagnoses / Procedures Referred By Vinicius reid Referred To Contact Diagnoses Malignant Neoplasm Of Thyroid Medullary (HCC) Procedures US Thyroid US Head Neck Soft Tissue Phuc Torres M.D. [address] [place] [address] [facility] Referral ID Status Reason Start Date Expiration Date Visits Re quested Visits Authorized [id number] Closed 12/28/2023 12/27/2024 1 1 Encounter Details Date Type Department Care Team (Latest Contact Info) Description 01/25/2024 10:16 AM CDT - 01/25/2024 11:59 PM CDT Hospital Encounter Department of Radiology, [facility], in [place], [place] 200 [place] [address] Phuc Torres M.D. [address] [place] [address] Malignant Neoplasm Of Thyroid Medullary (HCC) Discharge Disposition: Home or Self Care Social History Tobacco Use Types Packs/Day Years Used Date Smoking Tobacco: Never Assessed [facility] Utilities Answer Date Recorded In the [...] your living situation today? I have a [facility] place to live 01/23/2024 Sex and [...]
--- OUTSIDE RECORDS SUMMARY | 2024-02-08 22:17 | XMS_ITS | Encounter Summary ---
Author Organization [facility] Address [address] [place] [address] Care Team Providers Care Mergers And Acquisitions Consultant Name Role Phone Elsewhere, Pcp Primary Care Provider Unavailabl e Reason for Referral * Outpatient (Routine) - Closed Specialty Diagnoses / Procedures Referred By Vinicius reid Referred To Contact General Surgery Dakota Morrow M.D. [address] [place] [phone] Dakota Morrow M.D. [address] [place] [phone] Referral ID Status Reason Start Date Expiration Date Visits Re quested Visits Authorized [id number] Closed 01/27/2024 07/28/2025 1 1 Scheduling Instructions Please schedule with Dr. Mororw; Reason for Visit * Outpatient (Routine) - Closed Specialty Diagnoses / Procedures Referred By Vinicius reid Referred To Contact General Surgery Diagnoses Malignant Neoplasm Of Thyroid Medullary (HCC) Phuc Torres M.D. [address] [place] [phone] [facility] Referral ID Status Reason Start Date Expiration Date Visits Re quested Visits Authorized [id number] Closed 12/28/2023 06/28/2025 1 1 Encounter Details Date Type Department Care Team (Latest Contact Info) Description 01/27/2024 3:00 PM CDT Comprehensive Visit Division of Endocrine Surgery in [place], [place] [address] [place] [address] [place] [phone] Dakota Morrow M.D. 200 [place] [phone] Phuc Torres M.D. 200 [place] [phone] Malignant Neoplasm Of Thyroid Medullary (HCC) Social History Tobacco Use Types Packs/Day Years Used Date Smoking Tobacco: Never Assessed [facility] Utilities Answer Date Recorded In the [...] your living situation today? I have a [facility] place to live 01/23/2024 Sex and [...] (HCC) documented in this encounter Care Teams Mergers And Acquisitions Consultant Relationship Specialty Start Date End Date Elsewhere, Pcp PCP - General Internal Medicine 01/27/24 documented as of this encounter
--- OUTSIDE RECORDS SUMMARY | 2024-02-08 22:17 | XMS_ITS | Encounter Summary ---
Author Organization [facility] Address [address] [place] [address] Care Team Providers Care Service Center Representative Name Role Phone Unavailable Primary Care Provider Unavailabl e Reason for Referral * Outpatient (Routine) - Closed Specialty Diagnoses / Procedures Referred By Vinicius reid Referred To Contact Otorhinolaryngology Diagnoses Malignant Neoplasm Of Thyroid (HCC) Carmela Basurto M.D. [address] [place] [address] [facility] Referral ID Status Reason Start Date Expiration Date Visits Re quested Visits Authorized [id number] Closed 12/22/2023 06/22/2025 1 1 Encounter Details Date Type Department Care Team (Late st Contact Info) Description 12/22/2023 [facility] [address] [place] [address] Carmela Basurto M.D. [address] [place] [phone] Malignant Neoplasm Of Thyroid (HCC) (Primary Dx) [...]
--- OUTSIDE RECORDS SUMMARY | 2024-02-08 22:17 | XMS_ITS | Encounter Summary ---
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 [address] [place] [address] Referral ID Status Reason Start Date Expiration Date Visits Re quested Visits Authorized [id number] 1 1 Encounter Details Date Type Department Care Team (Late st Contact Info) Description 02/03/2024 12:13 PM CDT - 02/03/2024 3:42 PM CDT Surgery [facility] [address] [place] [phone] Dakota Morrow M.D. [address] [place] [phone] THYROIDECTOMY - TOTAL. Social History Tobacco Use Types Packs/Day Years Used Date Smoking Tobacco: Never Smokeless Tobacco: Never Alcohol Use Standard Drinks/Week Comments Not Currently 0 (1 standard drink = 0.6 oz pur e alcohol) [facility] Utilities Answer Date Recorded In the past 12 months has e [employer] gas, oil, or water [employer] threatened to shut off services in your [...] your living situation today? I have a [facility] place to live 01/23/2024 Sex and Gender [...] AM CDT DISCHARGE SUMMARY BRIEF OVERVIEW Hospital: [facility] Discharge Provider: Dakota Morrow M.D. [...] M.D.Flaris, Alexandros N, M.D.Pierce, Erika M, M.D. [facility] OR DISCHARGE DISPOSITION Home or Self Care [1] ACTIVE ISSUES REQUIRING FOLLOW UP Check TSH with PCP or script coordinator in 6 weeks OUTPATIENT FOLLOW UP For [...] 5A, 02/03/24 The patient was admitted to [facility]. The patient was taken to the operating [...] He requires follow-up with his PCP or script coordinator in 6 weeks. At the time of [...] through Care Everywhere. * Acetaminophen (By mouth) (Lao) * Levothyroxine (By mouth) (Lao) * Oxycodone, Rapid Release (By mouth) (Lao) documented in this encounter Medications at Time [...] Diagnosis Malignant Neoplasm Of Thyroid Medullary (HCC) Die Sinking Machine Operator A social media assistant actively participated and was necessary for [...] Jaret Salas M.D. LAB BLOOD ADD-O N [facility] [address] [place] [address], [facility] [address] [place] [address] * Surgical Pathology, Frozen Lab (02/03/2024 3:20 PM CDT) Pathologist [facility] 02/07/2024 2:56 PM CDT METH Participated in [...] almost the entire lobe in 3 dimensions. Dicer Machine Operator tissue submitted for permanent sections. Grossed by Donovan Trinidad M.D., Ph.D.-Pathology Resident. B. ??Received fresh labeled right thyroid lobe is a 7 g completion thyroidectomy with a 4.5 x 3.3 x 1.3 cm right lobe. ??The margin is inked and margins are taken perpendicularly. ??No nodules are identified. ??All submitted for permanent sections. ??Grossed by Ray Amado., P.A. ([facility]). C. ??Received fresh labeled left neck level 2, 3, 4, and 5A lymph nodes is an 8 x 3 x 2 cm aggregate of adipose and lymphatic tissue. ??Lymph nodes are submitted for frozen and permanent sections. ??Grossed by Sachi Amado, P.A. ([facility]). 02/07/2024 2:56 PM CDT METH Block [...] Morrow M.D. LAB SURG PATH ORDERA BLES [facility] [address] [place] [address], [facility] METH [address] [place] [address] documented in this encounter Visit Diagnoses Diagnosis [...] 02/03/24 at 1300, For 1 dose, Pre-Op, Air Liaison And Special Staff, PreOp with sips Given 02/03/2024 12:52 PM [...] wheezing, shortness of breath, Starting on Renata 7/25/24 at 2147 Given 02/03/2024 10:11 PM CDT [...] 02/03/24 at 1300, For 1 dose, Pre-Op, Air Liaison And Special Staff, PreOp with sips 1252 (Given - Provider: Sarai Yip RRenateNRenate) acetaminophen tablet 1,000 mg (TylenoL) 1,000 mg, oral, Every 6 hours, First dose on Wed02/04/24 at 0200, (not to exceed 4 grams in 24 hours) 0110 (Given - Provid er: Peng Brooks RRenateNRenate)0827 (Not Given - Provider: aCrol Dean RRenateN. - Reason: Patient/family refused) fluticasone furoate-vilanteroL 100-25 [...] 0903 (Given - Provid er: Michelle Hylton RDerrell) ipratropium-albuteroL 0.5-2.5 mg/3 mL nebulizer solution 3 [...] PRN, wheezing, shortness of breath, Starting on Wed02/03/24 at 2143, Albuterol nebs were interchanged for albuterol/levalbuterol MDI (same frequency) benzocaine-menthoL 15-3.6 mg per lozenge 1 lozenge (CepacoL) 1 lozenge, oral, As needed, sore throat, Starting on Renata 02/03/24 at 2147 221 (Given - Provider: Gwendolyn Coleman R.N.) [...] mcg 1931 (Given - Provider: Alfred Lomas R.N.)1939 (Given - Provider: Filomena Lomas R.N.)1954 (Given - Provider: Filomena Lomas R.N.)2010 (Given - Provider: Filomena Lomas R.N.) ipratropium-albuteroL 0.5-2.5 mg/3 mL nebulizer solution 3 mL (DuoNeb) 3 mL, nebulization, 4 times daily PRN, wheezing, shortness of breath, Starting on Renata 02/03/24 at 7 2211 (Given - Provider: Gwendolyn Coleman R.N.) [...] on Renata 02/03/24 at 1935, PACU (only) 1924 (Given - Provider: Alfred Loams RDerrell) prochlorperazine injection 5 mg (Compazine) 5 [...] 2116 documented in this encounter Care Teams Battalion Fire Chief Relationship Specialty Start Date End Date Elsewhere, Pcp PCP - General Internal Medicine 01/27/24 documented as of this encounter
--- OUTSIDE RECORDS SUMMARY | 2024-02-08 22:17 | XMS_ITS | Encounter Summary ---
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 [address] [place] [address] Referral ID Status Reason Start Date Expiration Date Visits Re quested Visits Authorized [id number] 1 1 Encounter Details Date Type Department Care Team (Latest Contact Info) Description 02/03/2024 10:28 AM CDT - 02/04/2024 12:44 PM CDT Hospital Encounter [facility], Sixth Floor [address] [place] [address] Dakota Morrow M.D. [address] [place] [address] Malignant Neoplasm Of Thyroid Medullary (HCC) Discharge Disposition: Home or Self Care Social History Tobacco Use Types Packs/Day Years Used Date Smoking Tobacco: Never Smokeless Tobacco: Never Alcohol Use Standard Drinks/Week Comments Not Currently 0 (1 standard drink = 0.6 oz pur e alcohol) [facility] Utilities Answer Date Recorded In the past 12 months has th e [employer], gas, oil, or water [employer] threatened to shut off services in your [...] your living situation today? [facility] 01/23/2024 Sex and Gender [...] documented in this encounter Discharge Summaries * eHmalatha Barrow M.D. - 02/04/2024 7:48 AM CDT DISCHARGE SUMMARY BRIEF OVERVIEW Hospital: [facility] Discharge Provider: Dakota Morrow M.D. Primary Team: [...] Alexandros N, M.D.Pierce, Erika M, M.D. [facility] OR DISCHARGE DISPOSITION Home or Self Care [1] ACTIVE ISSUES REQUIRING FOLLOW UP Check TSH with PCP or crystallizer operator in 6 weeks OUTPATIENT FOLLOW UP For [...] 5A, 02/03/24 The patient was admitted to [facility]. The patient was taken to the operating [...] He requires follow-up with his PCP or crystallizer operator in 6 weeks. At the time of [...] through Care Everywhere. * Acetaminophen (By mouth) (German) * Levothyroxine (By mouth) (German) * Oxycodone, Rapid Release (By mouth) (German) documented in this encounter Medications at Time [...] Diagnosis Malignant Neoplasm Of Thyroid Medullary (HCC) Machine Cementer A wheelchair van operator first responder actively participated and was necessary for one [...] Jaret Salas M.D. LAB BLOOD ADD-O N [facility] [address] [place] [address], [facility] [address] [place] [address] * Surgical Pathology, Frozen Lab (02/03/2024 3:20 PM CDT) Pathologist [facility] 02/07/2024 2:56 PM CDT METH Participated in [...] almost the entire lobe in 3 dimensions. Solution Director tissue submitted for permanent sections. Grossed by Donovan Trinidad M.D., Ph.D.-Pathology Resident. B. ??Received fresh labeled right thyroid lobe is a 7 g completion thyroidectomy with a 4.5 x 3.3 x 1.3 cm right lobe. ??The margin is inked and margins are taken perpendicularly. ??No nodules are identified. ??All submitted for permanent sections. ??Grossed by Ray Amado., P.A. ([facility]). C. ??Received fresh labeled left neck level 2, 3, 4, and 5A lymph nodes is an 8 x 3 x 2 cm aggregate of adipose and lymphatic tissue. ??Lymph nodes are submitted for frozen and permanent sections. ??Grossed by Ray Amado., P.A. ([facility]). 02/07/2024 2:56 PM CDT METH Block Summary [...] Morrow M.D. LAB SURG PATH ORDERA BLES [facility] [address] [place] [address], [facility] METH [address] [place] [address] documented in this encounter Visit Diagnoses Diagnosis [...] 02/03/24 at 1300, For 1 dose, Pre-Op, Deputy Sheriff Building Guard, PreOp with sips Given 02/03/2024 12:52 PM [...] shortness of breath, Starting on Wed02/03/24 at 2147 Given 02/03/2024 10:11 PM CDT [...] 1930 (New Bag - Provider: Filomena Lomas R.N.) acetaminophen tablet 1,000 mg (TylenoL) (COMPLETED) 1,000 mg, oral, Once, On Renata 02/03/24 at 1300, For 1 dose, Pre-Op, Deputy Sheriff Building Guard, PreOp with sips 1252 (Given - Provider: Sarai Yip RRenateN.) acetaminophen tablet 1,000 mg (TylenoL) 1,000 mg, oral, Every 6 hours, First dose on Wed02/04/24 at 0200, (not to exceed 4 grams in 24 hours) 0110 (Given - Provid er: Peng Brooks R.N.)0827 (Not Given - Provider: Carol Dean RRenateNRenate - Reason: Patient/family refused) fluticasone furoate-vilanteroL 100-25 [...] 0903 (Given - Provid er: Michelle Hylton RRenateN.) ipratropium-albuteroL 0.5-2.5 mg/3 mL nebulizer solution 3 [...] (only) 192 (Given - Provider: Alfred Lomas R.N.) prochlorperazine injection 5 mg (Compazine) 5 mg, intravenous, Every 6 hours PRN, nausea, vomiting, Starting on Renata 02/03/24 at 2116, For 48 hours, RASS must be -2 or higher to administer. Reassess for nausea/vomiting after at least 10 minutes. If nausea or vomiting persists administer next ordered antiemetic medications (order for antiemetic medication administration ondansetron then prochlorperazine) 3 (Given - Provider: Gwendolyn Coleman R.N.) Linked [...] 2116 documented in this encounter Care Teams Oriental Rug Stretcher Relationship Specialty Start Date End Date Elsewhere, Pcp PCP - General Internal Medicine 01/27/24 documented as of this encounter
--- OUTSIDE RECORDS SUMMARY | 2024-02-08 22:17 | XMS_ITS | Encounter Summary ---
Author Organization [facility] Address [address] [place] [address] Care Team Providers Care Set Up And Charger Name Role Phone Elsewhere, Pcp Primary Care Provider Unavailabl e Reason for Referral * Outpatient (Routine) - Closed Specialty Diagnoses / Procedures Referred By Vinicius t Referred To Contact Diagnoses Malignant Neoplasm Of Thyroid (HCC) Procedures US Superficial Tissue Fine Needle Aspiration Phuc Torres M.D. 200 [place] [address] [facility] Referral ID Status Reason Start Date Expiration Date Visits Re quested Visits Authorized [id number] Closed 01/27/2024 01/26/2025 1 1 Reason for Visit * Outpatient (Routine) - Closed Specialty Diagnoses / Procedures Referred By Vinicius reid Referred To Contact Diagnoses Malignant Neoplasm Of Thyroid (HCC) Procedures US Superficial Tissue Fine Needle Aspiration Phuc Torres M.D. 200 [place] [address] [facility] Referral ID Status Reason Start Date Expiration Date Visits Re quested Visits Authorized [id number] Closed 01/27/2024 01/26/2025 1 1 Encounter Details Date Type Department Care Team (Latest Contact Info) Description 01/31/2024 8:37 AM CDT - 01/31/2024 10:21 AM CDT Hospital Encounter Department of Radiology, [facility], in [place], [place] 200 [place] [phone] Phuc Torres M.D. 200 [place] [address] Agueda Larios M.D. 200 [place] [address] Malignant Neoplasm Of Thyroid (HCC) Discharge Disposition: Home or Self Care Social History Tobacco Use Types Packs/Day Years Used Date Smoking Tobacco: Never Assessed [facility] Utilities Answer Date Recorded In the past [...] your living situation today? I have a [facility] place to live 01/23/2024 Sex and [...] Torres M.D. LAB SURG PATH AMY DURHAM [facility] [address] [place] [address], [facility] DTL [address] [place] [address] * (ABNORMAL) Cytology Fine Needle Aspiration (including [...] Torres M.D. LAB SURG PATH AMY DURHAM [facility] [address] [place] [address], [facility] [address] [facility] [address] [place] [address] * Calcitonin, Fine-Needle Aspiration Biopsy (FNAB)-Needle Wash, Lymph Node (01/31/2024 9:16 AM CDT) Calcitonin, FNAB, Lymph Node [id number] pg/mL 01/31/2024 6:10 PM CDT [facility] Comment: Calcitonin values = or > [...] This test has been modified from the green end department supervisor's instructions. Its performance characteristics were determined by [facility] in a manner consistent with CLIA [...] Washings, Lymph Node 02/01/2024 10:16 AM CDT [facility] Comment:REVISED RESULTS FNA Needle Washings (Lymph Node) 01/31/2024 9:16 AM CDT Phuc Torres M.D. LAB BODY FLUIDS AN D STOOLS ORDERABLES [facility] [address] [place] [address] [facility] [address] [place] [address] * Calcitonin, Fine-Needle Aspiration Biopsy (FNAB)-Needle Wash, Lymph Node (01/31/2024 9:12 AM CDT) Pathologist [facility] Calcitonin, FNAB, Lymph Node 31 pg/mL 02/01/2024 9:36 AM CDT [facility] Comment: Calcitonin values = or > [...] This test has been modified from the green end department supervisor's instructions. Its performance characteristics were determined by [facility] in a manner consistent with CLIA [...] Washings, Lymph Node 02/01/2024 10:17 AM CDT [facility] Comment:REVISED RESULTS FNA Needle Washings (Lymph Node) 01/31/2024 9:12 AM CDT 01/31/2024 3:14 PM CDT Narrative Authorizing Provider Result Clive Torres M.D. LAB BODY FLUIDS AN D STOOLS ORDERABLES [facility] [address] [place] [address] [facility] [address] [place] [address] documented in this encounter Visit Diagnoses Diagnosis [...] Neck) documented in this encounter Care Teams Set Up And Charger Relationship Specialty Start Date End Date Elsewhere, Pcp PCP - General Internal Medicine 01/27/24 documented as of this encounter
--- OUTSIDE RECORDS SUMMARY | 2024-02-08 22:17 | XMS_ITS | Encounter Summary ---
Author Organization [facility] Address [address] [place] [address] Care Team Providers Care Automobile Technician Name Role Phone Elsewhere, Pcp Primary Care Provider Unavailabl e Encounter Details Date Type Department Care Team (Late st Contact Info) Description 01/31/2024 Orders Only Division of Endocrinology in [place], [place] [address] [place] [phone] Phuc Torres M.D. [address] [place] [address] Social History Tobacco Use Types Packs/Day Years Used Date Smoking Tobacco: Never Assessed [facility] Utilities Answer Date Recorded In the past [...] your living situation today? I have a [facility] place to live 01/23/2024 [...] filedocumented in this encounter Care Teams Automobile Technician Relationship Specialty Start Date End Date Elsewhere, Pcp PCP - General Internal Medicine 01/27/24 documented as of this encounter
--- OUTSIDE RECORDS SUMMARY | 2024-02-08 22:17 | XMS_ITS | Encounter Summary ---
Author Organization [facility] Address [address] [place] [address] Care Team Providers Care Business Applications Developer Name Role Phone Elsewhere, Pcp Primary Care Provider Unavailabl e Encounter Details Date Type Department Care Team (Latest Contact Info) Description 01/27/2024 6:21 AM CDT - 01/27/2024 3:22 PM CDT Hospital Encounter Department of Laboratory Medicine and Pathology, [facility] in [place], [place] [address] [place] [address] Phuc Torres M.D. [address] [place] [phone] Malignant Neoplasm Of Thyroid Medullary (HCC) Discharge Disposition: Home or Self Care Social History Tobacco Use Types Packs/Day Years Used Date Smoking Tobacco: Never Assessed [facility] Utilities Answer Date Recorded In the past 12 months has [facility] [employer], gas, oil, or water [employer] threatened to shut off services in your [...] your living situation today? I have a [facility] place to live 01/23/2024 Sex and [...] D2 <4.0 ng/mL 01/29/2024 3:28 PM CDT [facility] 25-Hydroxy D3 16 ng/mL 01/29/2024 3:28 PM CDT [facility] 25-Hydroxy D Total 16(L) ng/mL 2023 3:28 PM CDT [facility] Comment: Interpretation: 10-19 ng/mL (mild to moderate deficiency) ----REFERENCE VALUE---- 25-HYDROXY D TOTAL (D2+D3) Optimum levels in the healthy population are 20-50. ----ADDITIONAL INFORMATION---- This test was developed and its performance characteristics determined by [facility] in a manner consistent with CLIA requirements. This test has not been cleared or approved by the U.S. Food and Drug Administration. Blood (Blood, Venous) 01/27/2024 6:47 AM CDT 01/27/2024 9:16 AM CDT Phuc Torres M.D. LAB BLOOD ADD-ON Performing Organization Address City/[facility]/ZIP Co de Phone Number [facility] [address] [place] [address] [facility] [address] [place] [address] [place] [address] * Calcium, Total (01/27/2024 6:47 AM CDT) Pathologist [facility] Calcium, Total, S 9.3 8.8 - 10.2 mg/dL 01/27/2024 8:08 AM CDT [facility] Blood (Blood, Venous) 01/27/2024 6:47 AM CDT 01/27/2024 7:31 AM CDT Phuc Torres M.D. LAB BLOOD ADD-ON Performing Organization Address City/[facility]/ZIP Co de Phone Number [facility] [address] [place] [address], [facility] [address] [place] [address] * Metanephrines, Fractionated, Free (01/27/2024 6:47 AM CDT) Normetanephrine, Free 0.64 <0.90 nmol/L 01/28/2024 3:30 PM CDT [facility] Metanephrine, Free <0.20 <0.50 nmol/L 01/28/2024 3:30 PM CDT [facility] Comment: ----ADDITIONAL INFORMATION---- This test was developed and its performance characteristics determined by [facility] in a manner consistent with CLIA requirements. This test has not been cleared or approved by the U.S. Food and Drug Administration. Blood (Blood, Venous) 01/27/2024 6:47 AM CDT 01/27/2024 10:31 AM CDT Phuc Torres M.D. LAB BLOOD NON ADD- ON Performing Organization Address [facility] Co de Phone Number [facility] [address] [place] [address] [facility] [address] [place] [address] [place] [address] * (ABNORMAL) CEA (Carcinoembryonic Antigen) (01/27/2024 6:47 AM CDT) Carcinoembryonic Ag (CEA), S 313.0(H) ng/mL 01/27/2024 10:54 AM CDT [facility] Comment: ----REFERENCE VALUE---- <=3.0 (Non-smokers) Some smokers may have elevated CEA, usually <5.0. ----ADDITIONAL INFORMATION---- The testing method is an immunoenzymatic assay manufactured by [employer] and performed on the [employer] DxI 800. ? Values obtained with different assay methods or kits may be different and cannot be used interchangeably. ? Test results cannot be interpreted as absolute evidence for the presence or absence of malignant disease. Blood (Blood, Venous) 01/27/2024 6:47 AM CDT 01/27/2024 9:56 AM CDT Phuc Torres M.D. LAB BLOOD ADD-ON Performing Organization Address City/[facility]/ZIP Co de Phone Number [facility] [address] [place] [address] [facility] [address] [place] [address] * (ABNORMAL) Calcitonin (01/27/2024 6:47 AM CDT) [facility] Calcitonin, S 5061(H) <=14.3 pg/mL 01/27/2024 1:35 PM CDT [facility] Comment: ----ADDITIONAL INFORMATION---- The testing method is an electrochemiluminescence assay manufactured by [employer] and performed on the Lovely system. Values obtained with different assay methods or kits may be different and cannot be used interchangeably. Test results cannot be interpreted as absolute evidence for the presence or absence of malignant disease. Blood (Blood, Venous) 01/27/2024 6:47 AM CDT 01/27/2024 11:54 AM CDT Phuc Torres M.D. LAB BLOOD NON ADD- ON Performing Organization Address City/[facility]/ZIP Co de Phone Number [facility] [address] [place] [address] [place] [address] * T4 (Thyroxine), Free (01/27/2024 6:47 AM CDT) [facility] T4 (Thyroxine), Free, S 1.4 0.9 - 1.7 ng/dL 01/27/2024 8:08 AM CDT [facility] Blood (Blood, Venous) 01/27/2024 6:47 AM CDT 01/27/2024 7:31 AM CDT Phuc Torres M.D. LAB BLOOD ADD-ON [facility] [address] [place] [address], [facility] [address] [place] [address] * S-TSH (Thyroid-Stimulating Hormone - Sensitive) (01/27/2024 6:47 AM CDT) TSH, Sensitive 2.3 0.3 - 4.2 mIU/L 01/27/2024 8:08 AM CDT [facility] Blood (Blood, Venous) 01/27/2024 6:47 AM CDT 01/27/2024 7:31 AM CDT Phuc Torres M.D. LAB BLOOD ADD-ON [facility] [address] [place] [address], [facility] [address] [place] [address] documented in this encounter Visit Diagnoses Diagnosis Malignant Neoplasm Of Thyroid Medullary (HCC) documented in this encounter Care Teams Business Applications Developer Relationship Specialty Start Date End Date Elsewhere, Pcp PCP - General Internal Medicine 01/27/24 documented as of this encounter
--- OUTSIDE RECORDS SUMMARY | 2024-02-08 22:17 | XMS_ITS | Encounter Summary ---
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 [address] [place] [phone] Referral ID Status Reason Start Date Expiration Date Visits Re quested Visits Authorized [id number] 1 1 Encounter Details Date Type Department Care Team (Late st Contact Info) Description 02/03/2024 1:52 PM CDT Anesthesia Event [facility] [address] [place] [phone] Paulino Love, D.O. [address] [place] [phone] Willem Baekr M.D., M.S. [address] [place] [phone] Anesthesia Record Procedure Summary Procedure Name Responsible [...] M.D. 02/03/24 183 by Cassandra Cedeno APRN, COUNSELING CASE MANAGER, DNAP documented in this encounter Social History Tobacco Use Types Packs/Day Years Used Date Smoking Tobacco: Never Smokeless Tobacco: Never Alcohol Use Standard Drinks/Week Comments Not Currently 0 (1 standard drink = 0.6 oz pur e alcohol) [facility] Utilities Answer Date Recorded In the past 12 months has [employer], gas, oil, or water [employer] threatened to shut off services in your [...] your living situation today? [facility] 01/23/2024 Sex and [...] Procedure Summary Date: 02/03/24 Room / Location: [address] / [facility] in [place], [place] Anesthesia Start: 1352 Anesthesia Stop: 1847 [...] ETT location: oral VL device: glide scope Paterson scope blade size: 4 Tube size: 7 [...] Date/Time: 02/03/24 1213 Procedures: *Consent Scanned into [facility]* THYROIDECTOMY - TOTAL. 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 Location: [address] [facility] / [facility] in [place], [place] Providers: Dakota Morrow M.D. Pertinent components [...] with patient /legal guardian or through an software development specialist. The use of blood products not discussed [...] ETT location: oral VL device: glide scope Paterson scope blade size: 4 Tube size: 7 [...] (PF) injection intravenous, As needed, Starting on Renata 02/03/24 at 1412, Anesthesia Intra-op Given 02/03/2024 [...] mg documented in this encounter Care Teams Procurement Inspector Relationship Specialty Start Date End Date Elsewhere, Pcp PCP - General Internal Medicine 01/27/24 documented as of this encounter
--- OUTSIDE RECORDS SUMMARY | 2024-02-08 22:17 | XMS_ITS | Encounter Summary ---
Author Organization [facility] Address [address] [place] [address] Care Team Providers Care Sterilisation Technician Name Role Phone Elsewhere, Pcp Primary Care Provider Unavailabl e Reason for Referral * Outpatient (Routine) - Closed Specialty Diagnoses / Procedures Referred By Vinicius reid Referred To Contact Diagnoses Malignant Neoplasm Of Thyroid (HCC) Procedures Multiple Endocrine Neoplasia Type 2 Syndrome, RET Full Gene Analysis AL MOPATH PROCEDURE LEVEL 7 Phuc Torres M.D. 200 [place] [address] [facility] Referral ID Status Reason Start Date Expiration Date Visits Re quested Visits Authorized [id number] Closed 01/27/2024 01/26/2025 1 1 * Outpatient (Routine) - Closed Specialty Diagnoses / Procedures Referred By Vinicius reid Referred To Contact Diagnoses Malignant Neoplasm Of Thyroid (HCC) Procedures US Superficial Tissue Fine Needle Aspiration Phuc Torres M.D. [address] [place] [address] [facility] Referral ID Status Reason Start Date Expiration Date Visits Re quested Visits Authorized [id number] Closed 01/27/2024 01/26/2025 1 1 Reason for Visit * Appointment Request (Routine) - Closed Specialty Diagnoses / Procedures Referred By Vinicius reid Referred To Contact Endocrinology Diagnoses Malignant Neoplasm Of Thyroid Medullary (HCC) Referral ID Status Reason Start Date Expiration Date Visits Re quested Visits Authorized [id number] Closed 12/20/2023 12/19/2024 1 1 Encounter Details Date Type Department Care Team (Latest Contact Info) Description 01/27/2024 1:30 PM CDT Comprehensive Visit Division of Endocrinology in [place], [place] [address] [place] [address] Phuc Torres M.D. [address] [place] [address] Malignant Neoplasm Of Thyroid (HCC) Social History [...] Ethan Wise) is a 63-year-old man from [facility], about an hour and 15 minutes [...] syndrome. No tobacco. 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 Review of his chart, though, shows that [...] Phuc Torres M.D. CT CT Job ID: [id number] documented in this encounter Plan of Treatment Not on file documented as of this encounter Results * [...] Phuc Torres M.D. IMG US PROCEDURES * Multiple Endocrine Neoplasia Type 2 Syndrome, RET Full Gene Analysis (01/27/2024 3:44 PM CDT) Test Description Evaluation of the RET gene associated with multiple endocrine neoplasia type 2 02/08/2024 3:38 PM CDT DTL Specimen WB Whole Blood 02/08/2024 3:38 PM CDT DTL Disclaimer Clinical Correlations An online research opportunity called [employer] (AMS VariCode.Planex) , a project of [employer], is available for the recipient of this genetic test. This patient registry collects de-identified genetic and health information to advance the knowledge of genetic variants. [facility] is a collaborator of [employer]. This may not be applicable for all [...] assistance in the interpretation of these results, [facility] Laboratory genetic counselors can be contacted at [...] of results. Reclassification of Variants Policy See www.[employer]. com (TEST ID RETZZ) for information regarding the laboratory's policy for reclassification of variants. Variant Evaluation Variant curation is performed using published ACMG-AMP recommendations as a guideline. Other gene-specific guidelines may also be considered. Variants classified as benign or likely benign are not reported. Results from in silico evaluation tools may global climate change researcher time and should be interpreted with caution and professional clinical judgment. TEST CLASSIFICATION This test was developed and its performance characteristics determined by [facility] in a manner consistent with CLIA [...] DTL Method Next generation sequencing (NGS) and/or [place] sequencing was performed to test for the [...] methodologies based on internal laboratory criteria. See www.[employer]. Knowledge Factor (TEST ID RETZZ) for details regarding genes [...] LAB GENETIC TESTIN G Performing Organization Address [facility] Co de Phone Number [facility] [address] [place] [address], [facility] DTL 200 [facility] [address] [place] [address] * Pathology Review of Outside Material (11/12/2023 [...] 10:51 AM CDT DTL Material Received A. [id number]: Left thyroid ? 7 stained slides 02/03/2024 10:51 AM CDT DTL Interpretation FINAL DIAGNOSIS Thyroid, left lobe nodule ultrasound-guide d fine needle aspiration ([id number]; smears and thin prep; 11/12/2023): Suspicious for malignancy. ??Discohesive cells with nuclear hyperchromasia and atypia worrisome for medullary carcinoma. 02/03/2024 10:51 AM CDT DTL Varies 11/12/2023 8:45 AM CDT 02/02/2024 11:56 AM CDT Phuc Torres M.D. LAB SURG PATH ORDE RABMAKSIM Performing Organization Address [facility]/ZIP Co de Phone Number [facility] [address] [place] [address], [facility] DTL 200 [facility] [address] [place] [address] documented in this encounter Visit Diagnoses Diagnosis Malignant Neoplasm Of Thyroid (HCC) Malignant Neoplasm Of Thyroid (HCC) documented in this encounter Care Teams Sterilisation Technician Relationship Specialty Start Date End Date Elsewhere, Pcp PCP - General Internal Medicine 01/27/24 documented as of this encounter
--- OUTSIDE RECORDS SUMMARY | 2024-02-08 22:17 | XMS_ITS | Encounter Summary ---
Author Organization [facility] Address [address] [place] [address] Care Team Providers Care Refueling Ramp Supervisor Name Role Phone Unavailable Primary Care Provider Unavailabl e Reason for Referral * Outpatient (Routine) - Closed Specialty Diagnoses / Procedures Referred By Vinicius reid Referred To Contact Diagnoses Malignant Neoplasm Of Thyroid Medullary (HCC) Procedures US Thyroid US Head Neck Soft Tissue Phuc Torres M.D. [address] [place] [phone] [facility] Referral ID Status Reason Start Date Expiration Date Visits Re quested Visits Authorized [id number] Closed 12/28/2023 12/27/2024 1 1 * Outpatient (Routine) - Authorized Specialty Diagnoses / Procedures Referred By Vinicius reid Referred To Contact Endocrinology Diagnoses Malignant Neoplasm Of Thyroid Medullary (HCC) Phuc Torres M.D. [address] [place] [phone] [facility] Referral ID Status Reason Start Date Expiration Date V isits Requested Visits Authorized [id number] Authorized 12/28/2023 06/28/2025 1 1 Scheduling Instructions Schedule in conjunction with the General Surgery - Endocrine Consult (clinic) Please use the move up process for neck ultrasound for thyroid cancer patients * Outpatient (Routine) - Closed Specialty Diagnoses / Procedures Referred By Contac t Referred To Contact General Surgery Diagnoses Malignant Neoplasm Of Thyroid Medullary (HCC) Phuc Torres M.D. [address] [place] [address] [facility] Referral ID Status Reason Start Date Expiration Date Visits Re quested Visits Authorized [id number] Closed 12/28/2023 06/28/2025 1 1 Scheduling Instructions [...] Expiration Date Visits Re quested Visits Authorized [id number] Closed 12/20/2023 12/19/2024 1 1 Encounter Details Date Type Department Care Team (Latest Contact Info) Description 12/28/2023 2:00 PM CDT Clinical Communication Division of Endocrinology in [place], [place] [address] [place] [address] Pre-visit Intake (thyroid) Social History Tobacco Use Types Packs/Day Years Used Date Smoking Tobacco: Never Assessed [facility] Utilities Answer Date Recorded In the [...] living situation today? I have a [facility] place to live 01/23/2024 Sex and [...] diagnostic for thyroid cancer, November/2023. Performed at [facility].. Reports the following: Completed a neck ultrasound in . Performed at [place]. Did complete a Cat Scan of the neck/chest November/2023. Performed at [facility]. Did not complete a whole body scan. [...] care: yes The following references were used: [facility] protocols: Thyroid Cancer Evaluation ([id number]) documented in this encounter Plan of Treatment [...] and its performance characteristics determined by [facility] in a manner consistent with CLIA requirements. This test has not been cleared or approved by the U.S. Food and Drug Administration. Blood (Blood, Venous) 01/27/2024 6:47 AM CDT 01/27/2024 9:16 AM CDT Phuc Torres M.D. LAB BLOOD ADD-ON Performing Organization Address [facility] Co de Phone Number [facility] [address] [place] [address] [facility] [address] [place] [address] [place] [address] * Calcium, Total (01/27/2024 6:47 AM CDT) Calcium, Total, S 9.3 8.8 - 10.2 mg/dL 01/27/2024 8:08 AM CDT DTL Blood (Blood, Venous) 01/27/2024 6:47 AM CDT 01/27/2024 7:31 AM CDT Phuc Torres M.D. LAB BLOOD ADD-ON Performing Organization Address [facility] de Phone Number [address] [address], [facility] [address] [address] * Metanephrines, Fractionated, Free (01/27/2024 6:47 AM CDT) Normetanephrine, Free 0.64 <0.90 nmol/L 01/28/2024 3:30 PM CDT SDS Metanephrine, Free <0.20 <0.50 nmol/L 01/28/2024 3:30 PM CDT [facility] Comment: ----ADDITIONAL INFORMATION---- This test was developed and its performance characteristics determined by [facility] in a manner consistent with CLIA requirements. This test has not been cleared or approved by the U.S. Food and Drug Administration. Blood (Blood, Venous) 01/27/2024 6:47 AM CDT 01/27/2024 10:31 AM CDT Phuc Torrse M.D. LAB BLOOD NON ADD- ON Performing Organization Address [facility] Co de Phone Number [facility] [address] [place] [address] [facility] [address] [place] [address] [place] [address] * (ABNORMAL) CEA (Carcinoembryonic Antigen) (01/27/2024 6:47 AM CDT) Pathologist [facility] Carcinoembryonic Ag (CEA), S 313.0(H) ng/mL 01/27/2024 10:54 AM CDT [facility] Comment: ----REFERENCE VALUE---- <=3.0 (Non-smokers) Some smokers may have elevated CEA, usually <5.0. ----ADDITIONAL INFORMATION---- The testing method is an immunoenzymatic assay manufactured by [employer]. and performed on the [employer] DxI 800. ? Values obtained with different assay methods or kits may be different and cannot be used interchangeably. ? Test results cannot be interpreted as absolute evidence for the presence or absence of malignant disease. Blood (Blood, Venous) 01/27/2024 6:47 AM CDT 01/27/2024 9:56 AM CDT Phuc Torres M.D. LAB BLOOD ADD-ON Performing Organization Address [facility] Co de Phone Number [facility] [address] [place] [address] [facility] [address] [place] [address] * (ABNORMAL) Calcitonin (01/27/2024 6:47 AM CDT) Calcitonin, S 5061(H) <=14.3 pg/mL 01/27/2024 1:35 PM CDT [facility] Comment: ----ADDITIONAL INFORMATION---- The testing method [...] Torres M.D. LAB BLOOD NON ADD- ON [facility] [address] [place] [address] [facility] [address] [place] [address] * T4 (Thyroxine), Free (01/27/2024 6:47 AM CDT) T4 (Thyroxine), Free, S 1.4 0.9 - 1.7 ng/dL 01/27/2024 8:08 AM CDT DTL Blood (Blood, Venous) 01/27/2024 6:47 AM CDT 01/27/2024 7:31 AM CDT Phuc Torres M.D. LAB BLOOD ADD-ON Performing Organization Address City/[facility]/ZIP Co de Phone Number [facility] [address] [place] [address], [facility] [place] [address] [place] [address] * S-TSH (Thyroid-Stimulating Hormone - Sensitive) (01/27/2024 6:47 AM CDT) TSH, Sensitive 2.3 0.3 - 4.2 mIU/L 01/27/2024 8:08 AM CDT DTL Blood (Blood, Venous) 01/27/2024 6:47 AM CDT 01/27/2024 7:31 AM CDT Phuc Torres M.D. LAB BLOOD ADD-ON [facility] [address] [place] [address], [place] DTL [facility] [place] [address] [place] [address] * [place] Thyroid (01/25/2024 11:23 AM CDT) [...]
--- OUTSIDE RECORDS SUMMARY | 2024-02-08 22:17 | XMS_ITS | Clinical Summary ---
Author Organization [facility] Address [place], [place] [address] Care Team Providers Care Sales Floor Team Leader Name Role Phone Pcp, No Primary Care [...] Department Care Team Description 11/12/[address] [facility] [phone] Kenroy Ly MD from Last 3 Months [...] CDT Kenroy Ly MD LAB BILL ONLY [facility] [address] [place] [address], * PATH FNA CYTOLOGY ASP CYTOLOGY (11/12/2023 8:45 AM CDT) Case Report Medical Cytology Report ? Case: [id number] ? Authorizing Provider: ??Kenroy Ly MD ? Collected: ? 11/12/2023 0845 ? Ordering Location: ? [facility] ?Received: ?11/12/2023 1515 ? Pathologist: ? Zoey Nielsen ? MD Danielle ? Specimen: ?Left Thyroid ? 11/15/2023 12:58 PM CDT [facility] Final Diagnosis THYROID, LEFT, ULTRASOUND-GUIDE D FINE NEEDLE ASPIRATION: 1. Suspicious for thyroid neoplasm ?? 2. See comment 11/15/2023 12:58 PM T [facility] Cardiovascular Simulation [facility] Comment The differential diagnosis includes follicular adenoma, [...] Such testing is not automatically reflexed. Call [facility] at [phone] with any questions regarding this process. 11/15/2023 12:58 PM CDT [facility] Cardiovascular Simulation [facility] Clinical Information Mr. Long is a 63 y.o. with a 7.0 x 4.2 x 4.6 cm mostly solid left thyroid nodule. 11/15/2023 12:58 PM CDT [facility] Cardiovascular Simulation [facility] Gross Description A) Received identified as Left Thyroid is a fine needle aspirate specimen. The following were received: ? -6 Air dried slides ? -1 CytoLyt vial ? -1 FNA Protect vial The following were prepared from the specimen submitted: ? -6 Diff-Quik stained slides ? -1 Papanicolaou stained ThinPrep slide 11/15/2023 12:58 PM CDT [facility] Microscopic Description Specimen adequacy: Adequate for interpretation. All slides were reviewed. The microscopic appearance substantiates the diagnosis. 11/15/2023 12:58 PM CDT [facility] Additional Information Cytology is screened at [facility] - [address], [place] [address] and [facility] - [address], [place] [address] and [facility] - [address] [place] [address] Interpreted at [facility] - [address], [place] [address] 11/15/2023 12:[address] [facility] Aspirate (Left Thyroid) 11/12/2023 8:45 AM CDT 11/12/2023 3:15 PM CDT Kenroy Ly MD PATHOLOGY/CYTOLOGY Performing Organization Address City/State/[facility] Co de Phone Number [facility] [address] [place] [address], [place] from Last 3 Months Care Teams Sales Floor Team Leader Relationship Specialty Start Date End Date Pcp, No . PCP - General 06/10/23
--- OUTSIDE RECORDS SUMMARY | 2024-02-08 22:17 | XMS_ITS | Encounter Summary ---
Author Organization [facility] Address [address] [place] [address] Care Team Providers Care Manager Produce Name Role Phone Elsewhere, Pcp Primary Care Provider Unavailabl e Encounter Details Date Type Department Care Team (Late st Contact Info) Description 12/30/2023 Clinical Communication Division of Endocrine Surgery in [place], [place] [address] [place] [phone] Dakota Morrow M.D. [address] [place] [address] Social History Tobacco Use Types Packs/Day Years Used Date Smoking Tobacco: Never Assessed [facility] Utilities Answer Date Recorded In [...] your living situation today? I have a [facility] place to live 01/23/2024 Sex and Gender Information Value Date Recorded Sex Assigned at Male 01/23/2024 9:14 PM CDT Gender Identity Male 01/23/2024 9:14 PM CDT Sexual Orientation Straight 01/23/2024 9: 14 PM CDT documented as of this encounter Plan of Treatment Not on file documented as of this encounter Visit Diagnoses Not on filedocumented in this encounter Care Teams Manager Produce Relationship Specialty Start Date End Date Elsewhere, Pcp PCP - General Internal Medicine 01/27/24 documented as of this encounter
--- OUTSIDE RECORDS SUMMARY | 2024-02-08 22:17 | XMS_ITS | Encounter Summary ---
Author Organization [facility] Address [address] [place] [address] Care Team Providers Care C Application Developer Name Role Phone Elsewhere, Pcp Primary Care Provider Unavailabl e Encounter Details Date Type Department Care Team (Late st Contact Info) Description 01/27/2024 2:40 PM CDT Lab RST RO [facility] [address] [place] [phone] Phuc Torres M.D. [address] [place] [phone] Malignant Neoplasm Of Thyroid (HCC) Social History Tobacco Use Types Packs/Day Years Used Date Smoking Tobacco: Never Assessed [facility] Utilities Answer Date Recorded In [...] your living situation today? I have a [facility] [employer] place to live 01/23/2024 Sex and Gender [...] 10:51 AM CDT DTL Material Received A. [id number]: Left thyroid ? 7 stained slides 02/03/2024 10:51 AM CDT DTL Interpretation FINAL DIAGNOSIS Thyroid, left lobe nodule ultrasound-guide d fine needle aspiration ([id number]; smears and thin prep; 11/12/2023): Suspicious for malignancy. ??Discohesive cells with nuclear hyperchromasia and atypia worrisome for medullary carcinoma. 02/03/2024 10:51 AM CDT DTL Varies 11/12/2023 8:45 AM CDT 02/02/2024 11:56 AM CDT Phuc Torres M.D. LAB SURG PATH [facility] [place] Performing Organization Address City/State/[facility] Co de Phone Number [facility] [address] [place] [address], [facility] DTL [address] [place] [address] documented in this encounter Visit Diagnoses Diagnosis Malignant Neoplasm Of Thyroid (HCC) documented in this encounter Care Teams C Application Developer Relationship Specialty Start Date End Date Elsewhere, Pcp PCP - General Internal Medicine 01/27/24 documented as of this encounter
--- OUTSIDE RECORDS SUMMARY | 2024-02-08 22:17 | XMS_ITS | Encounter Summary ---
Author Organization [facility] Address [address] [place] [address] Care Team Providers Care Superintendent Refuse Disposal Name Role Phone Elsewhere, Pcp Primary Care Provider Unavailabl e Reason for Visit * Reason Onset Date Comments Pathology Request 01/27/2024 Encounter Details Date Type Department Care Team (Latest Contact Info) Description 01/27/2024 Clinical Communication Division of Endocrinology in [place], [place] [address] [place] [address] Phuc Torres M.D. [address] [place] [address] Pathology Request Social History Tobacco Use Types Packs/Day Years Used Date Smoking Tobacco: Never Assessed [facility] Utilities Answer Date Recorded In the past [...] your living situation today? I have a [facility] place to live 01/23/2024 Sex and Gender Information Value Date Recorded Sex Assigned at Male 01/23/2024 9:14 PM CDT Gender Identity Male 01/23/2024 9:14 PM CDT Sexual Orientation Straight 01/23/2024 9: 14 PM CDT documented as of this encounter Plan of Treatment Not on file documented as of this encounter Visit Diagnoses Not on filedocumented in this encounter Care Teams Superintendent Refuse Disposal Relationship Specialty Start Date End Date Elsewhere, Pcp PCP - General Internal Medicine 01/27/24 documented as of this encounter
--- OUTSIDE RECORDS SUMMARY | 2024-02-08 22:17 | XMS_ITS | Encounter Summary ---
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 200 [place] [address] [facility] Referral ID Status Reason Start Date Expiration Date Visits Re quested Visits Authorized [id number] Closed 01/27/2024 01/26/2025 1 1 Reason for Visit * Outpatient (Routine) - Closed Specialty Diagnoses / Procedures Referred By Contariela reid Referred To Contact Diagnoses Malignant Neoplasm Of Thyroid (HCC) Procedures Multiple Endocrine Neoplasia Type 2 Syndrome, RET Full Gene Analysis FL MOPATH PROCEDURE LEVEL 7 Phuc Torres M.D. 200 [place] [address] [facility] Referral ID Status Reason Start Date Expiration Date Visits Re quested Visits Authorized [id number] Closed 01/27/2024 01/26/2025 1 1 Encounter Details Date Type Department Care Team (Latest Contact Info) Description 01/27/2024 3:23 PM CDT - 01/27/2024 11:59 PM CDT Hospital Encounter Department of Laboratory Medicine and Pathology, [facility] in [place], [place] [address] [place] [address] Phuc Torres M.D. [address] [place] [address] Malignant Neoplasm Of Thyroid (HCC) Discharge Disposition: Home or Self Care Social History Tobacco Use Types Packs/Day Years Used Date Smoking Tobacco: Never Assessed [facility] Utilities Answer Date Recorded In the past 12 months has th e [employer], gas, oil, or water [employer] threatened to shut off services in [...] your living situation today? I have a [facility] place to live 01/23/2024 Sex and [...] Procedure Name Priority Date/Time Associated Diagnosis Comments RET FULL GENE ANALYSIS Routine 01/27/2024 3:44 PM CDT Malignant Neoplasm Of Thyroid (HCC) documented in this encounter Results * Multiple Endocrine Neoplasia Type 2 Syndrome, RET Full Gene Analysis (01/27/2024 3:44 PM CDT) Test Description Evaluation of the RET gene associated with multiple endocrine neoplasia type 2 02/08/2024 3:38 PM CDT DTL Specimen WB Whole Blood 02/08/2024 3:38 PM CDT DTL Disclaimer Clinical Correlations An online research opportunity called [employer]) , a project of [employer], is available for the recipient of this genetic test. This patient registry collects de-identified genetic and health information to advance the knowledge of genetic variants. [facility] is a collaborator of [employer]. This may not be applicable for all [...] assistance in the interpretation of these results, [facility] genetic counselors can be contacted [...] of results. Reclassification of Variants Policy See www.[employer]. [employer] (TEST ID RETZZ) for information regarding the laboratory's policy for reclassification of variants. Variant Evaluation Variant curation is performed using published ACMG-AMP recommendations as a guideline. Other gene-specific guidelines may also be considered. Variants classified as benign or likely benign are not reported. Results from in silico evaluation tools may twisting frame changer time and should be interpreted with caution and professional clinical judgment. TEST CLASSIFICATION This test was developed and its performance characteristics determined by [facility] in a manner consistent with CLIA [...] DTL Method Next generation sequencing (NGS) and/or [place] sequencing was performed to test for the [...] methodologies based on internal laboratory criteria. See www.[facility] centerArcion Therapeutics. [employer] (TEST ID RETZZ) for details regarding genes [...] [facility] [address] [place] [address], [facility] DTL [address] [place] [address] documented in this encounter Visit Diagnoses Diagnosis Malignant Neoplasm Of Thyroid (HCC) documented in this encounter Care Teams Life Trainer Relationship Specialty Start Date End Date Elsewhere, Pcp PCP - General Internal Medicine 01/27/24 documented as of this encounter
--- OUTSIDE RECORDS SUMMARY | 2024-02-08 22:17 | XMS_ITS | Encounter Summary ---
Author Organization [facility] Address [address] [place] [address] Care Team Providers Care Machine Plug Shaper Name Role Phone Elsewhere, Pcp Primary Care Provider Unavailabl e Reason for Visit * Outpatient (Routine) - Closed Specialty Diagnoses / Procedures Referred By Vinicius t Referred To Contact General Surgery Dakota Morrow M.D. [address] [place] [phone] Dakota Morrow M.D. [address] [place] [phone] Referral ID Status Reason Start Date Expiration Date Visits Re quested Visits Authorized [id number] Closed 01/27/2024 07/28/2025 1 1 Encounter Details Date Type Department Care Team (Late st Contact Info) Description 02/02/2024 2:00 PM CDT Office Visit Division of Endocrine Surgery in [place], [place] [address] [place] [phone] Dakota Morrow M.D. [address] [place] [phone] Phuc Torres M.D. 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 I have a [facility] place to live 01/23/2024 Sex and [...] Primary documented in this encounter Care Teams Machine Plug Shaper Relationship Specialty Start Date End Date Elsewhere, Pcp PCP - General Internal Medicine 01/27/24 documented as of this encounter
--- OUTSIDE RECORDS SUMMARY | 2024-02-08 22:17 | XMS_ITS | Encounter Summary ---
Author Organization [facility] Address [address] [place] [address] Care Team Providers Care Storage Wharfage Clerk Name Role Phone Unavailable Primary Care Provider Unavailabl e Reason for Visit * Reason Onset Date Comments [facility] 12/23/2023 ENT Encounter Details Date Type Department Care Team (Latest Contact Info) Description 12/23/2023 Clinical Communication Department of Otorhinolaryngology in [place], [place] [address] [place] [address] Provider, Unknown [facility] (ENT ) Social History Tobacco Use Types Packs/Day Years Used Date Smoking Tobacco: Never Assessed [facility] Utilities Answer Date Recorded In [...] your living situation today? I have a [facility] place to live 01/23/2024 Sex and [...]
== END 2024-02-08 22:26 | disposition home or self-care (01) ==
LOC: ED 22:13
PROVIDERS: Emergency Provider Family Medicine; PCP Family Medicine
DX: I10 Essential (primary) hypertension (principal)
CPT/HCPCS: 99283; 99284

== ENCOUNTER 2024-02-15 10:49 | Outpatient (CLI) | payer OTHER, SELFPAY ==
--- OUTSIDE RECORDS SUMMARY | 2024-02-15 10:52 | XMS_ITS | Referral Summary ---
Author Organization [place] Address [address] [place] [address]. [place] [address] Care Team Providers Care Psychiatric Technician Name Role Phone No Ref-Primary, Physician Primary Care Provider [facility]health e Encounters Date Type Department Care Team Description 12/20/2023 Telephone [facility] [place] [address] [place] [address] Self, Referred, MD Consult Referral 12/14/2023 Medical Correspondence [facility] [address] [place] [phone] Scan, Non-Provider 11/18/2023 MyC Medical Advice [facility] [address] [place] [phone] Caitlyn Alfred, KIERA from Last 3 Months Allergies Active Allergy [...] 08/23/2016 Immunizations Name Administration Dates Next Due [id number] Novel Flu- Nasal 08/10/2009 TDAP (Adacel,Boostrix) 04/02/2023,02/16/2007 [...] 04/02/2023 How often do you attend chur or lutheran services? 1 to 4 times per year [...] Answer Date Recorded PHQ-2 Score 0 04/02/2023 [facility] of Occupat ional Health - Occupational Stress [...] - HIM SCAN 12/10/2023 12:00 AM CDT GLUCOSE (EXTERNAL RESULT) Routine 10/06/2023 9:55 AM CDT HIV ANTIGEN ANTIBODY COMBO Routine 04/02/2023 9:11 [...] 12/10/[address] ORDERABLES * Glucose (External Result) (10/06/2023 9:55 AM CDT) Glucose (External) 90 60 - 115 mg/dL [facility] Blood 10/06/2023 9:55 AM CDT Narrative [facility] - 10/06/2023 9:55 AM CDT OUTSIDE RECORDS - External Lab Results Provider Outside LAB - HIM EXTERNAL R ESULT [facility] [address] [phone] * HIV Antigen Antibody Combo (04/02/2023 9:11 AM CDT) HIV Antigen Antibody Combo Nonreactive Nonreactive 04/03/2023 12:48 PM CDT [facility] DO Comment:HIV-1 p24 Ag & HIV-1 /HIV-2 Ab Not Detected Blood BLOOD SPECIMEN / Unknown Venipuncture / Unknown 04/02/2023 9:11 AM CDT 04/02/2023 9:11 AM CDT Cassandra Rojas NP LAB - BLOOD ORDERABL ES [facility]ENDO [facility]/Prot/Endo [address] [facility], [address] [phone] * Hepatitis C Screen Reflex to HCV RNA Quant and Genotype (04/02/2023 9:11 AM CDT) Pathologist [facility] Hepatitis C Antibody Nonreactive Nonreactive 04/03/2023 10:46 [...] ES [facility]PROT/ENDO Specialty Core/Prot/Endo [address] [facility], [address] [phone] * (ABNORMAL) Lipid panel reflex to direct LDL Fasting (04/02/2023 9:11 AM CDT) Pathologist [facility] Cholesterol 191 <200 mg/dL 04/02/2023 3:06 PM [...] LAB - BLOOD ORDERABL ES [facility] [place] Core Lab [address] [facility], [address] [place] [address], [facility] [phone] from Last 3 Months or Most Recently Relevant to Health Maintenance Advance Directives For more information, please contact: [phone] * Full Code (Latest Code Status on File) Date Activated Date Inactivated Comments 08/24/2016 12:28 PM * Full Code Date Activated Date Inactivated Comments 08/23/2016 5:10 PM 08/24/2016 12:28 PM Care Teams Psychiatric Technician Relationship Specialty Start Date End Date No Ref-Primary, Physician PCP - General 04/05/23 [facility] [address] [place] [address] Assigned PCP 11/02/23
--- OUTSIDE RECORDS SUMMARY | 2024-02-15 10:52 | XMS_ITS | Encounter Summary ---
Author Organization [facility] Address [address] [place] [address] Care Team Providers Care Manager Supply Name Role Phone No Primary/Referring, Phy Primary [...] filedocumented in this encounter Care Teams Manager Supply Relationship Specialty Start Date End Date No Primary/Referring, Phy PCP - General 11/04/18 documented as of this encounter
--- OUTSIDE RECORDS SUMMARY | 2024-02-15 10:52 | XMS_ITS | Encounter Summary ---
Author Organization [facility] Address [address] [place] [address] Care Team Providers Care Puttying And Calking Supervisor Name Role Phone No Primary/Referring, Phy Primary [...] on filedocumented in this encounter Care Teams Puttying And Calking Supervisor Relationship Specialty Start Date End Date No Primary/Referring, Phy PCP - General 11/04/18 documented as of this encounter
--- OUTSIDE RECORDS SUMMARY | 2024-02-15 10:52 | XMS_ITS | Encounter Summary ---
Author Organization [facility] [facility] Address [address] [place] [address] Care Team Providers Care Site Administrator Name Role Phone No Ref-Primary, Physician Primary Care Provider Clinic - [facility] Unavailabl e Reason for Visit * Reason Onset Date Comments Consult Referral 12/20/2023 Encounter Details Date Type Department Care Team (Late st Contact Info) Description 12/20/2023 Telephone [facility] [place] [address] [place] [address] Self, ReferredMD Consult Referral Social [...] often do you attend chur ch or gnosticism services? 1 to 4 times per year [...] Answer Date Recorded PHQ-2 Score 0 04/02/2023 [facility] - Occupational Stress Questionnaire Answer Date [...] in an abandoned building, in an overnight retirement, or couch-surfing.) Yes 04/02/2023 Are you worried [...] Long Sabina. Male, 63 year old, 1960 [facility] [place]roid Cancer Referring Dr. Carmela Basurto #1 [...] on filedocumented in this encounter Care Teams Site Administrator Relationship Specialty Start Date End Date No Ref-Primary, Physician PCP - General 04/05/23 Clinic - [facility] [address] [place] [address] Assigned PCP 11/02/23 documented as of this encounter
--- OUTSIDE RECORDS SUMMARY | 2024-02-15 10:52 | XMS_ITS | Encounter Summary ---
Author Organization [facility] Address [address] [place] [address] Care Team Providers Care Firer Tunnel Kiln Name Role Phone No Primary/Referring, Phy Primary [...] on filedocumented in this encounter Care Teams Firer Tunnel Kiln Relationship Specialty Start Date End Date No Primary/Referring, Phy PCP - General 11/04/18 documented as of this encounter
--- OUTSIDE RECORDS SUMMARY | 2024-02-15 10:52 | XMS_ITS | Encounter Summary ---
Author Organization [facility] Address [address] [place] [address]. [place] [address] Care Team Providers Care Logging Equipment Mechanic Name Role Phone No Ref-Primary, Physician Primary Care Provider [facility] - [facility] Unavailabl e Encounter Details Date Type Department Care Team (Late st Contact Info) Description 12/14/2023 Medical Correspondence [facility] Health Info Mgmt [facility] [address] [place] [phone] Scan, Non-Provider Social History Tobacco Use Types Packs/Day Years Used Date Smoking Tobacco: Never Smokeless Tobacco: Never Social Connection and Isolat ion Panel [NHANES] Answer Date Recorded Frequency of Communication w ith Friends and Family Not on file 04/02/2023 How often do you get togethe r with friends or relatives? Twice a week 04/02/2023 How often do you attend chur ch or jehovah's witness services? 1 to 4 times per year [...] Score 0 04/02/2023 [facility] - Occupational Stress Questionnaire Answer Date [...] on filedocumented in this encounter Care Teams Logging Equipment Mechanic Relationship Specialty Start Date End Date No Ref-Primary, Physician PCP - General 04/05/23 [facility] [address] [place] [address] Assigned PCP 11/02/23 documented as of this encounter
--- OUTSIDE RECORDS SUMMARY | 2024-02-15 10:52 | XMS_ITS | Clinical Summary ---
Author Organization [place] Address [address] [place] [address]. [place] [address] Care Team Providers Care Airline Lounge Receptionist Name Role Phone No Ref-Primary, Physician Primary Care Provider [facility] Unavailabl e Allergies Active Allergy Reactions Criticality [...] 12/20/2023 Telephone [facility] [place] [address] [place] [address] Self, Referred, Consult Referral 12/14/2023 Medical Correspondence [facility] [address] [facility] [place] [phone] Scan, Non-Provider 11/18/2023 MyC Medical Advice [facility] [address] [place] [phone] Caitlyn Alfred CMA from Last 3 Months Immunizations Name Administration Dates Next Due [id number] Novel Flu- Nasal 08/10/2009 TDAP (Adacel,Boostrix) 04/02/2023,02/16/2007 [...] How often do you attend chur or baptism services? 1 to 4 times per year 04/02/2023 Do you belong to any clubs o r organizations such as rastafari groups, unions, fraternal or athletic groups, or [...] Answer Date Recorded PHQ-2 Score 0 04/02/2023 [facility] of Occupat ional Health - Occupational Stress [...] 1-dose 60+ series) 2021 COVID-19 Vaccine ( - 2022- season) 2023 06/10/2021, 11/01/2020, 10/01/2020 PHQ-2 (once per calendar year) 2023 04/02/2023 INFLUENZA VACCINE (#1) 2024 08/10/2009 ANNUAL REVIEW OF HM ORDERS 04/02/2024 04/02/2023 YEARLY PREVENTIVE VISIT 04/02/2024 04/02/2023 GLUCOSE 10/05/2026 10/06/2023, 03/13, 08/24/2016, Additional history exists ADVANCE CARE PLANNING 04/02/2028 [...] Glucose (External) 90 60 - 115 mg/dL [facility] Blood 10/06/2023 9:55 AM CDT Narrative [facility] - 10/06/2023 9:55 AM CDT OUTSIDE RECORDS - External Lab Results Provider Outside LAB - HIM EXTERNAL R ESULT [facility] [address] [place] [address], [facility] [phone] * HIV Antigen Antibody Combo (04/02/2023 9:11 AM CDT) HIV Antigen Antibody Combo Nonreactive Nonreactive 04/03/2023 12:48 PM CDT [facility] DO Comment:HIV-1 p24 Ag & HIV-1 /HIV-2 Ab Not Detected Blood BLOOD SPECIMEN / Unknown Venipuncture / Unknown 04/02/2023 9:11 AM CDT 04/02/2023 9:11 AM CDT Cassandra Rojas NP LAB - BLOOD ORDERABL ES Performing Organization Address City/[facility]/ZIP Co de Phone Number [facility]PROT/ENDO [facility]/Prot/Endo [address] [facility], [address] [phone] * Hepatitis C Screen Reflex to HCV [...] ES [facility]PROT/ENDO Specialty Core/Prot/Endo [address] [facility], [address] [phone] * (ABNORMAL) Lipid panel reflex to direct [...] LAB - BLOOD ORDERABL ES [facility] LAB[facility] Core Lab [address] [facility], [address] [address], [facility] [phone] from Last 3 Months or Most Recently Relevant to Health Maintenance Advance Directives For more information, please contact: [phone] * Full Code (Latest Code Status on File) Date Activated Date Inactivated Comments 08/24/2016 12:28 PM * Full Code Date Activated Date Inactivated Comments 08/23/2016 5:10 PM 08/24/2016 12:28 PM Care Teams Airline Lounge Receptionist Relationship Specialty Start Date End Date No Ref-Primary, Physician PCP - General 04/05/23 [facility] [address] [place] [address] Assigned PCP 11/02/23
--- OUTSIDE RECORDS SUMMARY | 2024-02-15 10:52 | XMS_ITS | Clinical Summary ---
Author Organization [facility] Address [address], [place] [address] Care Team Providers Care Industrial Technology Education Teacher Name Role Phone No Primary/Referring, Phy Primary Care Provider Unavailable Source Comments You are receiving this document as you are listed as the primary care provider,follow-up provider, or the patient has been referred to you for consultation.This is in compliance with the Medicare and[facility] EHR Incentive Program,which states Providers who transition their patient to another setting of careor provider of care or refers their patient to another provider of care shouldprovide summary care record for each transition of care or referral. [facility] Allergies No known active allergies Medications Medication [...] 37 ??C (98.6 ??F) 09/12/2018 2:54 PM FIELD RETURN REPAIRER Respiratory Rate 16 09/12/2018 4:43 PM FIELD RETURN REPAIRER Oxygen Saturation 95% 09/12/2018 4:43 PM FIELD RETURN REPAIRER Inhaled Oxygen Concentration - - Weight 103 [...] e ffect for 30 days Care Teams Industrial Technology Education Teacher Relationship Specialty Start Date End Date No Primary/Referring, Phy PCP - General 11/04/18
--- OUTSIDE RECORDS SUMMARY | 2024-02-15 10:52 | XMS_ITS | Encounter Summary ---
Author Organization [facility] Address [address] [place] [address] Care Team Providers Care Forms Analysis Manager Name Role Phone No Ref-Primary, Physician Primary Care Provider Clinic - [facility] Unavailabl e Encounter Details Date Type Department Care Team (Late st Contact Info) Description 11/18/2023 MyC Medical Advice [facility] [place] [address] [place] [phone] Caitlyn Alfred, SNACK BAR ATTENDANT Social History Tobacco Use Types Packs/Day Years Used Date Smoking Tobacco: Never Smokeless Tobacco: Never Social Connection and Isolat ion Panel [NHANES] Answer Date Recorded Frequency of Communication w ith Friends and Family Not on file 04/02/2023 How often do you get togethe r with friends or relatives? Twice a week 04/02/2023 How often do you attend [facility] or moravian services? 1 to 4 times per year 04/02/2023 Do you belong to any clubs o r organizations such as samaritan groups, unions, fraternal or athletic groups, or [...] Answer Date Recorded PHQ-2 Score 0 04/02/2023 [facility] - Occupational Stress Questionnaire Answer Date [...] in an abandoned building, in an overnight skilled nursing, or couch-surfing.) Yes 04/02/2023 Are you worried [...] on filedocumented in this encounter Care Teams Forms Analysis Manager Relationship Specialty Start Date End Date No Ref-Primary, Physician PCP - General 04/05/23 Clinic - [facility] [address] [place] [address] Assigned PCP 11/02/23 documented as of this encounter
--- OUTSIDE RECORDS SUMMARY | 2024-02-15 10:52 | XMS_ITS | Encounter Summary ---
Author Organization [facility] Address [address] [place] [address] Care Team Providers Care Renal Technician Name Role Phone No Ref-Primary, Physician Primary Care Provider Clinic - [facility] Unavailabl e Reason for Visit * Reason Onset Date Comments Panel Management 11/11/2023 Encounter Details Date Type Department Care Team (Late st Contact Info) Description 11/11/2023 MyC Medical Advice [facility] [address] [place] [phone] Deysi Patel, [facility] Panel Management Social History Tobacco Use Types Packs/Day Years Used Date Smoking Tobacco: Never Smokeless Tobacco: Never Social Connection and Isolat ion Panel [NHANES] Answer Date Recorded Frequency of Communication w ith Friends and Family Not on file 04/02/2023 How often do you get togethe r with friends or relatives? Twice a week 04/02/2023 How often do you attend chur ch or moravian services? 1 to 4 times per year 04/02/2023 Do you belong to any clubs o r organizations such as adventism groups, unions, fraternal or athletic groups, or [...] Answer Date Recorded PHQ-2 Score 0 04/02/2023 [facility] - Occupational Stress Questionnaire Answer Date [...] at this time. Type of outreach: Sent XbyMe message. Next Steps: Reach out within 90 days via XbyMe. Max number of attempts reached: No. Will try again in 90 days if patient still on fail list. Questions for provider review: None Deysi Patel CMA Chart routed to Care Team. documented in this encounter Plan of Treatment Not on file documented as of this encounter Visit Diagnoses Not on filedocumented in this encounter Care Teams Renal Technician Relationship Specialty Start Date End Date No Ref-Primary, Physician PCP - General 04/05/23 Clinic - [facility] [address] [place] [address] Assigned PCP 11/02/23 documented as of this encounter
--- OUTSIDE RECORDS SUMMARY | 2024-02-15 10:53 | XMS_ITS | Encounter Summary ---
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 [address] [place] [phone] Referral ID Status Reason Start Date Expiration Date Visits Re quested Visits Authorized [id number] 1 1 Encounter Details Date Type Department Care Team (Late st Contact Info) Description 02/03/2024 1:52 PM CDT Anesthesia Event [facility] [address] [place] [phone] Paulino Love, D.O. [address] [place] [phone] Willem Baker M.D., M.S. [address] [place] [phone] Anesthesia Record Procedure Summary Procedure Name Responsible [...] M.D. 02/03/24 183 by Cassandra Cedeno APRN, ROUTE DELIVERY MANAGER, DNAP documented in this encounter Social History Tobacco Use Types Packs/Day Years Used Date Smoking Tobacco: Never Smokeless Tobacco: Never Alcohol Use Standard Drinks/Week Comments Not Currently 0 (1 standard drink = 0.6 oz pur e alcohol) [facility] Utilities Answer Date Recorded In the past 12 months has [employer], gas, oil, or water [employer] threatened to shut off services in your [...] living situation today? I have a [facility] place to live 01/23/2024 Sex and [...] Procedure Summary Date: 02/03/24 Room / Location: [address] / [facility] in [place], [place] Anesthesia Start: 1352 Anesthesia Stop: 1847 [...] ETT location: oral VL device: glide scope [place] scope blade size: 4 Tube size: 7 [...] Date/Time: 02/03/24 1213 Procedures: *[facility]ent [facility]* THYROIDECTOMY - TOTAL. 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 Location: [address] [facility] / [facility] in [place], [place] Providers: Dakota Morrow M.D. Pertinent components [...] with patient /legal guardian or through an store clerk checker. The use of blood products not discussed [...] ETT location: oral VL device: glide scope [place] scope blade size: 4 Tube size: 7 [...] outcome: successful ?? Notable Events: no complications Willme Baker M.D., M.S. ANESTHESIA ORDERABLES documented in [...] mg documented in this encounter Care Teams Railroad Car Checker Relationship Specialty Start Date End Date Elsewhere, Pcp PCP - General Internal Medicine 01/27/24 documented as of this encounter
--- OUTSIDE RECORDS SUMMARY | 2024-02-15 10:53 | XMS_ITS | Encounter Summary ---
Author Organization [facility] Address [address] [place] [address] Care Team Providers Care Manager Produce Name Role Phone Elsewhere, Pcp Primary Care Provider Unavailabl e Encounter Details Date Type Department Care Team (Late st Contact Info) Description 02/05/2024 Clinical Communication Division of Endocrine Surgery in [place], [place] [address] [place] [phone] Jaret Salas M.D. [address] [place] [phone] Social History Tobacco Use Types Packs/Day Years Used Date Smoking Tobacco: Never Smokeless Tobacco: Never Alcohol Use Standard Drinks/Week Comments Not Currently 0 (1 standard drink = 0.6 oz pur e alcohol) [facility] Utilities Answer Date Recorded In the past 12 months has [facility] [employer], gas, oil, or water [employer] threatened to shut off services in your [...] an infectious process. On IV Abx. Appreciate [facility] taking excellent care of Mr. Long for [...]
--- OUTSIDE RECORDS SUMMARY | 2024-02-15 10:53 | XMS_ITS | Encounter Summary ---
Author Organization [facility] Address [address] [place] [address] Care Team Providers Care Palliative Care Nurse Practitioner Name Role Phone Elsewhere, Pcp Primary Care Provider Unavailabl e Encounter Details Date Type Department Care Team (Late st Contact Info) Description 02/05/2024 Clinical Communication Division of Endocrine Surgery in [place], [place] [address] [place] [phone] Jaret Salas M.D. [address] [place] [address] Social History Tobacco Use Types Packs/Day Years Used Date Smoking Tobacco: Never Smokeless Tobacco: Never Alcohol Use Standard Drinks/Week Comments Not Currently 0 (1 standard drink = 0.6 oz pur e alcohol) [facility] Utilities Answer Date Recorded In the past 12 months has [facility] [employer], gas, oil, or water [employer] threatened to shut off services in your [...] 02/05/2024 9:42 AM CDT Received call from [facility] ER about pt being there for SOB. [...] offered to transfer Mr. Long back to [place] to treat this, however he would prefer to stay at [facility] for now. That is definitely reasonable. I [...] on filedocumented in this encounter Care Teams Palliative Care Nurse Practitioner Relationship Specialty Start Date End Date Elsewhere, Pcp PCP - General Internal Medicine 01/27/24 documented as of this encounter
--- OUTSIDE RECORDS SUMMARY | 2024-02-15 10:53 | XMS_ITS | Encounter Summary ---
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 [address] [place] [address] Referral ID Status Reason Start Date Expiration Date Visits Re quested Visits Authorized [id number] 1 1 Encounter Details Date Type Department Care Team (Latest Contact Info) Description 02/03/2024 10:28 AM CDT - 02/04/2024 12:44 PM CDT Hospital Encounter [facility], Sixth Floor [address] [place] [phone] Dakota Morrow M.D. [address] [place] [phone] Malignant Neoplasm Of Thyroid Medullary (HCC) Discharge Disposition: Home or Self Care Social History Tobacco Use Types Packs/Day Years Used Date Smoking Tobacco: Never Smokeless Tobacco: Never Alcohol Use Standard Drinks/Week Comments Not Currently 0 (1 standard drink = 0.6 oz pur e alcohol) [facility] Utilities Answer Date Recorded In the past 12 months has th e [employer], gas, oil, or water [employer] threatened to shut off services in your [...] your living situation today? I have a [facility] place to live 01/23/2024 Sex and [...] AM CDT DISCHARGE SUMMARY BRIEF OVERVIEW Hospital: [facility] Discharge Provider: Dakota Morrow M.D. Primary [...] M.D.Flaris, Alexandros N, M.D.Pierce, Erika M, M.D. [facility] ROEI OR DISCHARGE DISPOSITION Home or Self Care [1] ACTIVE ISSUES REQUIRING FOLLOW UP Check TSH with PCP or account solutions analyst in 6 weeks OUTPATIENT FOLLOW UP For [...] 5A, 02/03/24 The patient was admitted to [facility]. The patient was taken to the operating [...] He requires follow-up with his PCP or account solutions analyst in 6 weeks. At the time of [...] through Care Everywhere. * Acetaminophen (By mouth) (Citizen Of [place]) * Levothyroxine (By mouth) (Citizen Of [place]) * Oxycodone, Rapid Release (By mouth) (Citizen Of [place]) documented in this encounter Medications at Time [...] Diagnosis Malignant Neoplasm Of Thyroid Medullary (HCC) Education Department Chair A first breaker feeder actively participated and was necessary for one [...] Jaret Salas M.D. LAB BLOOD ADD-O N [facility] [address] [place] [address], [facility] [address] [place] [address] * Surgical Pathology, Frozen Lab (02/03/2024 3:20 [...] almost the entire lobe in 3 dimensions. Wet Finisher tissue submitted for permanent sections. Grossed by Donovan Trinidad M.D., Ph.D.-Pathology Resident. B. ??Received fresh labeled right thyroid lobe is a 7 g completion thyroidectomy with a 4.5 x 3.3 x 1.3 cm right lobe. ??The margin is inked and margins are taken perpendicularly. ??No nodules are identified. ??All submitted for permanent sections. ??Grossed by Ray Amado., P.A. ([facility]). C. ??Received fresh labeled left neck level 2, 3, 4, and 5A lymph nodes is an 8 x 3 x 2 cm aggregate of adipose and lymphatic tissue. ??Lymph nodes are submitted for frozen and permanent sections. ??Grossed by Ray Amado., P.A. ([facility]). 02/07/2024 2:56 PM CDT METH Block [...] Morrow M.D. LAB SURG PATH ORDERA BLES [facility] [address] [place] [address], [facility] METH [address] [place] [address] documented in this encounter Visit Diagnoses Diagnosis [...] 02/03/24 at 1300, For 1 dose, Pre-Op, Crystal Cutter, PreOp with sips Given 02/03/2024 12:52 PM [...] 02/03/24 at 1300, For 1 dose, Pre-Op, Crystal Cutter, PreOp with sips 1252 (Given - Provider: [...] [id number] documented in this encounter Care Teams Law Office Manager Relationship Specialty Start Date End Date Elsewhere, Pcp PCP - General Internal Medicine 01/27/24 documented as of this encounter
--- OUTSIDE RECORDS SUMMARY | 2024-02-15 10:53 | XMS_ITS | Encounter Summary ---
Author Organization [facility] Address [address] [place] [address] Care Team Providers Care Pricing Specialist Name Role Phone Elsewhere, Pcp Primary Care Provider Unavailabl e Encounter Details Date Type Department Care Team (Late st Contact Info) Description 01/31/2024 Orders Only Division of Endocrinology in [place], [place] [address] [place] [phone] Phuc Torres M.D. [address] [place] [address] Social History Tobacco Use Types Packs/Day Years Used Date Smoking Tobacco: Never Assessed [facility] Utilities Answer Date Recorded In the [...] your living situation today? I have a [facility] place to live 01/23/2024 Sex and Gender Information Value Date Recorded Sex Assigned at Male 01/23/2024 9:14 PM CDT Gender Identity Male 01/23/2024 9:14 PM CDT Sexual Orientation Straight 01/23/2024 9: 14 PM CDT documented as of this encounter Plan of Treatment Not on file documented as of this encounter Visit Diagnoses Not on filedocumented in this encounter Care Teams Pricing Specialist Relationship Specialty Start Date End Date Elsewhere, Pcp PCP - General Internal Medicine 01/27/24 documented as of this encounter
--- OUTSIDE RECORDS SUMMARY | 2024-02-15 10:53 | XMS_ITS | Encounter Summary ---
Author Organization [facility] Address [address] [place] [address] Care Team Providers Care Associate Professor Of Communication Name Role Phone Elsewhere, Pcp Primary Care Provider Unavailabl e Encounter Details Date Type Department Care Team (Late st Contact Info) Description 02/14/2024 Documentation Division of Endocrinology in [place], [place] [address] [place] [phone] Phuc Torres M.D. [address] [place] [address] Social History Tobacco Use Types Packs/Day Years Used Date Smoking Tobacco: Never Smokeless Tobacco: Never Alcohol Use Standard Drinks/Week Comments Not Currently 0 (1 standard drink = 0.6 oz pur e alcohol) [facility] Utilities Answer Date Recorded In the past 12 months has [facility] [employer], gas, oil, or water [employer] threatened to shut off services in your [...] your living situation today? I have a [facility] place to live 01/23/2024 Sex and Gender Information Value Date Recorded Sex Assigned at Male 01/23/2024 9:14 PM CDT Gender Identity Male 01/23/2024 9:14 PM CDT Sexual Orientation Straight 01/23/2024 9: 14 PM CDT documented as of this encounter Progress Notes * Phuc Torres M.D. - 02/14/2024 4:48 PM CDT Forest Long underwent total thyroidectomy and central and left lateral node dissection fora large medullary thyroid cancer. Final pathology showed this tumor to be 7 x 4.7 x 3.8 cm 25 lymph nodes were removed of which 10 were positive for metastatic MTC, with the largest tumor deposit measuring 1 cm. 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
--- OUTSIDE RECORDS SUMMARY | 2024-02-15 10:53 | XMS_ITS | Encounter Summary ---
Author Organization [facility] Address [address] [place] [address] Care Team Providers Care Ruby On Rails Consultant Name Role Phone Elsewhere, Pcp Primary Care Provider Unavailabl e Reason for Referral * Outpatient (Routine) - Authorized Specialty Diagnoses / Procedures Referred By Vinicius reid Referred To Contact Endocrinology Diagnoses Malignant Neoplasm Of Thyroid Medullary (HCC) Phuc Torres M.D. [address] [place] [phone] [facility] Referral ID Status Reason Start Date Expiration Date V isits Requested Visits Authorized [id number] Authorized 02/14/2024 08/15/2025 1 1 Scheduling Instructions Please prioritize and do not delay this patient's return appointment. * Outpatient (Routine) - Authorized Specialty Diagnoses / Procedures Referred By Vinicius reid Referred To Contact Diagnoses Malignant Neoplasm Of Thyroid Medullary (HCC) Procedures US Head Neck Soft Tissue Phuc Torres M.D. [address] [place] [address] [facility] Referral ID Status Reason Start Date Expiration Date V isits Requested Visits Authorized [id number] Authorized 02/14/2024 02/13/2025 1 1 Encounter Details Date Type Department Care Team (Late st Contact Info) Description 02/14/2024 Orders Only Division of Endocrinology in [place], [place] [address] [place] [address] [place] [phone] Phuc Torres M.D. [address] [place] [address] Malignant Neoplasm Of Thyroid Medullary (HCC) (Primary Dx) Social History Tobacco Use Types Packs/Day Years Used Date Smoking Tobacco: Never Smokeless Tobacco: Never Alcohol Use Standard Drinks/Week Comments Not Currently 0 (1 standard drink = 0.6 oz pur e alcohol) [facility] Utilities Answer Date Recorded In the past 12 months has e electric, gas, oil, or water [employer] threatened to shut off services in your [...] living situation today? I have a [facility] place to live 01/23/2024 Sex and Gender Information Value Date Recorded Sex Assigned at Male 01/23/2024 9:14 PM CDT Gender Identity Male 01/23/2024 9:14 PM CDT Sexual Orientation Straight 01/23/2024 9: 14 PM CDT documented as of this encounter Plan of Treatment Scheduled Orders Name Type Priority Associated Diagnoses Orde r Schedule US Head Neck Soft Tissue Imaging RAD - Routine (most inpatients and all outpatients) Malignant Neoplasm Of Thyroid Medullary (HCC) Expected: 06/15/2024 (Approximate), Expires: 02/13/2025 S-TSH (Thyroid-Stimulating Hormone - Sensitive) Lab Routine Malignant Neoplasm Of Thyroid Medullary (HCC) Expected: 06/15/2024 (Approximate), Expires: 05/16/2025 Calcitonin Lab Routine Malignant Neoplasm Of Thyroid Medullary (HCC) Expected: 06/15/2024 (Approximate), Expires: 02/13/2025 CEA (Carcinoembryonic Antigen) Lab Routine Malignant Neoplasm Of Thyroid Medullary (HCC) Expected: 06/15/2024 (Approximate), Expires: 02/13/2025 ALT (Alanine Aminotransferase) Lab Routine Malignant Neoplasm Of Thyroid Medullary (HCC) Expected: 06/15/2024 (Approximate), Expires: 02/13/2025 Scheduled Referrals Name Type Priority Associated Diagnoses Order Schedule Endocrinology office visit (clinic) Outpatient Referral Routine Malignant Neoplasm Of Thyroid Medullary (HCC) Expected: 06/15/2024 (Approximate), Expires: 05/16/2025 documented as of this encounter Visit Diagnoses Diagnosis Malignant Neoplasm Of Thyroid Medullary (HCC)- Primary documented in this encounter Care Teams Ruby On Rails Consultant Relationship Specialty Start Date End Date Elsewhere, Pcp PCP - General Internal Medicine 01/27/24 documented as of this encounter
--- OUTSIDE RECORDS SUMMARY | 2024-02-15 10:53 | XMS_ITS | Encounter Summary ---
Author Organization [facility] Address [address] [place] [address] Care Team Providers Care Shoe Reconditioner Name Role Phone Elsewhere, Pcp Primary Care Provider Unavailabl e Encounter Details Date Type Department Care Team (Late st Contact Info) Description 02/06/2024 Clinical Communication Division of Endocrine Surgery in [place], [place] [address] [place] [phone] Jaret Salas M.D. [address] [place] [address] Social History Tobacco Use Types Packs/Day Years Used Date Smoking Tobacco: Never Smokeless Tobacco: Never Alcohol Use Standard Drinks/Week Comments Not Currently 0 (1 standard drink = 0.6 oz pur e alcohol) [facility] Utilities Answer Date Recorded In the past 12 months has [facility], gas, oil, or water [employer] threatened to shut off services in your [...] your living situation today? I have a [facility] place to live 01/23/2024 Sex and [...] moving in the right direction. We appreciate [facility] excellent care on this. Awaiting results from swallow. documented in this encounter Plan of Treatment Not on file documented as of this encounter Visit Diagnoses Not on filedocumented in this encounter Care Teams Shoe Reconditioner Relationship Specialty Start Date End Date Elsewhere, Pcp PCP - General Internal Medicine 01/27/24 documented as of this encounter
--- OUTSIDE RECORDS SUMMARY | 2024-02-15 10:53 | XMS_ITS | Encounter Summary ---
Author Organization [facility] Address [address] [place] [address] Care Team Providers Care Composer Teaching Artist Name Role Phone Elsewhere, Pcp Primary Care Provider Unavailabl e Encounter Details Date Type Department Care Team (Latest Contact Info) Description 02/05/2024 Intake [facility] Social History Tobacco Use Types Packs/Day Years Used Date Smoking Tobacco: Never Smokeless Tobacco: Never Alcohol Use Standard Drinks/Week Comments Not Currently 0 (1 standard drink = 0.6 oz pur e alcohol) [facility] Utilities Answer Date Recorded In the past [...] living situation today? I have a [facility] place to live 01/23/2024 Sex and Gender Information Value Date Recorded Sex Assigned at Male 01/23/2024 9:14 PM CDT Gender Identity Male 01/23/2024 9:14 PM CDT Sexual Orientation Straight 01/23/2024 9: 14 PM CDT documented as of this encounter Plan of Treatment Not on file documented as of this encounter Visit Diagnoses Not on filedocumented in this encounter Care Teams Composer Teaching Artist Relationship Specialty Start Date End Date Elsewhere, Pcp PCP - General Internal Medicine 01/27/24 documented as of this encounter
--- OUTSIDE RECORDS SUMMARY | 2024-02-15 10:53 | XMS_ITS | Encounter Summary ---
Author Organization [facility] Address [address] [place] [address] Care Team Providers Care Reactor Kettle Operator Name Role Phone Elsewhere, Pcp Primary Care Provider Unavailabl e Encounter Details Date Type Department Care Team (Late st Contact Info) Description 02/07/2024 Clinical Communication Division of Endocrine Surgery in [place], [place] [address] [place] [phone] Jaret Salas M.D. [address] [place] [address] Social History Tobacco Use Types Packs/Day Years Used Date Smoking Tobacco: Never Smokeless Tobacco: Never Alcohol Use Standard Drinks/Week Comments Not Currently 0 (1 standard drink = 0.6 oz pur e alcohol) [facility] Utilities Answer Date Recorded In the past 12 months has [facility] [employer], gas, oil, or water [employer] threatened to shut off services in your [...] your living situation today? I have a [facility] place to live 01/23/2024 Sex and Gender [...] be doing very well and we appreciate [facility]'s excellent treatment. I sharedmy phone number with Mr. Long, so that he may call me tomorrow morning at rounds and so I may answer any questions that his care team may have for our surgical team. documented in this encounter Plan of Treatment Not on file documented as of this encounter Visit Diagnoses Not on filedocumented in this encounter Care Teams Reactor Kettle Operator Relationship Specialty Start Date End Date Elsewhere, Pcp PCP - General Internal Medicine 01/27/24 documented as of this encounter
--- OUTSIDE RECORDS SUMMARY | 2024-02-15 10:53 | XMS_ITS | Encounter Summary ---
Author Organization [facility] Address [address] [place] [address] Care Team Providers Care Meat Manager Name Role Phone Elsewhere, Pcp Primary Care Provider Unavailabl e Encounter Details Date Type Department Care Team (Late st Contact Info) Description 02/08/2024 Clinical Communication Division of Endocrine Surgery in [place], [place] [address] [place] [phone] Jaret Salas M.D. [address] [place] [address] Social History Tobacco Use Types Packs/Day Years Used Date Smoking Tobacco: Never Smokeless Tobacco: Never Alcohol Use Standard Drinks/Week Comments Not Currently 0 (1 standard drink = 0.6 oz pur e alcohol) [facility] Utilities Answer Date Recorded In the past 12 months has [facility] [employer], gas, oil, or water [employer] threatened to shut off services in your [...] your living situation today? I have a [facility] place to live 01/23/2024 Sex [...] has progressed very well and we appreciate [facility]'s excellent care. documented in this encounter Plan of Treatment Not on file documented as of this encounter Visit Diagnoses Not on filedocumented in this encounter Care Teams Meat Manager Relationship Specialty Start Date End Date Elsewhere, Pcp PCP - General Internal Medicine 01/27/24 documented as of this encounter
--- OUTSIDE RECORDS SUMMARY | 2024-02-15 10:53 | XMS_ITS | Encounter Summary ---
Author Organization [facility] Address [address] [place] [address] Care Team Providers Care Furnace Clerk Name Role Phone Elsewhere, Pcp Primary Care Provider Unavailabl e Reason for Visit * Outpatient (Routine) - Closed Specialty Diagnoses / Procedures Referred By Vinicius t Referred To Contact General Surgery Dakota Morrow M.D. [address] [place] [phone] Dakota Morrow M.D. [address] [place] [phone] Referral ID Status Reason Start Date Expiration Date Visits Re quested Visits Authorized [id number] Closed 01/27/2024 07/28/2025 1 1 Encounter Details Date Type Department Care Team (Late st Contact Info) Description 02/02/2024 2:00 PM CDT Office Visit Division of Endocrine Surgery in [place], [place] [address] [place] [phone] Dakota Morrow M.D. [address] [place] [phone] Phuc Torres M.D. 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
--- OUTSIDE RECORDS SUMMARY | 2024-02-15 10:53 | XMS_ITS | Referral Summary ---
Author Organization [facility] Address [address] [place] [address] Care Team Providers Care Abrading Machine Tender Name Role Phone Elsewhere, Pcp Primary Care Provider Unavailabl e Source Comments Patient records contain information from all sites at [facility]. For routine questions regarding patient records, call [phone] during business hours, M-F 8:00 AM - 5:00 PM Central Time. Record requests for emergency care only can be directed to [phone] at any time.[facility] Encounters Date Type Department Care Team Description 02/14/2024 Documentation Division of Endocrinology in [place], [place] [address] [place] [phone] Phuc Torres M.D. 02/14/2024 Orders Only Division of Endocrinology in [place], [place] [address] [place] [phone] Phuc Torres M.D. 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 02/07/2024 Clinical Communication Division of Endocrine Surgery in [place], [place] [address] [place] [phone] Jaret Salas M.D. 02/06/2024 Clinical Communication Division of Endocrine Surgery in [place], [place] [address] [place] [phone] Jaret Salas M.D. 02/05/2024 Clinical Communication Division of Endocrine Surgery in [place], [place] [address] [place] [address] Jaret Salas M.D. 02/05/2024 Clinical Communication Division of Endocrine Surgery in [place], [place] [address] [place] [address] Jaret Salas M.D. 02/05/2024 Intake [facility] 02/03/2024 10:28 AM CDT - 02/04/2024 12:44 PM CDT Hospital Encounter [facility], [facility], [facility], Sixth Floor [address] [place] [address] Dakota Morrow M.D. Malignant Neoplasm Of Thyroid Medullary (HCC) Discharge Disposition: Home or Self Care 02/03/2024 1:52 PM CDT Anesthesia Event [facility] OR [address] [place] [address] Paulino Love, MarianelaO. Willem Baker M.D., M.S. 02/03/2024 12:13 PM CDT - 02/03/2024 3:42 PM CDT Surgery [facility] OR [facility] [place] [address] Dakota Morrow M.D. THYROIDECTOMY - TOTAL. 02/02/2024 2:00 PM CDT Office Visit Division of Endocrine Surgery in [place], [place] [address] [place] [address] Dakota Morrow M.D. Castro, M. Regina, M.D. 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 01/31/2024 8:37 AM CDT - 01/31/2024 10:21 AM CDT Hospital Encounter Department of Radiology, [facility], in [place], [place] [address] [place] [address] Phuc Torres M.D. Robinson, Kathryn A, M.D. Malignant Neoplasm Of Thyroid (HCC) Discharge Disposition: Home or Self Care 01/27/2024 Clinical Communication Division of Endocrinology in [place], [place] [address] [place] [phone] Phuc Torres M.D. Pathology Request 01/27/2024 3:23 PM CDT - 01/27/2024 11:59 PM CDT Hospital Encounter Department of Laboratory Medicine and Pathology, [place], [place] [address] [place] [phone] Phuc Torres M.D. Malignant Neoplasm Of Thyroid (HCC) Discharge Disposition: Home or Self Care 01/27/2024 2:40 PM CDT Lab RST RO [facility] [address] [place] [phone] Phuc Torres M.D. Malignant Neoplasm Of Thyroid (HCC) 01/27/2024 6:21 AM CDT - 01/27/2024 3:22 PM CDT Hospital Encounter Department of Laboratory Medicine and Pathology, [place], [place] [address] [place] [phone] Phuc Torres M.D. Malignant Neoplasm Of Thyroid Medullary (HCC) Discharge Disposition: Home or Self Care 01/27/2024 1:30 PM CDT Comprehensive Visit Division of Endocrinology in [place], [place] [address] [place] [phone] Phuc Torres M.D. Malignant Neoplasm Of Thyroid (HCC) 01/27/2024 3:00 PM CDT Comprehensive Visit Division of Endocrine Surgery in [place], [place] [address] [place] [phone] Dakota Morrow M.D. Castro, M. Regina, M.D. Malignant Neoplasm Of Thyroid Medullary (HCC) 01/25/2024 10:16 AM CDT - 01/25/2024 11:59 PM CDT Hospital Encounter Department of Radiology, [facility] in [place], [place] [address] [place] [phone] Phuc Torres M.D. Malignant Neoplasm Of Thyroid Medullary (HCC) Discharge Disposition: Home or Self Care 12/30/2023 Clinical Communication Division of Endocrine Surgery in [place], [place] [address] [place] [address] Dakota Morrow M.D. 12/28/2023 2:00 PM CDT Clinical Communication Division of Endocrinology in [place], [place] [address] [place] [address] Pre-visit Intake (thyroid) 12/23/2023 Clinical Communication Department of Otorhinolaryngology in [place], [place] [address] [place] [address] Provider, Unknown OSM (ENT ) 12/22/2023 [facility] [address] [place] [address] Carmela Basurto M.D. Malignant Neoplasm Of Thyroid [...] drink = 0.6 oz pur e alcohol) [facility] Utilities Answer Date Recorded In the [...] on file Medical Devices Implanted Type Area Aviation Tactical Readiness Officer Device Identifier Shelf Expiration Date Model / Serial / Lot Clp Hrzn Ti 6 Clp Sm Red - [id number] Implanted:Qty: 1 on 02/03/2024 by Dakota Morrow M.D. at [facility] Hardware e.g. pins/screws/r ods Neck Teleflex [place] [id number] / / Procedures Procedure Name Priority Date/Time [...] CT NEURO Routine 12/10/2023 5:20 PM CDT from Last 3 Months Results * CT Angio Chest PE Protocol-Outside CT Body (02/05/2024 3:45 AM CDT) 02/05/2024 3:37 AM CDT Narrative [facility] - 02/05/2024 4:58 AM CDT This order has been created and auto-finalized to support the import of outside images. If available, original interpretation can be found on the Media Tab in Chart Review, in Document Viewer, as an image in QREADS or as an Addendum. If a re-interpretation or overread is required please follow defined workflow.?? Provider Not In System [facility] PROCEDURES Performing Organization Address [facility] Co de Phone Number IIM[facility] NA * CT SOFT TISSUE NECK W CON-Outside CT Neuro (02/05/2024 3:40 AM CDT) Only the most recent of2 resultswithin the time period is included. 02/05/2024 3:37 AM CDT Narrative [facility] - 02/05/2024 4:55 AM CDT This order has been created and auto-finalized to support the import of outside images. If available, original interpretation can be found on the Media Tab in Chart Review, in Document Viewer, as an image in QREADS or as an Addendum. If a re-interpretation or overread is required please follow defined workflow.?? Provider Not In System IM CT PROCEDURES [facility] NA * Parathyroid Hormone (PTH) (02/03/2024 7:15 PM CDT) Parathyroid Hormone (PTH), S 28 15 - 65 pg/mL 02/03/2024 8:48 PM CDT DTL Blood (Blood, Venous) 02/03/2024 7:15 PM CDT 02/03/2024 8:02 PM CDT Jaret Salas M.D. LAB BLOOD ADD-O N [facility] [address] [place] [address], [place] [facility] [address] [place] [address] * Surgical Pathology, Frozen Lab (02/03/2024 3:20 [...] almost the entire lobe in 3 dimensions. Senior Quality Control Inspector tissue submitted for permanent sections. Grossed by Donovan Trinidad M.D., Ph.D.-Pathology Resident. B. ??Received fresh labeled right thyroid lobe is a 7 g completion thyroidectomy with a 4.5 x 3.3 x 1.3 cm right lobe. ??The margin is inked and margins are taken perpendicularly. ??No nodules are identified. ??All submitted for permanent sections. ??Grossed by Sachi Amado, P.A. ([facility]). C. ??Received fresh labeled left neck level 2, 3, 4, and 5A lymph nodes is an 8 x 3 x 2 cm aggregate of adipose and lymphatic tissue. ??Lymph nodes are submitted for frozen and permanent sections. ??Grossed by Sachi Amado, P.A. ([facility]). 02/07/2024 2:56 PM CDT METH [...] Morrow M.D. LAB SURG PATH ORDERA BLES [facility] [address] [place] [address], [facility] [address] [facility] [address] [place] [address] * Airway (02/03/2024 2:04 PM CDT) Narrative [...] ETT location: oral VL device: glide scope [place] scope blade size: 4 Tube size: 7 [...] 4 Phuc Torres M.D. LAB SURG PATH ORDE RABLES Performing Organization Address City/[facility] Co de Phone Number [facility] [address] [place] [address], [facility] DTL [address] [facility] [address] [place] [address] * Calcitonin, Fine-Needle Aspiration Biopsy (FNAB)-Needle Wash, Lymph Node (01/31/2024 9:16 AM CDT) Only the most recent of2 resultswithin the time period is included. Calcitonin, FNAB, Lymph Node [id number] pg/mL 01/31/2024 6:10 PM CDT [facility] Comment: Calcitonin values = or > [...] This test has been modified from the business mgr's instructions. Its performance characteristics were determined by [facility] in a manner consistent with CLIA requirements. [...] Washings, Lymph Node 02/01/2024 10:16 AM CDT [facility] Comment:REVISED RESULTS FNA Needle Washings (Lymph Node) 01/31/2024 9:16 AM CDT Phuc Torres M.D. LAB BODY FLUIDS AN D STOOLS ORDERABLES Performing Organization Address City/[facility]/ZIP Co de Phone Number [facility] [address] [place] [address] [facility] [address] [place] [address] * Multiple Endocrine Neoplasia Type 2 Syndrome, RET Full Gene Analysis (01/27/2024 3:44 PM CDT) Test Description Evaluation of the RET gene associated with multiple endocrine neoplasia type 2 02/08/2024 3:38 PM CDT DTL Specimen WB Whole Blood 02/08/2024 3:38 PM CDT DTL Disclaimer Clinical Correlations An online research opportunity called [employer]) , a project of [employer], is available for the recipient of this genetic test. This patient registry collects de-identified genetic and health information to advance the knowledge of genetic variants. [facility] is a collaborator of [employer]. This may not be applicable for all [...] in the interpretation of these results, [facility] Laboratory genetic counselors can be contacted at [...] of results. Reclassification of Variants Policy See [email or web address] (TEST ID [email or web address]) for information regarding the laboratory's policy for reclassification of variants. Variant Evaluation Variant curation is performed using published ACMG-AMP recommendations as a guideline. Other gene-specific guidelines may also be considered. Variants classified as benign or likely benign are not reported. Results from in silico evaluation tools may slubber frame changer time and should be interpreted with caution and professional clinical judgment. TEST CLASSIFICATION This test was developed and its performance characteristics determined by [facility] in a manner consistent with CLIA requirements. This test has not been cleared or approved by the U.S. Food and Drug Administration. 02/08/2024 3:38 PM CDT DTL Released By Tony Flynn, Ph.D. 02/08/20 24 3:38 PM CDT DTL Result Summary Negative 02/08/2024 3:38 PM CDT DTL Result No reportable variants were detected. 02/08/2024 3:38 PM CDT DTL Method Next generation sequencing (NGS) and/or Olivia sequencing was performed to test for the [...] methodologies based on internal laboratory criteria. See [email or web address] (TEST ID [email or web address]) for details regarding [...] LAB GENETIC TESTIN G Performing Organization Address City/[facility]/ZIP Co de Phone Number [facility] [address] [place] [address], [facility] DT [address] [facility] [address] [place] [address] * Metanephrines, Fractionated, Free (01/27/2024 6:47 AM CDT) Normetanephrine, Free 0.64 <0.90 nmol/L 01/28/2024 3:30 PM CDT [facility] Metanephrine, Free <0.20 <0.50 nmol/L 01/28/2024 3:30 PM CDT [facility] Comment: ----ADDITIONAL INFORMATION---- This test was developed and its performance characteristics determined by [facility] in a manner consistent with CLIA requirements. This test has not been cleared or approved by the U.S. Food and Drug Administration. Blood (Blood, Venous) 01/27/2024 6:47 AM CDT 01/27/2024 10:31 AM CDT Phuc Torres M.D. LAB BLOOD NON ADD- ON Performing Organization Address City/[facility]/ZIP Co de Phone Number [facility] [address] [place] [address] [facility] [address] [place] [address] [place] [address] * (ABNORMAL) 25-Hydroxyvitamin D2 and D3 (01/27/2024 6:47 AM CDT) 25-Hydroxy D2 <4.0 ng/mL 01/29/2024 3:28 PM CDT [facility] 25-Hydroxy D3 16 ng/mL 01/29/2024 3:28 PM CDT [facility] 25-Hydroxy D Total 16(L) ng/mL 2023 3:28 PM CDT [facility] Comment: Interpretation: 10-19 ng/mL (mild to moderate deficiency) ----REFERENCE VALUE---- 25-HYDROXY D TOTAL (D2+D3) Optimum levels in the healthy population are 20-50. ----ADDITIONAL INFORMATION---- This test was developed and its performance characteristics determined by [facility] in a manner consistent with CLIA requirements. This test has not been cleared or approved by the U.S. Food and Drug Administration. Blood (Blood, Venous) 01/27/2024 6:47 AM CDT 01/27/2024 9:16 AM CDT Phuc Torres M.D. LAB BLOOD ADD-ON Performing Organization Address [facility] de Phone Number [facility] [address] [place] [address] [facility] [address] [place] [address] [place] [address] * (ABNORMAL) Calcitonin (01/27/2024 6:47 AM CDT) [facility] Calcitonin, S 5061(H) <=14.3 pg/mL 01/27/2024 1:35 PM CDT [facility] Comment: ----ADDITIONAL INFORMATION---- The testing method [...] BLOOD NON ADD- ON Performing Organization Address [facility] Co de Phone Number [facility] [address] [place] [address] [facility] [address] [place] [address] * S-TSH (Thyroid-Stimulating Hormone - Sensitive) (01/27/2024 6:47 AM CDT) Pathologist [facility] TSH, Sensitive 2.3 0.3 - 4.2 mIU/L 01/27/2024 8:08 AM CDT DTL Blood (Blood, Venous) 01/27/2024 6:47 AM CDT 01/27/2024 7:31 AM CDT Phuc Torres M.D. LAB BLOOD ADD-ON [facility] [address] [place], [place] [address] [place] [address] [address] [place] [address] * T4 (Thyroxine), Free (01/27/2024 6:47 AM CDT) [facility] T4 (Thyroxine), Free, S 1.4 0.9 - 1.7 ng/dL 01/27/2024 8:08 AM CDT DT Blood (Blood, Venous) 01/27/2024 6:47 AM CDT 01/27/2024 7:31 AM CDT Phuc Torres M.D. LAB BLOOD ADD-ON [facility] [address] [place] [address], [facility] [place] [address] [place] [address] * (ABNORMAL) CEA (Carcinoembryonic Antigen) (01/27/2024 6:47 AM CDT) [facility] Carcinoembryonic Ag (CEA), S 313.0(H) ng/mL 01/27/2024 10:54 AM CDT [facility] Comment: ----REFERENCE VALUE---- <=3.0 (Non-smokers) Some smokers may have elevated CEA, usually <5.0. ----ADDITIONAL INFORMATION---- The testing method is an immunoenzymatic assay manufactured by [employer] and performed on the Dot VN DxI 800. ? Values obtained with different assay methods or kits may be different and cannot be used interchangeably. ? Test results cannot be interpreted as absolute evidence for the presence or absence of malignant disease. Blood (Blood, Venous) 01/27/2024 6:47 AM CDT 01/27/2024 9:56 AM CDT Phuc Torres M.D. LAB BLOOD ADD-ON [facility] [address] [place] [address] [facility] [address] [place] [address] * Calcium, Total (01/27/2024 6:47 AM CDT) Pathologist [facility] Calcium, Total, S 9.3 8.8 - 10.2 mg/dL 01/27/2024 8:08 AM CDT DTL Blood (Blood, Venous) 01/27/2024 6:47 AM CDT 01/27/2024 7:31 AM CDT Phuc Torres M.D. LAB BLOOD ADD-ON Performing Organization Address City/[facility]/ZIP Co de Phone Number [facility] [address] [place] [address], [facility] [address] [place] [address] * US Thyroid (01/25/2024 11:23 AM CDT) [...] hilum. Phuc Torres M.D. IMG US PROCEDURES from Last 3 Months Advance Directives For more information, please contact: [phone] * Full Code (Latest Code Status on File) Date Activated Date Inactivated Comments 02/03/2024 10:45 AM 02/04/2024 2:49 PM Question Answer Comments Full Code: Not Discussed Due to: Patient not available Care Teams Abrading Machine Tender Relationship Specialty Start Date End Date Elsewhere, Pcp PCP - General Internal Medicine 01/27/24
--- OUTSIDE RECORDS SUMMARY | 2024-02-15 10:53 | XMS_ITS | Encounter Summary ---
Author Organization [facility] Address [address] [place] [address] Care Team Providers Care Glue Machine Operator Name Role Phone Elsewhere, Pcp Primary Care Provider Unavailabl e Reason for Visit * Auth/Cert (Routine) Specialty Diagnoses / Procedures Referred By Vinicius t Referred To Contact Diagnoses Malignant Neoplasm Of Thyroid Medullary (HCC) Malignant Neoplasm Of Thyroid Medullary (HCC) [C73] Procedures CO LBCTMY THYROID TOTAL UNILAT CO THYROIDECTOMY TOTAL/COMPLETE CO CERV LMPH MOD/RAD NECK DISSECT THYROIDECTOMY - LOBECTOMY, MODIFIED NECK DISSECTION Dakota Morrow M.D. [address] [place] [address] Referral ID Status Reason Start Date Expiration Date Visits Re quested Visits Authorized [id number] 1 1 Encounter Details Date Type Department Care Team (Late st Contact Info) Description 02/03/2024 12:13 PM CDT - 02/03/2024 3:42 PM CDT Surgery [facility] [address] [place] [phone] Dakota Morrow M.D. [address] [place] [phone] THYROIDECTOMY - TOTAL. Social History Tobacco Use Types Packs/Day Years Used Date Smoking Tobacco: Never Smokeless Tobacco: Never Alcohol Use Standard Drinks/Week Comments Not Currently 0 (1 standard drink = 0.6 oz pur e alcohol) [facility] Utilities Answer Date Recorded In the past 12 months has e [employer], gas, oil, or water [employer] threatened to shut off services in your [...] AM CDT DISCHARGE SUMMARY BRIEF OVERVIEW Hospital: [facility] Discharge Provider: Dakota Morrow M.D. Primary [...] M.D.Flaris, Alexandros N, M.D.Pierce, Erika M, M.D. [facility] OR DISCHARGE DISPOSITION Home or Self Care [1] ACTIVE ISSUES REQUIRING FOLLOW UP Check TSH with PCP or material handling technician in 6 weeks OUTPATIENT FOLLOW UP For [...] 5A, 02/03/24 The patient was admitted to [facility]. The patient was taken to the [...] He requires follow-up with his PCP or material handling technician in 6 weeks. At the time of [...] through Care Everywhere. * Acetaminophen (By mouth) (Moldovan) * Levothyroxine (By mouth) (Moldovan) * Oxycodone, Rapid Release (By mouth) (Moldovan) documented in this encounter Medications at Time [...] Diagnosis Malignant Neoplasm Of Thyroid Medullary (HCC) Public Health Policy Analyst A presser first actively participated and was necessary for [...] Jaret Salas M.D. LAB BLOOD ADD-O N [facility] [address] [place] [address], [facility] [address] [place] [address] * Surgical Pathology, Frozen Lab (02/03/2024 3:20 PM CDT) Pathologist [facility] [place] 02/07/2024 2:56 PM CDT METH Participated in [...] almost the entire lobe in 3 dimensions. Sample Driller tissue submitted for permanent sections. Grossed by Donovan Trinidad M.D., Ph.D.-Pathology Resident. B. ??Received fresh labeled right thyroid lobe is a 7 g completion thyroidectomy with a 4.5 x 3.3 x 1.3 cm right lobe. ??The margin is inked and margins are taken perpendicularly. ??No nodules are identified. ??All submitted for permanent sections. ??Grossed by Ray Amado., P.A. ([facility]). C. ??Received fresh labeled left neck level 2, 3, 4, and 5A lymph nodes is an 8 x 3 x 2 cm aggregate of adipose and lymphatic tissue. ??Lymph nodes are submitted for frozen and permanent sections. ??Grossed by Sachi Amado, P.A. ([facility]). 02/07/2024 2:56 PM CDT METH [...] Morrow M.D. LAB SURG PATH ORDERA BLES [facility] [address] [place] [address], [facility] METH [address] [place] [address] documented in this encounter Visit Diagnoses Diagnosis [...] 02/03/24 at 1300, For 1 dose, Pre-Op, Bridge Gang Worker, PreOp with sips Given 02/03/2024 12:52 PM [...] 02/03/24 at 1300, For 1 dose, Pre-Op, Bridge Gang Worker, PreOp with sips 1252 (Given - Provider: Sarai Yip RRenateNRenate) acetaminophen tablet 1,000 mg (TylenoL) 1,000 mg, oral, Every 6 hours, First dose on Wed02/04/24 at 0200, (not to exceed 4 grams in 24 hours) 0110 (Given - Provid er: Peng Brooks RRenateNRenate)0827 (Not Given - Provider: Carol Dean RRenateN. - Reason: Patient/family refused) fluticasone [...] Provider: Filomena Lomas R.N.)1954 (Given - Provider: Filomnea Lomas R.N.)2010 (Given - Provider: Filomena Lomas [...] PACU (only) 1924 (Given - Provider: Alfred Lomas RDerrell) prochlorperazine [...] 2116 documented in this encounter Care Teams Glue Machine Operator Relationship Specialty Start Date End Date Elsewhere, Pcp PCP - General Internal Medicine 01/27/24 documented as of this encounter
--- OUTSIDE RECORDS SUMMARY | 2024-02-15 10:53 | XMS_ITS | Clinical Summary ---
Author Organization [facility] Address [address] [place] [address] Care Team Providers Care Business Travel Consultant Name Role Phone Elsewhere, Pcp Primary Care Provider Unavailabl e Source Comments Patient records contain information from all sites at [facility]. For routine questions regarding patient records, call [phone] during business hours, M-F 8:00 AM - 5:00 PM Central Time. Record requests for emergency care only can be directed to [phone] at any time.[facility] Allergies Active Allergy Reactions Criticality Noted Date [...] Description 02/14/2024 Documentation Division of Endocrinology in [place], [place] [address] [place] [address] Phuc Torres M.D. 02/14/2024 Orders Only Division of Endocrinology in [place], [place] [address] [place] [address] Phuc Torres M.D. 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 02/07/2024 Clinical Communication Division of Endocrine Surgery in [place], [place] [address] [place] [phone] Jaret Salas M.D. 02/06/2024 Clinical Communication Division of Endocrine Surgery in [place], [place] [address] [place] [address] Jaret Salas M.D. 02/05/2024 Clinical Communication Division of Endocrine Surgery in [place], [place] [address] [place] [address] Jaret Salas M.D. 02/05/2024 Clinical Communication Division of Endocrine Surgery in [place], [place] [address] [place] [address] Jaret Salas M.D. 02/05/2024 Intake [facility] 02/03/2024 1:52 PM CDT Anesthesia Event [facility] OR [address] [place] [address] Paulino Love D.O. Smischney, Nathan J, M.D., M.S. 02/03/2024 12:13 PM CDT - 02/03/2024 3:42 PM CDT Surgery [facility] OR [address] [place] [address] Dakota Morrow M.D. THYROIDECTOMY - TOTAL. 02/03/2024 10:28 AM CDT - 02/04/2024 12:44 PM CDT Hospital Encounter [facility], [facility], [facility], Sixth Floor [address] [place] [address] Dakota Morrow M.D. Malignant Neoplasm Of Thyroid Medullary (HCC) Discharge Disposition: Home or Self Care 02/02/2024 2:00 PM CDT Office Visit Division of Endocrine Surgery in [place], [place] [address] [place] [address] Dakota Morrow M.D. Castro, M. Regina, M.D. 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 Robinson, Kathryn A, M.D. Malignant Neoplasm Of Thyroid (HCC) Discharge Disposition: Home or Self Care 01/31/2024 Orders Only Division of Endocrinology in [place], [place] [address] [place] [address] Phuc Torres M.D. 01/27/2024 3:23 PM CDT - 01/27/2024 11:59 PM CDT Hospital Encounter Department of Laboratory Medicine and Pathology, [facility], in [place], [place] [address] [place] [address] Phuc Torres M.D. Malignant Neoplasm Of Thyroid (HCC) Discharge Disposition: Home or Self Care 01/27/2024 3:00 PM CDT Comprehensive Visit Division of Endocrine Surgery in [place], [place] [address] [place] [phone] Dakota Morrow M.D. Castro, M. Regina, M.D. Malignant Neoplasm Of Thyroid Medullary (HCC) 01/27/2024 2:40 PM CDT Lab [facility] [address] [place] [address] Phuc Torres M.D. Malignant Neoplasm Of Thyroid (HCC) 01/27/2024 1:30 PM CDT Comprehensive Visit Division of Endocrinology in [place], [place] [address] [place] [phone] Phuc Torres M.D. Malignant Neoplasm Of Thyroid (HCC) 01/27/2024 6:21 AM CDT - 01/27/2024 3:22 PM CDT [facility] [place] [place] [address] [place] [address] Phuc Torres M.D. Malignant Neoplasm Of Thyroid Medullary (HCC) Discharge Disposition: Home or Self Care 01/27/2024 Clinical Communication Division of Endocrinology in [place], [place] [address] [place] [address] Phuc Torres M.D. Pathology Request 01/25/2024 10:16 AM CDT - 01/25/2024 11:59 PM CDT Hospital [place] [address] [place] [address] Phuc Torres M.D. Malignant Neoplasm Of Thyroid Medullary (HCC) Discharge Disposition: Home or Self Care 12/30/2023 Clinical Communication Division of Endocrine Surgery in [place], [place] [address] [place] [phone] Dakota Morrow M.D. 12/28/2023 2:00 PM CDT Clinical Communication Division of Endocrinology in [place], [place] [address] [place] [phone] Pre-visit Intake (thyroid) 12/23/2023 Clinical Communication Department of Otorhinolaryngology in [place], [place] [address] [place] [phone] Provider, Unknown [facility] (ENT ) 12/22/[address] [address] Carmela Basurto M.D. Malignant Neoplasm Of Thyroid (HCC) (Primary Dx) from Last 3 Months Social History Tobacco Use Types Packs/Day Years Used Date Smoking Tobacco: Never Smokeless Tobacco: Never Alcohol Use Standard Drinks/Week Comments Not Currently 0 (1 standard drink = 0.6 oz pur e alcohol) [facility] Utilities Answer Date Recorded In the [...] your living situation today? I have a [facility] place to live 01/23/2024 Sex [...] Vaccines (1 of 2) 2011 COVID-19 Vaccine (2022-2 4 season) 2023 06/10/2021, 11/01/2020, 10/01/2020 Depression Screening (Annual PHQ-2) 07/12/2023 Influenza Vaccine (#1) 2024 08/10/2009 Office Visit for Blood Pressure Check / Re-check 04/28/2024 01/27/2024 Thyroid Stimulating Hormone (TSH) test for thyroid function 01/26/2025 01/27/2024 Fasting Glucose for Diabetes Screening 04/02/2026 04/02/2023 Lipid (Cholesterol) Screening 04/02/2028 04/02/2023 DTaP,Tdap,and Td Vaccines (3 - Td or Tdap) 04/02/2033 04/02/2023, 02/16/2007 Pneumococcal vaccine (0-64 years) Aged Out No longer eligible b ased on patient's age to complete this topic Medical Devices Implanted Type Area [employer] Processing [employer] Operator Device Identifier Shelf Expiration Date Model / Serial / Lot Clp Hrzn Ti 6 Clp Sm Red - [id number] Implanted:Qty: 1 on 02/03/2024 by Dakota Morrow M.D. at [facility] Hardware e.g. pins/screws/r ods Neck [employer] [id number] / / Procedures Procedure Name Priority Date/Time [...] follow defined workflow.?? Provider Not In System [facility] CT PROCEDURES IIMD NA * CT SOFT TISSUE NECK W [...] Provider Not In System IMG CT PROCEDURES Performing Organization Address [facility] Co de Phone Number IIMD NA * Parathyroid Hormone (PTH) (02/03/2024 7:15 PM CDT) Parathyroid Hormone (PTH), S 28 15 - 65 pg/mL 02/03/2024 8:48 PM CDT DTL Blood (Blood, Venous) 02/03/2024 7:15 PM CDT 02/03/2024 8:02 PM CDT Jaret Salas M.D. LAB BLOOD ADD-O N Performing Organization Address [facility] Co de Phone Number [facility] [address] [place] [address], [facility] DTL [facility] [address] [place] [address] * Surgical Pathology, Frozen Lab (02/03/2024 3:20 [...] almost the entire lobe in 3 dimensions. High School Coordinator tissue submitted for permanent sections. Grossed by Donovan Trinidad M.D., Ph.D.-Pathology Resident. B. ??Received fresh labeled right thyroid lobe is a 7 g completion thyroidectomy with a 4.5 x 3.3 x 1.3 cm right lobe. ??The margin is inked and margins are taken perpendicularly. ??No nodules are identified. ??All submitted for permanent sections. ??Grossed by Ray Amado., P.A. ([facility]). C. ??Received fresh labeled left neck level 2, 3, 4, and 5A lymph nodes is an 8 x 3 x 2 cm aggregate of adipose and lymphatic tissue. ??Lymph nodes are submitted for frozen and permanent sections. ??Grossed by Ray Amado., P.A. ([facility]). 02/07/2024 2:56 PM CDT METH Block [...] SURG PATH ORDERA BLES Performing Organization Address City/State/[facility] Co de Phone Number [facility] [address] [place] [address], [facility] METH [address] [place] [address] * Airway (02/03/2024 2:04 PM CDT) Narrative [...] ETT location: oral VL device: glide scope [place] scope blade size: 4 Tube size: 7 [...] cervical level 5. NR Phuc Torres M.D. G US PROCEDURES * Cytology Fine Needle Aspiration [...] Torres M.D. LAB SURG PATH AMY DURHAM [facility] [address] [place] [address], [facility] DTL [address] [place] [address] * Calcitonin, Fine-Needle Aspiration Biopsy (FNAB)-Needle Wash, Lymph Node (01/31/2024 9:16 AM CDT) Only the most recent of2 resultswithin the time period is included. Calcitonin, FNAB, Lymph Node [id number] pg/mL 01/31/2024 6:10 PM CDT [facility] Comment: Calcitonin values = or [...] This test has been modified from the metal bumper's instructions. Its performance characteristics were determined by [facility] in a manner consistent with CLIA [...] Lymph Node 02/01/2024 10:16 AM CDT [facility] Comment:REVISED RESULTS FNA Needle Washings (Lymph Node) 01/31/2024 9:16 AM CDT Narrative Authorizing Provider Result Clive Torres M.D. LAB BODY FLUIDS AN D STOOLS ORDERABLES [facility] [address] [place] [address] [facility] [address] [place] [address] * Multiple Endocrine Neoplasia Type 2 Syndrome, RET Full Gene Analysis (01/27/2024 3:44 PM CDT) Test Description Evaluation of the RET gene associated with multiple endocrine neoplasia type 2 02/08/2024 3:38 PM CDT DTL Specimen WB Whole Blood 02/08/2024 3:38 PM CDT DTL Disclaimer Clinical Correlations An online research opportunity called SmarterphoneneSamplesaint (HackMyPic.org) , a project of [place] [employer], is available for the recipient of this genetic test. This patient registry collects de-identified genetic and health information to advance the knowledge of genetic variants. [facility] is a collaborator of [employer] [place] [employer]. This may not be applicable for all [...] in the interpretation of these results, [facility] Laboratory genetic counselors can be contacted at [...] of results. Reclassification of Variants Policy See www.romeLightswitch. [employer] (TEST ID RETZZ) for information regarding the laboratory's policy for reclassification of variants. Variant Evaluation Variant curation is performed using published ACMG-AMP recommendations as a guideline. Other gene-specific guidelines may also be considered. Variants classified as benign or likely benign are not reported. Results from in silico evaluation tools may address change clerk time and should be interpreted with caution and professional clinical judgment. TEST CLASSIFICATION This test was developed and its performance characteristics determined by [facility] in a manner consistent with CLIA [...] DTL Method Next generation sequencing (NGS) and/or [place] sequencing was performed to test for the [...] methodologies based on internal laboratory criteria. See www.Brash Entertainment. [employer] (TEST ID RETZZ) for details regarding genes [...] Phuc Torres M.D. LAB GENETIC TESTIN G [facility] [address] [place] [address], [facility] DTL [address] [place] [address] * Metanephrines, Fractionated, Free (01/27/2024 6:47 AM CDT) Normetanephrine, Free 0.64 <0.90 nmol/L 01/28/2024 3:30 PM CDT SDS Metanephrine, Free <0.20 <0.50 nmol/L 01/28/2024 3:30 PM CDT [facility] Comment: ----ADDITIONAL INFORMATION---- This test was developed and its performance characteristics determined by [facility] in a manner consistent with CLIA requirements. This test has not been cleared or approved by the U.S. Food and Drug Administration. Blood (Blood, Venous) 01/27/2024 6:47 AM CDT 01/27/2024 10:31 AM CDT Phuc Torres M.D. LAB BLOOD NON ADD- ON [facility] [address] [place] [address] [facility] [address] [place] [address] [place] [address] * (ABNORMAL) 25-Hydroxyvitamin D2 and D3 (01/27/2024 6:47 AM CDT) 25-Hydroxy D2 <4.0 ng/mL 01/29/2024 3:28 PM CDT SDS 25-Hydroxy D3 16 ng/mL 01/29/2024 3:28 PM CDT [facility] 25-Hydroxy D Total 16(L) ng/mL 2023 3:28 PM CDT [facility] Comment: Interpretation: 10-19 ng/mL (mild to moderate deficiency) ----REFERENCE VALUE---- 25-HYDROXY D TOTAL (D2+D3) Optimum levels in the healthy population are 20-50. ----ADDITIONAL INFORMATION---- This test was developed and its performance characteristics determined by [facility] in a manner consistent with CLIA requirements. This test has not been cleared or approved by the U.S. Food and Drug Administration. Blood (Blood, Venous) 01/27/2024 6:47 AM CDT 01/27/2024 9:16 AM CDT Phuc Torres M.D. LAB BLOOD ADD-ON Performing Organization Address City/[facility]/ZIP Co de Phone Number [facility] [address] [place] [address] [facility] [address] [place] [address] [place] [address] * (ABNORMAL) Calcitonin (01/27/2024 6:47 AM CDT) Calcitonin, S 5061(H) <=14.3 pg/mL 01/27/2024 1:35 PM CDT [facility] Comment: ----ADDITIONAL INFORMATION---- The testing method is an electrochemiluminescence assay manufactured by [employer] and performed on the Lovely system. Values obtained with different assay methods or kits may be different and cannot be used interchangeably. Test results cannot be interpreted as absolute evidence for the presence or absence of malignant disease. Blood (Blood, Venous) 01/27/2024 6:47 AM CDT 01/27/2024 11:54 AM CDT Phuc Torres M.D. LAB BLOOD NON ADD- ON Performing Organization Address [facility] Co de Phone Number [facility] [address] [place] [address] [facility] [address] [place] [address] * S-TSH (Thyroid-Stimulating Hormone - Sensitive) (01/27/2024 6:47 AM CDT) TSH, Sensitive 2.3 0.3 - 4.2 mIU/L 01/27/2024 8:08 AM CDT DTL Blood (Blood, Venous) 01/27/2024 6:47 AM CDT 01/27/2024 7:31 AM CDT Phuc Torres M.D. LAB BLOOD ADD-ON Performing Organization Address City/[facility]/ZIP Co de Phone Number [facility] [address] [place] [address], [facility] DTL [facility] [address] [place] [address] * T4 (Thyroxine), Free (01/27/2024 6:47 AM CDT) T4 (Thyroxine), Free, S 1.4 0.9 - 1.7 ng/dL 01/27/2024 8:08 AM CDT DTL Blood (Blood, Venous) 01/27/2024 6:47 AM CDT 01/27/2024 7:31 AM CDT Phuc Torres M.D. LAB BLOOD ADD-ON Performing Organization Address [facility] Co de Phone Number [facility] [address] [place] [address], [facility] [address] [place] [address] * (ABNORMAL) CEA (Carcinoembryonic Antigen) (01/27/2024 6:47 AM CDT) Carcinoembryonic Ag (CEA), S 313.0(H) ng/mL 01/27/2024 10:54 AM CDT [facility] Comment: ----REFERENCE VALUE---- <=3.0 (Non-smokers) Some smokers may have elevated CEA, usually <5.0. ----ADDITIONAL INFORMATION---- The testing method is an immunoenzymatic assay manufactured by [employer] and performed on the Oceana DxI 800. ? Values obtained with different assay methods or kits may be different and cannot be used interchangeably. ? Test results cannot be interpreted as absolute evidence for the presence or absence of malignant disease. Blood (Blood, Venous) 01/27/2024 6:47 AM CDT 01/27/2024 9:56 AM CDT Phuc Torres M.D. LAB BLOOD ADD-ON Performing Organization Address [facility]/ZIP Co de Phone Number [facility] [address] [place] [address] [facility] [address] [place] [address] * Calcium, Total (01/27/2024 6:47 AM CDT) Calcium, Total, S 9.3 8.8 - 10.2 mg/dL 01/27/2024 8:08 AM CDT DTL Blood (Blood, Venous) 01/27/2024 6:47 AM CDT 01/27/2024 7:31 AM CDT Phuc Torres M.D. LAB BLOOD ADD-ON [facility] [address] [place] [address], [facility] [address] [place] [address] * US Thyroid (01/25/2024 11:23 AM CDT) [...] Advance Directives For more information, please contact: [phone] * Full Code (Latest Code Status on File) Date Activated Date Inactivated Comments 02/03/2024 10:45 AM 02/04/2024 2:49 PM Question Answer Comments Full Code: Not Discussed Due to: Patient not available Care Teams Business Travel Consultant Relationship Specialty Start Date End Date Elsewhere, Pcp PCP - General Internal Medicine 01/27/24
--- OUTSIDE RECORDS SUMMARY | 2024-02-15 10:53 | XMS_ITS ---
Author Organization [facility] Address [address] [place] [address] Care Team Providers Care Instrument Assembly Supervisor Name Role Phone Unavailable Unavailable Unavailable Surgery Details Not on file Complications Check Surgery Details section. Procedure Estimated Blood Loss Check Surgery Details section. Procedure Findings Check Surgery Details section. Procedure Specimens Taken Check Surgery Details section.
--- OUTSIDE RECORDS SUMMARY | 2024-02-15 10:54 | XMS_ITS | Encounter Summary ---
Author Organization [facility] Address [address] [place] [address] Care Team Providers Care Rest Room Maid Name Role Phone Elsewhere, Pcp Primary Care Provider Unavailabl e Reason for Referral * Outpatient (Routine) - Closed Specialty Diagnoses / Procedures Referred By Vinicius reid Referred To Contact Diagnoses Malignant Neoplasm Of Thyroid (HCC) Procedures Multiple Endocrine Neoplasia Type 2 Syndrome, RET Full Gene Analysis ID MOPATH PROCEDURE LEVEL 7 Phuc Torres M.D. [address] [place] [address] [facility] Referral ID Status Reason Start Date Expiration Date Visits Re quested Visits Authorized [id number] Closed 01/27/2024 01/26/2025 1 1 * Outpatient (Routine) - Closed Specialty Diagnoses / Procedures Referred By Vinicius reid Referred To Contact Diagnoses Malignant Neoplasm Of Thyroid (HCC) Procedures US Superficial Tissue Fine Needle Aspiration Phuc Torres M.D. [address] [place] [address] [facility] Referral ID Status Reason Start Date Expiration Date Visits Re quested Visits Authorized [id number] Closed 01/27/2024 01/26/2025 1 1 Reason for Visit * Appointment Request (Routine) - Closed Specialty Diagnoses / Procedures Referred By Vinicius reid Referred To Contact Endocrinology Diagnoses Malignant Neoplasm Of Thyroid Medullary (HCC) Referral ID Status Reason Start Date Expiration Date Visits Re quested Visits Authorized [id number] Closed 12/20/2023 12/19/2024 1 1 Encounter Details Date Type Department Care Team (Latest Contact Info) Description 01/27/2024 1:30 PM CDT Comprehensive Visit Division of Endocrinology in [place], [place] [address] [place] [address] Phuc Torres M.D. [address] [place] [address] Malignant Neoplasm Of Thyroid (HCC) Social History Tobacco Use Types Packs/Day Years Used Date Smoking Tobacco: Never Assessed [facility] Utilities Answer Date [...] Ethan Wise) is a 63-year-old man from [facility], about [place] minutes away, [...] syndrome. No tobacco. 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 Review of his chart, though, shows [...] Phuc Torres M.D. CT CT Job ID: [id number] documented in this encounter Plan of Treatment [...] Clinical Correlations An online research opportunity called Dataupia (LocusLabs.Anchor Bay Technologies) , a project of [employer] is available for the recipient of this genetic test. This patient registry collects de-identified genetic and health information to advance the knowledge of genetic variants. [facility] is a collaborator of [employer] This may not be applicable for all [...] assistance in the interpretation of these results, [facility] Laboratory genetic counselors can be contacted at [...] of results. Reclassification of Variants Policy See www.bondsvilleCadents. com (TEST ID RETZZ) for information regarding the laboratory's policy for reclassification of variants. Variant Evaluation Variant curation is performed using published ACMG-AMP recommendations as a guideline. Other gene-specific guidelines may also be considered. Variants classified as benign or likely benign are not reported. Results from in silico evaluation tools may change analyst time and should be interpreted with caution and professional clinical judgment. TEST CLASSIFICATION This test was developed and its performance characteristics determined by [facility] in a manner consistent with CLIA requirements. This test has not been cleared or approved by the U.S. Food and Drug Administration. 02/08/2024 3:38 PM CDT DTL Released By Tony Flynn, Ph.D. 02/08/20 24 3:38 PM CDT DTL Result Summary Negative 02/08/2024 3:38 PM CDT DTL Result No reportable variants were detected. 02/08/2024 3:38 PM CDT DTL Method Next generation sequencing (NGS) and/or [place] sequencing was performed to test for the [...] methodologies based on internal laboratory criteria. See [email or web address].la (TEST ID RETZZ) for details regarding genes [...] LAB GENETIC TESTIN G Performing Organization Address [facility] Co de Phone Number [facility] [address] [place] [address], [facility] DTL [address] [facility] [address] [place] [address] * Pathology Review of Outside Material (11/12/2023 [...] 10:51 AM CDT DTL Material Received A. [id number]: Left thyroid ? 7 stained slides 02/03/2024 10:51 AM CDT DTL Interpretation FINAL DIAGNOSIS Thyroid, left lobe nodule ultrasound-guide d fine needle aspiration ([id number]; smears and thin prep; 11/12/2023): Suspicious for malignancy. ??Discohesive cells with nuclear hyperchromasia and atypia worrisome for medullary carcinoma. 02/03/2024 10:51 AM CDT DTL Varies 11/12/2023 8:45 AM CDT 02/02/2024 11:56 AM CDT Phuc Torres M.D. LAB SURG PATH ORDE RABMAKSIM Performing Organization Address [facility]/ZIP Co de Phone Number [facility] [address] [place] [address], [facility] DTL [address] [facility] [address] [place] [address] documented in this encounter Visit Diagnoses Diagnosis Malignant Neoplasm Of Thyroid (HCC) Malignant Neoplasm Of Thyroid (HCC) documented in this encounter Care Teams Rest Room Maid Relationship Specialty Start Date End Date Elsewhere, Pcp PCP - General Internal Medicine 01/27/24 documented as of this encounter
--- OUTSIDE RECORDS SUMMARY | 2024-02-15 10:54 | XMS_ITS | Encounter Summary ---
Author Organization [facility] Address [address] [place] [address] Care Team Providers Care Forensic Ballistics Expert Name Role Phone Unavailable Primary Care Provider Unavailabl e Reason for Referral * Outpatient (Routine) - Closed Specialty Diagnoses / Procedures Referred By Vinicius reid Referred To Contact Diagnoses Malignant Neoplasm Of Thyroid Medullary (HCC) Procedures US Thyroid US Head Neck Soft Tissue Phuc Torres M.D. [address] [place] [phone] [facility] Referral ID Status Reason Start Date Expiration Date Visits Re quested Visits Authorized [id number] Closed 12/28/2023 12/27/2024 1 1 * Outpatient (Routine) - Authorized Specialty Diagnoses / Procedures Referred By Vinicius reid Referred To Contact Endocrinology Diagnoses Malignant Neoplasm Of Thyroid Medullary (HCC) Phuc Torres M.D. [address] [place] [phone] [facility] Referral ID Status Reason Start Date Expiration Date V isits Requested Visits Authorized [id number] Authorized 12/28/2023 06/28/2025 1 1 Scheduling Instructions Schedule in conjunction with the General Surgery - Endocrine Consult (clinic) Please use the move up process for neck ultrasound for thyroid cancer patients * Outpatient (Routine) - Closed Specialty Diagnoses / Procedures Referred By Contac t Referred To Contact General Surgery Diagnoses Malignant Neoplasm Of Thyroid Medullary (HCC) Phuc Torres M.D. [address] [place] [address] [facility] Referral ID Status Reason Start Date Expiration Date Visits Re quested Visits Authorized [id number] Closed 12/28/2023 06/28/2025 1 1 Scheduling Instructions [...] Expiration Date Visits Re quested Visits Authorized [id number] Closed 12/20/2023 12/19/2024 1 1 Encounter Details Date Type Department Care Team (Latest Contact Info) Description 12/28/2023 2:00 PM CDT Clinical Communication Division of Endocrinology in [place], [place] [address] [place] [address] Pre-visit Intake (thyroid) Social History Tobacco Use Types Packs/Day Years Used Date Smoking Tobacco: Never Assessed [facility] Utilities Answer Date Recorded In [...] living situation today? I have a [facility] place to live 01/23/2024 [...] diagnostic for thyroid cancer, November/2023. Performed at [facility].. Reports the following: Completed a neck ultrasound in . Performed at [place]. Did complete a Cat Scan of the neck/chest November/2023. Performed at [place]. Did not complete a whole body scan. [...] care: yes The following references were used: [facility] protocols: Thyroid Cancer Evaluation ([id number]) documented in this encounter Plan of Treatment [...] and its performance characteristics determined by [facility] in a manner consistent with CLIA requirements. This test has not been cleared or approved by the U.S. Food and Drug Administration. Blood (Blood, Venous) 01/27/2024 6:47 AM CDT 01/27/2024 9:16 AM CDT Phuc Torres M.D. LAB BLOOD ADD-ON Performing Organization Address [facility] Co de Phone Number [facility] [address] [place] [address] [facility] [address] [place] [address] [place] [address] * Calcium, Total (01/27/2024 6:47 AM CDT) Calcium, Total, S 9.3 8.8 - 10.2 mg/dL 01/27/2024 8:08 AM CDT DTL Blood (Blood, Venous) 01/27/2024 6:47 AM CDT 01/27/2024 7:31 AM CDT Phuc Torres M.D. LAB BLOOD ADD-ON Performing Organization Address [facility] de Phone Number [address] [address], [facility] [address] [address] * Metanephrines, Fractionated, Free (01/27/2024 6:47 AM CDT) Normetanephrine, Free 0.64 <0.90 nmol/L 01/28/2024 3:30 PM CDT SDS Metanephrine, Free <0.20 <0.50 nmol/L 01/28/2024 3:30 PM CDT [facility] Comment: ----ADDITIONAL INFORMATION---- This test was developed and its performance characteristics determined by [facility] in a manner consistent with CLIA requirements. This test has not been cleared or approved by the U.S. Food and Drug Administration. Blood (Blood, Venous) 01/27/2024 6:47 AM CDT 01/27/2024 10:31 AM CDT Phuc Torres M.D. LAB BLOOD NON ADD- ON Performing Organization Address [facility] Co de Phone Number [facility] [address] [place] [address] [facility] [address] [place] [address] [place] [address] * (ABNORMAL) CEA (Carcinoembryonic Antigen) (01/27/2024 6:47 AM CDT) Pathologist [facility] Carcinoembryonic Ag (CEA), S 313.0(H) ng/mL 01/27/2024 10:54 AM CDT [facility] Comment: ----REFERENCE VALUE---- <=3.0 (Non-smokers) Some smokers may have elevated CEA, usually <5.0. ----ADDITIONAL INFORMATION---- The testing method is an immunoenzymatic assay manufactured by [employer]. and performed on the [employer] DxI 800. ? Values obtained with different assay methods or kits may be different and cannot be used interchangeably. ? Test results cannot be interpreted as absolute evidence for the presence or absence of malignant disease. Blood (Blood, Venous) 01/27/2024 6:47 AM CDT 01/27/2024 9:56 AM CDT Phuc Torres M.D. LAB BLOOD ADD-ON Performing Organization Address [facility] Co de Phone Number [facility] [address] [place] [address] [facility] [address] [place] [address] * (ABNORMAL) Calcitonin (01/27/2024 6:47 AM CDT) Calcitonin, S 5061(H) <=14.3 pg/mL 01/27/2024 1:35 PM CDT [facility] Comment: ----ADDITIONAL INFORMATION---- The testing [...] M.D. LAB BLOOD NON ADD- ON [facility] [address] [place] [address] [facility] [address] [place] [address] * T4 (Thyroxine), Free (01/27/2024 6:47 AM CDT) T4 (Thyroxine), Free, S 1.4 0.9 - 1.7 ng/dL 01/27/2024 8:08 AM CDT DTL Blood (Blood, Venous) 01/27/2024 6:47 AM CDT 01/27/2024 7:31 AM CDT Phuc Torres M.D. LAB BLOOD ADD-ON Performing Organization Address City/[facility]/ZIP Co de Phone Number [facility] [address] [place] [address], [facility] [address] [place] [address] * S-TSH (Thyroid-Stimulating Hormone - Sensitive) (01/27/2024 6:47 AM CDT) TSH, Sensitive 2.3 0.3 - 4.2 mIU/L 01/27/2024 8:08 AM CDT DTL Blood (Blood, Venous) 01/27/2024 6:47 AM CDT 01/27/2024 7:31 AM CDT Phuc Torres M.D. LAB BLOOD ADD-ON [facility] [address] [place] [address], [place] DTL [facility] [address] [place] [address] * US Thyroid (01/25/2024 11:23 AM CDT) [...]
--- OUTSIDE RECORDS SUMMARY | 2024-02-15 10:54 | XMS_ITS | Encounter Summary ---
Author Organization 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 200 [place] [address] [facility] Referral ID Status Reason Start Date Expiration Date Visits Re quested Visits Authorized [id number] Closed 01/27/2024 01/26/2025 1 1 Encounter Details Date Type Department Care Team (Latest Contact Info) Description 01/27/2024 3:23 PM CDT - 01/27/2024 11:59 PM CDT Hospital Encounter Department of Laboratory Medicine and Pathology, [facility] in [place], [place] [address] [place] [address] Phuc Torres M.D. [address] [place] [address] Malignant Neoplasm Of Thyroid (HCC) Discharge Disposition: Home or Self Care Social History Tobacco Use Types Packs/Day Years Used Date Smoking Tobacco: Never Assessed [facility] Utilities Answer Date Recorded In the past 12 months has th e [employer], gas, oil, or water [employer] threatened to shut off services in your [...] your living situation today? I have a [facility] place to live 01/23/2024 Sex and Gender [...] Clinical Correlations An online research opportunity called [employer] ([employer]) , a project of [employer], is available for the recipient of this genetic test. This patient registry collects de-identified genetic and health information to advance the knowledge of genetic variants. [facility] is a collaborator of [employer]. This may not be applicable for all [...] the interpretation of these results, [facility] Laboratory genetic counselors can be contacted [...] of results. Reclassification of Variants Policy See www.[employer]. [employer] (TEST ID RETZZ) for information regarding the laboratory's policy for reclassification of variants. Variant Evaluation Variant curation is performed using published ACMG-AMP recommendations as a guideline. Other gene-specific guidelines may also be considered. Variants classified as benign or likely benign are not reported. Results from in silico evaluation tools may telephone exchange operator time and should be interpreted with caution and professional clinical judgment. TEST CLASSIFICATION This test was developed and its performance characteristics determined by [facility] in a manner consistent with CLIA [...] DTL Method Next generation sequencing (NGS) and/or [place] sequencing was performed to test for the [...] methodologies based on internal laboratory criteria. See www.[email or web address] homestead hospitalLockheed Martin. [employer] (TEST ID RETZZ) for details regarding genes [...] Phuc Torres M.D. LAB GENETIC TESTIN [facility] [address] [place] [address], [facility] DTL [address] [place] [address] documented in this encounter Visit Diagnoses Diagnosis Malignant Neoplasm Of Thyroid (HCC) documented in this encounter Care Teams Digital Field Service Technician Relationship Specialty Start Date End Date Elsewhere, Pcp PCP - General Internal Medicine 01/27/24 documented as of this encounter
--- OUTSIDE RECORDS SUMMARY | 2024-02-15 10:54 | XMS_ITS | Encounter Summary ---
Author Organization [facility] Address [address] [place] [address] Care Team Providers Care Bulk Plant Operator Name Role Phone Elsewhere, Pcp Primary Care Provider Unavailabl e Reason for Referral * Outpatient (Routine) - Closed Specialty Diagnoses / Procedures Referred By Vinicius reid Referred To Contact General Surgery Dakota Morrow M.D. [address] [place] [phone] Dakota Morrow M.D. [address] [place] [phone] Referral ID Status Reason Start Date Expiration Date Visits Re quested Visits Authorized [id number] Closed 01/27/2024 07/28/2025 1 1 Scheduling Instructions Please schedule with Dr. Morrow; Reason for Visit * Outpatient (Routine) - Closed Specialty Diagnoses / Procedures Referred By Vinicius reid Referred To Contact General Surgery Diagnoses Malignant Neoplasm Of Thyroid Medullary (HCC) Phuc Torres M.D. [address] [place] [phone] [facility] Referral ID Status Reason Start Date Expiration Date Visits Re quested Visits Authorized [id number] Closed 12/28/2023 06/28/2025 1 1 Encounter Details Date Type Department Care Team (Latest Contact Info) Description 01/27/2024 3:00 PM CDT Comprehensive Visit Division of Endocrine Surgery in [place], [place] [address] [place] [address] [place] [address] Dakota Morrow M.D. 200 [place] [phone] Phuc Torres M.D. 200 [place] [phone] Malignant Neoplasm Of Thyroid Medullary (HCC) Social [...] your living situation today? I have a [facility] place to live 01/23/2024 Sex [...] (HCC) documented in this encounter Care Teams Bulk Plant Operator Relationship Specialty Start Date End Date Elsewhere, Pcp PCP - General Internal Medicine 01/27/24 documented as of this encounter
--- OUTSIDE RECORDS SUMMARY | 2024-02-15 10:54 | XMS_ITS | Encounter Summary ---
Author Organization [facility] Address [address] [place] [address] Care Team Providers Care Email Engineer Name Role Phone Elsewhere, Pcp Primary Care Provider Unavailabl e Reason for Visit * Reason Onset Date Comments Pathology Request 01/27/2024 Encounter Details Date Type Department Care Team (Latest Contact Info) Description 01/27/2024 Clinical Communication Division of Endocrinology in [place], [place] [address] [place] [address] Phuc Torres M.D. [address] [place] [address] Pathology Request Social History Tobacco Use Types Packs/Day Years Used Date Smoking Tobacco: Never Assessed [facility] Utilities Answer Date Recorded In the past [...] your living situation today? I have a [facility] place to live 01/23/2024 Sex and Gender Information Value Date Recorded Sex Assigned at Male 01/23/2024 9:14 PM CDT Gender Identity Male 01/23/2024 9:14 PM CDT Sexual Orientation Straight 01/23/2024 9: 14 PM CDT documented as of this encounter Plan of Treatment Not on file documented as of this encounter Visit Diagnoses Not on filedocumented in this encounter Care Teams Email Engineer Relationship Specialty Start Date End Date Elsewhere, Pcp PCP - General Internal Medicine 01/27/24 documented as of this encounter
--- OUTSIDE RECORDS SUMMARY | 2024-02-15 10:54 | XMS_ITS | Encounter Summary ---
Author Organization [facility] Address [address] [place] [address] Care Team Providers Care Marketing Information Manager Name Role Phone Unavailable Primary Care Provider Unavailabl e Reason for Visit * Reason Onset Date Comments [facility] 12/23/2023 ENT Encounter Details Date Type Department Care Team (Latest Contact Info) Description 12/23/2023 Clinical Communication Department of Otorhinolaryngology in [place], [place] [address] [place] [address] Provider, Unknown [facility] (ENT ) Social History Tobacco Use Types Packs/Day Years Used Date Smoking Tobacco: Never Assessed [facility] Utilities Answer Date Recorded In [...] your living situation today? I have a [facility] place to live 01/23/2024 Sex and [...]
--- OUTSIDE RECORDS SUMMARY | 2024-02-15 10:54 | XMS_ITS | Encounter Summary ---
Author Organization [facility] Address [address] [place] [address] Care Team Providers Care Motor And Controls Tester Name Role Phone Elsewhere, Pcp Primary Care Provider Unavailabl e Reason for Referral * Outpatient (Routine) - Closed Specialty Diagnoses / Procedures Referred By Vinicius reid Referred To Contact Diagnoses Malignant Neoplasm Of Thyroid (HCC) Procedures US Superficial Tissue Fine Needle Aspiration Phuc Torres M.D. 200 [place] [address] [facility] Referral ID Status Reason Start Date Expiration Date Visits Re quested Visits Authorized [id number] Closed 01/27/2024 01/26/2025 1 1 Reason for Visit * Outpatient (Routine) - Closed Specialty Diagnoses / Procedures Referred By Vinicius reid Referred To Contact Diagnoses Malignant Neoplasm Of Thyroid (HCC) Procedures US Superficial Tissue Fine Needle Aspiration Phuc Torres M.D. 200 [place] [address] [facility] Referral ID Status Reason Start Date Expiration Date Visits Re quested Visits Authorized [id number] Closed 01/27/2024 01/26/2025 1 1 Encounter Details Date Type Department Care Team (Latest Contact Info) Description 01/31/2024 8:37 AM CDT - 01/31/2024 10:21 AM CDT Hospital Encounter Department of Radiology, [facility], in [place], [place] 200 [place] [phone] Phuc Torres M.D. [address] [place] [address] Agueda Larios M.D. 200 [place] [address] Malignant Neoplasm Of Thyroid (HCC) Discharge Disposition: Home or Self Care Social History Tobacco Use Types Packs/Day Years Used Date Smoking Tobacco: Never Assessed [facility] Utilities Answer Date Recorded In the [...] your living situation today? I have a [facility] place to live 01/23/2024 Sex and Gender [...] Torres M.D. LAB SURG PATH [facility] [address] [place] [address], [facility] D[facility] [address] [place] [address] * (ABNORMAL) Cytology Fine Needle Aspiration (including [...] AM CDT Comment:Left Cervical Level 5 Phuc Trores M.D. LAB SURG PATH [facility] [address] [place] [address], [facility] D[facility] [address] [facility] [address] [place] [address] * Calcitonin, Fine-Needle Aspiration Biopsy (FNAB)-Needle Wash, Lymph Node (01/31/2024 9:16 AM CDT) Calcitonin, FNAB, Lymph Node [id number] pg/mL 01/31/2024 6:10 PM CDT [facility] Comment: Calcitonin values = or [...] This test has been modified from the back roller's instructions. Its performance characteristics were determined by [facility] in a manner consistent with CLIA [...] Washings, Lymph Node 02/01/2024 10:16 AM CDT [facility] Comment:REVISED RESULTS FNA Needle Washings (Lymph Node) 01/31/2024 9:16 AM CDT Phuc Torres M.D. LAB BODY FLUIDS AN D STOOLS ORDERABLES [facility] [address] [place] [address] [facility] [address] [place] [address] * Calcitonin, Fine-Needle Aspiration Biopsy (FNAB)-Needle Wash, Lymph Node (01/31/2024 9:12 AM CDT) Pathologist [facility] Calcitonin, FNAB, Lymph Node 31 pg/mL 02/01/2024 9:36 AM CDT [facility] Comment: Calcitonin values = or [...] This test has been modified from the back roller's instructions. Its performance characteristics were determined by [facility] in a manner consistent with CLIA [...] Washings, Lymph Node 02/01/2024 10:17 AM CDT [facility] Comment:REVISED RESULTS FNA Needle Washings (Lymph Node) 01/31/2024 9:12 AM CDT 01/31/2024 3:14 PM CDT Narrative Authorizing Provider Result Clive Torres M.D. LAB BODY FLUIDS AN D STOOLS ORDERABLES [facility] [address] [place] [address] [facility] [address] [place] [address] documented in this encounter Visit Diagnoses Diagnosis [...] Neck) documented in this encounter Care Teams Motor And Controls Tester Relationship Specialty Start Date End Date Elsewhere, Pcp PCP - General Internal Medicine 01/27/24 documented as of this encounter
--- OUTSIDE RECORDS SUMMARY | 2024-02-15 10:54 | XMS_ITS | Encounter Summary ---
Author Organization [facility] Address [address] [place] [address] Care Team Providers Care Sample Driller Name Role Phone Unavailable Primary Care Provider Unavailabl e Reason for Referral * Outpatient (Routine) - Closed Specialty Diagnoses / Procedures Referred By Vinicius reid Referred To Contact Otorhinolaryngology Diagnoses Malignant Neoplasm Of Thyroid (HCC) Carmela Basurto M.D. [address] [place] [address] [facility] Referral ID Status Reason Start Date Expiration Date Visits Re quested Visits Authorized [id number] Closed 12/22/2023 06/22/2025 1 1 Encounter Details Date Type Department Care Team (Late st Contact Info) Description 12/22/[address] [facility] [address] [place] [address] Carmela Basurto M.D. [address] [place] [phone] Malignant Neoplasm Of Thyroid (HCC) (Primary Dx) [...]
--- OUTSIDE RECORDS SUMMARY | 2024-02-15 10:54 | XMS_ITS | Encounter Summary ---
Author Organization [facility] Address [address] [place] [address] Care Team Providers Care Stone Engraver Name Role Phone Elsewhere, Pcp Primary Care Provider Unavailabl e Encounter Details Date Type Department Care Team (Late st Contact Info) Description 12/30/2023 Clinical Communication Division of Endocrine Surgery in [place], [place] [address] [place] [phone] Dakota Morrow M.D. [address] [place] [address] Social History Tobacco Use Types Packs/Day Years [...] your living situation today? I have a [facility] place to live 01/23/2024 Sex and Gender Information Value Date Recorded Sex Assigned at Male 01/23/2024 9:14 PM CDT Gender Identity Male 01/23/2024 9:14 PM CDT Sexual Orientation Straight 01/23/2024 9: 14 PM CDT documented as of this encounter Plan of Treatment Not on file documented as of this encounter Visit Diagnoses Not on filedocumented in this encounter Care Teams Stone Engraver Relationship Specialty Start Date End Date Elsewhere, Pcp PCP - General Internal Medicine 01/27/24 documented as of this encounter
--- OUTSIDE RECORDS SUMMARY | 2024-02-15 10:54 | XMS_ITS | Encounter Summary ---
Author Organization [facility] Address [address] [place] [address] Care Team Providers Care Calcine Furnace Loader Name Role Phone Elsewhere, Pcp Primary Care Provider Unavailabl e Encounter Details Date Type Department Care Team (Late st Contact Info) Description 01/27/2024 2:40 PM CDT Lab RST RO [facility] [address] [place] [phone] Phuc Torres M.D. [address] [place] [phone] Malignant Neoplasm Of Thyroid (HCC) Social History Tobacco Use Types Packs/Day Years Used Date Smoking Tobacco: Never Assessed [facility] Utilities Answer Date Recorded In [...] your living situation today? I have a [facility] place to live 01/23/2024 Sex and [...] 10:51 AM CDT DTL Material Received A. [id number]: Left thyroid ? 7 stained slides 02/03/2024 10:51 AM CDT DTL Interpretation FINAL DIAGNOSIS Thyroid, left lobe nodule ultrasound-guide d fine needle aspiration ([id number]; smears and thin prep; 11/12/2023): Suspicious for malignancy. ??Discohesive cells with nuclear hyperchromasia and atypia worrisome for medullary carcinoma. 02/03/2024 10:51 AM CDT DTL Varies 11/12/2023 8:45 AM CDT 02/02/2024 11:56 AM CDT hPuc Torres M.D. LAB SURG PATH [facility] Performing Organization Address City/State/[facility] Co de Phone Number [facility] [address] [place] [address], [facility] DTL [address] [place] [address] documented in this encounter Visit Diagnoses Diagnosis Malignant Neoplasm Of Thyroid (HCC) documented in this encounter Care Teams Calcine Furnace Loader Relationship Specialty Start Date End Date Elsewhere, Pcp PCP - General Internal Medicine 01/27/24 documented as of this encounter
--- OUTSIDE RECORDS SUMMARY | 2024-02-15 10:54 | XMS_ITS | Encounter Summary ---
Author Organization [facility] Address [address] [place] [address] Care Team Providers Care Assistant Professor Of Surgery Name Role Phone Elsewhere, Pcp Primary Care Provider Unavailabl e Encounter Details Date Type Department Care Team (Latest Contact Info) Description 01/27/2024 6:21 AM CDT - 01/27/2024 3:22 PM CDT Hospital Encounter Department of Laboratory Medicine and Pathology, [facility] in [place], [place] [address] [place] [address] Phuc Torres M.D. [address] [place] [phone] Malignant Neoplasm Of Thyroid Medullary (HCC) Discharge Disposition: Home or Self Care Social History Tobacco Use Types Packs/Day Years Used Date Smoking Tobacco: Never Assessed [facility] Utilities Answer Date Recorded In the past 12 months has [facility] [employer], gas, oil, or water [facility] threatened to shut off services in [...] your living situation today? I have a [facility] place to live 01/23/2024 Sex and [...] D2 <4.0 ng/mL 01/29/2024 3:28 PM CDT [facility] 25-Hydroxy D3 16 ng/mL 01/29/2024 3:28 PM CDT [facility] 25-Hydroxy D Total 16(L) ng/mL 2023 3:28 PM CDT [facility] Comment: Interpretation: 10-19 ng/mL (mild to moderate deficiency) ----REFERENCE VALUE---- 25-HYDROXY D TOTAL (D2+D3) Optimum levels in the healthy population are 20-50. ----ADDITIONAL INFORMATION---- This test was developed and its performance characteristics determined by [facility] in a manner consistent with CLIA requirements. This test has not been cleared or approved by the U.S. Food and Drug Administration. Blood (Blood, Venous) 01/27/2024 6:47 AM CDT 01/27/2024 9:16 AM CDT Phuc Torres M.D. LAB BLOOD ADD-ON Performing Organization Address City/[facility]/ZIP Co de Phone Number [facility] [address] [place] [address] [facility] [address] [place] [address] [place] [address] * Calcium, Total (01/27/2024 6:47 AM CDT) Pathologist [facility] Calcium, Total, S 9.3 8.8 - 10.2 mg/dL 01/27/2024 8:08 AM CDT DTL Blood (Blood, Venous) 01/27/2024 6:47 AM CDT 01/27/2024 7:31 AM CDT Phuc Torres M.D. LAB BLOOD ADD-ON Performing Organization Address City/[facility]/ZIP Co de Phone Number [facility] [place] [address] [place] [address], [facility] [place]note 2] [address] [place] [address] * Metanephrines, Fractionated, Free (01/27/2024 6:47 AM CDT) Normetanephrine, Free 0.64 <0.90 nmol/L 01/28/2024 3:30 PM CDT [facility] Metanephrine, Free <0.20 <0.50 nmol/L 01/28/2024 3:30 PM CDT [facility] Comment: ----ADDITIONAL INFORMATION---- This test was developed and its performance characteristics determined by [facility] in a manner consistent with CLIA requirements. This test has not been cleared or approved by the U.S. Food and Drug Administration. Blood (Blood, Venous) 01/27/2024 6:47 AM CDT 01/27/2024 10:31 AM CDT Phuc Torres M.D. LAB BLOOD NON ADD- ON Performing Organization Address [facility] Co de Phone Number [facility] [address] [place] [address] [facility] [address] [place] [address] [place] [address] * (ABNORMAL) CEA (Carcinoembryonic Antigen) (01/27/2024 6:47 AM CDT) Carcinoembryonic Ag (CEA), S 313.0(H) ng/mL 01/27/2024 10:54 AM CDT [facility] Comment: ----REFERENCE VALUE---- <=3.0 (Non-smokers) Some smokers may have elevated CEA, usually <5.0. ----ADDITIONAL INFORMATION---- The testing method is an immunoenzymatic assay manufactured by [employer] and performed on the [employer] DxI 800. ? Values obtained with different assay methods or kits may be different and cannot be used interchangeably. ? Test results cannot be interpreted as absolute evidence for the presence or absence of malignant disease. Blood (Blood, Venous) 01/27/2024 6:47 AM CDT 01/27/2024 9:56 AM CDT Phuc Torres M.D. LAB BLOOD ADD-ON Performing Organization Address City/[facility]/ZIP Co de Phone Number [facility] [address] [place] [address] [facility] [facility] [address] [place] [address] * (ABNORMAL) Calcitonin (01/27/2024 6:47 AM CDT) [facility] Calcitonin, S 5061(H) <=14.3 pg/mL 01/27/2024 1:35 PM CDT [facility] Comment: ----ADDITIONAL INFORMATION---- The testing method is an electrochemiluminescence assay manufactured by [employer] and performed on the Lov[employer] system. Values obtained with different assay methods or kits may be different and cannot be used interchangeably. Test results cannot be interpreted as absolute evidence for the presence or absence of malignant disease. Blood (Blood, Venous) 01/27/2024 6:47 AM CDT 01/27/2024 11:54 AM CDT Phuc Torres M.D. LAB BLOOD NON ADD- ON Performing Organization Address City/[facility]/ZIP Co de Phone Number [facility] [address] [place] [address] [place] [address] * T4 (Thyroxine), Free (01/27/2024 6:47 AM CDT) [facility] T4 (Thyroxine), Free, S 1.4 0.9 - 1.7 ng/dL 01/27/2024 8:08 AM CDT [facility] Blood (Blood, Venous) 01/27/2024 6:47 AM CDT 01/27/2024 7:31 AM CDT Puhc Torres M.D. LAB BLOOD ADD-ON [facility] [place] [address] [place] [address], [facility] [address] [place] [address] * S-TSH (Thyroid-Stimulating Hormone - Sensitive) (01/27/2024 6:47 AM CDT) TSH, Sensitive 2.3 0.3 - 4.2 mIU/L 01/27/2024 8:08 AM CDT DTL Blood (Blood, Venous) 01/27/2024 6:47 AM CDT 01/27/2024 7:31 AM CDT Phuc Torres M.D. LAB BLOOD ADD-ON [facility] [address] [place] [address], [facility] [place]note 2] [address] [place] [address] documented in this encounter Visit Diagnoses Diagnosis Malignant Neoplasm Of Thyroid Medullary (HCC) documented in this encounter Care Teams Assistant Professor Of Surgery Relationship Specialty Start Date End Date Elsewhere, Pcp PCP - General Internal Medicine 01/27/24 documented as of this encounter
--- OUTSIDE RECORDS SUMMARY | 2024-02-15 10:54 | XMS_ITS | Clinical Summary ---
Author Organization [employer] [facility] [facility] Address [place], [place] [address] Care Team Providers Care Business Support Name Role Phone Pcp, No Primary Care [...] Active Active Problems No known active problems Immunizations Name Administration Dates Next Due Influenza [...] Tetanus booster 02/16/2017 02/16/2007 COVID-19 vaccine series (2022- season) 2023 06/10/2021, 11/01/2020, 10/01/2020 Influenza for age 50-64 03/12/2024 BMI (ht and wt on same day) for age 18+ 10/24/2024 10/25/2023, 12/14/2021 Tdap Completed 02/16/2007 Pneumococcal series for age 6-64 Aged Out No longer eligible b ased on patient's age to complete this topic Care Teams Business Support Relationship Specialty Start Date End Date Pcp, No . PCP - General 06/10/23
--- OUTSIDE RECORDS SUMMARY | 2024-02-15 10:54 | XMS_ITS | Encounter Summary ---
Author Organization [facility] Address [address] [place] [address] Care Team Providers Care Drop Forge Hand Name Role Phone Unavailable Primary Care Provider Unavailabl e Reason for Referral * Outpatient (Routine) - Closed Specialty Diagnoses / Procedures Referred By Vinicius reid Referred To Contact Diagnoses Malignant Neoplasm Of Thyroid Medullary (HCC) Procedures US Thyroid US Head Neck Soft Tissue Phuc Torres M.D. 200 [place] [address] [facility] Referral ID Status Reason Start Date Expiration Date Visits Re quested Visits Authorized [id number] Closed 12/28/2023 12/27/2024 1 1 Reason for Visit * Outpatient (Routine) - Closed Specialty Diagnoses / Procedures Referred By Vinicius reid Referred To Contact Diagnoses Malignant Neoplasm Of Thyroid Medullary (HCC) Procedures US Thyroid US Head Neck Soft Tissue Phuc Torres M.D. [address] [place] [address] [facility] Referral ID Status Reason Start Date Expiration Date Visits Re quested Visits Authorized [id number] Closed 12/28/2023 12/27/2024 1 1 Encounter Details Date Type Department Care Team (Latest Contact Info) Description 01/25/2024 10:16 AM CDT - 01/25/2024 11:59 PM CDT Hospital Encounter Department of Radiology, [facility], in [place], [place] [address] [place] [address] Phuc Torres M.D. [address] [place] [address] Malignant Neoplasm Of Thyroid Medullary (HCC) Discharge Disposition: Home or Self Care Social History Tobacco Use Types Packs/Day Years Used Date Smoking Tobacco: Never Assessed [facility] Utilities Answer Date Recorded In the past [...] your living situation today? I have a [facility] place to live 01/23/2024 Sex [...]
== END 2024-02-15 10:50 | disposition home or self-care (01) ==
PROVIDERS: PCP Family Medicine; Visit Provider Family Medicine
DX: I10 Essential (primary) hypertension (principal); R97.0 Elevated carcinoembryonic antigen [CEA]; C73 Malignant neoplasm of thyroid gland
CPT/HCPCS: 80048; 82378

== ENCOUNTER 2024-03-16 16:21 | Outpatient (CLI) | payer OTHER, SELFPAY ==
--- OUTSIDE RECORDS SUMMARY | 2024-03-21 14:04 | XMS_ITS | Encounter Summary ---
Author Organization [facility] Address [address] [place] [address] Care Team Providers Care Director Of Social Media Marketing Name Role Phone No Primary/Referring, Phy Primary [...] on filedocumented in this encounter Care Teams Director Of Social Media Marketing Relationship Specialty Start Date End Date No Primary/Referring, Phy PCP - General 11/04/18 documented as of this encounter
--- OUTSIDE RECORDS SUMMARY | 2024-03-21 14:04 | XMS_ITS | Clinical Summary ---
Author Organization [facility] Address [address] [address] Care Team Providers Care Facility Administrator Name Role Phone No Primary/Referring, Phy Primary Care Provider Unavailable Source Comments You are receiving this document as you are listed as the primary care provider,follow-up provider, or the patient has been referred to you for consultation.This is in compliance with the Medicare and[facility] Hospital[facility] EHR Incentive Program,which states Providers who transition their patient to another setting of careor provider of care or refers their patient to another provider of care shouldprovide summary care record for each transition of care or referral. [facility] Allergies No known active allergies [...] 37 ??C (98.6 ??F) 09/12/2018 2:54 PM APPLICATION LEAD Respiratory Rate 16 09/12/2018 4:43 PM APPLICATION LEAD Oxygen Saturation 95% 09/12/2018 4:43 PM APPLICATION LEAD Inhaled Oxygen Concentration - - Weight 103 [...] COVID-19 Vaccine (2 - 2022-2 4 season) 2024 10/01/2020 Influenza (#1) 2024 HepA Aged Out [...] e ffect for 30 days Care Teams Facility Administrator Relationship Specialty Start Date End Date No Primary/Referring, Phy PCP - General 11/04/18
--- OUTSIDE RECORDS SUMMARY | 2024-03-21 14:04 | XMS_ITS | Encounter Summary ---
Author Organization [facility] Address [address] [place] [address] Care Team Providers Care Design Maintenance Engineer Name Role Phone No Primary/Referring, Phy [...] on filedocumented in this encounter Care Teams Design Maintenance Engineer Relationship Specialty Start Date End Date No Primary/Referring, Phy PCP - General 11/04/18 documented as of this encounter
--- OUTSIDE RECORDS SUMMARY | 2024-03-21 14:04 | XMS_ITS | Encounter Summary ---
Author Organization [facility] Address [address] [place] [address] Care Team Providers Care Shingle Trimmer Name Role Phone No Primary/Referring, Phy Primary [...] on filedocumented in this encounter Care Teams Shingle Trimmer Relationship Specialty Start Date End Date No Primary/Referring, Phy PCP - General 11/04/18 documented as of this encounter
--- OUTSIDE RECORDS SUMMARY | 2024-03-21 14:05 | XMS_ITS | Encounter Summary ---
Author Organization [facility] Address [address] [place] [address]. [place] [address] Care Team Providers Care Case Investigator Name Role Phone No Ref-Primary, Physician Primary Care Provider Clinic - [facility] Unavailabl e Encounter Details Date Type Department Care Team (Late st Contact Info) Description 12/14/2023 Medical Correspondence [facility] Health Info Mgmt [facility] [address] [place] [phone] Scan, Non-Provider Social History Tobacco Use Types Packs/Day Years Used Date Smoking Tobacco: Never Smokeless Tobacco: Never Social Connection and Isolat ion Panel [NHANES] Answer Date Recorded Frequency of Communication w ith Friends and Family Not on file 04/02/2023 How often do you get togethe r with friends or relatives? Twice a week 04/02/2023 How often do you attend chur ch or cheondoism services? 1 to 4 times per year [...] PHQ-2 Score 0 04/02/2023 [facility] - Occupational Stress Questionnaire Answer Date [...] on filedocumented in this encounter Care Teams Case Investigator Relationship Specialty Start Date End Date No Ref-Primary, Physician PCP - General 04/05/23 Clinic - [facility] [address] [place] [address] Assigned PCP 11/02/23 documented as of this encounter
--- OUTSIDE RECORDS SUMMARY | 2024-03-21 14:05 | XMS_ITS | Encounter Summary ---
Author Organization [facility] Address [address] [place] [address] Care Team Providers Care Bus And Sys Integration Senior Manager Name Role Phone No Ref-Primary, Physician Primary Care Provider [facility] - [facility] Unavailabl e Reason for Visit * Reason Onset Date Comments Consult Referral 12/20/2023 Encounter Details Date Type Department Care Team (Late st Contact Info) Description 12/20/2023 Telephone [facility] [place] [address] [place] [address] Self, ReferredMD Consult Referral Social [...] often do you attend chur ch or sikh services? 1 to 4 times [...] Answer Date Recorded PHQ-2 Score 0 04/02/2023 [facility] - Occupational Stress Questionnaire Answer [...] Long Sabina. Male, 63 year old, 1960 [facility] Thyroid Cancer Referring Dr. Carmela Basurto #1 [...] on filedocumented in this encounter Care Teams Bus And Sys Integration Senior Manager Relationship Specialty Start Date End Date No Ref-Primary, Physician PCP - General 04/05/23 [facility] - [facility] [address] [place] [address] Assigned PCP 11/02/23 documented as of this encounter
--- OUTSIDE RECORDS SUMMARY | 2024-03-21 14:05 | XMS_ITS | Clinical Summary ---
Author Organization [facility] Address [address] [place] [address] Care Team Providers Care Tower Supervisor Name Role Phone No Ref-Primary, Physician Primary Care Provider [facility] Unavailabl e Allergies Active Allergy Reactions [...] Date Type Department Care Team Description 12/20/2023 [facility] [place] [address] [place] [address] Self, Referred, MD Consult Referral from Last 3 Months Immunizations Name Administration Dates Next Due [id number] Novel Flu- Nasal 08/10/2009 TDAP (Adacel,Boostrix) 04/02/2023,02/16/2007 [...] often do you attend chur ch or episcopalian services? 1 to 4 times per year 04/02/2023 Do you belong to any clubs o r organizations such as congregational groups, unions, fraternal or athletic groups, or [...] 0 04/02/2023 [facility] - Occupational Stress [...] IMMUNIZATION (1 of 2) 2011 RSV VACCINE (1 - 1-dose 60+ series) 2021 PHQ-2 (once per calendar year) 2023 04/02/2023 COVID-19 Vaccine (4 - season) 2024 06/10/2021, 11/01/2020, 10/01/2020 INFLUENZA VACCINE (#1) 2024 08/10/2009 ANNUAL REVIEW [...] Procedure Name Priority Date/Time Associated Diagnosis Comments GLUCOSE (EXTERNAL RESULT) Routine 10/06/2023 9:55 AM [...] Recently Relevant to Health Maintenance Results * Glucose (External Result) (10/06/2023 9:55 AM CDT) Glucose (External) 90 60 - 115 mg/dL [facility] Blood 10/06/2023 9:55 AM CDT Narrative [facility] - 10/06/2023 9:55 AM CDT OUTSIDE RECORDS - External Lab Results Provider Outside LAB - HIM EXTERNAL R ESULT [facility] [address] [phone] * HIV Antigen Antibody Combo (04/02/2023 9:11 AM CDT) HIV Antigen Antibody Combo Nonreactive Nonreactive 04/03/2023 12:48 PM CDT [facility] DO Comment:HIV-1 p24 Ag & HIV-1 /HIV-2 Ab Not Detected Blood BLOOD SPECIMEN / Unknown Venipuncture / Unknown 04/02/2023 9:11 AM CDT 04/02/2023 9:11 AM CDT Cassandra Rojas DATA PROCESSING MANAGER LAB - BLOOD ORDERABL ES [facility] [address] [facility], [address] [phone] * Hepatitis C Screen Reflex to HCV [...] [facility] [address] [facility], [address] [phone] * (ABNORMAL) Lipid panel reflex to direct [...] LAB - BLOOD ORDERABL ES [facility] [place] [facility] [address] [facility], [address] [place] [address], [facility] [phone] from Last 3 Months or Most Recently Relevant to Health Maintenance Advance Directives For more information, please contact: [phone] * Full Code (Latest Code Status on File) Date Activated Date Inactivated Comments 08/24/2016 12:28 PM * Full Code Date Activated Date Inactivated Comments 08/23/2016 5:10 PM 08/24/2016 12:28 PM Care Teams Tower Supervisor Relationship Specialty Start Date End Date No Ref-Primary, Physician PCP - General 04/05/23 [facility] [address] [place] [address] Assigned PCP 11/02/23
--- OUTSIDE RECORDS SUMMARY | 2024-03-21 14:05 | XMS_ITS | Clinical Summary ---
Author Organization [facility] Address [address] [place] [address] Care Team Providers Care Turbine Mechanic Name Role Phone Elsewhere, Pcp Primary Care Provider Unavailabl e Source Comments Patient records contain information from all sites at [facility]. For routine questions regarding patient records, call [phone] during business hours, M-F 8:00 AM - 5:00 PM Central Time. Record requests for emergency care only can be directed to [phone] at any time.[facility] Allergies Active Allergy Reactions Criticality Noted Date [...] = 50,000 Units, Reported on 02/03/2024 fluticasone propion-salmeteroL 250-50 mcg/dose diskus inhaler Inhale 1 puff 2 (two) times a day. Rinse mouth with water after use to reduce aftertaste and incidence of candidiasis. Do not swallow. Active acetaminophen (TylenoL) 500 mg tablet Take 2 tablets (1,000 mg total) by mouth every 6 (six) hours as needed for pain. 02/04/2024 Active oxyCODONE (Roxicodone) 5 mg immediate release tabletIndications: Acute Pain Take 1 tablet (5 mg total) by mouth every 4 (four) hours as needed for severe pain or score 7-10 of 10 Indication: Acute Pain. 10 tablet 02/04/2024 Active levothyroxine 175 mcg tablet Take 1 tablet (175 mcg total) by mouth daily before morning meal. 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 02/14/2024 Orders Only Division of Endocrinology in [place], [place] [address] [place] [address] Phuc Torres M.D. 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 02/07/2024 Clinical Communication Division of Endocrine Surgery in [place], [place] [address] [place] [address] Jaret Salas M.D. 02/06/2024 Clinical Communication Division of Endocrine Surgery in [place], [place] [address] [place] [address] Jaret Salas M.D. 02/05/2024 Clinical Communication Division of Endocrine Surgery in [place], [place] [address] [place] [address] Jaret Salas M.D. 02/05/2024 Clinical Communication Division of Endocrine Surgery in [place], [place] [address] [place] [address] Jaret Salas M.D. 02/05/2024 Intake [facility] 02/03/2024 1:52 PM CDT Anesthesia Event RST [facility] OR [address] [place] [address] Paulino Love, Marla. Willem Baker M.D., M.S. 02/03/2024 12:13 PM CDT - 02/03/2024 3:42 PM CDT Surgery T [facility] OR [address] [place] [address] Dakota Morrow M.D. THYROIDECTOMY - TOTAL. 02/03/2024 10:28 AM CDT - 02/04/2024 12:44 PM CDT Hospital Encounter [facility], Sixth Floor [address] [place] [address] Dakota Morrow M.D. Malignant Neoplasm Of Thyroid Medullary (HCC) Discharge Disposition: Home or Self Care 02/02/2024 2:00 PM CDT Office Visit Division of Endocrine Surgery in [place], [place] [address] [place] [address] Dakota Morrow M.D. Castro, M. Regina, M.D. Malignant Neoplasm Of Thyroid Medullary (HCC) (Primary Dx) 01/31/2024 8:37 AM CDT - 01/31/2024 10:21 AM CDT Hospital Encounter Department of Radiology, [facility], in [place], [place] [address] [place] [address] Phuc Torres M.D. Robinson, Kathryn A, M.D. Malignant Neoplasm Of Thyroid (HCC) Discharge Disposition: Home or Self Care 01/31/2024 Orders Only Division of Endocrinology in [place], [place] [address] [place] [phone] Phuc Torres M.D. 01/27/2024 3:23 PM CDT - 01/27/2024 11:59 PM CDT Hospital Encounter Department of Laboratory Medicine and Pathology, [facility] in [place], [place] [address] [place] [phone] Phuc Torres M.D. Malignant Neoplasm Of Thyroid (HCC) Discharge Disposition: Home or Self Care 01/27/2024 3:00 PM CDT Comprehensive Visit Division of Endocrine Surgery in [place], [place] [address] [place] [phone] Dakota Morrow M.D. Castro, M. Regina, M.D. Malignant Neoplasm Of Thyroid Medullary (HCC) 01/27/2024 2:40 PM CDT Lab RST [facility] [address] [place] [phone] Phuc Torres M.D. Malignant Neoplasm Of Thyroid (HCC) 01/27/2024 1:30 PM CDT Comprehensive Visit Division of Endocrinology in [place], [place] [address] [place] [phone] Phuc Torres M.D. Malignant Neoplasm Of Thyroid (HCC) 01/27/2024 6:21 AM CDT - 01/27/2024 3:22 PM CDT Hospital Encounter Department of Laboratory Medicine and Pathology, [facility] in [place], [place] [address] [place] [phone] Phuc Torres M.D. Malignant Neoplasm Of Thyroid Medullary (HCC) Discharge Disposition: Home or Self Care 01/27/2024 Clinical Communication Division of Endocrinology in [place], [place] [address] [place] [phone] Phuc Torres M.D. Pathology Request 01/25/2024 10:16 AM CDT - 01/25/2024 11:59 PM CDT Hospital Encounter Department of Radiology, [facility] in [place], [place] [address] [place] [phone] Phuc Torres M.D. Malignant Neoplasm Of Thyroid Medullary (HCC) Discharge Disposition: Home or Self Care 12/30/2023 Clinical Communication Division of Endocrine Surgery in [place], [place] [address] [place] [address] Dakota Morrow M.D. 12/28/2023 2:00 PM CDT Clinical Communication Division of Endocrinology in [place], [place] [address] [place] [address] Pre-visit Intake (thyroid) 12/23/2023 Clinical Communication Department of Otorhinolaryngology in [place], [place] [address] [place] [address] Provider, Unknown OSM (ENT ) 12/22/2023 [facility] AND [facility] [address] [place] [address] Carmela Basurto M.D. Malignant Neoplasm Of Thyroid (HCC) (Primary Dx) from Last 3 Months Social History Tobacco Use Types Packs/Day Years Used Date Smoking Tobacco: Never Smokeless Tobacco: Never Alcohol Use Standard Drinks/Week Comments Not Currently 0 (1 standard drink = 0.6 oz pur e alcohol) [facility] Utilities Answer Date Recorded In the past 12 months has e [employer], gas, oil, or water [employer] threatened to shut off services in your [...] your living situation today? I have a [facility] place to live 01/23/2024 Sex and [...] 1960 Zoster Vaccines (1 of 2) 2011 Depression Screening (Annual PHQ-2) 07/12/2023 COVID-19 Vaccine (2022- 4 season) 2024 06/10/2021, 11/01/2020, 10/01/2020 Influenza Vaccine (#1) 2024 08/10/2009 Office Visit [...] this topic Medical Devices Implanted Type Area Mammography Technologist Device Identifier Shelf Expiration Date Model / Serial / Lot Clp Hrzn Ti 6 Clp Sm Red - [id number] Implanted:Qty: 1 on 02/03/2024 by Dakota Morrow M.D. at [facility] Hardware e.g. pins/screws/r ods Neck [id number] [id number] / / Procedures Procedure Name Priority Date/Time [...] CDT Malignant Neoplasm Of Thyroid Medullary (HCC) from Last 3 Months Results * CT [...] System IMG CT PROCEDURES Performing Organization Address City/[facility]/ZIP Co de Phone Number IIMS NA * CT SOFT TISSUE NECK W CON-Outside CT Neuro (02/05/2024 3:40 AM CDT) 02/05/2024 3:37 AM CDT Narrative [...] System IMG CT PROCEDURES IIMS NA * Parathyroid Hormone (PTH) (02/03/2024 7:15 PM CDT) Parathyroid Hormone (PTH), S 28 15 - 65 pg/mL 02/03/2024 8:48 PM CDT DTL Blood (Blood, Venous) 02/03/2024 7:15 PM CDT 02/03/2024 8:02 PM CDT Jaret Salas M.D. LAB BLOOD ADD-O N [facility] [address] [place] [address], [place] DTL [facility] [address] [place] [address] * Surgical Pathology, Frozen Lab (02/03/2024 3:20 [...] almost the entire lobe in 3 dimensions. Licensed Journeyman Electrician tissue submitted for permanent sections. Grossed by Donovan Trinidad M.D., Ph.D.-Pathology Resident. B. ??Received fresh labeled right thyroid lobe is a 7 g completion thyroidectomy with a 4.5 x 3.3 x 1.3 cm right lobe. ??The margin is inked and margins are taken perpendicularly. ??No nodules are identified. ??All submitted for permanent sections. ??Grossed by Aaron Amado.Sabina., P.A. ([facility]). C. ??Received fresh labeled left neck level 2, 3, 4, and 5A lymph nodes is an 8 x 3 x 2 cm aggregate of adipose and lymphatic tissue. ??Lymph nodes are submitted for frozen and permanent sections. ??Grossed by Sachi Amado, P.A. ([facility]). 02/07/2024 2:56 PM CDT METH Block [...] of Lymph Nodes with Tumor: ??4 ?? Sabrjit Level(s) Involved: and ??II, III, IV, VA [...] Morrow M.D. LAB SURG PATH ORDERA BLES [facility] [address] [place] [address], [facility] 200 [facility] 200 [place] [address] * Airway (02/03/2024 2:04 PM CDT) Narrative [...] ETT location: oral VL device: glide scope Ecorse scope blade size: 4 Tube size: 7 [...] 4 andleft cervical level 5. NR Phuc Torers M.D. IMG US PROCEDURES * Cytology Fine [...] Torres M.D. LAB SURG PATH [facility]Y [facility] [address] [place] [address], [facility] DTL [address] [place] [address] * Calcitonin, Fine-Needle Aspiration Biopsy (FNAB)-Needle Wash, Lymph Node (01/31/2024 9:16 AM CDT) Only the most recent of2 resultswithin the time period is included. Calcitonin, FNAB, Lymph Node [id number] pg/mL 01/31/2024 6:10 PM CDT [facility] Comment: Calcitonin values = or [...] This test has been modified from the knotter hand's instructions. Its performance characteristics were determined by [facility] in a manner consistent with [...] Washings, Lymph Node 02/01/2024 10:16 AM CDT [facility] Comment:REVISED RESULTS FNA Needle Washings (Lymph Node) 01/31/2024 9:16 AM CDT Phuc Torres M.D. LAB BODY FLUIDS AN D STOOLS ORDERABLES [facility] [address] [place] [address] [facility] [address] [place] [address] * Multiple Endocrine Neoplasia Type 2 Syndrome, RET Full Gene Analysis (01/27/2024 3:44 PM CDT) Test Description Evaluation of the RET gene associated with multiple endocrine neoplasia type 2 02/08/2024 3:38 PM CDT DTL Specimen WB Whole Blood 02/08/2024 3:38 PM CDT DTL Disclaimer Clinical Correlations An online research opportunity called [employer] ([employer]) , a project of [employer], is available for the recipient of this genetic test. This patient registry collects de-identified genetic and health information to advance the knowledge of genetic variants. [facility] is a collaborator of [employer]. This may not be applicable for all [...] assistance in the interpretation of these results, [facility] Laboratory genetic counselors can be [...] of results. Reclassification of Variants Policy See www.marlinPlasmaSi. Eyeota (TEST ID RETZZ) for information regarding the laboratory's policy for reclassification of variants. Variant Evaluation Variant curation is performed using published ACMG-AMP recommendations as a guideline. Other gene-specific guidelines may also be considered. Variants classified as benign or likely benign are not reported. Results from in silico evaluation tools may band shover time and should be interpreted with caution and professional clinical judgment. TEST CLASSIFICATION This test was developed and its performance characteristics determined by [facility] in a manner consistent with [...] DTL Method Next generation sequencing (NGS) and/or [place] sequencing was performed to test for [...] methodologies based on internal laboratory criteria. See [email or web address] [email or web address]. com (TEST ID RETZZ) for details regarding [...] LAB GENETIC TESTIN G Performing Organization Address City/[facility]/ZIP Co de Phone Number [facility] [address] [place] [address], [facility] DTL [address] [place] [address] * Metanephrines, Fractionated, Free (01/27/2024 6:47 AM CDT) Normetanephrine, Free 0.64 <0.90 nmol/L 01/28/2024 3:30 PM CDT [facility] Metanephrine, Free <0.20 <0.50 nmol/L 01/28/2024 3:30 PM CDT [facility] Comment: ----ADDITIONAL INFORMATION---- This test was developed and its performance characteristics determined by [facility] in a manner consistent with CLIA requirements. This test has not been cleared or approved by the U.S. Food and Drug Administration. Blood (Blood, Venous) 01/27/2024 6:47 AM CDT 01/27/2024 10:31 AM CDT Phuc Torres M.D. LAB BLOOD NON ADD- ON Performing Organization Address City/[facility]/ZIP Co de Phone Number [facility] [address] [place] [address] [facility] [address] [place] [address] [place] [address] * (ABNORMAL) 25-Hydroxyvitamin D2 and D3 (01/27/2024 6:47 AM CDT) 25-Hydroxy D2 <4.0 ng/mL 01/29/2024 3:28 PM CDT [facility] 25-Hydroxy D3 16 ng/mL 01/29/2024 3:28 PM CDT [facility] 25-Hydroxy D Total 16(L) ng/mL 2023 3:28 PM CDT [facility] Comment: Interpretation: 10-19 ng/mL (mild to moderate deficiency) ----REFERENCE VALUE---- 25-HYDROXY D TOTAL (D2+D3) Optimum levels in the healthy population are 20-50. ----ADDITIONAL INFORMATION---- This test was developed and its performance characteristics determined by [facility] in a manner consistent with CLIA requirements. This test has not been cleared or approved by the U.S. Food and Drug Administration. Blood (Blood, Venous) 01/27/2024 6:47 AM CDT 01/27/2024 9:16 AM CDT Phuc Torres M.D. LAB BLOOD ADD-ON Performing Organization Address [facility] Co de Phone Number [facility] [address] [place] [address] [place] [place] [address] [place] [address] * (ABNORMAL) Calcitonin (01/27/2024 6:47 AM CDT) [facility] Calcitonin, S 5061(H) <=14.3 pg/mL 01/27/2024 1:35 PM CDT [facility] Comment: ----ADDITIONAL INFORMATION---- The testing [...] BLOOD NON ADD- ON Performing Organization Address [facility]/ZIP Co de Phone Number [facility] [address] [place] [address] [facility] [address] [place] [address] * S-TSH (Thyroid-Stimulating Hormone - Sensitive) (01/27/2024 6:47 AM CDT) TSH, Sensitive 2.3 0.3 - 4.2 mIU/L 01/27/2024 8:08 AM CDT DT Blood (Blood, Venous) 01/27/2024 6:47 AM CDT 01/27/2024 7:31 AM CDT Phuc Torres M.D. LAB BLOOD ADD-ON Performing Organization Address [facility]/ZIP Co de Phone Number [id number] [place] [address] * T4 (Thyroxine), Free (01/27/2024 6:47 AM CDT) Pathologist [facility] T4 (Thyroxine), Free, S 1.4 0.9 - 1.7 ng/dL 01/27/2024 8:08 AM CDT DT Blood (Blood, Venous) 01/27/2024 6:47 AM CDT 01/27/2024 7:31 AM CDT Phuc Torres M.D. LAB BLOOD ADD-ON Performing Organization Address [facility] Co de Phone Number [facility] [address] [place], [place] [address] [place] [address] * (ABNORMAL) CEA (Carcinoembryonic Antigen) (01/27/2024 6:47 AM CDT) Pathologist [facility] Carcinoembryonic Ag (CEA), S 313.0(H) ng/mL 01/27/2024 10:54 AM CDT [facility] Comment: ----REFERENCE VALUE---- <=3.0 (Non-smokers) Some smokers may have elevated CEA, usually <5.0. ----ADDITIONAL INFORMATION---- The testing method is an immunoenzymatic assay manufactured by [employer] and performed on the [employer] DxI 800. ? Values obtained with different assay methods or kits may be different and cannot be used interchangeably. ? Test results cannot be interpreted as absolute evidence for the presence or absence of malignant disease. Blood (Blood, Venous) 01/27/2024 6:47 AM CDT 01/27/2024 9:56 AM CDT Phuc Torres M.D. LAB BLOOD ADD-ON Performing Organization Address City/[facility]/ZIP Co de Phone Number [facility] [address] [place] [address] [facility] [address] [place] [address] * Calcium, Total (01/27/2024 6:47 AM CDT) Pathologist [facility] Calcium, Total, S 9.3 8.8 - 10.2 mg/dL 01/27/2024 8:08 AM CDT DTL Blood (Blood, Venous) 01/27/2024 6:47 AM CDT 01/27/2024 7:31 AM CDT Phuc Torres M.D. LAB BLOOD ADD-ON Performing Organization Address City/[facility] Co de Phone Number [facility] [address] [place] [address], [facility] [address] [place] [address] * [place] Thyroid (01/25/2024 11:23 AM CDT) [...] Advance Directives For more information, please contact: [phone] * Full Code (Latest Code Status on File) Date Activated Date Inactivated Comments 02/03/2024 10:45 AM 02/04/2024 2:49 PM Question Answer Comments Full Code: Not Discussed Due to: Patient not available Care Teams Turbine Mechanic Relationship Specialty Start Date End Date Elsewhere, Pcp PCP - General Internal Medicine 01/27/24
--- OUTSIDE RECORDS SUMMARY | 2024-03-21 14:05 | XMS_ITS | Encounter Summary ---
Author Organization [facility] Address [address] [place] [address] Care Team Providers Care Director Of Hospitality Name Role Phone Elsewhere, Pcp Primary Care Provider Unavailabl e Reason for Referral * Outpatient (Routine) - Authorized Specialty Diagnoses / Procedures Referred By Vinicius reid Referred To Contact Endocrinology Diagnoses Malignant Neoplasm Of Thyroid Medullary (HCC) Phuc Torres M.D. [address] [place] [phone] [facility] Referral ID Status Reason Start Date Expiration Date V isits Requested Visits Authorized [id number] Authorized 02/14/2024 08/15/2025 1 1 Scheduling Instructions Please prioritize and do not delay this patient's return appointment. * Outpatient (Routine) - Authorized Specialty Diagnoses / Procedures Referred By Vinicius reid Referred To Contact Diagnoses Malignant Neoplasm Of Thyroid Medullary (HCC) Procedures US Head Neck Soft Tissue Phuc Torres M.D. [address] [place] [address] [facility] Referral ID Status Reason Start Date Expiration Date V isits Requested Visits Authorized [id number] Authorized 02/14/2024 02/13/2025 1 1 Encounter Details Date Type Department Care Team (Late st Contact Info) Description 02/14/2024 Orders Only Division of Endocrinology in [place], [place] [address] [place] [address] [place] [phone] Phuc Torres M.D. [address] [place] [address] Malignant Neoplasm Of Thyroid Medullary (HCC) (Primary Dx) Social History Tobacco Use Types Packs/Day Years Used Date Smoking Tobacco: Never Smokeless Tobacco: Never Alcohol Use Standard Drinks/Week Comments Not Currently 0 (1 standard drink = 0.6 oz pur e alcohol) [facility] Utilities Answer Date Recorded In the past 12 months has e electric, gas, oil, or water [employer] threatened to shut off services in your [...] your living situation today? [facility] 01/23/2024 [...] Primary documented in this encounter Care Teams Director Of Hospitality Relationship Specialty Start Date End Date Elsewhere, Pcp PCP - General Internal Medicine 01/27/24 documented as of this encounter
--- OUTSIDE RECORDS SUMMARY | 2024-03-21 14:05 | XMS_ITS ---
Author Organization [facility] Address [address] [place] [address] Care Team Providers Care Golf Cart Maker Name Role Phone Unavailable Unavailable Unavailable Surgery Details Not on file Complications Check Surgery Details section. Procedure Estimated Blood Loss Check Surgery Details section. Procedure Findings Check Surgery Details section. Procedure Specimens Taken Check Surgery Details section.
--- OUTSIDE RECORDS SUMMARY | 2024-03-21 14:05 | XMS_ITS | Encounter Summary ---
Author Organization [facility] Address [address] [place] [address] Care Team Providers Care Gravity Prospecting Operator Name Role Phone No Ref-Primary, Physician Primary Care Provider Clinic - [facility] Unavailabl e Encounter Details Date Type Department Care Team (Late st Contact Info) Description 11/18/2023 MyC Medical Advice [facility] [address] [place] [phone] Caitlyn Alfred, SENIOR STATISTICIAN Social History Tobacco Use Types Packs/Day Years Used Date Smoking Tobacco: Never Smokeless Tobacco: Never Social Connection and Isolat ion Panel [NHANES] Answer Date Recorded Frequency of Communication w ith Friends and Family Not on file 04/02/2023 How often do you get togethe r with friends or relatives? Twice a week 04/02/2023 How often do you attend [facility] or jew services? 1 to 4 times per year 04/02/2023 Do you belong to any clubs o r organizations such as quaker groups, unions, fraternal or athletic groups, or [...] Answer Date Recorded PHQ-2 Score 0 04/02/2023 [facility] - Occupational Stress Questionnaire Answer Date [...] in an abandoned building, in an overnight senior care, or couch-surfing.) Yes 04/02/2023 Are you worried [...] on filedocumented in this encounter Care Teams Gravity Prospecting Operator Relationship Specialty Start Date End Date No Ref-Primary, Physician PCP - General 04/05/23 Clinic - [facility] [address] [place] [address] Assigned PCP 11/02/23 documented as of this encounter
--- OUTSIDE RECORDS SUMMARY | 2024-03-21 14:05 | XMS_ITS | Referral Summary ---
Author Organization [facility] Address [address] [place] [address] Care Team Providers Care Enterprise Systems Architect Name Role Phone No Ref-Primary, Physician Primary Care Provider Clinic - [facility] Encounters Date Type Department Care Team Description 12/20/2023 [facility] [address] [place] [address] Self, Referred, MD Consult Referral from Last 3 Months Allergies Active Allergy [...] 08/23/2016 Immunizations Name Administration Dates Next Due [id number] Novel Flu- Nasal 08/10/2009 TDAP (Adacel,Boostrix) 04/02/2023,02/16/2007 [...] often do you attend chur ch or evangelical services? 1 to 4 times per year 04/02/2023 Do you belong to any clubs o r organizations such as bahai groups, unions, fraternal or athletic groups, or [...] Answer Date Recorded PHQ-2 Score 0 04/02/2023 [facility] Occupat ional Health - Occupational Stress [...] in an abandoned building, in an overnight custodial, or couch-surfing.) Yes 04/02/2023 Are you worried [...] Glucose (External) 90 60 - 115 mg/dL [facility] Blood 10/06/2023 9:55 AM CDT Narrative [facility] - 10/06/2023 9:55 AM CDT OUTSIDE RECORDS - External Lab Results Provider Outside LAB - HIM EXTERNAL R ESULT [facility] [address] [phone] * HIV Antigen Antibody Combo (04/02/2023 9:11 AM CDT) HIV Antigen Antibody Combo Nonreactive Nonreactive 04/03/2023 12:48 PM CDT [facility]EN DO Comment:HIV-1 p24 Ag & HIV-1 /HIV-2 Ab Not Detected Blood BLOOD SPECIMEN / Unknown Venipuncture / Unknown 04/02/2023 9:11 AM CDT 04/02/2023 9:11 AM CDT Cassandra Rojas [employer] LAB - BLOOD ORDERABL ES [facility]/PROT/ENDO [facility]/Prot/Endo [address] [facility] Unit [address] [facility], Room [address] [phone] * Hepatitis C Screen Reflex to HCV [...] ES [facility]/PROT/ENDO Specialty Core/Prot/Endo [facility], [address] [phone] * (ABNORMAL) Lipid panel reflex to direct [...] Rojas NP LAB - BLOOD ORDERABL ES LABORATORY [facility] [address] [facility], [address] [place] [address], [facility] [phone] from Last 3 Months or Most Recently Relevant to Health Maintenance Advance Directives For more information, please contact: [phone] * Full Code (Latest Code Status on File) Date Activated Date Inactivated Comments 08/24/2016 12:28 PM * Full Code Date Activated Date Inactivated Comments 08/23/2016 5:10 PM 08/24/2016 12:28 PM Care Teams Enterprise Systems Architect Relationship Specialty Start Date End Date No Ref-Primary, Physician PCP - General 04/05/23 [facility] - [facility] [address] [place] [address] Assigned PCP 11/02/23
--- OUTSIDE RECORDS SUMMARY | 2024-03-21 14:05 | XMS_ITS | Referral Summary ---
Author Organization [facility] Address [address] [place] [address] Care Team Providers Care Commercial Account Executive Name Role Phone Elsewhere, Pcp Primary Care Provider Unavailabl e Source Comments Patient records contain information from all sites at [facility]. For routine questions regarding patient records, call [phone] during business hours, M-F 8:00 AM - 5:00 PM Central Time. Record requests for emergency care only can be directed to [phone] at any time.[facility] Encounters Date Type Department Care Team Description 02/14/2024 Documentation Division of Endocrinology in [place], [place] [address] [place] [phone] Phuc Torres M.D. 02/14/2024 Orders Only Division of Endocrinology in [place], [place] [address] [place] [phone] Phuc Torres M.D. 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 02/07/2024 Clinical Communication Division of Endocrine Surgery in [place], [place] [address] [place] [phone] Jaret Salas M.D. 02/06/2024 Clinical Communication Division of Endocrine Surgery in [place], [place] [address] [place] [phone] Jaret Salas M.D. 02/05/2024 Clinical Communication Division of Endocrine Surgery in [place], [place] [address] [place] [address] Jaret Salas M.D. 02/05/2024 Clinical Communication Division of Endocrine Surgery in [place], [place] [address] [place] [address] Jaret Salas M.D. 02/05/2024 Intake [facility] 02/03/2024 10:28 AM CDT - 02/04/2024 12:44 PM CDT Hospital Encounter [facility], [facility], [facility], Sixth Floor [address] [place] [address] Dakota Morrow M.D. Malignant Neoplasm Of Thyroid Medullary (HCC) Discharge Disposition: Home or Self Care 02/03/2024 1:52 PM CDT Anesthesia Event RST [facility] OR [address] [place] [address] Paulino Love, MarianelaO. Willem [place] M.D., M.S. 02/03/2024 12:13 PM CDT - 02/03/2024 3:42 PM CDT Surgery RST [facility] OR [facility] [place] [address] Dakota Morrow M.D. THYROIDECTOMY - TOTAL. 02/02/2024 2:00 PM CDT Office Visit Division of Endocrine Surgery in [place], [place] [address] [place] [address] Dakota Morrow M.D. Castro, M. Regina, M.D. 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 01/31/2024 8:37 AM CDT - 01/31/2024 10:21 AM CDT Hospital Encounter Department of Radiology, [facility], in [place], [place] [address] [place] [address] Phuc Torres M.D. Robinson, Kathryn A, M.D. Malignant Neoplasm Of Thyroid (HCC) Discharge Disposition: Home or Self Care 01/27/2024 Clinical Communication Division of Endocrinology in [place], [place] [address] [place] [phone] Phuc Torres M.D. Pathology Request 01/27/2024 3:23 PM CDT - 01/27/2024 11:59 PM CDT Hospital Encounter Department of Laboratory Medicine and Pathology, [place], [place] [address] [place] [phone] Phuc Torres M.D. Malignant Neoplasm Of Thyroid (HCC) Discharge Disposition: Home or Self Care 01/27/2024 2:40 PM CDT Lab RST RO [facility] [address] [place] [phone] Phuc Torres M.D. Malignant Neoplasm Of Thyroid (HCC) 01/27/2024 6:21 AM CDT - 01/27/2024 3:22 PM CDT Hospital Encounter Department of Laboratory Medicine and Pathology, [place], [place] [address] [place] [phone] Phuc Torres M.D. Malignant Neoplasm Of Thyroid Medullary (HCC) Discharge Disposition: Home or Self Care 01/27/2024 1:30 PM CDT Comprehensive Visit Division of Endocrinology in [place], [place] [address] [place] [phone] Phuc Torres M.D. Malignant Neoplasm Of Thyroid (HCC) 01/27/2024 3:00 PM CDT Comprehensive Visit Division of Endocrine Surgery in [place], [place] [address] [place] [phone] Dakota Morrow M.D. Castro, M. Regina, M.D. Malignant Neoplasm Of Thyroid Medullary (HCC) 01/25/2024 10:16 AM CDT - 01/25/2024 11:59 PM CDT Hospital Encounter Department of Radiology, [facility] in [place], [place] [address] [place] [phone] Phuc Torres M.D. Malignant Neoplasm Of Thyroid Medullary (HCC) Discharge Disposition: Home or Self Care 12/30/2023 Clinical Communication Division of Endocrine Surgery in [place], [place] [address] [place] [address] Dakota Morrow M.D. 12/28/2023 2:00 PM CDT Clinical Communication Division of Endocrinology in [place], [place] [address] [place] [address] Pre-visit Intake (thyroid) 12/23/2023 Clinical Communication Department of Otorhinolaryngology in [place], [place] [address] [place] [address] Provider, Unknown [facility] (ENT ) 12/22/2023 [facility] [address] [place] [address] Carmela Basurto M.D. Malignant Neoplasm Of Thyroid [...] 0.6 oz pur e alcohol) [facility] Utilities Answer Date Recorded In the past 12 months has e [employer], gas, oil, or water [employer] threatened to shut off services in your [...] on file Medical Devices Implanted Type Area Double End Chucking Machine Operator Device Identifier Shelf Expiration Date Model / Serial / Lot Clp Hrzn Ti 6 Clp Sm Red - [id number] Implanted:Qty: 1 on 02/03/2024 by Dakota Morrow M.D. at [facility] Hardware e.g. pins/screws/r ods Neck Teleflex Sponsia [id number] / / Procedures Procedure Name Priority Date/Time [...] Provider Not In System IMG CT PROCEDURES IIMT NA * CT SOFT TISSUE NECK W [...] System IMG CT PROCEDURES Performing Organization Address City/[facility]/ZIP Co de Phone Number IIMS NA * Parathyroid Hormone (PTH) (02/03/2024 7:15 PM CDT) Parathyroid Hormone (PTH), S 28 15 - 65 pg/mL 02/03/2024 8:48 PM CDT DTL Blood (Blood, Venous) 02/03/2024 7:15 PM CDT 02/03/2024 8:02 PM CDT Jaret Salas M.D. LAB BLOOD ADD-O N Performing Organization Address [facility] Co de Phone Number [facility] [address] [place] [address], [facility] [address] [place] [address] * Surgical Pathology, Frozen Lab (02/03/2024 3:20 PM CDT) Pathologist [facility] 02/07/2024 2:56 PM CDT METH Participated in [...] almost the entire lobe in 3 dimensions. Crew Foreman tissue submitted for permanent sections. Grossed by Donovan Trinidad M.D., Ph.D.-Pathology Resident. B. ??Received fresh labeled right thyroid lobe is a 7 g completion thyroidectomy with a 4.5 x 3.3 x 1.3 cm right lobe. ??The margin is inked and margins are taken perpendicularly. ??No nodules are identified. ??All submitted for permanent sections. ??Grossed by Ray Amado., P.A. ([facility]). C. ??Received fresh labeled left neck level 2, 3, 4, and 5A lymph nodes is an 8 x 3 x 2 cm aggregate of adipose and lymphatic tissue. ??Lymph nodes are submitted for frozen and permanent sections. ??Grossed by Ray Amado., P.A. ([facility]). 02/07/2024 2:56 PM [...] Morrow M.D. LAB SURG PATH ORDERA BLES [facility] [address] [place] [address], [facility] METH [address] [place] [address] * Airway (02/03/2024 2:04 PM CDT) Narrative [...] ETT location: oral VL device: glide scope [place] scope blade size: 4 Tube size: 7 [...] Torres M.D. LAB SURG PATH [facility] [address] [place] [address], [facility] DT [address] [place] [address] * Calcitonin, Fine-Needle Aspiration Biopsy (FNAB)-Needle Wash, Lymph Node (01/31/2024 9:16 AM CDT) Only the most recent of2 resultswithin the time period is included. Calcitonin, FNAB, Lymph Node [id number] pg/mL 01/31/2024 6:10 PM CDT [facility] Comment: Calcitonin values = or > [...] This test has been modified from the senior living advisor's instructions. Its performance characteristics were determined by [facility] in a manner consistent with CLIA requirements. [...] Washings, Lymph Node 02/01/2024 10:16 AM CDT [facility] Comment:REVISED RESULTS FNA Needle Washings (Lymph Node) 01/31/2024 9:16 AM CDT Phuc Torres M.D. LAB BODY FLUIDS AN D STOOLS ORDERABLES [facility] [address] [place] [address] [facility] [address] [place] [address] * Multiple Endocrine Neoplasia Type 2 Syndrome, RET Full Gene Analysis (01/27/2024 3:44 PM CDT) Test Description Evaluation of the RET gene associated with multiple endocrine neoplasia type 2 02/08/2024 3:38 PM CDT DTL Specimen WB Whole Blood 02/08/2024 3:38 PM CDT DTL Disclaimer Clinical Correlations An online research opportunity called [employer] (The miqi.cn.org) , a project of [employer], is available for the recipient of this genetic test. This patient registry collects de-identified genetic and health information to advance the knowledge of genetic variants. [facility] is a collaborator of [employer]. This may not be applicable for all [...] in the interpretation of these results, [facility] Laboratory genetic counselors can be contacted at [...] of results. Reclassification of Variants Policy See www.[employer]. [employer] (TEST ID RETZZ) for information regarding the laboratory's policy for reclassification of variants. Variant Evaluation Variant curation is performed using published ACMG-AMP recommendations as a guideline. Other gene-specific guidelines may also be considered. Variants classified as benign or likely benign are not reported. Results from in silico evaluation tools may change coordinator time and should be interpreted with caution and professional clinical judgment. TEST CLASSIFICATION This test was developed and its performance characteristics determined by [facility] in a manner consistent with CLIA requirements. [...] methodologies based on internal laboratory criteria. See www.[employer]. [employer] (TEST ID RETZZ) for details regarding genes [...] Phuc Torres M.D. LAB GENETIC TESTIN G [facility] [address] [place], [place] [address] DTL [address] [place] [address] * Metanephrines, Fractionated, Free (01/27/2024 6:47 AM CDT) Normetanephrine, Free 0.64 <0.90 nmol/L 01/28/2024 3:30 PM CDT [facility] Metanephrine, Free <0.20 <0.50 nmol/L 01/28/2024 3:30 PM CDT [facility] Comment: ----ADDITIONAL INFORMATION---- This test was developed and its performance characteristics determined by [facility] in a manner consistent with CLIA requirements. This test has not been cleared or approved by the U.S. Food and Drug Administration. Blood (Blood, Venous) 01/27/2024 6:47 AM CDT 01/27/2024 10:31 AM CDT Phuc Torres M.D. LAB BLOOD NON ADD- ON Performing Organization Address [facility]/ZIP Co de Phone Number [facility] [address] [place] [address] [facility] [address] [place] [address] [place] [address] * (ABNORMAL) 25-Hydroxyvitamin D2 and D3 (01/27/2024 6:47 AM CDT) [facility] 25-Hydroxy D2 <4.0 ng/mL 01/29/2024 3:28 PM CDT SDS 25-Hydroxy D3 16 ng/mL 01/29/2024 3:28 PM CDT [facility] 25-Hydroxy D Total 16(L) ng/mL 2023 3:28 PM CDT [facility] Comment: Interpretation: 10-19 ng/mL (mild to moderate deficiency) ----REFERENCE VALUE---- 25-HYDROXY D TOTAL (D2+D3) Optimum levels in the healthy population are 20-50. ----ADDITIONAL INFORMATION---- This test was developed and its performance characteristics determined by [facility] in a manner consistent with CLIA requirements. This test has not been cleared or approved by the U.S. Food and Drug Administration. Blood (Blood, Venous) 01/27/2024 6:47 AM CDT 01/27/2024 9:16 AM CDT Phuc Torres M.D. LAB BLOOD ADD-ON Performing Organization Address City/[facility]/ZIP Co de Phone Number [facility] [address] [place] [address] [facility] [address] [place] [address] [place] [address] * (ABNORMAL) Calcitonin (01/27/2024 6:47 AM CDT) [facility] Calcitonin, S 5061(H) <=14.3 pg/mL 01/27/2024 1:35 PM CDT [facility] Comment: ----ADDITIONAL INFORMATION---- The testing method is an electrochemiluminescence assay manufactured by [employer] and performed on the Lovely system. Values obtained with different assay methods or kits may be different and cannot be used interchangeably. Test results cannot be interpreted as absolute evidence for the presence or absence of malignant disease. Blood (Blood, Venous) 01/27/2024 6:47 AM CDT 01/27/2024 11:54 AM CDT Phuc Torres M.D. LAB BLOOD NON ADD- ON [facility] [address] [place] [address] [facility] [address] [place] [address] * S-TSH (Thyroid-Stimulating Hormone - Sensitive) (01/27/2024 6:47 AM CDT) [facility] TSH, Sensitive 2.3 0.3 - 4.2 mIU/L 01/27/2024 8:08 AM CDT DT Blood (Blood, Venous) 01/27/2024 6:47 AM CDT 01/27/2024 7:31 AM CDT Phuc Torres M.D. LAB BLOOD ADD-ON [facility] [address] [place] [address], [facility] [address] [place] [address] * T4 (Thyroxine), Free (01/27/2024 6:47 AM CDT) [facility] T4 (Thyroxine), Free, S 1.4 0.9 - 1.7 ng/dL 01/27/2024 8:08 AM CDT [facility] Blood (Blood, Venous) 01/27/2024 6:47 AM CDT 01/27/2024 7:31 AM CDT Phuc Torres M.D. LAB BLOOD ADD-ON [facility] [address] [place] [address], [facility] [address] [place] [address] * (ABNORMAL) CEA (Carcinoembryonic Antigen) (01/27/2024 6:47 AM CDT) Carcinoembryonic Ag (CEA), S 313.0(H) ng/mL 01/27/2024 10:54 AM CDT [facility] Comment: ----REFERENCE VALUE---- <=3.0 (Non-smokers) Some smokers may have elevated CEA, usually <5.0. ----ADDITIONAL INFORMATION---- The testing method is an immunoenzymatic assay manufactured by [employer]. and performed on the [employer] 800. ? Values obtained with different assay methods or kits may be different and cannot be used interchangeably. ? Test results cannot be interpreted as absolute evidence for the presence or absence of malignant disease. Blood (Blood, Venous) 01/27/2024 6:47 AM CDT 01/27/2024 9:56 AM CDT Phuc Torres M.D. LAB BLOOD ADD-ON [facility] [address] [place] [address] [facility] [address] [place] [address] * Calcium, Total (01/27/2024 6:47 AM CDT) Calcium, Total, S 9.3 8.8 - 10.2 mg/dL 01/27/2024 8:08 AM CDT DT Blood (Blood, Venous) 01/27/2024 6:47 AM CDT 01/27/2024 7:31 AM CDT Phuc Torres M.D. LAB BLOOD ADD-ON [facility] [address] [place] [address], [place] DTL [facility] [address] [place] [address] * [place] Thyroid (01/25/2024 11:23 AM CDT) [...] Advance Directives For more information, please contact: [phone] * Full Code (Latest Code Status on File) Date Activated Date Inactivated Comments 02/03/2024 10:45 AM 02/04/2024 2:49 PM Question Answer Comments Full Code: Not Discussed Due to: Patient not available Care Teams Commercial Account Executive Relationship Specialty Start Date End Date Elsewhere, Pcp PCP - General Internal Medicine 01/27/24
--- OUTSIDE RECORDS SUMMARY | 2024-03-21 14:05 | XMS_ITS | Encounter Summary ---
Author Organization [facility] Address [address] [place] [address] Care Team Providers Care Substance Abuse Prevention Coordinator Name Role Phone Elsewhere, Pcp Primary Care Provider Unavailabl e Encounter Details Date Type Department Care Team (Late st Contact Info) Description 02/14/2024 Documentation Division of Endocrinology in [place], [place] [address] [place] [phone] Phuc Torres M.D. [address] [place] [address] Social History Tobacco Use Types Packs/Day Years Used Date Smoking Tobacco: Never Smokeless Tobacco: Never Alcohol Use Standard Drinks/Week Comments Not Currently 0 (1 standard drink = 0.6 oz pur e alcohol) [facility] Utilities Answer Date Recorded In the past 12 months has [facility] [employer], gas, oil, or water [employer] threatened to shut off services in your [...] your living situation today? [facility] 01/23/2024 Sex and Gender [...] on filedocumented in this encounter Care Teams Substance Abuse Prevention Coordinator Relationship Specialty Start Date End Date Elsewhere, Pcp PCP - General Internal Medicine 01/27/24 documented as of this encounter
--- OUTSIDE RECORDS SUMMARY | 2024-03-21 14:06 | XMS_ITS | Encounter Summary ---
Author Organization [facility] Address [address] [place] [address] Care Team Providers Care Orthodontist Name Role Phone Elsewhere, Pcp Primary Care Provider Unavailabl e Reason for Visit * Auth/Cert (Routine) Specialty Diagnoses / Procedures Referred By Vinicius t Referred To Contact Diagnoses Malignant Neoplasm Of Thyroid Medullary (HCC) Malignant Neoplasm Of Thyroid Medullary (HCC) [C73] Procedures CA LBCTMY THYROID TOTAL UNILAT CA THYROIDECTOMY TOTAL/COMPLETE CA CERV LMPH MOD/RAD NECK DISSECT THYROIDECTOMY - LOBECTOMY, MODIFIED NECK DISSECTION Dakota Morrow M.D. [address] [place] [address] Referral ID Status Reason Start Date Expiration Date Visits Re quested Visits Authorized [id number] 1 1 Encounter Details Date Type Department Care Team (Late st Contact Info) Description 02/03/2024 12:13 PM CDT - 02/03/2024 3:42 PM CDT Surgery [facility] MAIN OR [address] [place] [phone] Dakota Morrow M.D. [address] [place] [phone] THYROIDECTOMY - TOTAL. Social History Tobacco Use Types Packs/Day Years Used Date Smoking Tobacco: Never Smokeless Tobacco: Never Alcohol Use Standard Drinks/Week Comments Not Currently 0 (1 standard drink = 0.6 oz pur e alcohol) [facility] Utilities Answer Date Recorded In the past 12 months has e [employer], gas, oil, or water [employer] threatened to shut off services in your [...] your living situation today? I have a [facility] place to live 01/23/2024 Sex [...] AM CDT DISCHARGE SUMMARY BRIEF OVERVIEW Hospital: [facility] Discharge Provider: Dakota Morrow M.D. Primary [...] Alexandros N, M.D.Pierce, Erika M, M.D. 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 The patient was taken to [...] He requires follow-up with his PCP or [employer] missile [employer] artillery in 6 weeks. At the time of [...] through Care Everywhere. * Acetaminophen (By mouth) (Slovak) * Levothyroxine (By mouth) ([place]) * Oxycodone, Rapid Release (By mouth) ([place]) documented in this encounter Medications at Time [...] Diagnosis Malignant Neoplasm Of Thyroid Medullary (HCC) Try On Baster A anesthesia assistant actively participated and was necessary for [...] Jaret Salas M.D. LAB BLOOD ADD-O N [facility] [place] [address] [place] [address], [facility] [address] [place] [address] * Surgical Pathology, Frozen Lab (02/03/2024 3:20 PM CDT) Pathologist [facility] 02/07/2024 2:56 PM CDT METH Participated in [...] almost the entire lobe in 3 dimensions. Cpc tissue submitted for permanent sections. Grossed by Donovan Trinidad M.D., Ph.D.-Pathology Resident. B. ??Received fresh labeled right thyroid lobe is a 7 g completion thyroidectomy with a 4.5 x 3.3 x 1.3 cm right lobe. ??The margin is inked and margins are taken perpendicularly. ??No nodules are identified. ??All submitted for permanent sections. ??Grossed by Ray Amado., P.A. ([facility]). C. ??Received fresh labeled left neck level 2, 3, 4, and 5A lymph nodes is an 8 x 3 x 2 cm aggregate of adipose and lymphatic tissue. ??Lymph nodes are submitted for frozen and permanent sections. ??Grossed by Sachi Amado, P.A. ([facility]). 02/07/2024 2:56 PM CDT METH [...] Morrow M.D. LAB SURG PATH ORDERA BLES [facility] [address] [place] [address], [facility] METH [address] [place] [address] documented in this encounter Visit Diagnoses Diagnosis [...] 02/03/24 at 1300, For 1 dose, Pre-Op, Manager Flight Operations, PreOp with sips Given 02/03/2024 12:52 PM [...] 02/03/24 at 1300, For 1 dose, Pre-Op, Manager Flight Operations, PreOp with sips 1252 (Given - Provider: [...] 2116 documented in this encounter Care Teams Orthodontist Relationship Specialty Start Date End Date Elsewhere, Pcp PCP - General Internal Medicine 01/27/24 documented as of this encounter
--- OUTSIDE RECORDS SUMMARY | 2024-03-21 14:06 | XMS_ITS | Encounter Summary ---
Author Organization [facility] Address [address] [place] [address] Care Team Providers Care Director Of People Name Role Phone Elsewhere, Pcp Primary Care Provider Unavailabl e Encounter Details Date Type Department Care Team (Late st Contact Info) Description 02/07/2024 Clinical Communication Division of Endocrine Surgery in [place], [place] [address] [place] [address] Jaret Salas M.D. Social History Tobacco Use Types Packs/Day Years Used Date Smoking Tobacco: Never Smokeless Tobacco: Never Alcohol Use Standard Drinks/Week Comments Not Currently 0 (1 standard drink = 0.6 oz pur e alcohol) [facility] Utilities Answer Date Recorded In the [...] be doing very well and we appreciate [facility]'s excellent treatment. I sharedmy phone number with Mr. Long, so that he may call me tomorrow morning at rounds and so I may answer any questions that his care team may have for our surgical team. documented in this encounter Plan of Treatment Not on file documented as of this encounter Visit Diagnoses Not on filedocumented in this encounter Care Teams Director Of People Relationship Specialty Start Date End Date Elsewhere, Pcp PCP - General Internal Medicine 01/27/24 documented as of this encounter
--- OUTSIDE RECORDS SUMMARY | 2024-03-21 14:06 | XMS_ITS | Encounter Summary ---
Author Organization [facility] Address [address] [place] [address] Care Team Providers Care Mortgage Loan Counselor Name Role Phone Elsewhere, Pcp Primary Care Provider Unavailabl e Encounter Details Date Type Department Care Team (Late st Contact Info) Description 02/05/2024 Clinical Communication Division of Endocrine Surgery in [place], [place] [address] [place] [address] Jaret Salas M.D. Social History Tobacco Use [...] your living situation today? I have a [facility] place to live 01/23/2024 Sex and [...] an infectious process. On IV Abx. Appreciate [facility] taking excellent care of Mr. Long for this. Will follow up again tomorrow. documented in this encounter Plan of Treatment Not on file documented as of this encounter Visit Diagnoses Not on filedocumented in this encounter Care Teams Mortgage Loan Counselor Relationship Specialty Start Date End Date Elsewhere, Pcp PCP - General Internal Medicine 01/27/24 documented as of this encounter
--- OUTSIDE RECORDS SUMMARY | 2024-03-21 14:06 | XMS_ITS | Encounter Summary ---
Author Organization [facility] Address [address] [place] [address] Care Team Providers Care Project Estimator Name Role Phone Elsewhere, Pcp Primary Care Provider Unavailabl e Encounter Details Date Type Department Care Team (Late st Contact Info) Description 02/05/2024 Clinical Communication Division of Endocrine Surgery in [place], [place] [address] [place] [address] Jaret Salas M.D. Social History Tobacco Use Types Packs/Day Years Used Date Smoking Tobacco: Never Smokeless Tobacco: Never Alcohol Use Standard Drinks/Week Comments Not Currently 0 (1 standard drink = 0.6 oz pur e alcohol) [facility] Utilities Answer Date Recorded In the [...] your living situation today? I have a [facility] place to live 01/23/2024 Sex and Gender Information Value Date Recorded Sex Assigned at Male 01/23/2024 9:14 PM CDT Gender Identity Male 01/23/2024 9:14 PM CDT Sexual Orientation Straight 01/23/2024 9: 14 PM CDT documented as of this encounter Miscellaneous Notes * Telephone Encounter - Jaret Salas M.D. - 02/05/2024 9:42 AM CDT Received call from [facility] about pt being there for SOB. [...] offered to transfer Mr. Long back to [place] to treat this, however he would prefer to stay at [facility] for now. That is definitely reasonable. I [...] on filedocumented in this encounter Care Teams Project Estimator Relationship Specialty Start Date End Date Elsewhere, Pcp PCP - General Internal Medicine 01/27/24 documented as of this encounter
--- OUTSIDE RECORDS SUMMARY | 2024-03-21 14:06 | XMS_ITS | Encounter Summary ---
Author Organization [facility] Address [address] [place] [address] Care Team Providers Care Personal Caregiver Name Role Phone Elsewhere, Pcp Primary Care Provider Unavailabl e Encounter Details Date Type Department Care Team (Late st Contact Info) Description 01/27/2024 2:40 PM CDT Lab RST RO [facility] [address] [place] [phone] Phuc Torres M.D. [address] [place] [phone] Malignant Neoplasm Of Thyroid (HCC) Social History Tobacco Use Types Packs/Day Years Used Date Smoking Tobacco: Never Assessed [facility] Utilities Answer Date Recorded In [...] 10:51 AM CDT DTL Material Received A. [id number]: Left thyroid ? 7 stained slides 02/03/2024 10:51 AM CDT DTL Interpretation FINAL DIAGNOSIS Thyroid, left lobe nodule ultrasound-guide d fine needle aspiration ([id number]; smears and thin prep; 11/12/2023): Suspicious for malignancy. ??Discohesive cells with nuclear hyperchromasia and atypia worrisome for medullary carcinoma. 02/03/2024 10:51 AM CDT DTL Varies 11/12/2023 8:45 AM CDT 02/02/2024 11:56 AM CDT Phuc Torres M.D. LAB SURG PATH [facility] [place] Performing Organization Address City/State/[facility] Co de Phone Number [facility] [address] [place] [address], [facility] DTL [address] [place] [address] documented in this encounter Visit Diagnoses Diagnosis Malignant Neoplasm Of Thyroid (HCC) documented in this encounter Care Teams Personal Caregiver Relationship Specialty Start Date End Date Elsewhere, Pcp PCP - General Internal Medicine 01/27/24 documented as of this encounter
--- OUTSIDE RECORDS SUMMARY | 2024-03-21 14:06 | XMS_ITS | Encounter Summary ---
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 [address] [place] [address] [facility] Referral ID Status Reason Start Date Expiration Date Visits Re quested Visits Authorized [id number] Closed 01/27/2024 01/26/2025 1 1 Encounter Details Date Type Department Care Team (Latest Contact Info) Description 01/27/2024 3:23 PM CDT - 01/27/2024 11:59 PM CDT Hospital Encounter Department of Laboratory Medicine and Pathology, [facility] in [place], [place] [address] [place] [address] Phuc Torres M.D. [address] [place] [address] Malignant Neoplasm Of Thyroid (HCC) Discharge Disposition: Home or Self Care Social History Tobacco Use Types Packs/Day Years Used Date Smoking Tobacco: Never Assessed [facility] Utilities Answer Date Recorded In the past 12 months has th e [employer], gas, oil, or water [employer] threatened to shut off services in your [...] your living situation today? I have a [facility] place to live 01/23/2024 Sex and [...] Clinical Correlations An online research opportunity called [employer] (P[employer]) , a project of [employer], is available for the recipient of this genetic test. This patient registry collects de-identified genetic and health information to advance the knowledge of genetic variants. [facility] is a collaborator of [employer]. This may not be applicable for all [...] assistance in the interpretation of these results, [facility] Laboratory genetic counselors can be contacted [...] of results. Reclassification of Variants Policy See www.yorkvilleThe Fabric. [employer] (TEST ID RETZZ) for information regarding the laboratory's policy for reclassification of variants. Variant Evaluation Variant curation is performed using published ACMG-AMP recommendations as a guideline. Other gene-specific guidelines may also be considered. Variants classified as benign or likely benign are not reported. Results from in silico evaluation tools may change management expert time and should be interpreted with caution and professional clinical judgment. TEST CLASSIFICATION This test was developed and its performance characteristics determined by [facility] in a manner consistent with CLIA [...] DTL Method Next generation sequencing (NGS) and/or [place] sequencing was performed to test for the [...] methodologies based on internal laboratory criteria. See www.[facility] hospitalWiSpry. [employer] (TEST ID RETZZ) for details regarding genes [...] Phuc Torres M.D. LAB GENETIC TESTIN [facility] [address] [place] [address], [facility] DTL [address] [place] [address] documented in this encounter Visit Diagnoses Diagnosis Malignant Neoplasm Of Thyroid (HCC) documented in this encounter Care Teams Engineer Assistant Relationship Specialty Start Date End Date Elsewhere, Pcp PCP - General Internal Medicine 01/27/24 documented as of this encounter
--- OUTSIDE RECORDS SUMMARY | 2024-03-21 14:06 | XMS_ITS | Encounter Summary ---
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 [address] [place] [phone] Referral ID Status Reason Start Date Expiration Date Visits Re quested Visits Authorized [id number] 1 1 Encounter Details Date Type Department Care Team (Late st Contact Info) Description 02/03/2024 1:52 PM CDT Anesthesia Event [facility] MAIN OR [address] [place] [phone] Paulino Love, D.O. [address] [place] [phone] Willem Baker M.D., M.S. [address] [place] [phone] Anesthesia Record Procedure Summary Procedure Name Responsible [...] M.D. 02/03/24 183 by Cassandra Cedeno APRN, BRUSHER TENDER, DNAP documented in this encounter Social History Tobacco Use Types Packs/Day Years Used Date Smoking Tobacco: Never Smokeless Tobacco: Never Alcohol Use Standard Drinks/Week Comments Not Currently 0 (1 standard drink = 0.6 oz pur e alcohol) [facility] Utilities Answer Date Recorded In the past 12 months has [employer], gas, oil, or water [employer] threatened to shut off services in your [...] living situation today? I have a [facility] place to live 01/23/2024 Sex and [...] Procedure Summary Date: 02/03/24 Room / Location: [address] / [facility] in [place], [place] Anesthesia Start: 1352 Anesthesia Stop: 1847 [...] ETT location: oral VL device: glide scope Latonia scope blade size: 4 Tube size: 7 [...] Date/Time: 02/03/24 1213 Procedures: *Consent Scanned into [facility]* THYROIDECTOMY - TOTAL. 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 Location: [address] [facility] / [facility] in [place], [place] Providers: Dakota Morrow M.D. Pertinent components [...] with patient /legal guardian or through an rag shredder. The use of blood products not discussed [...] ETT location: oral VL device: glide scope Latonia scope blade size: 4 Tube size: 7 [...] mg documented in this encounter Care Teams Registered Nurse Float Pool Relationship Specialty Start Date End Date Elsewhere, Pcp PCP - General Internal Medicine 01/27/24 documented as of this encounter
--- OUTSIDE RECORDS SUMMARY | 2024-03-21 14:06 | XMS_ITS | Encounter Summary ---
Author Organization [facility] Address [address] [place] [address] Care Team Providers Care Farm Implement Mechanic Name Role Phone Elsewhere, Pcp Primary Care Provider Unavailabl e Encounter Details Date Type Department Care Team (Late st Contact Info) Description 02/06/2024 Clinical Communication Division of Endocrine Surgery in [place], [place] [address] [place] [address] Jaret Salas M.D. Social History Tobacco Use Types Packs/Day Years Used Date Smoking Tobacco: Never Smokeless Tobacco: Never Alcohol Use Standard Drinks/Week Comments Not Currently 0 (1 standard drink = 0.6 oz pur e alcohol) [facility] Utilities Answer Date Recorded In the [...] living situation today? I have a [facility] place to live 01/23/2024 Sex and [...] moving in the right direction. We appreciate [facility] excellent care on this. Awaiting results from swallow. documented in this encounter Plan of Treatment Not on file documented as of this encounter Visit Diagnoses Not on filedocumented in this encounter Care Teams Farm Implement Mechanic Relationship Specialty Start Date End Date Elsewhere, Pcp PCP - General Internal Medicine 01/27/24 documented as of this encounter
--- OUTSIDE RECORDS SUMMARY | 2024-03-21 14:06 | XMS_ITS | Encounter Summary ---
Author Organization [facility] Address [address] [place] [address] Care Team Providers Care Tile Setter Apprentice Name Role Phone Elsewhere, Pcp Primary Care Provider Unavailabl e Reason for Visit * Outpatient (Routine) - Closed Specialty Diagnoses / Procedures Referred By Vinicius t Referred To Contact General Surgery Dakota Morrow M.D. [address] [place] [phone] Dakota Morrow M.D. [address] [place] [phone] Referral ID Status Reason Start Date Expiration Date Visits Re quested Visits Authorized [id number] Closed 01/27/2024 07/28/2025 1 1 Encounter Details Date Type Department Care Team (Late st Contact Info) Description 02/02/2024 2:00 PM CDT Office Visit Division of Endocrine Surgery in [place], [place] [address] [place] [phone] Dakota Morrow M.D. [address] [place] [phone] Phuc Torres M.D. [address] [place] [phone] Malignant Neoplasm Of Thyroid Medullary (HCC) (Primary Dx) Social History Tobacco Use Types Packs/Day Years Used Date Smoking Tobacco: Never Assessed [facility] Utilities Answer Date Recorded In the past 12 months has th e [employer], gas, oil, or water [employer] threatened to shut off services in your [...] living situation today? I have a [facility] place to live 01/23/2024 Sex [...] Primary documented in this encounter Care Teams Tile Setter Apprentice Relationship Specialty Start Date End Date Elsewhere, Pcp PCP - General Internal Medicine 01/27/24 documented as of this encounter
--- OUTSIDE RECORDS SUMMARY | 2024-03-21 14:06 | XMS_ITS | Encounter Summary ---
Author Organization [facility] Address [address] [place] [address] Care Team Providers Care Heat Treat Puller Name Role Phone Elsewhere, Pcp Primary Care Provider Unavailabl e Encounter Details Date Type Department Care Team (Latest Contact Info) Description 02/05/2024 Intake [facility] Social History Tobacco Use Types Packs/Day Years Used Date Smoking Tobacco: Never Smokeless Tobacco: Never Alcohol Use Standard Drinks/Week Comments Not Currently 0 (1 standard drink = 0.6 oz pur e alcohol) [facility] Utilities Answer Date Recorded In the past [...] your living situation today? I have a [facility] place to live 01/23/2024 Sex and Gender Information Value Date Recorded Sex Assigned at Male 01/23/2024 9:14 PM CDT Gender Identity Male 01/23/2024 9:14 PM CDT Sexual Orientation Straight 01/23/2024 9: 14 PM CDT documented as of this encounter Plan of Treatment Not on file documented as of this encounter Visit Diagnoses Not on filedocumented in this encounter Care Teams Heat Treat Puller Relationship Specialty Start Date End Date Elsewhere, Pcp PCP - General Internal Medicine 01/27/24 documented as of this encounter
--- OUTSIDE RECORDS SUMMARY | 2024-03-21 14:06 | XMS_ITS | Encounter Summary ---
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 [address] [place] [address] Referral ID Status Reason Start Date Expiration Date Visits Re quested Visits Authorized [id number] 1 1 Encounter Details Date Type Department Care Team (Latest Contact Info) Description 02/03/2024 10:28 AM CDT - 02/04/2024 12:44 PM CDT Hospital Encounter [facility], Sixth Floor [address] [place] [address] Dakota Morrow M.D. [address] [place] [address] Malignant Neoplasm Of Thyroid Medullary (HCC) Discharge Disposition: Home or Self Care Social History Tobacco Use Types Packs/Day Years Used Date Smoking Tobacco: Never Smokeless Tobacco: Never Alcohol Use Standard Drinks/Week Comments Not Currently 0 (1 standard drink = 0.6 oz pur e alcohol) [facility] Utilities Answer Date Recorded In the past [address] e [employer], gas, oil, or water [employer] threatened to shut off services in your [...] your living situation today? I have a [facility] place to live 01/23/2024 Sex and [...] AM CDT DISCHARGE SUMMARY BRIEF OVERVIEW Hospital: [facility] Discharge Provider: Dakota Morrow M.D. [...] M.D.Flaris, Alexandros N, M.D.Pierce, Erika M, M.D. [facility] ROEI OR DISCHARGE DISPOSITION Home or Self Care [1] ACTIVE ISSUES REQUIRING FOLLOW UP Check TSH with PCP or medicinal chemist in 6 weeks OUTPATIENT FOLLOW UP For [...] 5A, 02/03/24 The patient was admitted to [facility]. The patient was taken to the operating [...] He requires follow-up with his PCP or medicinal chemist in 6 weeks. At the time of [...] through Care Everywhere. * Acetaminophen (By mouth) (Japanese) * Levothyroxine (By mouth) (Japanese) * Oxycodone, Rapid Release (By mouth) (Japanese) documented in this encounter Medications at Time [...] Diagnosis Malignant Neoplasm Of Thyroid Medullary (HCC) Track Watchman A printer floor covering assistant actively participated and was necessary for [...] Jaret Salas M.D. LAB BLOOD ADD-O N [facility] [address] [place] [address], [facility] [address] [place] [address] * Surgical Pathology, Frozen Lab (02/03/2024 3:20 PM CDT) Pathologist [facility] 02/07/2024 2:56 PM CDT METH Participated in [...] almost the entire lobe in 3 dimensions. Track Announcer tissue submitted for permanent sections. Grossed by Donovan Trinidad M.D., Ph.D.-Pathology Resident. B. ??Received fresh labeled right thyroid lobe is a 7 g completion thyroidectomy with a 4.5 x 3.3 x 1.3 cm right lobe. ??The margin is inked and margins are taken perpendicularly. ??No nodules are identified. ??All submitted for permanent sections. ??Grossed by Ray Amado., P.A. ([facility]). C. ??Received fresh labeled left neck level 2, 3, 4, and 5A lymph nodes is an 8 x 3 x 2 cm aggregate of adipose and lymphatic tissue. ??Lymph nodes are submitted for frozen and permanent sections. ??Grossed by Ray Amado., P.A. ([facility]). 02/07/2024 2:56 PM CDT METH Block [...] Morrow M.D. LAB SURG PATH ORDERA BLES [facility] [address] [place] [address], [facility] METH [address] [place] [address] documented in this encounter Visit Diagnoses Diagnosis [...] 02/03/24 at 1300, For 1 dose, Pre-Op, Marketing Database Analyst, PreOp with sips Given 02/03/2024 12:52 PM [...] 02/03/24 at 1300, For 1 dose, Pre-Op, Marketing Database Analyst, PreOp with sips 1252 (Given - Provider: [...] 2116 documented in this encounter Care Teams Systems Analysis Manager Relationship Specialty Start Date End Date Elsewhere, Pcp PCP - General Internal Medicine 01/27/24 documented as of this encounter
--- OUTSIDE RECORDS SUMMARY | 2024-03-21 14:06 | XMS_ITS | Encounter Summary ---
Author Organization [facility] Address [address] [place] [address] Care Team Providers Care Warp Worker Name Role Phone Elsewhere, Pcp Primary Care Provider Unavailabl e Reason for Visit * Reason Onset Date Comments Pathology Request 01/27/2024 Encounter Details Date Type Department Care Team (Latest Contact Info) Description 01/27/2024 Clinical Communication Division of Endocrinology in [place], [place] [address] [place] [address] Phuc Torres M.D. [address] [place] [address] Pathology Request Social History Tobacco Use Types Packs/Day Years Used Date Smoking Tobacco: Never Assessed [facility] Utilities Answer Date Recorded In the [...] on filedocumented in this encounter Care Teams Warp Worker Relationship Specialty Start Date End Date Elsewhere, Pcp PCP - General Internal Medicine 01/27/24 documented as of this encounter
--- OUTSIDE RECORDS SUMMARY | 2024-03-21 14:06 | XMS_ITS | Encounter Summary ---
Author Organization [facility] Address [address] [place] [id number] Care Team Providers Care Airport Operations Crew Member Name Role Phone Elsewhere, Pcp Primary Care Provider Unavailabl e Reason for Referral * Outpatient (Routine) - Closed Specialty Diagnoses / Procedures Referred By Vinicius reid Referred To Contact Diagnoses Malignant Neoplasm Of Thyroid (HCC) Procedures US Superficial Tissue Fine Needle Aspiration Phuc Torres M.D. [address] [place] [address] [facility] Referral ID Status Reason Start Date Expiration Date Visits Re quested Visits Authorized [id number] Closed 01/27/2024 01/26/2025 1 1 Reason for Visit * Outpatient (Routine) - Closed Specialty Diagnoses / Procedures Referred By Vinicius reid Referred To Contact Diagnoses Malignant Neoplasm Of Thyroid (HCC) Procedures US Superficial Tissue Fine Needle Aspiration Phuc Torres M.D. [address] [place] [address] [facility] Referral ID Status Reason Start Date Expiration Date Visits Re quested Visits Authorized [id number] Closed 01/27/2024 01/26/2025 1 1 Encounter Details Date Type Department Care Team (Latest Contact Info) Description 01/31/2024 8:37 AM CDT - 01/31/2024 10:21 AM CDT Hospital Encounter Department of Radiology, [facility], in [place], [place] [address] [place] [phone] Phuc Torres M.D. [address] [place] [address] Agueda Larios M.D. [address] [place] [address] Malignant Neoplasm Of Thyroid (HCC) Discharge Disposition: Home or Self Care Social History Tobacco Use Types Packs/Day Years Used Date Smoking Tobacco: Never Assessed [facility] Utilities Answer Date Recorded In [...] Torres M.D. LAB SURG PATH [facility] [address] [place] [address], [facility] [address] [place] [address] * (ABNORMAL) Cytology Fine Needle Aspiration (including [...] Torres M.D. LAB SURG PATH [facility] [address] [place] [address], [facility] [address] [facility] [address] [place] [address] * Calcitonin, Fine-Needle Aspiration Biopsy (FNAB)-Needle Wash, Lymph Node (01/31/2024 9:16 AM CDT) Calcitonin, FNAB, Lymph Node [id number] pg/mL 01/31/2024 6:10 PM CDT [facility] Comment: Calcitonin values = or > [...] This test has been modified from the program writer's instructions. Its performance characteristics were determined by [facility] in a manner consistent with [...] Washings, Lymph Node 02/01/2024 10:16 AM CDT [facility] Comment:REVISED RESULTS FNA Needle Washings (Lymph Node) 01/31/2024 9:16 AM CDT Phuc Torres M.D. LAB BODY FLUIDS AN D STOOLS ORDERABLES [facility] [address] [place] [address] [facility] [address] [place] [address] * Calcitonin, Fine-Needle Aspiration Biopsy (FNAB)-Needle Wash, Lymph Node (01/31/2024 9:12 AM CDT) Pathologist [facility] Calcitonin, FNAB, Lymph Node 31 pg/mL 02/01/2024 9:36 AM CDT [facility] Comment: Calcitonin values = or > [...] This test has been modified from the program writer's instructions. Its performance characteristics were determined by [facility] in a manner consistent with [...] Washings, Lymph Node 02/01/2024 10:17 AM CDT [facility] Comment:REVISED RESULTS FNA Needle Washings (Lymph Node) 01/31/2024 9:12 AM CDT 01/31/2024 3:14 PM CDT Narrative Authorizing Provider Result Clive Torres M.D. LAB BODY FLUIDS AN D STOOLS ORDERABLES [facility] [address] [place] [address] [facility] [address] [place] [address] documented in this encounter Visit Diagnoses Diagnosis [...] Neck) documented in this encounter Care Teams Airport Operations Crew Member Relationship Specialty Start Date End Date Elsewhere, Pcp PCP - General Internal Medicine 01/27/24 documented as of this encounter
--- OUTSIDE RECORDS SUMMARY | 2024-03-21 14:06 | XMS_ITS | Encounter Summary ---
Author Organization [facility] Address [address] [place] [address] Care Team Providers Care Assistant Store Manager Operations Name Role Phone Elsewhere, Pcp Primary Care Provider Unavailabl e Encounter Details Date Type Department Care Team (Late st Contact Info) Description 02/08/2024 Clinical Communication Division of Endocrine Surgery in [place], [place] [address] [place] [address] Jaret Salas M.D. Social History Tobacco Use Types Packs/Day Years Used Date Smoking Tobacco: Never Smokeless Tobacco: Never Alcohol Use Standard Drinks/Week Comments Not Currently 0 (1 standard drink = 0.6 oz pur e alcohol) [facility] Utilities Answer Date Recorded [...] your living situation today? I have a [facility] place to live 01/23/2024 Sex and [...] has progressed very well and we appreciate [facility]'s excellent care. documented in this encounter Plan of Treatment Not on file documented as of this encounter Visit Diagnoses Not on filedocumented in this encounter Care Teams Assistant Store Manager Operations Relationship Specialty Start Date End Date Elsewhere, Pcp PCP - General Internal Medicine 01/27/24 documented as of this encounter
--- OUTSIDE RECORDS SUMMARY | 2024-03-21 14:06 | XMS_ITS | Encounter Summary ---
Author Organization [facility] Address [address] [place] [address] Care Team Providers Care Analytical Statistician Name Role Phone Elsewhere, Pcp Primary Care Provider Unavailabl e Encounter Details Date Type Department Care Team (Late st Contact Info) Description 01/31/2024 Orders Only Division of Endocrinology in [place], [place] [address] [place] [phone] Phuc Torres M.D. [address] [place] [address] Social History Tobacco Use Types Packs/Day Years Used Date Smoking Tobacco: Never Assessed [facility] Utilities Answer Date Recorded In [...] your living situation today? I have a [facility] place to live 01/23/2024 Sex and Gender Information Value Date Recorded Sex Assigned at Male 01/23/2024 9:14 PM CDT Gender Identity Male 01/23/2024 9:14 PM CDT Sexual Orientation Straight 01/23/2024 9: 14 PM CDT documented as of this encounter Plan of Treatment Not on file documented as of this encounter Visit Diagnoses Not on filedocumented in this encounter Care Teams Analytical Statistician Relationship Specialty Start Date End Date Elsewhere, Pcp PCP - General Internal Medicine 01/27/24 documented as of this encounter
--- OUTSIDE RECORDS SUMMARY | 2024-03-21 14:07 | XMS_ITS | Encounter Summary ---
Author Organization [facility] Address [address] [place] [address] Care Team Providers Care Weather Strip Mechanic Name Role Phone Unavailable Primary Care Provider Unavailabl e Reason for Referral * Outpatient (Routine) - Closed Specialty Diagnoses / Procedures Referred By Vinicius reid Referred To Contact Diagnoses Malignant Neoplasm Of Thyroid Medullary (HCC) Procedures US Thyroid US Head Neck Soft Tissue Phuc Torres M.D. [address] [place] [phone] [facility] Referral ID Status Reason Start Date Expiration Date Visits Re quested Visits Authorized [id number] Closed 12/28/2023 12/27/2024 1 1 * Outpatient (Routine) - Authorized Specialty Diagnoses / Procedures Referred By Vinicius reid Referred To Contact Endocrinology Diagnoses Malignant Neoplasm Of Thyroid Medullary (HCC) Phuc Torres M.D. [address] [place] [phone] [facility] Referral ID Status Reason Start Date Expiration Date V isits Requested Visits Authorized [id number] Authorized 12/28/2023 06/28/2025 1 1 Scheduling Instructions Schedule in conjunction with the General Surgery - Endocrine Consult (clinic) Please use the move up process for neck ultrasound for thyroid cancer patients * Outpatient (Routine) - Closed Specialty Diagnoses / Procedures Referred By Contac t Referred To Contact General Surgery Diagnoses Malignant Neoplasm Of Thyroid Medullary (HCC) Phuc Torres M.D. [address] [place] [address] [facility] Referral ID Status Reason Start Date Expiration Date Visits Re quested Visits Authorized [id number] Closed 12/28/2023 06/28/2025 1 1 Scheduling Instructions [...] Expiration Date Visits Re quested Visits Authorized [id number] Closed 12/20/2023 12/19/2024 1 1 Encounter Details Date Type Department Care Team (Latest Contact Info) Description 12/28/2023 2:00 PM CDT Clinical Communication Division of Endocrinology in [place], [place] [address] [place] [address] Pre-visit Intake (thyroid) Social History Tobacco Use Types Packs/Day Years Used Date Smoking Tobacco: Never Assessed [facility] Utilities Answer Date Recorded In [...] diagnostic for thyroid cancer, November/2023. Performed at [facility].. Reports the following: Completed a neck ultrasound in . Performed at [place]. Did complete a Cat Scan of the neck/chest November/2023. Performed at [place]. Did not complete a whole body scan. [...] care: yes The following references were used: [facility] protocols: Thyroid Cancer Evaluation ([id number]) documented in this encounter Plan of Treatment [...] developed and its performance characteristics determined by [facility] in a manner consistent with CLIA requirements. This test has not been cleared or approved by the U.S. Food and Drug Administration. Blood (Blood, Venous) 01/27/2024 6:47 AM CDT 01/27/2024 9:16 AM CDT Phuc Torres M.D. LAB BLOOD ADD-ON Performing Organization Address [facility] Co de Phone Number [facility] [address] [place] [address] [facility] [address] [place] [address] [place] [address] * Calcium, Total (01/27/2024 6:47 AM CDT) Calcium, Total, S 9.3 8.8 - 10.2 mg/dL 01/27/2024 8:08 AM CDT DTL Blood (Blood, Venous) 01/27/2024 6:47 AM CDT 01/27/2024 7:31 AM CDT Phuc Torres M.D. LAB BLOOD ADD-ON Performing Organization Address [facility] de Phone Number [address] [address], [facility] [address] [address] * Metanephrines, Fractionated, Free (01/27/2024 6:47 AM CDT) Normetanephrine, Free 0.64 <0.90 nmol/L 01/28/2024 3:30 PM CDT SDS Metanephrine, Free <0.20 <0.50 nmol/L 01/28/2024 3:30 PM CDT [facility] Comment: ----ADDITIONAL INFORMATION---- This test was developed and its performance characteristics determined by [facility] in a manner consistent with CLIA requirements. This test has not been cleared or approved by the U.S. Food and Drug Administration. Blood (Blood, Venous) 01/27/2024 6:47 AM CDT 01/27/2024 10:31 AM CDT Phuc Torres M.D. LAB BLOOD NON ADD- ON Performing Organization Address [facility] Co de Phone Number [facility] [address] [place] [address] [facility] [address] [place] [address] [place] [address] * (ABNORMAL) CEA (Carcinoembryonic Antigen) (01/27/2024 6:47 AM CDT) Pathologist [facility] Carcinoembryonic Ag (CEA), S 313.0(H) ng/mL 01/27/2024 10:54 AM CDT [facility] Comment: ----REFERENCE VALUE---- <=3.0 (Non-smokers) Some smokers may have elevated CEA, usually <5.0. ----ADDITIONAL INFORMATION---- The testing method is an immunoenzymatic assay manufactured by [employer]. and performed on the [employer] DxI 800. ? Values obtained with different assay methods or kits may be different and cannot be used interchangeably. ? Test results cannot be interpreted as absolute evidence for the presence or absence of malignant disease. Blood (Blood, Venous) 01/27/2024 6:47 AM CDT 01/27/2024 9:56 AM CDT Phuc Torres M.D. LAB BLOOD ADD-ON Performing Organization Address [facility] Co de Phone Number [facility] [address] [place] [address] [facility] [address] [place] [address] * (ABNORMAL) Calcitonin (01/27/2024 6:47 AM CDT) Calcitonin, S 5061(H) <=14.3 pg/mL 01/27/2024 1:35 PM CDT [facility] Comment: ----ADDITIONAL INFORMATION---- The testing method [...] Torres M.D. LAB BLOOD NON ADD- ON [facility] [address] [place] [address] [facility] [address] [place] [address] * T4 (Thyroxine), Free (01/27/2024 6:47 AM CDT) T4 (Thyroxine), Free, S 1.4 0.9 - 1.7 ng/dL 01/27/2024 8:08 AM CDT DTL Blood (Blood, Venous) 01/27/2024 6:47 AM CDT 01/27/2024 7:31 AM CDT Phuc Torres M.D. LAB BLOOD ADD-ON Performing Organization Address City[facility]/ZIP Co de Phone Number [facility] [address] [place] [address], [facility] [address] [place] [address] * S-TSH (Thyroid-Stimulating Hormone - Sensitive) (01/27/2024 6:47 AM CDT) TSH, Sensitive 2.3 0.3 - 4.2 mIU/L 01/27/2024 8:08 AM CDT DTL Blood (Blood, Venous) 01/27/2024 6:47 AM CDT 01/27/2024 7:31 AM CDT Phuc Torres M.D. LAB BLOOD ADD-ON [facility] [address] [place] [address], [place] DTL [facility] [address] [place] [address] * US Thyroid (01/25/2024 11:23 AM CDT) [...]
--- OUTSIDE RECORDS SUMMARY | 2024-03-21 14:07 | XMS_ITS | Encounter Summary ---
Author Organization [facility] Address [address] [place] [address] Care Team Providers Care Surgical Oncologist Name Role Phone Elsewhere, Pcp Primary Care Provider Unavailabl e Encounter Details Date Type Department Care Team (Latest Contact Info) Description 01/27/2024 6:21 AM CDT - 01/27/2024 3:22 PM CDT Hospital Encounter Department of Laboratory Medicine and Pathology, [facility] in [place], [place] [address] [place] [address] Phuc Torres M.D. [address] [place] [phone] Malignant Neoplasm Of Thyroid Medullary (HCC) Discharge Disposition: Home or Self Care Social History Tobacco Use Types Packs/Day Years Used Date Smoking Tobacco: Never Assessed [facility] Utilities Answer Date Recorded In the past 12 months has [facility] [employer], gas, oil, or water [employer] threatened to shut off services in your [...] D2 <4.0 ng/mL 01/29/2024 3:28 PM CDT [facility] 25-Hydroxy D3 16 ng/mL 01/29/2024 3:28 PM CDT [facility] 25-Hydroxy D Total 16(L) ng/mL 2023 3:28 PM CDT [facility] Comment: Interpretation: 10-19 ng/mL (mild to moderate deficiency) ----REFERENCE VALUE---- 25-HYDROXY D TOTAL (D2+D3) Optimum levels in the healthy population are 20-50. ----ADDITIONAL INFORMATION---- This test was developed and its performance characteristics determined by [facility] in a manner consistent with CLIA requirements. This test has not been cleared or approved by the U.S. Food and Drug Administration. Blood (Blood, Venous) 01/27/2024 6:47 AM CDT 01/27/2024 9:16 AM CDT Phuc Torres M.D. LAB BLOOD ADD-ON Performing Organization Address City/[facility]/ZIP Co de Phone Number [facility] [address] [place] [address] [facility] [address] [place] [address] [place] [address] * Calcium, Total (01/27/2024 6:47 AM CDT) Pathologist [facility] Calcium, Total, S 9.3 8.8 - 10.2 mg/dL 01/27/2024 8:08 AM CDT DTL Blood (Blood, Venous) 01/27/2024 6:47 AM CDT 01/27/2024 7:31 AM CDT Phuc Torres M.D. LAB BLOOD ADD-ON Performing Organization Address City[facility]/ZIP Co de Phone Number [facility] [address] [place] [address], [facility] [address] [place] [address] * Metanephrines, Fractionated, Free (01/27/2024 6:47 AM CDT) Normetanephrine, Free 0.64 <0.90 nmol/L 01/28/2024 3:30 PM CDT [facility] Metanephrine, Free <0.20 <0.50 nmol/L 01/28/2024 3:30 PM CDT [facility] Comment: ----ADDITIONAL INFORMATION---- This test was developed and its performance characteristics determined by [facility] in a manner consistent with CLIA requirements. This test has not been cleared or approved by the U.S. Food and Drug Administration. Blood (Blood, Venous) 01/27/2024 6:47 AM CDT 01/27/2024 10:31 AM CDT Phuc Torres M.D. LAB BLOOD NON ADD- ON Performing Organization Address [facility] Co de Phone Number [facility] [address] [address] [facility] [address] [place] [address] [place] [address] * (ABNORMAL) CEA (Carcinoembryonic Antigen) (01/27/2024 6:47 AM CDT) Carcinoembryonic Ag (CEA), S 313.0(H) ng/mL 01/27/2024 10:54 AM CDT [facility] Comment: ----REFERENCE VALUE---- <=3.0 (Non-smokers) Some smokers may have elevated CEA, usually <5.0. ----ADDITIONAL INFORMATION---- The testing method is an immunoenzymatic assay manufactured by [employer] and performed on the Tysdo DxI 800. ? Values obtained with different assay methods or kits may be different and cannot be used interchangeably. ? Test results cannot be interpreted as absolute evidence for the presence or absence of malignant disease. Blood (Blood, Venous) 01/27/2024 6:47 AM CDT 01/27/2024 9:56 AM CDT Phuc Torres M.D. LAB BLOOD ADD-ON Performing Organization Address City[facility]/ZIP Co de Phone Number [facility] [address] [place] [address] [facility] [address] [place] [address] * (ABNORMAL) Calcitonin (01/27/2024 6:47 AM CDT) [facility] Calcitonin, S 5061(H) <=14.3 pg/mL 01/27/2024 1:35 PM CDT [facility] Comment: ----ADDITIONAL INFORMATION---- The testing method is an electrochemiluminescence assay manufactured by [employer] and performed on the Lovely system. Values obtained with different assay methods or kits may be different and cannot be used interchangeably. Test results cannot be interpreted as absolute evidence for the presence or absence of malignant disease. Blood (Blood, Venous) 01/27/2024 6:47 AM CDT 01/27/2024 11:54 AM CDT Phuc Torres M.D. LAB BLOOD NON ADD- ON Performing Organization Address City[facility]/ZIP Co de Phone Number [facility] [address] [place] [address] [place] [address] * T4 (Thyroxine), Free (01/27/2024 6:47 AM CDT) [facility] T4 (Thyroxine), Free, S 1.4 0.9 - 1.7 ng/dL 01/27/2024 8:08 AM CDT [facility] Blood (Blood, Venous) 01/27/2024 6:47 AM CDT 01/27/2024 7:31 AM CDT Phuc Torres M.D. LAB BLOOD ADD-ON [facility] [address] [place] [address], [facility] [address] [place] [address] * S-TSH (Thyroid-Stimulating Hormone - Sensitive) (01/27/2024 6:47 AM CDT) TSH, Sensitive 2.3 0.3 - 4.2 mIU/L 01/27/2024 8:08 AM CDT DTL Blood (Blood, Venous) 01/27/2024 6:47 AM CDT 01/27/2024 7:31 AM CDT Phuc Torres M.D. LAB BLOOD ADD-ON [facility] [address] [place] [address], [facility] [address] [place] [address] documented in this encounter Visit Diagnoses Diagnosis Malignant Neoplasm Of Thyroid Medullary (HCC) documented in this encounter Care Teams Surgical Oncologist Relationship Specialty Start Date End Date Elsewhere, Pcp PCP - General Internal Medicine 01/27/24 documented as of this encounter
--- OUTSIDE RECORDS SUMMARY | 2024-03-21 14:07 | XMS_ITS | Encounter Summary ---
Author Organization [facility] Address [address] [place] [address] Care Team Providers Care Hotshot Superintendent Name Role Phone Elsewhere, Pcp Primary Care Provider Unavailabl e Reason for Referral * Outpatient (Routine) - Closed Specialty Diagnoses / Procedures Referred By Vinicius reid Referred To Contact General Surgery Dakota Morrow M.D. [address] [place] [phone] Dakota Morrow M.D. 200 [place] [address] Referral ID Status Reason Start Date Expiration Date Visits Re quested Visits Authorized [id number] Closed 01/27/2024 07/28/2025 1 1 Scheduling Instructions Please schedule with Dr. Morrow; Reason for Visit * Outpatient (Routine) - Closed Specialty Diagnoses / Procedures Referred By Vinicius reid Referred To Contact General Surgery Diagnoses Malignant Neoplasm Of Thyroid Medullary (HCC) Phuc Torres M.D. [address] [place] [phone] [facility] Referral ID Status Reason Start Date Expiration Date Visits Re quested Visits Authorized [id number] Closed 12/28/2023 06/28/2025 1 1 Encounter Details Date Type Department Care Team (Latest Contact Info) Description 01/27/2024 3:00 PM CDT Comprehensive Visit Division of Endocrine Surgery in [place], [place] [address] [place] [address] [place] [address] Dakota Morrow M.D. 200 [place] [phone] Phuc Torres M.D. 200 [place] [phone] Malignant Neoplasm Of Thyroid Medullary (HCC) Social [...] (HCC) documented in this encounter Care Teams Hotshot Superintendent Relationship Specialty Start Date End Date Elsewhere, Pcp PCP - General Internal Medicine 01/27/24 documented as of this encounter
--- OUTSIDE RECORDS SUMMARY | 2024-03-21 14:07 | XMS_ITS | Encounter Summary ---
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 200 [place] [address] [facility] Referral ID Status Reason Start Date Expiration Date Visits Re quested Visits Authorized [id number] Closed 01/27/2024 01/26/2025 1 1 * Outpatient (Routine) - Closed Specialty Diagnoses / Procedures Referred By Vinicius reid Referred To Contact Diagnoses Malignant Neoplasm Of Thyroid (HCC) Procedures US Superficial Tissue Fine Needle Aspiration Phuc Torres M.D. 200 [place] [address] [facility] Referral ID Status Reason Start Date Expiration Date Visits Re quested Visits Authorized [id number] Closed 01/27/2024 01/26/2025 1 1 Reason for Visit * Appointment Request (Routine) - Closed Specialty Diagnoses / Procedures Referred By Vinicius reid Referred To Contact Endocrinology Diagnoses Malignant Neoplasm Of Thyroid Medullary (HCC) Referral ID Status Reason Start Date Expiration Date Visits Re quested Visits Authorized [id number] Closed 12/20/2023 12/19/2024 1 1 Encounter Details Date Type Department Care Team (Latest Contact Info) Description 01/27/2024 1:30 PM CDT Comprehensive Visit Division of Endocrinology in [place], [place] [address] [place] [address] Phuc Torres M.D. [address] [place] [address] Malignant Neoplasm Of Thyroid (HCC) Social History Tobacco Use Types Packs/Day Years Used Date Smoking Tobacco: Never Assessed [facility] Utilities Answer Date Recorded [...] Ethan Wise) is a 63-year-old man from [facility], about [place] hour [place] 15 minutes away, [...] syndrome. No tobacco. 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 Review of his chart, though, shows [...] Phuc Torres M.D. CT CT Job ID: [id number] documented in this encounter Plan of Treatment [...] Clinical Correlations An online research opportunity called Velti ([employer]ocket[employer]Snap Trends) , a project of [employer] is available for the recipient of this genetic test. This patient registry collects de-identified genetic and health information to advance the knowledge of genetic variants. [facility] is a collaborator of [employer].. This may not be applicable for all [...] assistance in the interpretation of these results, [facility] Laboratory genetic counselors can be [...] of results. Reclassification of Variants Policy See www.[facility]. com (TEST ID RETZZ) for information regarding the laboratory's policy for reclassification of variants. Variant Evaluation Variant curation is performed using published ACMG-AMP recommendations as a guideline. Other gene-specific guidelines may also be considered. Variants classified as benign or likely benign are not reported. Results from in silico evaluation tools may change manager time and should be interpreted with caution and professional clinical judgment. TEST CLASSIFICATION This test was developed and its performance characteristics determined by [facility] in a manner consistent with [...] methodologies based on internal laboratory criteria. See www.[employer]. [employer] (TEST ID RETZZ) for details regarding genes [...] LAB GENETIC TESTIN G Performing Organization Address [facility] Co de Phone Number [facility] [address] [place] [address], [facility] DTL 200 [facility] 200 [place] [address] * Pathology Review of Outside Material (11/12/2023 [...] 10:51 AM CDT DTL Material Received A. [id number]: Left thyroid ? 7 stained slides 02/03/2024 10:51 AM CDT DTL Interpretation FINAL DIAGNOSIS Thyroid, left lobe nodule ultrasound-guide d fine needle aspiration ([id number]; smears and thin prep; 11/12/2023): Suspicious for malignancy. ??Discohesive cells with nuclear hyperchromasia and atypia worrisome for medullary carcinoma. 02/03/2024 10:51 AM CDT DTL Varies 11/12/2023 8:45 AM CDT 02/02/2024 11:56 AM CDT Phuc Torres M.D. LAB SURG PATH ORDE RABMAKSIM Performing Organization Address [facility]/ZIP Co de Phone Number [facility] [address] [place] [address], [facility] DTL 200 [facility] [address] [place] [address] documented in this encounter Visit Diagnoses Diagnosis Malignant Neoplasm Of Thyroid (HCC) Malignant Neoplasm Of Thyroid (HCC) documented in this encounter Care Teams Tool Planer Set Up Operator Relationship Specialty Start Date End Date Elsewhere, Pcp PCP - General Internal Medicine 01/27/24 documented as of this encounter
--- OUTSIDE RECORDS SUMMARY | 2024-03-21 14:07 | XMS_ITS | Encounter Summary ---
Author Organization [facility] Address [address] [place] [address] Care Team Providers Care Funeral Arranger Name Role Phone Elsewhere, Pcp Primary Care Provider Unavailabl e Encounter Details Date Type Department Care Team (Late st Contact Info) Description 12/30/2023 Clinical Communication Division of Endocrine Surgery in [place], [place] [address] [place] [phone] Dakota Morrow M.D. [address] [place] [address] Social History Tobacco Use Types Packs/Day Years Used Date Smoking Tobacco: Never Assessed [facility] Utilities Answer Date Recorded In the [...] your living situation today? I have a [facility] place to live 01/23/2024 Sex and Gender Information Value Date Recorded Sex Assigned at Male 01/23/2024 9:14 PM CDT Gender Identity Male 01/23/2024 9:14 PM CDT Sexual Orientation Straight 01/23/2024 9: 14 PM CDT documented as of this encounter Plan of Treatment Not on file documented as of this encounter Visit Diagnoses Not on filedocumented in this encounter Care Teams Funeral Arranger Relationship Specialty Start Date End Date Elsewhere, Pcp PCP - General Internal Medicine 01/27/24 documented as of this encounter
--- OUTSIDE RECORDS SUMMARY | 2024-03-21 14:07 | XMS_ITS | Encounter Summary ---
Author Organization [facility] Address [address] [place] [address] Care Team Providers Care Thread Twister Name Role Phone Unavailable Primary Care Provider Unavailabl e Reason for Referral * Outpatient (Routine) - Closed Specialty Diagnoses / Procedures Referred By Vinicius reid Referred To Contact Diagnoses Malignant Neoplasm Of Thyroid Medullary (HCC) Procedures US Thyroid US Head Neck Soft Tissue Phuc Torres M.D. 200 [place] [address] [facility] Referral ID Status Reason Start Date Expiration Date Visits Re quested Visits Authorized [id number] Closed 12/28/2023 12/27/2024 1 1 Reason for Visit * Outpatient (Routine) - Closed Specialty Diagnoses / Procedures Referred By Vinicius reid Referred To Contact Diagnoses Malignant Neoplasm Of Thyroid Medullary (HCC) Procedures US Thyroid US Head Neck Soft Tissue Phuc Torres M.D. 200 [place] [address] [facility] Referral ID Status Reason Start Date Expiration Date Visits Re quested Visits Authorized [id number] Closed 12/28/2023 12/27/2024 1 1 Encounter Details Date Type Department Care Team (Latest Contact Info) Description 01/25/2024 10:16 AM CDT - 01/25/2024 11:59 PM CDT Hospital Encounter Department of Radiology, [facility], in [place], [place] 200 [place] [address] Phuc Torres M.D. [address] [place] [address] Malignant Neoplasm Of Thyroid Medullary (HCC) Discharge Disposition: Home or Self Care Social History Tobacco Use Types Packs/Day Years Used Date Smoking Tobacco: Never Assessed [facility] Utilities Answer Date Recorded In the [...]
--- OUTSIDE RECORDS SUMMARY | 2024-03-21 14:07 | XMS_ITS | Encounter Summary ---
Author Organization [facility] Address [address] [place] [address] Care Team Providers Care Battery Container Finishing Hand Name Role Phone Unavailable Primary Care Provider Unavailabl e Reason for Referral * Outpatient (Routine) - Closed Specialty Diagnoses / Procedures Referred By Vinicius reid Referred To Contact Otorhinolaryngology Diagnoses Malignant Neoplasm Of Thyroid (HCC) Carmela Basurto M.D. [address] [place] [address] [facility] Referral ID Status Reason Start Date Expiration Date Visits Re quested Visits Authorized [id number] Closed 12/22/2023 06/22/2025 1 1 Encounter Details Date Type Department Care Team (Late st Contact Info) Description 12/22/2023 [facility] [address] [place] [address] Carmela Basurto M.D. [address] [place] [phone] Malignant Neoplasm Of Thyroid (HCC) (Primary Dx) [...]
--- OUTSIDE RECORDS SUMMARY | 2024-03-21 14:07 | XMS_ITS | Clinical Summary ---
Author Organization [employer] [facility] Address [place], [place] [address] Care Team Providers Care Mechanical Applications Engineer Name Role Phone Pcp, No Primary Care [...] 02/16/2017 02/16/2007 COVID-19 vaccine series ( season) 2024 06/10/2021, 11/01/2020, 10/01/2020 Influenza for age 50-64 03/12/2024 BMI (ht and wt on same day) for age 18+ 10/24/2024 10/25/2023, 12/14/2021 Tdap Completed 02/16/2007 Pneumococcal series for age 6-64 Aged Out No longer eligible b ased on patient's age to complete this topic Care Teams Mechanical Applications Engineer Relationship Specialty Start Date End Date Pcp, No . PCP - General 06/10/23
--- OUTSIDE RECORDS SUMMARY | 2024-03-21 14:07 | XMS_ITS | Encounter Summary ---
Author Organization [facility] Address [address] [place] [address] Care Team Providers Care Airline Hostess Name Role Phone Unavailable Primary Care Provider Unavailabl e Reason for Visit * Reason Onset Date Comments [facility] 12/23/2023 ENT Encounter Details Date Type Department Care Team (Latest Contact Info) Description 12/23/2023 Clinical Communication Department of Otorhinolaryngology in [place], [place] [address] [place] [address] Provider, Unknown [facility] (ENT ) Social History Tobacco Use Types Packs/Day Years Used Date Smoking Tobacco: Never Assessed [facility] Utilities Answer Date Recorded In [...] your living situation today? I have a [facility] place to live 01/23/2024 Sex and [...]
== END 2024-03-16 16:22 | disposition home or self-care (01) ==
LOC: NFLDREF 03-21 14:03
PROVIDERS: PCP Family Medicine; Referring Provider Family Medicine; Visit Provider Family Medicine
DX: E03.9 Hypothyroidism, unspecified (principal)
CPT/HCPCS: 84439; 84443; 84480

== ENCOUNTER 2024-04-17 19:35 | Outpatient (CLI) | payer OTHER, SELFPAY ==
--- OUTSIDE RECORDS SUMMARY | 2024-04-17 19:37 | XMS_ITS | Clinical Summary ---
Author Organization [facility] Address [address] [address] Care Team Providers Care Hosiery Knitter Name Role Phone No Primary/Referring, Phy Primary Care Provider Unavailable Source Comments You are receiving this document as you are listed as the primary care provider,follow-up provider, or the patient has been referred to you for consultation.This is in compliance with the Medicare and[facility] EHR Incentive Program,which states Providers who transition their patient to another setting of careor provider of care or refers their patient to another provider of care shouldprovide summary care record for each transition of care or referral. [facility] Allergies No known active allergies [...] 37 ??C (98.6 ??F) 09/12/2018 2:54 PM VENDING SUPERVISOR Respiratory Rate 16 09/12/2018 4:43 PM VENDING SUPERVISOR Oxygen Saturation 95% 09/12/2018 4:43 PM VENDING SUPERVISOR Inhaled Oxygen Concentration - - Weight 103 [...] Tdap) 02/16/2017 02/16/2007 COVID-19 Vaccine (2 - 2023-2 5 season) 2024 10/01/2020 Influenza (#1) 2024 RSV (1 - 1-dose 75+ series) 2036 HepA Aged Out No longer eligi ble based on patient's age to complete this topic HepB Aged Out No longer eligi ble based on patient's age to complete this topic Hib Aged Out No longer eligi ble based on patient's age to complete this topic IPV (Polio) Aged Out No longer eligi ble based on patient's age to complete this topic Infant RSV Aged Out No longer eligi ble based [...] e ffect for 30 days Care Teams Hosiery Knitter Relationship Specialty Start Date End Date No Primary/Referring, Phy PCP - General 11/04/18
--- OUTSIDE RECORDS SUMMARY | 2024-04-17 19:37 | XMS_ITS | Clinical Summary ---
Author Organization [place] Address [address] [place] [address] Care Team Providers Care Color Specialist Name Role Phone No Ref-Primary, Physician Primary Care Provider [facility] Unavailabl e Allergies Active Allergy Reactions [...] 08/23/2016 Immunizations Name Administration Dates Next Due [id number] Novel Flu- Nasal 08/10/2009 TDAP (Adacel,Boostrix) 04/02/2023,02/16/2007 [...] often do you attend chur ch or uatsdin services? 1 to 4 times per year 04/02/2023 Do you belong to any clubs o r organizations such as faith groups, unions, fraternal or athletic groups, or [...] Answer Date Recorded PHQ-2 Score 0 04/02/2023 [facility] - Occupational [...] in an abandoned building, in an overnight [place] [facility], or couch-surfing.) Yes 04/02/2023 Are you worried [...] 1971 ZOSTER IMMUNIZATION (1 of 2) 2011 PHQ-2 (once per calendar year) 2023 04/02/2023 COVID-19 Vaccine ( season) 2024 06/10/2021, 11/01/2020, 10/01/2020 INFLUENZA VACCINE (#1) 2024 08/10/2009 ANNUAL REVIEW OF HM ORDERS 04/02/2024 04/02/2023 YEARLY PREVENTIVE VISIT 04/02/2024 04/02/2023 GLUCOSE 10/05/2026 10/06/2023, 03/13, 08/24/2016, Additional history exists ADVANCE CARE PLANNING 04/02/2028 04/02/2023 LIPID 04/02/2028 04/02/2023 DTAP/TDAP/TD IMMUNIZATION (3 - Td or Tdap) 04/02/2033 04/02/2023, 02/16/2007 RSV VACCINE (1 - 1-dose 75+ series) 2036 HEPATITIS C SCREENING Completed 04/02/2023 HIV SCREENING [...] Glucose (External) 90 60 - 115 mg/dL [facility] Blood 10/06/2023 9:55 AM CDT Narrative [facility] - 10/06/2023 9:55 AM CDT OUTSIDE RECORDS - External Lab Results Provider Outside LAB - HIM EXTERNAL R ESULT [facility] [address] [phone] * HIV Antigen Antibody Combo (04/02/2023 9:11 AM CDT) HIV Antigen Antibody Combo Nonreactive Nonreactive 04/03/2023 12:48 PM CDT [facility] DO Comment:HIV-1 p24 Ag & HIV-1 /HIV-2 Ab Not Detected Blood BLOOD SPECIMEN / Unknown Venipuncture / Unknown 04/02/2023 9:11 AM CDT 04/02/2023 9:11 AM CDT Cassandra Rojas NP LAB - BLOOD ORDERABL ES [facility]ENDO [facility]Prot/Endo [address] [facility], [address] [phone] * Hepatitis C Screen Reflex to HCV [...] [facility] C[facility]/PROT/ENDO [facility]/Prot/Endo 500 [facility] [address], Room [address] [place] [address] * (ABNORMAL) Lipid panel reflex to direct [...] LAB - BLOOD ORDERABL ES [facility] 500 [facility] [address], [address] [place] [address], [place] [phone] from Last 3 Months or Most Recently Relevant to Health Maintenance Advance Directives For more information, please contact: [phone] * Full Code (Latest Code Status on File) Date Activated Date Inactivated Comments 08/24/2016 12:28 PM * Full Code Date Activated Date Inactivated Comments 08/23/2016 5:10 PM 08/24/2016 12:28 PM Care Teams Color Specialist Relationship Specialty Start Date End Date No Ref-Primary, Physician PCP - General 04/05/23 Clinic - [facility] [address] [place] [address] Assigned PCP 11/02/23
--- OUTSIDE RECORDS SUMMARY | 2024-04-17 19:37 | XMS_ITS | Encounter Summary ---
Author Organization [facility] Address [address] [place] [address] Care Team Providers Care Base Ply Hand Name Role Phone No Primary/Referring, Phy Primary [...] on filedocumented in this encounter Care Teams Base Ply Hand Relationship Specialty Start Date End Date No Primary/Referring, Phy PCP - General 11/04/18 documented as of this encounter
--- OUTSIDE RECORDS SUMMARY | 2024-04-17 19:37 | XMS_ITS | Encounter Summary ---
Author Organization [facility] Address [address] [place] [address] Care Team Providers Care Umbrella Mender Name Role Phone No Primary/Referring, Phy Primary [...] on filedocumented in this encounter Care Teams Umbrella Mender Relationship Specialty Start Date End Date No Primary/Referring, Phy PCP - General 11/04/18 documented as of this encounter
--- OUTSIDE RECORDS SUMMARY | 2024-04-17 19:37 | XMS_ITS | Encounter Summary ---
Author Organization [place] Address [address] [place] [address] Care Team Providers Care Regional Manager Name Role Phone No Ref-Primary, Physician Primary Care Provider [facility] Unavailabl e Encounter Details Date Type Department Care Team (Late st Contact Info) Description 11/18/2023 MyC Medical Advice [facility] [id number] [place] [id number] Caitlyn Alfred, CARBURETOR SPECIALIST Social History Tobacco Use Types Packs/Day Years Used Date Smoking Tobacco: Never Smokeless Tobacco: Never Social Connection and Isolat ion Panel [NHANES] Answer Date Recorded Frequency of Communication w ith Friends and Family Not on file 04/02/2023 How often do you get togethe r with friends or relatives? Twice a week 04/02/2023 How often do you attend [facility] or [facility] services? 1 to 4 times per year 04/02/2023 Do you belong to any clubs o r organizations such as yarsanism groups, unions, fraternal or athletic groups, or [...] Answer Date Recorded PHQ-2 Score 0 04/02/2023 [facility] Occupational Stress Questionnaire Answer [...] on filedocumented in this encounter Care Teams Regional Manager Relationship Specialty Start Date End Date No Ref-Primary, Physician PCP - General 04/05/23 [facility] [address] [place] [address] Assigned PCP 11/02/23 documented as of this encounter
--- OUTSIDE RECORDS SUMMARY | 2024-04-17 19:37 | XMS_ITS | Referral Summary ---
Author Organization [place] Address [address] [place] [address] Care Team Providers Care Photogrammetric Stereo Compiler Name Role Phone No Ref-Primary, Physician Primary Care Provider [facility] Unavailabl e Allergies Active Allergy Reactions [...] 08/23/2016 Immunizations Name Administration Dates Next Due [id number] Novel Flu- Nasal 08/10/2009 TDAP (Adacel,Boostrix) 04/02/2023,02/16/2007 [...] often do you attend chur ch or holiness services? 1 to 4 times per year [...] Answer Date Recorded PHQ-2 Score 0 04/02/2023 [facility] - Occupational [...] EXTERNAL R ESULT [facility] [address] [place] [address], [facility] [phone] * HIV Antigen Antibody Combo (04/02/2023 9:11 AM CDT) HIV Antigen Antibody Combo Nonreactive Nonreactive 04/03/2023 12:48 PM CDT [facility] DO Comment:HIV-1 p24 Ag & HIV-1 /HIV-2 Ab Not Detected Blood BLOOD SPECIMEN / Unknown Venipuncture / Unknown 04/02/2023 9:11 AM CDT 04/02/2023 9:11 AM CDT Cassandra Rojas NP LAB - BLOOD ORDERABL ES [facility]ENDO [facility]Prot/Endo [address], [address] [place] [address], [facility] [phone] * Hepatitis C Screen Reflex to HCV [...] SPECIALTY CORE/PROT/ENDO [facility] Core/Prot/Endo [address] [facility], [address] [phone] * (ABNORMAL) Lipid panel reflex to direct [...] Rojas NP LAB - BLOOD ORDERABL ES [facility] LAB[facility]ATORY [facility] [address] [facility] [address], [address] [place] [address], [facility] [phone] from Last 3 Months or Most Recently Relevant to Health Maintenance Advance Directives For more information, please contact: [phone] * Full Code (Latest Code Status on File) Date Activated Date Inactivated Comments 08/24/2016 12:28 PM * Full Code Date Activated Date Inactivated Comments 08/23/2016 5:10 PM 08/24/2016 12:28 PM Care Teams Photogrammetric Stereo Compiler Relationship Specialty Start Date End Date No Ref-Primary, Physician PCP - General 04/05/23 [facility] [address] [place] [address] Assigned PCP 11/02/23
--- OUTSIDE RECORDS SUMMARY | 2024-04-17 19:37 | XMS_ITS | Encounter Summary ---
Author Organization [facility] Address [address] [place] [address] Care Team Providers Care Food Inspector Name Role Phone No Primary/Referring, Phy Primary [...] on filedocumented in this encounter Care Teams Food Inspector Relationship Specialty Start Date End Date No Primary/Referring, Phy PCP - General 11/04/18 documented as of this encounter
--- OUTSIDE RECORDS SUMMARY | 2024-04-17 19:38 | XMS_ITS | Encounter Summary ---
Author Organization [facility] Address [address] [place] [address] Care Team Providers Care Car Shifter Name Role Phone Elsewhere, Pcp Primary Care Provider Unavailabl e Encounter Details Date Type Department Care Team (Late st Contact Info) Description 02/06/2024 Clinical Communication Division of Endocrine Surgery in [place], [place] [address] [place] [address] Jaret Salas M.D. Social History Tobacco Use Types Packs/Day Years Used Date Smoking Tobacco: Never Smokeless Tobacco: Never Alcohol Use Standard Drinks/Week Comments Not Currently 0 (1 standard drink = 0.6 oz pur e alcohol) [facility] Utilities Answer Date Recorded In the [...] your living situation today? I have a [facility] place to live 01/23/2024 Sex [...] moving in the right direction. We appreciate [facility] excellent care on this. Awaiting results from swallow. documented in this encounter Plan of Treatment Not on file documented as of this encounter Visit Diagnoses Not on filedocumented in this encounter Care Teams Car Shifter Relationship Specialty Start Date End Date Elsewhere, Pcp PCP - General Internal Medicine 01/27/24 documented as of this encounter
--- OUTSIDE RECORDS SUMMARY | 2024-04-17 19:38 | XMS_ITS ---
Author Organization [facility] Address [address] [place] [address] Care Team Providers Care Director Hr Communications Name Role Phone Unavailable Unavailable Unavailable Surgery Details Not on file Complications Check Surgery Details section. Procedure Estimated Blood Loss Check Surgery Details section. Procedure Findings Check Surgery Details section. Procedure Specimens Taken Check Surgery Details section.
--- OUTSIDE RECORDS SUMMARY | 2024-04-17 19:38 | XMS_ITS | Encounter Summary ---
Author Organization [facility] Address [address] [place] [address] Care Team Providers Care International Travel Consultant Name Role Phone Elsewhere, Pcp [...] MODIFIED NECK DISSECTION Dakota Morrow M.D. [address] [place] [address] Referral ID Status Reason Start Date Expiration Date Visits Re quested Visits Authorized [id number] 1 1 Encounter Details Date Type Department Care Team (Late st Contact Info) Description 02/03/2024 12:13 PM CDT - 02/03/2024 3:42 PM CDT Surgery [facility] [address] [place] [phone] Dakota Morrow M.D. [address] [place] [phone] THYROIDECTOMY - TOTAL. Social History Tobacco Use Types Packs/Day Years Used Date Smoking Tobacco: Never Smokeless Tobacco: Never Alcohol Use Standard Drinks/Week Comments Not Currently 0 (1 standard drink = 0.6 oz pur e alcohol) [facility] Utilities Answer Date Recorded In the past 12 months has e [employer], gas, oil, or water [employer] threatened to shut off services in your [...] your living situation today? I have a [facility] place to live 01/23/2024 Sex [...] AM CDT DISCHARGE SUMMARY BRIEF OVERVIEW Hospital: [facility] Discharge Provider: Dakota Morrow M.D. Primary Team: [...] M.D.Flaris, Alexandros N, M.D.Pierce, Erika M, M.D. [facility] OR DISCHARGE DISPOSITION Home or Self Care [1] ACTIVE ISSUES REQUIRING FOLLOW UP Check TSH with PCP or water aerobics instructor in 6 weeks OUTPATIENT FOLLOW UP For [...] He requires follow-up with his PCP or water aerobics instructor in 6 weeks. At the time of [...] through Care Everywhere. * Acetaminophen (By mouth) (Sammarinese) * Levothyroxine (By mouth) (Sammarinese) * Oxycodone, Rapid Release (By mouth) (Sammarinese) documented in this encounter Medications at Time [...] Diagnosis Malignant Neoplasm Of Thyroid Medullary (HCC) Sugar Cane Planter Machine Operator A outpatient physical therapist assistant actively participated and was necessary for [...] Jaret Salas M.D. LAB BLOOD ADD-O N [facility] [address] [place] [address], [facility] [address] [place] [address] * Surgical Pathology, Frozen Lab (02/03/2024 3:20 PM CDT) Pathologist [facility] 02/07/2024 2:56 PM CDT M[facility] Participated in [...] almost the entire lobe in 3 dimensions. Bus And Sys Integration Senior Manager tissue submitted for permanent sections. Grossed by Donovan Trinidad M.D., Ph.D.-Pathology Resident. B. ??Received fresh labeled right thyroid lobe is a 7 g completion thyroidectomy with a 4.5 x 3.3 x 1.3 cm right lobe. ??The margin is inked and margins are taken perpendicularly. ??No nodules are identified. ??All submitted for permanent sections. ??Grossed by Ray Amado., P.A. ([facility]). C. ??Received fresh labeled left neck level 2, 3, 4, and 5A lymph nodes is an 8 x 3 x 2 cm aggregate of adipose and lymphatic tissue. ??Lymph nodes are submitted for frozen and permanent sections. ??Grossed by Sachi Amado, P.A. ([facility]). 02/07/2024 2:56 PM CDT METH [...] M.D. LAB SURG PATH ORDERA BLES [facility] [address] [place] [address], [facility] METH [address] [place] [address] documented in this encounter Visit Diagnoses Diagnosis [...] 02/03/24 at 1300, For 1 dose, Pre-Op, Product Applications Scientist, PreOp with sips Given 02/03/2024 12:52 PM [...] 02/03/24 at 1300, For 1 dose, Pre-Op, Product Applications Scientist, PreOp with sips 1252 (Given - Provider: [...] 0830 0903 (Given - Provid er: Michelle Hlyton R.N.) loratadine tablet 10 mg (Claritin) 10 [...] 2116 documented in this encounter Care Teams International Travel Consultant Relationship Specialty Start Date End Date Elsewhere, Pcp PCP - General Internal Medicine 01/27/24 documented as of this encounter
--- OUTSIDE RECORDS SUMMARY | 2024-04-17 19:38 | XMS_ITS | Clinical Summary ---
Author Organization [facility] Address [address] [place] [address] Care Team Providers Care Camera Storage Clerk Name Role Phone Elsewhere, Pcp Primary Care Provider Unavailabl e Source Comments Patient records contain information from all sites at [facility]. For routine questions regarding patient records, call [phone] during business hours, M-F 8:00 AM - 5:00 PM Central Time. Record requests for emergency care only can be directed to [phone] at any time.[facility] Allergies Active Allergy Reactions Criticality Noted [...] Description 02/14/2024 Documentation Division of Endocrinology in [place], [place] [address] [place] [phone] Phuc Torres M.D. 02/14/2024 Orders Only Division of Endocrinology in [place], [place] [address] [place] [address] Phuc Torres M.D. 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 02/07/2024 Clinical Communication Division of Endocrine Surgery in [place], [place] [address] [place] [address] Jaret Salas M.D. 02/06/2024 Clinical Communication Division of Endocrine Surgery in [place], [place] [address] [place] [address] Jaret Salas M.D. 02/05/2024 Clinical Communication Division of Endocrine Surgery in [place], [place] [address] [place] [address] Jaret Salas M.D. 02/05/2024 Clinical Communication Division of Endocrine Surgery in [place], [place] [address] [place] [address] Jaret Salas M.D. 02/05/2024 Intake [facility] 02/03/2024 1:52 PM CDT Anesthesia Event RST [facility] OR [address] [place] [address] Paulino Love, Marla. Willem Baker M.D., M.S. 02/03/2024 12:13 PM CDT - 02/03/2024 3:42 PM CDT Surgery T [facility] OR [address] [place] [address] Dakota Morrow M.D. THYROIDECTOMY - TOTAL. 02/03/2024 10:28 AM CDT - 02/04/2024 12:44 PM CDT Hospital Encounter [facility], Sixth Floor [address] [place] [address] Dakota Morrow M.D. Malignant Neoplasm Of Thyroid Medullary (HCC) Discharge Disposition: Home or Self Care 02/02/2024 2:00 PM CDT Office Visit Division of Endocrine Surgery in [place], [place] [address] [place] [address] Dakota Morrow M.D. Castro, M. Regina, M.D. 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 Robinson, Kathryn A, M.D. Malignant Neoplasm Of Thyroid (HCC) Discharge Disposition: Home or Self Care 01/31/2024 Orders Only Division of Endocrinology in [place], [place] [address] [place] [phone] Phuc Torres M.D. 01/27/2024 3:23 PM CDT - 01/27/2024 11:59 PM CDT Hospital Encounter Department of Laboratory Medicine and Pathology, [facility] in [place], [place] [address] [place] [phone] Phuc Torres M.D. Malignant Neoplasm Of Thyroid (HCC) Discharge Disposition: Home or Self Care 01/27/2024 3:00 PM CDT Comprehensive Visit Division of Endocrine Surgery in [place], [place] [address] [place] [phone] Dakota Morrow M.D. Castro, M. Regina, M.D. Malignant Neoplasm Of Thyroid Medullary (HCC) 01/27/2024 2:40 PM CDT Lab RST RO [facility] [address] [place] [phone] Phuc Torres M.D. Malignant Neoplasm Of Thyroid (HCC) 01/27/2024 1:30 PM CDT Comprehensive Visit Division of Endocrinology in [place], [place] [address] [place] [phone] Phuc Torres M.D. Malignant Neoplasm Of Thyroid (HCC) 01/27/2024 6:21 AM CDT - 01/27/2024 3:22 PM CDT Hospital Encounter Department of Laboratory Medicine and Pathology, [facility] in [place], [place] [address] [place] [phone] Phuc Torres M.D. Malignant Neoplasm Of Thyroid Medullary (HCC) Discharge Disposition: Home or Self Care 01/27/2024 Clinical Communication Division of Endocrinology in [place], [place] [address] [place] [phone] Phuc Torres M.D. Pathology Request 01/25/2024 10:16 AM CDT - 01/25/2024 11:59 PM CDT Hospital Encounter Department of Radiology, [facility] in [place], [place] [address] [place] [phone] Phuc Torres M.D. Malignant Neoplasm Of Thyroid Medullary (HCC) Discharge Disposition: Home or Self Care from Last 3 Months Social History Tobacco Use Types Packs/Day Years Used Date Smoking Tobacco: Never Smokeless Tobacco: Never Alcohol Use Standard Drinks/Week Comments Not Currently 0 (1 standard drink = 0.6 oz pur e alcohol) [facility] Utilities [...] your living situation today? I have a [facility] place to live 01/23/2024 Sex [...] Depression Screening (Annual PHQ-2) 07/12/2023 COVID-19 Vaccine ( - 2023-2 5 season) 2024 06/10/2021, 11/01/2020, 10/01/2020 Influenza Vaccine (#1) 2024 08/10/2009 Office Visit for Blood Pressure Check / Re-check 04/28/2024 01/27/2024 Thyroid Stimulating Hormone (TSH) test for thyroid function 01/26/2025 01/27/2024 Fasting Glucose for Diabetes Screening 10/05/2026 10/06/2023, 04/02/2023 Lipid (Cholesterol) Screening 04/02/2028 04/02/2023 DTaP,Tdap,and Td Vaccines (3 - Td or Tdap) 04/02/2033 04/02/2023, 02/16/2007 Pneumococcal vaccine (0-64 years) Aged Out No longer eligible b ased on patient's age to complete this topic Medical Devices Implanted Type Area Child Care Centre Manager Device Identifier Shelf Expiration Date Model / Serial / Lot Clp Hrzn Ti 6 Clp Sm Red - [id number] Implanted:Qty: 1 on 02/03/2024 by Dakota Morrow M.D. at [facility] Hardware e.g. pins/screws/r ods Neck [employer] [id number] / / Procedures Procedure Name Priority Date/Time [...] System IMG CT PROCEDURES Performing Organization Address [facility] Co de Phone Number IIMS NA * Parathyroid Hormone (PTH) (02/03/2024 7:15 PM CDT) Parathyroid Hormone (PTH), S 28 15 - 65 pg/mL 02/03/2024 8:48 PM CDT DTL Blood (Blood, Venous) 02/03/2024 7:15 PM CDT 02/03/2024 8:02 PM CDT Jaret Salas M.D. LAB BLOOD ADD-O N Performing Organization Address City/[facility]/ZIP Co de Phone Number [facility] [address] [place] [address], [facility] DTL [facility] [address] [place] [address] * Surgical Pathology, Frozen Lab (02/03/2024 3:20 [...] almost the entire lobe in 3 dimensions. Diesel Retrofit Installer tissue submitted for permanent sections. Grossed by Donovan Trinidad M.D., Ph.D.-Pathology Resident. B. ??Received fresh labeled right thyroid lobe is a 7 g completion thyroidectomy with a 4.5 x 3.3 x 1.3 cm right lobe. ??The margin is inked and margins are taken perpendicularly. ??No nodules are identified. ??All submitted for permanent sections. ??Grossed by Ray Amado., P.A. ([facility]). C. ??Received fresh labeled left neck level 2, 3, 4, and 5A lymph nodes is an 8 x 3 x 2 cm aggregate of adipose and lymphatic tissue. ??Lymph nodes are submitted for frozen and permanent sections. ??Grossed by Ray Amado., P.A. ([facility]). 02/07/2024 2:56 PM CDT METH Block [...] SURG PATH ORDERA BLES Performing Organization Address City/State/[facility] Co de Phone Number [facility] [place] [address] [place] [address], [facility] METH [address] [place] [address] * Airway (02/03/2024 2:04 PM CDT) Narrative [...] ETT location: oral VL device: glide scope Clay scope blade size: 4 Tube size: 7 [...] Torres M.D. LAB SURG PATH [facility] [address] [place] [address], [facility] DTL [address] [place] [address] * Calcitonin, Fine-Needle Aspiration Biopsy (FNAB)-Needle Wash, Lymph Node (01/31/2024 9:16 AM CDT) Only the most recent of2 resultswithin the time period is included. Calcitonin, FNAB, Lymph Node [id number] pg/mL 01/31/2024 6:10 PM CDT [facility] Comment: Calcitonin values = or > 5.0 [...] This test has been modified from the ladies suit operator's instructions. Its performance characteristics were determined by [facility] in a manner consistent with CLIA [...] Washings, Lymph Node 02/01/2024 10:16 AM CDT [facility] Comment:REVISED RESULTS FNA Needle Washings (Lymph Node) 01/31/2024 9:16 AM CDT Phuc Torres M.D. LAB BODY FLUIDS AN D STOOLS ORDERABLES [facility] [address] [place] [address] [facility] [address] [place] [address] * Multiple Endocrine Neoplasia Type 2 Syndrome, RET Full Gene Analysis (01/27/2024 3:44 PM CDT) Test Description Evaluation of the RET gene associated with multiple endocrine neoplasia type 2 02/08/2024 3:38 PM CDT DTL Specimen WB Whole Blood 02/08/2024 3:38 PM CDT DTL Disclaimer Clinical Correlations An online research opportunity called [employer] (RAZ Mobile.[email or web address]) , a project of [employer], is available for the recipient of this genetic test. This patient registry collects de-identified genetic and health information to advance the knowledge of genetic variants. [facility] is a collaborator of [employer]. This may not be applicable for all [...] in the interpretation of these results, [facility] Laboratory genetic counselors can be contacted [...] of results. Reclassification of Variants Policy See www.[employer]. com (TEST ID RETZZ) for information regarding the laboratory's policy for reclassification of variants. Variant Evaluation Variant curation is performed using published ACMG-AMP recommendations as a guideline. Other gene-specific guidelines may also be considered. Variants classified as benign or likely benign are not reported. Results from in silico evaluation tools may oil changer time and should be interpreted with caution and professional clinical judgment. TEST CLASSIFICATION This test was developed and its performance characteristics determined by [facility] in a manner consistent with CLIA [...] methodologies based on internal laboratory criteria. See www.[employer]. [employer] (TEST ID RETZZ) for details regarding genes [...] Phuc Torres M.D. LAB GENETIC TESTIN G [facility] [place] [address] [place] [address], [facility] DTL [address] [place] [address] * Metanephrines, Fractionated, Free (01/27/2024 6:47 AM CDT) Normetanephrine, Free 0.64 <0.90 nmol/L 01/28/2024 3:30 PM CDT SDS Metanephrine, Free <0.20 <0.50 nmol/L 01/28/2024 3:30 PM CDT [facility] Comment: ----ADDITIONAL INFORMATION---- This test was developed and its performance characteristics determined by [facility] in a manner consistent with CLIA requirements. This test has not been cleared or approved by the U.S. Food and Drug Administration. Blood (Blood, Venous) 01/27/2024 6:47 AM CDT 01/27/2024 10:31 AM CDT Phuc Torres M.D. LAB BLOOD NON ADD- ON [facility] [address] [place] [address] [facility] [address] [place] [address] [place] [address] * (ABNORMAL) 25-Hydroxyvitamin D2 and D3 (01/27/2024 6:47 AM CDT) 25-Hydroxy D2 <4.0 ng/mL 01/29/2024 3:28 PM CDT [facility] 25-Hydroxy D3 16 ng/mL 01/29/2024 3:28 PM CDT [facility] 25-Hydroxy D Total 16(L) ng/mL 2023 3:28 PM CDT [facility] Comment: Interpretation: 10-19 ng/mL (mild to moderate deficiency) ----REFERENCE VALUE---- 25-HYDROXY D TOTAL (D2+D3) Optimum levels in the healthy population are 20-50. ----ADDITIONAL INFORMATION---- This test was developed and its performance characteristics determined by [facility] in a manner consistent with CLIA requirements. This test has not been cleared or approved by the U.S. Food and Drug Administration. Blood (Blood, Venous) 01/27/2024 6:47 AM CDT 01/27/2024 9:16 AM CDT Phuc Torres M.D. LAB BLOOD ADD-ON Performing Organization Address City/[facility]/ZIP Co de Phone Number [facility] [address] [place] [address] [facility] [address] [place] [address] [place] [address] * (ABNORMAL) Calcitonin (01/27/2024 6:47 AM CDT) Calcitonin, S 5061(H) <=14.3 pg/mL 01/27/2024 1:35 PM CDT [facility] Comment: ----ADDITIONAL INFORMATION---- The testing method is an electrochemiluminescence assay manufactured by [employer] and performed on the Lovely system. Values obtained with different assay methods or kits may be different and cannot be used interchangeably. Test results cannot be interpreted as absolute evidence for the presence or absence of malignant disease. Blood (Blood, Venous) 01/27/2024 6:47 AM CDT 01/27/2024 11:54 AM CDT Phuc Torres M.D. LAB BLOOD NON ADD- ON Performing Organization Address [facility] Co de Phone Number [facility] [address] [place] [address] [facility] [address] [place] [address] * S-TSH (Thyroid-Stimulating Hormone - Sensitive) (01/27/2024 6:47 AM CDT) Pathologist [facility] TSH, Sensitive 2.3 0.3 - 4.2 mIU/L 01/27/2024 8:08 AM CDT DTL Blood (Blood, Venous) 01/27/2024 6:47 AM CDT 01/27/2024 7:31 AM CDT Phuc Torres M.D. LAB BLOOD ADD-ON Performing Organization Address City/[facility]/ZIP Co de Phone Number [facility] [place] [address] [place], [place] [address] DTL [facility] [address] [place] [address] * T4 (Thyroxine), Free (01/27/2024 6:47 AM CDT) T4 (Thyroxine), Free, S 1.4 0.9 - 1.7 ng/dL 01/27/2024 8:08 AM CDT DT Blood (Blood, Venous) 01/27/2024 6:47 AM CDT 01/27/2024 7:31 AM CDT Phuc Torres M.D. LAB BLOOD ADD-ON Performing Organization Address City/[facility]/ZIP Co de Phone Number [facility] [address] [place] [address], [facility] [address] [place] [address] * (ABNORMAL) CEA (Carcinoembryonic Antigen) (01/27/2024 6:47 AM CDT) Pathologist [facility] Carcinoembryonic Ag (CEA), S 313.0(H) ng/mL 01/27/2024 10:54 AM CDT [facility] Comment: ----REFERENCE VALUE---- <=3.0 (Non-smokers) Some smokers may have elevated CEA, usually <5.0. ----ADDITIONAL INFORMATION---- The testing method is an immunoenzymatic assay manufactured by [employer] and performed on the [employer] DxI 800. ? Values obtained with different assay methods or kits may be different and cannot be used interchangeably. ? Test results cannot be interpreted as absolute evidence for the presence or absence of malignant disease. Blood (Blood, Venous) 01/27/2024 6:47 AM CDT 01/27/2024 9:56 AM CDT Phuc Torres M.D. LAB BLOOD ADD-ON [facility] [address] [place] [address] [facility] [address] [place] [address] * Calcium, Total (01/27/2024 6:47 AM CDT) Calcium, Total, S 9.3 8.8 - 10.2 mg/dL 01/27/2024 8:08 AM CDT DTL Blood (Blood, Venous) 01/27/2024 6:47 AM CDT 01/27/2024 7:31 AM CDT Phuc Torres M.D. LAB BLOOD ADD-ON [facility] [place] [address] [place] [address], [facility] [address] [place] [address] * [place] Thyroid (01/25/2024 11:23 AM CDT) [...] Advance Directives For more information, please contact: [phone] * Full Code (Latest Code Status on File) Date Activated Date Inactivated Comments 02/03/2024 10:45 AM 02/04/2024 2:49 PM Question Answer Comments Full Code: Not Discussed Due to: Patient not available Care Teams Camera Storage Clerk Relationship Specialty Start Date End Date Elsewhere, Pcp PCP - General Internal Medicine 01/27/24
--- OUTSIDE RECORDS SUMMARY | 2024-04-17 19:38 | XMS_ITS | Encounter Summary ---
Author Organization [facility] Address [address] [place] [address] Care Team Providers Care Roll Contour Grinder Name Role Phone Elsewhere, Pcp Primary Care Provider Unavailabl e Encounter Details Date Type Department Care Team (Late st Contact Info) Description 01/31/2024 Orders Only Division of Endocrinology in [place], [place] [address] [place] [phone] Phuc Torres M.D. [address] [place] [address] Social History Tobacco Use Types Packs/Day Years Used Date Smoking Tobacco: Never Assessed [facility] Utilities Answer Date Recorded In [...] on filedocumented in this encounter Care Teams Roll Contour Grinder Relationship Specialty Start Date End Date Elsewhere, Pcp PCP - General Internal Medicine 01/27/24 documented as of this encounter
--- OUTSIDE RECORDS SUMMARY | 2024-04-17 19:38 | XMS_ITS | Encounter Summary ---
Author Organization [facility] Address [address] [place] [address] Care Team Providers Care Public Health Advisor Name Role Phone Elsewhere, Pcp Primary Care Provider Unavailabl e Reason for Visit * Outpatient (Routine) - Closed Specialty Diagnoses / Procedures Referred By Vinicius t Referred To Contact General Surgery Dakota Morrow M.D. [address] [place] [phone] Dakota Morrow M.D. [address] [place] [phone] Referral ID Status Reason Start Date Expiration Date Visits Re quested Visits Authorized [id number] Closed 01/27/2024 07/28/2025 1 1 Encounter Details Date Type Department Care Team (Late st Contact Info) Description 02/02/2024 2:00 PM CDT Office Visit Division of Endocrine Surgery in [place], [place] [address] [place] [phone] Dakota Morrow M.D. [address] [place] [phone] Phuc Torres M.D. 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 I have a [facility] place to live 01/23/2024 Sex and [...] Primary documented in this encounter Care Teams Public Health Advisor Relationship Specialty Start Date End Date Elsewhere, Pcp PCP - General Internal Medicine 01/27/24 documented as of this encounter
--- OUTSIDE RECORDS SUMMARY | 2024-04-17 19:38 | XMS_ITS | Encounter Summary ---
Author Organization [facility] Address [address] [place] [address] Care Team Providers Care Warehouse Distribution Manager Name Role Phone Elsewhere, Pcp Primary Care Provider Unavailabl e Reason for Referral * Outpatient (Routine) - Authorized Specialty Diagnoses / Procedures Referred By Vinicius reid Referred To Contact Endocrinology Diagnoses Malignant Neoplasm Of Thyroid Medullary (HCC) Phuc Torres M.D. [address] [place] [phone] [facility] Referral ID Status Reason Start Date Expiration Date V isits Requested Visits Authorized [id number] Authorized 02/14/2024 08/15/2025 1 1 Scheduling Instructions Please prioritize and do not delay this patient's return appointment. * Outpatient (Routine) - Authorized Specialty Diagnoses / Procedures Referred By Vinicius reid Referred To Contact Diagnoses Malignant Neoplasm Of Thyroid Medullary (HCC) Procedures US Head Neck Soft Tissue Phuc Torres M.D. [address] [place] [address] [facility] Referral ID Status Reason Start Date Expiration Date V isits Requested Visits Authorized [id number] Authorized 02/14/2024 02/13/2025 1 1 Encounter Details Date Type Department Care Team (Late st Contact Info) Description 02/14/2024 Orders Only Division of Endocrinology in [place], [place] [address] [place] [address] [place] [phone] Phuc Torres M.D. 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 I have a [facility] place to live 01/23/2024 Sex [...] Primary documented in this encounter Care Teams Warehouse Distribution Manager Relationship Specialty Start Date End Date Elsewhere, Pcp PCP - General Internal Medicine 01/27/24 documented as of this encounter
--- OUTSIDE RECORDS SUMMARY | 2024-04-17 19:38 | XMS_ITS | Encounter Summary ---
Author Organization [facility] Address [address] [place] [address] Care Team Providers Care Book Publisher Name Role Phone Elsewhere, Pcp Primary Care Provider Unavailabl e Encounter Details Date Type Department Care Team (Late st Contact Info) Description 02/14/2024 Documentation Division of Endocrinology in [place], [place] [address] [place] [phone] Phuc Torres M.D. [address] [place] [address] Social History Tobacco Use Types Packs/Day Years Used Date Smoking Tobacco: Never Smokeless Tobacco: Never Alcohol Use Standard Drinks/Week Comments Not Currently 0 (1 standard drink = 0.6 oz pur e alcohol) [facility] Utilities Answer Date Recorded In the past 12 months has f f [facility] [employer], gas, oil, or water [employer] threatened to shut off services in your [...] your living situation today? I have a [facility] place to live 01/23/2024 Sex and [...] on filedocumented in this encounter Care Teams Book Publisher Relationship Specialty Start Date End Date Elsewhere, Pcp PCP - General Internal Medicine 01/27/24 documented as of this encounter
--- OUTSIDE RECORDS SUMMARY | 2024-04-17 19:38 | XMS_ITS | Encounter Summary ---
Author Organization [facility] Address [address] [place] [address] Care Team Providers Care Bread Packer Name Role Phone Elsewhere, Pcp Primary Care Provider Unavailabl e Encounter Details Date Type Department Care Team (Late st Contact Info) Description 02/05/2024 Clinical Communication Division of Endocrine Surgery in [place], [place] [address] [place] [address] Jaret Salas M.D. Social History Tobacco Use Types Packs/Day Years Used Date Smoking Tobacco: Never Smokeless Tobacco: Never Alcohol Use Standard Drinks/Week Comments Not Currently 0 (1 standard drink = 0.6 oz pur e alcohol) [facility] Utilities Answer Date Recorded In the [...] your living situation today? I have [facility] to live 01/23/2024 Sex and Gender Information Value Date Recorded Sex Assigned at Male 01/23/2024 9:14 PM CDT Gender Identity Male 01/23/2024 9:14 PM CDT Sexual Orientation Straight 01/23/2024 9: 14 PM CDT documented as of this encounter Miscellaneous Notes * Telephone Encounter - Jaret Salas M.D. - 02/05/2024 9:42 AM CDT Received call from [facility] ER about pt being there for SOB. [...] offered to transfer Mr. Long back to [place] to treat this, however he would prefer to stay at [facility] for now. That is definitely reasonable. I [...] on filedocumented in this encounter Care Teams Bread Packer Relationship Specialty Start Date End Date Elsewhere, Pcp PCP - General Internal Medicine 01/27/24 documented as of this encounter
--- OUTSIDE RECORDS SUMMARY | 2024-04-17 19:38 | XMS_ITS | Encounter Summary ---
Author Organization [facility] Address [address] [place] [address] Care Team Providers Care Global Human Resources Director Name Role Phone Elsewhere, Pcp Primary Care Provider Unavailabl e Encounter Details Date Type Department Care Team (Late st Contact Info) Description 02/07/2024 Clinical Communication Division of Endocrine Surgery in [place], [place] [address] [place] [address] Jaret Salas M.D. Social History Tobacco Use Types Packs/Day Years Used Date Smoking Tobacco: Never Smokeless Tobacco: Never Alcohol Use Standard Drinks/Week Comments Not Currently 0 (1 standard drink = 0.6 oz pur e alcohol) [facility] Utilities Answer Date Recorded In the [...] be doing very well and we appreciate [facility]'s excellent treatment. I sharedmy phone number with Mr. Long, so that he may call me tomorrow morning at rounds and so I may answer any questions that his care team may have for our surgical team. documented in this encounter Plan of Treatment Not on file documented as of this encounter Visit Diagnoses Not on filedocumented in this encounter Care Teams Global Human Resources Director Relationship Specialty Start Date End Date Elsewhere, Pcp PCP - General Internal Medicine 01/27/24 documented as of this encounter
--- OUTSIDE RECORDS SUMMARY | 2024-04-17 19:38 | XMS_ITS | Encounter Summary ---
Author Organization [facility] Address [address] [place] [address] Care Team Providers Care Tire Bladder Maker Name Role Phone Elsewhere, Pcp Primary Care Provider Unavailabl e Encounter Details Date Type Department Care Team (Late st Contact Info) Description 02/05/2024 Clinical Communication Division of Endocrine Surgery in [place], [place] [address] [place] [address] Jaret Salas M.D. Social History Tobacco Use [...] an infectious process. On IV Abx. Appreciate [facility] taking excellent care of Mr. Long for this. Will follow up again tomorrow. documented in this encounter Plan of Treatment Not on file documented as of this encounter Visit Diagnoses Not on filedocumented in this encounter Care Teams Tire Bladder Maker Relationship Specialty Start Date End Date Elsewhere, Pcp PCP - General Internal Medicine 01/27/24 documented as of this encounter
--- OUTSIDE RECORDS SUMMARY | 2024-04-17 19:38 | XMS_ITS | Encounter Summary ---
Author Organization [facility] Address [address] [place] [address] Care Team Providers Care Vacuum Bottle Assembler Name Role Phone Elsewhere, Pcp Primary Care [...] MODIFIED NECK DISSECTION Dakota Morrow M.D. [address] [place] [phone] Referral ID Status Reason Start Date Expiration Date Visits Re quested Visits Authorized [id number] 1 1 Encounter Details Date Type Department Care Team (Late st Contact Info) Description 02/03/2024 1:52 PM CDT Anesthesia Event [facility] [address] [place] [phone] Paulino Love, D.O. [address] [place] [phone] Willem Baker M.D., M.S. [address] [place] [phone] Anesthesia Record Procedure Summary Procedure Name Responsible [...] M.D. 02/03/24 183 by Cassandra Cedeno APRN, BLOOD BANK SPECIALIST, DNAP documented in this encounter Social History Tobacco Use Types Packs/Day Years Used Date Smoking Tobacco: Never Smokeless Tobacco: Never Alcohol Use Standard Drinks/Week Comments Not Currently 0 (1 standard drink = 0.6 oz pur e alcohol) [facility] Utilities Answer Date Recorded In the past 12 months has [employer], gas, oil, or water [employer] threatened to shut off services in [...] Procedure Summary Date: 02/03/24 Room / Location: [address] / [facility] in [place], [place] Anesthesia Start: 1352 Anesthesia Stop: 1847 [...] ETT location: oral VL device: glide scope [place] scope blade size: 4 Tube size: 7 [...] Date/Time: 02/03/24 1213 Procedures: *Consent Scanned into [facility]* THYROIDECTOMY - TOTAL. 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 Location: [address] [facility] / [facility] in [place], [place] Providers: Dakota Morrow M.D. Pertinent components [...] with patient /legal guardian or through an fleet manager. The use of blood products not [...] ETT location: oral VL device: glide scope [place] scope blade size: 4 Tube size: 7 [...] mg documented in this encounter Care Teams Vacuum Bottle Assembler Relationship Specialty Start Date End Date Elsewhere, Pcp PCP - General Internal Medicine 01/27/24 documented as of this encounter
--- OUTSIDE RECORDS SUMMARY | 2024-04-17 19:38 | XMS_ITS | Encounter Summary ---
Author Organization [facility] Address [address] [place] [address] Care Team Providers Care Calibration Technician Name Role Phone Elsewhere, Pcp Primary Care Provider Unavailabl e Encounter Details Date Type Department Care Team (Latest Contact Info) Description 02/05/2024 Intake [facility] Social History Tobacco Use Types Packs/Day Years Used Date Smoking Tobacco: Never Smokeless Tobacco: Never Alcohol Use Standard Drinks/Week Comments Not Currently 0 (1 standard drink = 0.6 oz pur e alcohol) [facility] Utilities Answer Date Recorded In [...] on filedocumented in this encounter Care Teams Calibration Technician Relationship Specialty Start Date End Date Elsewhere, Pcp PCP - General Internal Medicine 01/27/24 documented as of this encounter
--- OUTSIDE RECORDS SUMMARY | 2024-04-17 19:38 | XMS_ITS | Referral Summary ---
Author Organization [facility] Address [address] [place] [address] Care Team Providers Care Donkey Ride Operator Name Role Phone Elsewhere, Pcp Primary Care Provider Unavailabl e Source Comments Patient records contain information from all sites at [facility]. For routine questions regarding patient records, call [phone] during business hours, M-F 8:00 AM - 5:00 PM Central Time. Record requests for emergency care only can be directed to [phone] at any time.[facility] Encounters Date Type Department Care Team Description 02/14/2024 Documentation Division of Endocrinology in [place], [place] [address] [place] [phone] Phuc Torres M.D. 02/14/2024 Orders Only Division of Endocrinology in [place], [place] [address] [place] [phone] Phuc Torres M.D. Malignant Neoplasm Of Thyroid Medullary (HCC) (Primary Dx) 02/08/2024 Clinical Communication Division of Endocrine Surgery in [place], [place] [address] [place] [address] Jaret Salas M.D. 02/07/2024 Clinical Communication Division of Endocrine Surgery in [place], [place] [address] [place] [phone] Jaret Salas M.D. 02/06/2024 Clinical Communication Division of Endocrine Surgery in [place], [place] [address] [place] [phone] Jaret Salas M.D. 02/05/2024 Clinical Communication Division of Endocrine Surgery in [place], [place] [address] [place] [address] Jaret Slaas M.D. 02/05/2024 Clinical Communication Division of Endocrine Surgery in [place], [place] [address] [place] [address] Jaret Salas M.D. 02/05/2024 Intake [facility] 02/03/2024 10:28 AM CDT - 02/04/2024 12:44 PM CDT Hospital Encounter [facility], [facility], [facility], Sixth Floor [address] [place] [address] Dakota Morrow M.D. Malignant Neoplasm Of Thyroid Medullary (HCC) Discharge Disposition: Home or Self Care 02/03/2024 1:52 PM CDT Anesthesia Event [facility] OR [address] [place] [address] Paulino Love, MarianelaO. Willem Baker M.D., M.S. 02/03/2024 12:13 PM CDT - 02/03/2024 3:42 PM CDT Surgery RST [facility] [place] [facility] [place] [address] Dakota Morrow M.D. THYROIDECTOMY - TOTAL. 02/02/2024 2:00 PM CDT Office Visit Division of Endocrine Surgery in [place], [place] [address] [place] [address] Dakota Morrow M.D. Castro, M. Regina, M.D. Malignant Neoplasm Of Thyroid Medullary (HCC) (Primary Dx) 01/31/2024 Orders Only Division of Endocrinology in [place], [place] [address] [place] [address] Phuc Torres M.D. 01/31/2024 8:37 AM CDT - 01/31/2024 10:21 AM CDT Hospital Encounter Department of Radiology, [facility], in [place], [place] [address] [place] [address] Phuc Torres M.D. Robinson, Kathryn A, M.D. Malignant Neoplasm Of Thyroid (HCC) Discharge Disposition: Home or Self Care 01/27/2024 Clinical Communication Division of Endocrinology in [place], [place] [address] [place] [phone] Phuc Torres M.D. Pathology Request 01/27/2024 3:23 PM CDT - 01/27/2024 11:59 PM CDT Hospital Encounter Department of Laboratory Medicine and Pathology, [place], [place] [address] [place] [phone] Phuc Torres M.D. Malignant Neoplasm Of Thyroid (HCC) Discharge Disposition: Home or Self Care 01/27/2024 2:40 PM CDT Lab [facility]ST [facility] [address] [place] [phone] Phuc Torres M.D. Malignant Neoplasm Of Thyroid (HCC) 01/27/2024 6:21 AM CDT - 01/27/2024 3:22 PM CDT Hospital Encounter Department of Laboratory Medicine and Pathology, [place], [place] [address] [place] [phone] Phuc Torres M.D. Malignant Neoplasm Of Thyroid Medullary (HCC) Discharge Disposition: Home or Self Care 01/27/2024 1:30 PM CDT Comprehensive Visit Division of Endocrinology in [place], [place] [address] [place] [phone] Phuc Torres M.D. Malignant Neoplasm Of Thyroid (HCC) 01/27/2024 3:00 PM CDT Comprehensive Visit Division of Endocrine Surgery in [place], [place] [address] [place] [phone] Dakota Morrow M.D. Castro, M. Regina, M.D. Malignant Neoplasm Of Thyroid Medullary (HCC) 01/25/2024 10:16 AM CDT - 01/25/2024 11:59 PM CDT Hospital Encounter Department of Radiology, [facility] in [place], [place] [address] [place] [phone] Phuc Torres M.D. Malignant Neoplasm Of Thyroid Medullary (HCC) Discharge Disposition: Home or Self Care from Last 3 Months Allergies Active Allergy [...] In the past 12 months has e [employer], gas, oil, or water company threatened to [...] on file Medical Devices Implanted Type Area Drug Abuse Treatment Specialist Device Identifier Shelf Expiration Date Model / Serial / Lot Clp Hrzn Ti 6 Clp Sm Red - [id number] Implanted:Qty: 1 on 02/03/2024 by Dakota Morrow M.D. at [facility] Hardware e.g. pins/screws/r ods [employer]ck [employer] [id number] / / Procedures Procedure Name Priority Date/Time [...] System IMG CT PROCEDURES Performing Organization Address [facility]/ZIP Co de Phone Number IIMS NA [...] Jaret Salas M.D. LAB BLOOD ADD-O N [facility] [address] [place] [address], [place] DTL [facility] [address] [place] [address] * Surgical Pathology, Frozen Lab (02/03/2024 3:20 [...] almost the entire lobe in 3 dimensions. Test Administrator tissue submitted for permanent sections. Grossed by Donovan Trinidad M.D., Ph.D.-Pathology Resident. B. ??Received fresh labeled right thyroid lobe is a 7 g completion thyroidectomy with a 4.5 x 3.3 x 1.3 cm right lobe. ??The margin is inked and margins are taken perpendicularly. ??No nodules are identified. ??All submitted for permanent sections. ??Grossed by Sachi Amado, P.A. ([facility]). C. [...] CDT Tissue (Thyroid) 02/03/2024 3:33 PM CDT Benzon M Dy M.D. LAB SURG PATH ORDERA BLES [facility] [address] [place] [address], [facility] [address] [facility] [address] [place] [address] * Airway (02/03/2024 2:04 PM CDT) Narrative [...] ETT location: oral VL device: glide scope [place] scope blade size: 4 Tube size: [...] SURG PATH ORDE RABLES Performing Organization Address City/[facility]/ZIP Co de Phone Number [facility] [address] [place] [address], [facility] DTL [address] [facility] [address] [place] [address] * Calcitonin, Fine-Needle Aspiration Biopsy (FNAB)-Needle Wash, Lymph Node (01/31/2024 9:16 AM CDT) Only the most recent of2 resultswithin the time period is included. Calcitonin, FNAB, Lymph Node [id number] pg/mL 01/31/2024 6:10 PM CDT [facility] [...] This test has been modified from the extension service specialist in charge's instructions. Its performance characteristics were determined by [facility] in a manner consistent with [...] FLUIDS AN D STOOLS ORDERABLES [facility] [address] [place] [address] Formerly [facility] [address] [place] [address] * Multiple Endocrine Neoplasia Type 2 Syndrome, RET Full Gene Analysis (01/27/2024 3:44 PM CDT) Test Description Evaluation of the RET gene associated with multiple endocrine neoplasia type 2 02/08/2024 3:38 PM CDT DTL Specimen WB Whole Blood 02/08/2024 3:38 PM CDT DTL Disclaimer Clinical Correlations An online research opportunity called [employer] (Mobilis[employer]) , a project of [employer], is available for the recipient of this genetic test. This patient registry collects de-identified genetic and health information to advance the knowledge of genetic variants. [facility] is a collaborator of [employer]. This may not be applicable for all [...] assistance in the interpretation of these results, [facility] Laboratory genetic counselors can be [...] of results. Reclassification of Variants Policy See www.lakeshoreManifact. Snapchat (TEST ID RETZZ) for information regarding the laboratory's policy for reclassification of variants. Variant Evaluation Variant curation is performed using published ACMG-AMP recommendations as a guideline. Other gene-specific guidelines may also be considered. Variants classified as benign or likely benign are not reported. Results from in silico evaluation tools may guide changer time and should be interpreted with caution and professional clinical judgment. TEST CLASSIFICATION This test was developed and its performance characteristics determined by [facility] in a manner consistent with [...] methodologies based on internal laboratory criteria. See www.lakeshoreManifact. com (TEST ID RETZZ) for details regarding [...] Phuc Torres M.D. LAB GENETIC TESTIN G [facility] [address] [place] [address], [facility] DT [address] [place] [address] * Metanephrines, Fractionated, Free (01/27/2024 6:47 AM CDT) Normetanephrine, Free 0.64 <0.90 nmol/L 01/28/2024 3:30 PM CDT [facility] Metanephrine, Free <0.20 <0.50 nmol/L 01/28/2024 3:30 PM CDT [facility] Comment: ----ADDITIONAL INFORMATION---- This test was developed and its performance characteristics determined by [facility] in a manner consistent with CLIA requirements. This test has not been cleared or approved by the U.S. Food and Drug Administration. Blood (Blood, Venous) 01/27/2024 6:47 AM CDT 01/27/2024 10:31 AM CDT Phuc Torres M.D. LAB BLOOD NON ADD- ON [facility] [address] [place] [address] [facility] [address] [place] [address] [place] [address] * (ABNORMAL) 25-Hydroxyvitamin D2 and D3 (01/27/2024 6:47 AM CDT) 25-Hydroxy D2 <4.0 ng/mL 01/29/2024 3:28 PM CDT [facility] 25-Hydroxy D3 16 ng/mL 01/29/2024 3:28 PM CDT [facility] 25-Hydroxy D Total 16(L) ng/mL 2023 3:28 PM CDT [facility] Comment: Interpretation: 10-19 ng/mL (mild to moderate deficiency) ----REFERENCE VALUE---- 25-HYDROXY D TOTAL (D2+D3) Optimum levels in the healthy population are 20-50. ----ADDITIONAL INFORMATION---- This test was developed and its performance characteristics determined by [facility] in a manner consistent with CLIA requirements. This test has not been cleared or approved by the U.S. Food and Drug Administration. Blood (Blood, Venous) 01/27/2024 6:47 AM CDT 01/27/2024 9:16 AM CDT Phuc Torres M.D. LAB BLOOD ADD-ON Performing Organization Address [facility] de Phone Number [facility] [address] [place] [address] [facility] [address] [place] [address] [place] [address] * (ABNORMAL) Calcitonin (01/27/2024 6:47 AM CDT) [facility] Calcitonin, S 5061(H) <=14.3 pg/mL 01/27/2024 1:35 PM CDT [facility] Comment: ----ADDITIONAL INFORMATION---- The testing method [...] BLOOD NON ADD- ON Performing Organization Address [facility] Co de Phone Number [facility] [address] [place] [address] [facility] [address] [place] [address] * S-TSH (Thyroid-Stimulating Hormone - Sensitive) (01/27/2024 6:47 AM CDT) Pathologist [facility] TSH, Sensitive 2.3 0.3 - 4.2 mIU/L 01/27/2024 8:08 AM CDT DTL Blood (Blood, Venous) 01/27/2024 6:47 AM CDT 01/27/2024 7:31 AM CDT Phuc Torres M.D. LAB BLOOD ADD-ON [facility] [address] [place], [place] [address] [place] [address] [address] [place] [address] * T4 (Thyroxine), Free (01/27/2024 6:47 AM CDT) Pathologist [facility] T4 (Thyroxine), Free, S 1.4 0.9 - 1.7 ng/dL 01/27/2024 8:08 AM CDT DT Blood (Blood, Venous) 01/27/2024 6:47 AM CDT 01/27/2024 7:31 AM CDT Phuc Torres M.D. LAB BLOOD ADD-ON [facility] [address] [place], [place] [address] [place] [address] [address] [place] [address] * (ABNORMAL) CEA (Carcinoembryonic Antigen) (01/27/2024 6:47 AM CDT) [facility] Carcinoembryonic Ag (CEA), S 313.0(H) ng/mL 01/27/2024 10:54 AM CDT [facility] Comment: ----REFERENCE VALUE---- <=3.0 (Non-smokers) Some smokers may have elevated CEA, usually <5.0. ----ADDITIONAL INFORMATION---- The testing method is an immunoenzymatic assay manufactured by [employer] and performed on the Cellrox DxI 800. ? Values obtained with different assay methods or kits may be different and cannot be used interchangeably. ? Test results cannot be interpreted as absolute evidence for the presence or absence of malignant disease. Blood (Blood, Venous) 01/27/2024 6:47 AM CDT 01/27/2024 9:56 AM CDT Phuc Torres M.D. LAB BLOOD ADD-ON [facility] [address] [place] [address] [facility] [address] [place] [address] * Calcium, Total (01/27/2024 6:47 AM CDT) Pathologist [facility] Calcium, Total, S 9.3 8.8 - 10.2 mg/dL 01/27/2024 8:08 AM CDT DTL Blood (Blood, Venous) 01/27/2024 6:47 AM CDT 01/27/2024 7:31 AM CDT Phuc Torres M.D. LAB BLOOD ADD-ON Performing Organization Address City/[facility]/ZIP Co de Phone Number [facility] [address] [place] [address], [facility] [address] [place] [address] * [place] Thyroid (01/25/2024 11:23 AM CDT) [...] Advance Directives For more information, please contact: [phone] * Full Code (Latest Code Status on File) Date Activated Date Inactivated Comments 02/03/2024 10:45 AM 02/04/2024 2:49 PM Question Answer Comments Full Code: Not Discussed Due to: Patient not available Care Teams Donkey Ride Operator Relationship Specialty Start Date End Date Elsewhere, Pcp PCP - General Internal Medicine 01/27/24
--- OUTSIDE RECORDS SUMMARY | 2024-04-17 19:38 | XMS_ITS | Encounter Summary ---
Author Organization [facility] Address [address] [place] [address] Care Team Providers Care Humidifier Maintenance Worker Name Role Phone Elsewhere, Pcp Primary Care Provider Unavailabl e Encounter Details Date Type Department Care Team (Late st Contact Info) Description 02/08/2024 Clinical Communication Division of Endocrine Surgery in [place], [place] [address] [place] [address] Jaret Salas M.D. Social History Tobacco Use Types Packs/Day Years Used Date Smoking Tobacco: Never Smokeless Tobacco: Never Alcohol Use Standard Drinks/Week Comments Not Currently 0 (1 standard drink = 0.6 oz pur e alcohol) [facility] Utilities Answer Date Recorded In [...] has progressed very well and we appreciate [facility]'s excellent care. documented in this encounter Plan of Treatment Not on file documented as of this encounter Visit Diagnoses Not on filedocumented in this encounter Care Teams Humidifier Maintenance Worker Relationship Specialty Start Date End Date Elsewhere, Pcp PCP - General Internal Medicine 01/27/24 documented as of this encounter
--- OUTSIDE RECORDS SUMMARY | 2024-04-17 19:38 | XMS_ITS | Encounter Summary ---
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 [address] [place] [address] Referral ID Status Reason Start Date Expiration Date Visits Re quested Visits Authorized [id number] 1 1 Encounter Details Date Type Department Care Team (Latest Contact Info) Description 02/03/2024 10:28 AM CDT - 02/04/2024 12:44 PM CDT Hospital Encounter [facility], Sixth Floor [address] [place] [address] Dakota Morrow M.D. [address] [place] [address] Malignant Neoplasm Of Thyroid Medullary (HCC) Discharge Disposition: Home or Self Care Social History Tobacco Use Types Packs/Day Years Used Date Smoking Tobacco: Never Smokeless Tobacco: Never Alcohol Use Standard Drinks/Week Comments Not Currently 0 (1 standard drink = 0.6 oz pur e alcohol) [facility] Utilities Answer Date Recorded In the past 12 months has th e [employer], gas, oil, or water [employer] threatened to shut off services in your [...] living situation today? I have a [facility] place to live 01/23/2024 Sex and Gender [...] AM CDT DISCHARGE SUMMARY BRIEF OVERVIEW Hospital: [facility] Discharge Provider: Dakota Morrow M.D. [...] M.D.Flaris, Alexandros N, M.D.Pierce, Erika M, M.D. [facility] ROEI OR DISCHARGE DISPOSITION Home or Self Care [1] ACTIVE ISSUES REQUIRING FOLLOW UP Check TSH with PCP or hard candy batch mixer in 6 weeks OUTPATIENT FOLLOW UP For [...] 5A, 02/03/24 The patient was admitted to [facility]. The patient was taken to the [...] He requires follow-up with his PCP or hard candy batch mixer in 6 weeks. At the time of [...] Everywhere. * Acetaminophen (By mouth) (Citizen Of [place]) * Levothyroxine (By mouth) (Citizen Of [place]) * Oxycodone, Rapid Release (By mouth) (Citizen Of [place]) documented in this encounter Medications at Time [...] Diagnosis Malignant Neoplasm Of Thyroid Medullary (HCC) Er Manager A ex assistant/program director actively participated and was necessary for one [...] Jaret Salas M.D. LAB BLOOD ADD-O N [facility] [address] [place] [address], [facility] [address] [place] [address] * Surgical Pathology, Frozen Lab (02/03/2024 3:20 PM CDT) Pathologist [facility] 02/07/2024 2:56 PM CDT METH Participated [...] almost the entire lobe in 3 dimensions. Delivery Clerk tissue submitted for permanent sections. Grossed by Donovan Trinidad M.D., Ph.D.-Pathology Resident. B. ??Received fresh labeled right thyroid lobe is a 7 g completion thyroidectomy with a 4.5 x 3.3 x 1.3 cm right lobe. ??The margin is inked and margins are taken perpendicularly. ??No nodules are identified. ??All submitted for permanent sections. ??Grossed by Ray Amado., P.A. ([facility]). C. ??Received fresh labeled left neck level 2, 3, 4, and 5A lymph nodes is an 8 x 3 x 2 cm aggregate of adipose and lymphatic tissue. ??Lymph nodes are submitted for frozen and permanent sections. ??Grossed by Ray Amado., P.A. ([facility]). 02/07/2024 2:56 PM CDT METH Block [...] Morrow M.D. LAB SURG PATH ORDERA BLES [facility] [address] [place] [address], [facility] METH [address] [place] [address] documented in this encounter Visit Diagnoses Diagnosis [...] 02/03/24 at 1300, For 1 dose, Pre-Op, Facilities Maintenance Engineer, PreOp with sips Given 02/03/2024 12:52 PM [...] 02/03/24 at 1300, For 1 dose, Pre-Op, Facilities Maintenance Engineer, PreOp with sips 1252 (Given - Provider: [...] Pre-Op 1302 (New Bag - Provider: Sarai Ypi R.N.) Lactated Ringer's (CANCELED) 75 mL/hr, intravenous, [...] 2116 documented in this encounter Care Teams Medical Superintendent Relationship Specialty Start Date End Date Elsewhere, Pcp PCP - General Internal Medicine 01/27/24 documented as of this encounter
--- OUTSIDE RECORDS SUMMARY | 2024-04-17 19:39 | XMS_ITS | Encounter Summary ---
Author Organization [facility] Address [address] [place] [address] Care Team Providers Care Manager Of Manufacturing Name Role Phone Elsewhere, Pcp Primary Care Provider Unavailabl e Reason for Referral * Outpatient (Routine) - Closed Specialty Diagnoses / Procedures Referred By Vinicius reid Referred To Contact Diagnoses Malignant Neoplasm Of Thyroid (HCC) Procedures US Superficial Tissue Fine Needle Aspiration Phuc Torres M.D. [address] [place] [address] [facility] Referral ID Status Reason Start Date Expiration Date Visits Re quested Visits Authorized [id number] Closed 01/27/2024 01/26/2025 1 1 Reason for Visit * Outpatient (Routine) - Closed Specialty Diagnoses / Procedures Referred By Vinicius reid Referred To Contact Diagnoses Malignant Neoplasm Of Thyroid (HCC) Procedures US Superficial Tissue Fine Needle Aspiration Phuc Torres M.D. [address] [place] [address] [facility] Referral ID Status Reason Start Date Expiration Date Visits Re quested Visits Authorized [id number] Closed 01/27/2024 01/26/2025 1 1 Encounter Details Date Type Department Care Team (Latest Contact Info) Description 01/31/2024 8:37 AM CDT - 01/31/2024 10:21 AM CDT Hospital Encounter Department of Radiology, [facility], in [place], [place] [address] [place] [phone] Phuc Torres M.D. [address] [place] [address] Agueda Larios M.D. [address] [place] [address] Malignant Neoplasm Of Thyroid (HCC) Discharge Disposition: Home or Self Care Social History Tobacco Use Types Packs/Day Years Used Date Smoking Tobacco: Never Assessed [facility] Utilities Answer Date Recorded In [...] your living situation today? I have a [facility] place to live 01/23/2024 Sex [...] Torres M.D. LAB SURG PATH [facility] [address] [place] [address], [facility] DTL [address] [place] [address] * (ABNORMAL) Cytology Fine Needle Aspiration (including [...] Torres M.D. LAB SURG PATH [facility] [address] [place] [address], [facility] DTL [address] [facility] [address] [place] [address] * Calcitonin, Fine-Needle Aspiration Biopsy (FNAB)-Needle Wash, Lymph Node (01/31/2024 9:16 AM CDT) Calcitonin, FNAB, Lymph Node [id number] pg/mL 01/31/2024 6:[address] [facility] Comment: Calcitonin values = or [...] This test has been modified from the turner in's instructions. Its performance characteristics were determined by [facility] in a manner consistent with CLIA requirements. [...] Washings, Lymph Node 02/01/2024 10:[address] [facility] Comment:REVISED RESULTS FNA Needle Washings (Lymph Node) 01/31/2024 9:16 AM CDT Phuc Torres M.D. LAB BODY FLUIDS AN D STOOLS ORDERABLES [facility] [address] [place] [address] [facility] [address] [place] [address] * Calcitonin, Fine-Needle Aspiration Biopsy (FNAB)-Needle Wash, Lymph Node (01/31/2024 9:12 AM CDT) Pathologist [facility] Calcitonin, FNAB, Lymph Node 31 pg/mL 02/01/2024 9:[address] [facility] Comment: Calcitonin values = or [...] This test has been modified from the turner in's instructions. Its performance characteristics were determined by [facility] in a manner consistent with CLIA requirements. [...] Washings, Lymph Node 02/01/2024 10:[address] [facility] Comment:REVISED RESULTS FNA Needle Washings (Lymph Node) 01/31/2024 9:12 AM CDT 01/31/2024 3:14 PM CDT Narrative Authorizing Provider Result Clive Torres M.D. LAB BODY FLUIDS AN D STOOLS ORDERABLES [facility] [address] [place] [address] [facility] [address] [place] [address] documented in this encounter Visit Diagnoses Diagnosis [...] Neck) documented in this encounter Care Teams Manager Of Manufacturing Relationship Specialty Start Date End Date Elsewhere, Pcp PCP - General Internal Medicine 01/27/24 documented as of this encounter
--- OUTSIDE RECORDS SUMMARY | 2024-04-17 19:39 | XMS_ITS | Encounter Summary ---
Author Organization [facility] Address [address] [place] [address] Care Team Providers Care Retort Cooler Name Role Phone Unavailable Primary Care Provider Unavailabl e Reason for Referral * Outpatient (Routine) - Closed Specialty Diagnoses / Procedures Referred By Vinicius reid Referred To Contact Diagnoses Malignant Neoplasm Of Thyroid Medullary (HCC) Procedures US Thyroid US Head Neck Soft Tissue Phuc Torres M.D. [address] [place] [address] [facility] Referral ID Status Reason Start Date Expiration Date Visits Re quested Visits Authorized [id number] Closed 12/28/2023 12/27/2024 1 1 Reason for Visit * Outpatient (Routine) - Closed Specialty Diagnoses / Procedures Referred By Vinicius reid Referred To Contact Diagnoses Malignant Neoplasm Of Thyroid Medullary (HCC) Procedures US Thyroid US Head Neck Soft Tissue Phuc Torres M.D. [address] [place] [address] [facility] Referral ID Status Reason Start Date Expiration Date Visits Re quested Visits Authorized [id number] Closed 12/28/2023 12/27/2024 1 1 Encounter Details Date Type Department Care Team (Latest Contact Info) Description 01/25/2024 10:16 AM CDT - 01/25/2024 11:59 PM CDT Hospital Encounter Department of Radiology, [facility], in [place], [place] [address] [place] [address] Phuc Torres M.D. [address] [place] [address] Malignant Neoplasm Of Thyroid Medullary (HCC) Discharge Disposition: Home or Self Care Social History Tobacco Use Types Packs/Day Years Used Date Smoking Tobacco: Never Assessed [facility] Utilities Answer Date Recorded [...] living situation today? I have a [facility] place to live 01/23/2024 Sex [...]
--- OUTSIDE RECORDS SUMMARY | 2024-04-17 19:39 | XMS_ITS | Encounter Summary ---
Author Organization [facility] Address [address] [place] [address] Care Team Providers Care Pleat Patternmaker Name Role Phone Elsewhere, Pcp Primary Care Provider Unavailabl e Encounter Details Date Type Department Care Team (Late st Contact Info) Description 01/27/2024 2:40 PM CDT Lab RST RO LMP [address] [place] [phone] Phuc Torres M.D. [address] [place] [phone] Malignant Neoplasm Of Thyroid (HCC) Social History [...] your living situation today? I have a [facility] place to live 01/23/2024 Sex and Gender [...] 10:51 AM CDT DTL Material Received A. [id number]: Left thyroid ? 7 stained slides 02/03/2024 10:51 AM CDT DTL Interpretation FINAL DIAGNOSIS Thyroid, left lobe nodule ultrasound-guide d fine needle aspiration ([id number]; smears and thin prep; 11/12/2023): Suspicious for malignancy. ??Discohesive cells with nuclear hyperchromasia and atypia worrisome for medullary carcinoma. 02/03/2024 10:51 AM CDT DTL Varies 11/12/2023 8:45 AM CDT 02/02/2024 11:56 AM CDT Phuc Torres M.D. LAB SURG PATH [facility] Performing Organization Address City/State/[facility] Co de Phone Number [facility] [address] [place] [address], [facility] DTL [address] [place] [address] documented in this encounter Visit Diagnoses Diagnosis Malignant Neoplasm Of Thyroid (HCC) documented in this encounter Care Teams Pleat Patternmaker Relationship Specialty Start Date End Date Elsewhere, Pcp PCP - General Internal Medicine 01/27/24 documented as of this encounter
--- OUTSIDE RECORDS SUMMARY | 2024-04-17 19:39 | XMS_ITS | Encounter Summary ---
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 [address] [place] [address] [facility] Referral ID Status Reason Start Date Expiration Date Visits Re quested Visits Authorized [id number] Closed 01/27/2024 01/26/2025 1 1 * Outpatient (Routine) - Closed Specialty Diagnoses / Procedures Referred By Vinicius reid Referred To Contact Diagnoses Malignant Neoplasm Of Thyroid (HCC) Procedures US Superficial Tissue Fine Needle Aspiration Phuc Torres M.D. [address] [place] [address] [facility] Referral ID Status Reason Start Date Expiration Date Visits Re quested Visits Authorized [id number] Closed 01/27/2024 01/26/2025 1 1 Reason for Visit * Appointment Request (Routine) - Closed Specialty Diagnoses / Procedures Referred By Vinicius reid Referred To Contact Endocrinology Diagnoses Malignant Neoplasm Of Thyroid Medullary (HCC) Referral ID Status Reason Start Date Expiration Date Visits Re quested Visits Authorized [id number] Closed 12/20/2023 12/19/2024 1 1 Encounter Details Date Type Department Care Team (Latest Contact Info) Description 01/27/2024 1:30 PM CDT Comprehensive Visit Division of Endocrinology in [place], [place] [address] [place] [address] Phuc Torres M.D. [address] [place] [address] Malignant Neoplasm Of Thyroid (HCC) Social History Tobacco Use Types Packs/Day Years Used Date Smoking Tobacco: Never Assessed [facility] Utilities Answer Date Recorded In the [...] Ethan Wise) is a 63-year-old man from [facility], about an hour and 15 minutes [...] syndrome. No tobacco. 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 Review of his chart, though, shows [...] Phuc Torres M.D. CT CT Job ID: [id number] documented in this encounter Plan of Treatment [...] Clinical Correlations An online research opportunity called [employer] ([employer]) , a project of [employer], is available for the recipient of this genetic test. This patient registry collects de-identified genetic and health information to advance the knowledge of genetic variants. [facility] is a collaborator of [employer]. This may not be applicable for all [...] assistance in the interpretation of these results, [facility] Laboratory genetic counselors can be contacted [...] of results. Reclassification of Variants Policy See www.[employer]. com (TEST ID RETZZ) for information regarding the laboratory's policy for reclassification of variants. Variant Evaluation Variant curation is performed using published ACMG-AMP recommendations as a guideline. Other gene-specific guidelines may also be considered. Variants classified as benign or likely benign are not reported. Results from in silico evaluation tools may change booth attendant time and should be interpreted with caution and professional clinical judgment. TEST CLASSIFICATION This test was developed and its performance characteristics determined by [facility] in a manner consistent with CLIA [...] methodologies based on internal laboratory criteria. See www.[employer]. [employer] (TEST ID RETZZ) for details regarding genes [...] LAB GENETIC TESTIN G Performing Organization Address [facility] Co de Phone Number [facility] [address] [place] [address], [facility] DTL 200 [facility] 200 [place] [address] * Pathology Review of Outside Material (11/12/2023 [...] 10:51 AM CDT DTL Material Received A. [id number]: Left thyroid ? 7 stained slides 02/03/2024 10:51 AM CDT DTL Interpretation FINAL DIAGNOSIS Thyroid, left lobe nodule ultrasound-guide d fine needle aspiration ([id number]; smears and thin prep; 11/12/2023): Suspicious for malignancy. ??Discohesive cells with nuclear hyperchromasia and atypia worrisome for medullary carcinoma. 02/03/2024 10:51 AM CDT DTL Varies 11/12/2023 8:45 AM CDT 02/02/2024 11:56 AM CDT Phuc Torres M.D. LAB SURG PATH ORDE RABMAKSIM Performing Organization Address [facility]/ZIP Co de Phone Number [facility] [address] [place] [address], [facility] DTL 200 [facility] [address] [place] [address] documented in this encounter Visit Diagnoses Diagnosis Malignant Neoplasm Of Thyroid (HCC) Malignant Neoplasm Of Thyroid (HCC) documented in this encounter Care Teams Poultry Farmworker Relationship Specialty Start Date End Date Elsewhere, Pcp PCP - General Internal Medicine 01/27/24 documented as of this encounter
--- OUTSIDE RECORDS SUMMARY | 2024-04-17 19:39 | XMS_ITS | Encounter Summary ---
Author Organization [facility] Address [address] [place] [address] Care Team Providers Care Teletypesetter Operator Name Role Phone Elsewhere, Pcp Primary Care Provider Unavailabl e Reason for Referral * Outpatient (Routine) - Closed Specialty Diagnoses / Procedures Referred By Vinicius reid Referred To Contact General Surgery Dakota Morrow M.D. [address] [place] [phone] Dakota Morrow M.D. [address] [place] [phone] Referral ID Status Reason Start Date Expiration Date Visits Re quested Visits Authorized [id number] Closed 01/27/2024 07/28/2025 1 1 Scheduling Instructions Please schedule with Dr. Morrow; Reason for Visit * Outpatient (Routine) - Closed Specialty Diagnoses / Procedures Referred By Vinicius reid Referred To Contact General Surgery Diagnoses Malignant Neoplasm Of Thyroid Medullary (HCC) Phuc Torres M.D. [address] [place] [phone] [facility] Referral ID Status Reason Start Date Expiration Date Visits Re quested Visits Authorized [id number] Closed 12/28/2023 06/28/2025 1 1 Encounter Details Date Type Department Care Team (Latest Contact Info) Description 01/27/2024 3:00 PM CDT Comprehensive Visit Division of Endocrine Surgery in [place], [place] [address] [place] [address] [place] [address] Dakota Morrow M.D. 200 [place] [phone] Phuc Trores M.D. [address] [place] [phone] Malignant Neoplasm Of Thyroid Medullary (HCC) Social History Tobacco Use Types Packs/Day Years Used Date Smoking Tobacco: Never Assessed [facility] Utilities Answer Date Recorded In the [...] (HCC) documented in this encounter Care Teams Teletypesetter Operator Relationship Specialty Start Date End Date Elsewhere, Pcp PCP - General Internal Medicine 01/27/24 documented as of this encounter
--- OUTSIDE RECORDS SUMMARY | 2024-04-17 19:39 | XMS_ITS | Encounter Summary ---
Author Organization [facility] Address [address] [place] [address] Care Team Providers Care Graining Machine Operator Name Role Phone Elsewhere, Pcp Primary Care Provider Unavailabl e Encounter Details Date Type Department Care Team (Late st Contact Info) Description 12/30/2023 Clinical Communication Division of Endocrine Surgery in [place], [place] [address] [place] [phone] Dakota Morrow M.D. [address] [place] [address] Social History Tobacco Use Types Packs/Day Years Used Date Smoking Tobacco: Never Assessed [facility] Utilities Answer Date Recorded In [...] on filedocumented in this encounter Care Teams Graining Machine Operator Relationship Specialty Start Date End Date Elsewhere, Pcp PCP - General Internal Medicine 01/27/24 documented as of this encounter
--- OUTSIDE RECORDS SUMMARY | 2024-04-17 19:39 | XMS_ITS | Encounter Summary ---
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 [address] [place] [address] [facility] Referral ID Status Reason Start Date Expiration Date Visits Re quested Visits Authorized [id number] Closed 01/27/2024 01/26/2025 1 1 Encounter Details Date Type Department Care Team (Latest Contact Info) Description 01/27/2024 3:23 PM CDT - 01/27/2024 11:59 PM CDT Hospital Encounter Department of Laboratory Medicine and Pathology, [facility] in [place], [place] [address] [place] [address] Phuc Torres M.D. [address] [place] [address] Malignant Neoplasm Of Thyroid (HCC) Discharge Disposition: Home or Self Care Social History Tobacco Use Types Packs/Day Years Used Date Smoking Tobacco: Never Assessed [facility] Utilities Answer Date Recorded In the past 12 months has th e [employer], gas, oil, or water [employer] threatened to shut off services in your [...] your living situation today? [facility] live 01/23/2024 Sex and [...] Clinical Correlations An online research opportunity called PulseOn (TapClicks) , a project of [employer], is available for the recipient of this genetic test. This patient registry collects de-identified genetic and health information to advance the knowledge of genetic variants. [facility] is a collaborator of [employer]. This may not be applicable for all [...] assistance in the interpretation of these results, [facility] Laboratory genetic counselors can be [...] of results. Reclassification of Variants Policy See www.[email or web address]. [facility] (TEST ID RETZZ) for information regarding the laboratory's policy for reclassification of variants. Variant Evaluation Variant curation is performed using published ACMG-AMP recommendations as a guideline. Other gene-specific guidelines may also be considered. Variants classified as benign or likely benign are not reported. Results from in silico evaluation tools may international exchange coordinator time and should be interpreted with [...] methodologies based on internal laboratory criteria. See www.[facility]. [facility] (TEST ID RETZZ) for details regarding genes [...] Phuc Torres M.D. LAB GENETIC TESTIN G [facility] [address] [place] [address], [facility] DTL [address] [place] [address] documented in this encounter Visit Diagnoses Diagnosis Malignant Neoplasm Of Thyroid (HCC) documented in this encounter Care Teams Oil Lease Broker Relationship Specialty Start Date End Date Elsewhere, Pcp PCP - General Internal Medicine 01/27/24 documented as of this encounter
--- OUTSIDE RECORDS SUMMARY | 2024-04-17 19:39 | XMS_ITS | Encounter Summary ---
Author Organization [facility] Address [address] [place] [address] Care Team Providers Care Farm Management Teacher Name Role Phone Elsewhere, Pcp Primary Care Provider Unavailabl e Reason for Visit * Reason Onset Date Comments Pathology Request 01/27/2024 Encounter Details Date Type Department Care Team (Latest Contact Info) Description 01/27/2024 Clinical Communication Division of Endocrinology in [place], [place] [address] [place] [address] Phuc Torres M.D. [address] [place] [address] Pathology Request Social History Tobacco Use Types Packs/Day Years Used Date Smoking Tobacco: Never Assessed [facility] Utilities Answer Date Recorded In the [...] filedocumented in this encounter Care Teams Farm Management Teacher Relationship Specialty Start Date End Date Elsewhere, Pcp PCP - General Internal Medicine 01/27/24 documented as of this encounter
--- OUTSIDE RECORDS SUMMARY | 2024-04-17 19:39 | XMS_ITS | Encounter Summary ---
Author Organization [facility] Address [address] [place] [address] Care Team Providers Care Locomotive Operator Name Role Phone Unavailable Primary Care Provider Unavailabl e Reason for Visit * Reason Onset Date Comments [facility] 12/23/2023 ENT Encounter Details Date Type Department Care Team (Latest Contact Info) Description 12/23/2023 Clinical Communication Department of Otorhinolaryngology in [place], [place] [address] [place] [address] Provider, Unknown [facility] (ENT ) Social History Tobacco Use Types Packs/Day Years Used Date Smoking Tobacco: Never Assessed [facility] Utilities [...]
--- OUTSIDE RECORDS SUMMARY | 2024-04-17 19:39 | XMS_ITS | Clinical Summary ---
Author Organization [facility] Address [place], [place] [address] Care Team Providers Care Meat Pickler Name Role Phone Pcp, No Primary Care [...] Tetanus booster 02/16/2017 02/16/2007 COVID-19 vaccine series (2023- season) 2024 06/10/2021, 11/01/2020, 10/01/2020 Influenza for age 50-64 03/12/2024 BMI (ht and wt on same day) for age 18+ 10/24/2024 10/25/2023, 12/14/2021 Tdap Completed 02/16/2007 Pneumococcal series for age 6-64 Aged Out No longer eligible b ased on patient's age to complete this topic Care Teams Meat Pickler Relationship Specialty Start Date End Date Pcp, No . PCP - General 06/10/23
--- OUTSIDE RECORDS SUMMARY | 2024-04-17 19:39 | XMS_ITS | Encounter Summary ---
Author Organization [facility] Address [address] [place] [address] Care Team Providers Care Stitch Bonding Machine Tender Name Role Phone Elsewhere, Pcp Primary Care Provider Unavailabl e Encounter Details Date Type Department Care Team (Latest Contact Info) Description 01/27/2024 6:21 AM CDT - 01/27/2024 3:22 PM CDT Hospital Encounter Department of Laboratory Medicine and Pathology, [facility] in [place], [place] [address] [place] [address] Phuc Torres M.D. [address] [place] [phone] Malignant Neoplasm Of Thyroid Medullary (HCC) Discharge Disposition: Home or Self Care Social History Tobacco Use Types Packs/Day Years Used Date Smoking Tobacco: Never Assessed [facility] Utilities Answer Date Recorded In the past 12 months has [facility] [employer], gas, oil, or water [employer] threatened to shut off services in your [...] D2 <4.0 ng/mL 01/29/2024 3:28 PM CDT [facility] 25-Hydroxy D3 16 ng/mL 01/29/2024 3:28 PM CDT [facility] 25-Hydroxy D Total 16(L) ng/mL 2023 3:28 PM CDT [facility] Comment: Interpretation: 10-19 ng/mL (mild to moderate deficiency) ----REFERENCE VALUE---- 25-HYDROXY D TOTAL (D2+D3) Optimum levels in the healthy population are 20-50. ----ADDITIONAL INFORMATION---- This test was developed and its performance characteristics determined by [facility] in a manner consistent with CLIA requirements. This test has not been cleared or approved by the U.S. Food and Drug Administration. Blood (Blood, Venous) 01/27/2024 6:47 AM CDT 01/27/2024 9:16 AM CDT Phuc Torres M.D. LAB BLOOD ADD-ON Performing Organization Address City/[facility]/ZIP Co de Phone Number [facility] [address] [place] [address] [facility] [address] [place] [address] [place] [address] * Calcium, Total (01/27/2024 6:47 AM CDT) Pathologist [facility] Calcium, Total, S 9.3 8.8 - 10.2 mg/dL 01/27/2024 8:08 AM CDT DTL Blood (Blood, Venous) 01/27/2024 6:47 AM CDT 01/27/2024 7:31 AM CDT Phuc Torres M.D. LAB BLOOD ADD-ON Performing Organization Address City/[facility]/ZIP Co de Phone Number [facility] [address] [place] [address], [facility] [address] [place] [address] * Metanephrines, Fractionated, Free (01/27/2024 6:47 AM CDT) Normetanephrine, Free 0.64 <0.90 nmol/L 01/28/2024 3:30 PM CDT [facility] Metanephrine, Free <0.20 <0.50 nmol/L 01/28/2024 3:30 PM CDT [facility] Comment: ----ADDITIONAL INFORMATION---- This test was developed and its performance characteristics determined by [facility] in a manner consistent with CLIA requirements. This test has not been cleared or approved by the U.S. Food and Drug Administration. Blood (Blood, Venous) 01/27/2024 6:47 AM CDT 01/27/2024 10:31 AM CDT Phuc Torres M.D. LAB BLOOD NON ADD- ON Performing Organization Address [facility] Co de Phone Number [facility] [address] [place] [address] [facility] [address] [place] [address] [place] [address] * (ABNORMAL) CEA (Carcinoembryonic Antigen) (01/27/2024 6:47 AM CDT) Carcinoembryonic Ag (CEA), S 313.0(H) ng/mL 01/27/2024 10:54 AM CDT [facility] Comment: ----REFERENCE VALUE---- <=3.0 (Non-smokers) Some smokers may have elevated CEA, usually <5.0. ----ADDITIONAL INFORMATION---- The testing method is an immunoenzymatic assay manufactured by [employer] and performed on the Booktrack DxI 800. ? Values obtained with different assay methods or kits may be different and cannot be used interchangeably. ? Test results cannot be interpreted as absolute evidence for the presence or absence of malignant disease. Blood (Blood, Venous) 01/27/2024 6:47 AM CDT 01/27/2024 9:56 AM CDT Phuc Torres M.D. LAB BLOOD ADD-ON Performing Organization Address City/[facility]/ZIP Co de Phone Number [facility] [address] [place] [address] [facility] [address] [place] [address] * (ABNORMAL) Calcitonin (01/27/2024 6:47 AM CDT) [facility] Calcitonin, S 5061(H) <=14.3 pg/mL 01/27/2024 1:35 PM CDT [facility] Comment: ----ADDITIONAL INFORMATION---- The testing method is an electrochemiluminescence assay manufactured by [employer] and performed on the Lovely system. Values obtained with different assay methods or kits may be different and cannot be used interchangeably. Test results cannot be interpreted as absolute evidence for the presence or absence of malignant disease. Blood (Blood, Venous) 01/27/2024 6:47 AM CDT 01/27/2024 11:54 AM CDT Phuc Torres M.D. LAB BLOOD NON ADD- ON Performing Organization Address City/[facility]/ZIP Co de Phone Number [facility] [address] [place] [address] [place] [address] * T4 (Thyroxine), Free (01/27/2024 6:47 AM CDT) [facility] T4 (Thyroxine), Free, S 1.4 0.9 - 1.7 ng/dL 01/27/2024 8:08 AM CDT [facility] Blood (Blood, Venous) 01/27/2024 6:47 AM CDT 01/27/2024 7:31 AM CDT Phuc Torres M.D. LAB BLOOD ADD-ON [facility] [address] [place] [address], [facility] [address] [place] [address] * S-TSH (Thyroid-Stimulating Hormone - Sensitive) (01/27/2024 6:47 AM CDT) TSH, Sensitive 2.3 0.3 - 4.2 mIU/L 01/27/2024 8:08 AM CDT DTL Blood (Blood, Venous) 01/27/2024 6:47 AM CDT 01/27/2024 7:31 AM CDT Phuc Torres M.D. LAB BLOOD ADD-ON [facility] [address] [place] [address], [facility] [address] [place] [address] documented in this encounter Visit Diagnoses Diagnosis Malignant Neoplasm Of Thyroid Medullary (HCC) documented in this encounter Care Teams Stitch Bonding Machine Tender Relationship Specialty Start Date End Date Elsewhere, Pcp PCP - General Internal Medicine 01/27/24 documented as of this encounter
--- NOTE | 2024-05-02 13:08 | W.PM.SLEEP ---
Sleep Study Details Details Interpreting Provider: Luis Date of Sleep Study: 04/17/24 Sleep Study Details: STUDY TYPE:? Home unattended ? BMI:? 35.1 ORDERING PROVIDER:? Sherry INDICATION:? Concern about sleep apnea ? SLEEP SUMMARY:? 393 minutes monitored RESPIRATORY SUMMARY:? AHI 75.1 Low oxygen 70 65.9% of study oxygen less than 90% Snoring 90.8% PERIODIC LIMB MOVEMENTS OF SLEEP:? Not recorded CARDIAC:? Range 53-101, mean 72.9 IMPRESSION:? Severe obstructive sleep apnea with significant hypo oxygenation RECOMMENDATION: In-lab titration would be best because of the significant hypo oxygenation noted during the study. Alternative would be an AutoSet CPAP. Weight loss is also recommended.
== END 2024-04-17 19:36 | disposition home or self-care (01) ==
LOC: SLEEP 19:36
PROVIDERS: PCP Family Medicine; Visit Provider Family Medicine
DX: G47.33 Obstructive sleep apnea (adult) (pediatric) (principal)
CPT/HCPCS: 95806

== ENCOUNTER 2024-05-22 16:22 | Outpatient (CLI) | payer OTHER, SELFPAY ==
--- OUTSIDE RECORDS SUMMARY | 2024-05-25 09:46 | XMS_ITS | Clinical Summary ---
Author Organization [facility] Address [address] [address] Care Team Providers Care Creative Project Manager Name Role Phone No Primary/Referring, Phy Primary Care Provider Unavailable Source Comments You are receiving this document as you are listed as the primary care provider,follow-up provider, or the patient has been referred to you for consultation.This is in compliance with the Medicare and[facility] Hospital[facility] EHR Incentive Program,which states Providers who transition their patient to another setting of careor provider of care or refers their patient to another provider of care shouldprovide summary care record for each transition of care or referral. [facility] Allergies No known active [...] 37 ??C (98.6 ??F) 09/12/2018 2:54 PM PROCESS AUTOMATION ENGINEER Respiratory Rate 16 09/12/2018 4:43 PM PROCESS AUTOMATION ENGINEER Oxygen Saturation 95% 09/12/2018 4:43 PM PROCESS AUTOMATION ENGINEER Inhaled Oxygen Concentration - - Weight 103 [...] patient's age to complete this topic RSV Aged Out No longer eligi ble [...] e ffect for 30 days Care Teams Creative Project Manager Relationship Specialty Start Date End Date No Primary/Referring, Phy PCP - General 11/04/18
--- OUTSIDE RECORDS SUMMARY | 2024-05-25 09:46 | XMS_ITS | Referral Summary ---
Author Organization [facility] Address [address] [place] [address] Care Team Providers Care Edging Machine Feeder Name Role Phone Elsewhere, Pcp Primary Care Provider Unavailabl e Source Comments Patient records contain information from all sites at [facility]. For routine questions regarding patient records, call [phone] during business hours, M-F 8:00 AM - 5:00 PM Central Time. Record requests for emergency care only can be directed to [phone] at any time.[facility] Allergies Active Allergy Reactions Criticality Noted Date Comments House Dust Shortness of breath 01/27/2024 Mold Shortness of breath 01/27/2024 Pollen Extracts Other (see comments) 04/02/2023 Medications albuterol 90 mcg/actuation inhaler Inhale 1-2 puffs every 4 (four) hours as needed. Patient states he takes Advair, and does not have any other inhaler prescriptions. 2 Active clotrimazole (Lotrimin AF, clotrimazole,) 1 % cream Apply 1 Application topically 2 (two) times a day as needed (Rash). 5 Active ibuprofen 200 mg tablet Take 400 mg by mouth every 6 (six) hours as needed for pain. Active loratadine (Claritin) 10 mg tablet Take 10 mg by mouth 2 (two) times a day. 4 Active cholecalciferol (Vitamin D3) 1,250 mcg (50,000 Unit) capsule Take 1 capsule (50,000 Units total) by mouth 2 (two) times a week. 16 capsule 01/31/2024 11:11 AM CDT 4 Active Additional Information Patient taking differently: 1,250 mcgoral 2 times weekly,Wednesday and Wednesday 1250 mcg = 50,000 Units, Reported on 02/03/2024 fluticasone propion-salmete roL 250-50 mcg/dose diskus inhaler Inhale 1 puff 2 (two) times a day. Rinse mouth with water after use to reduce aftertaste and incidence of candidiasis. Do not swallow. Active acetaminophen (TylenoL) 500 mg tablet Take 2 tablets (1,000 mg total) by mouth every 6 (six) hours as needed for pain. 4 Active oxyCODONE (Roxicodone) 5 mg immediate release tabletIndicatio ns:Acute Pain Take 1 tablet (5 mg total) by mouth every 4 (four) hours as needed for severe pain or score 7-10 of 10 Indication: Acute Pain. 10 tablet 02/04/2024 12:53 PM CDT 4 Active levothyroxine 175 mcg tablet Take 1 tablet (175 mcg total) by mouth daily before morning meal. 60 tablet 02/04/2024 12:53 PM CDT 4 Active Active Problems Problem Noted Date Diagnosed Date Thyroidectomy Status Post 02/04/2024 Malignant Neoplasm Of Thyroid Medullary 12/30/19 Social History Tobacco Use Types Packs/Day Years Used Date Smoking Tobacco: Never Smokeless Tobacco: Never Alcohol Use Standard Drinks/Week Comments Not Currently 0 (1 standard drink = 0.6 oz pur e alcohol) [facility] Utilities Answer Date Recorded In the past 12 months has [employer], [employer], or water [employer] threatened to shut off services in your [...] Assigned at Male 01/23/2024 9:14 PM CDT Legal Sex Male 12:06 PM CDT Gender Identity Male 01/23/2024 9:14 [...] 02/03/2024 11:03 AM CDT Plan of Treatment Upcoming Encounters Date Type Department Care Team (Late st Contact Info) Description 06/16/2024 10:30 AM CREATIVE PRODUCER Appointment Department of Laboratory Medicine and Pathology, [facility], in [place], [place] [address] [place] [address] Phuc Torres M.D. [address] [place] [address] 06/16/2024 11:00 AM CREATIVE PRODUCER Appointment Department of Radiology, [facility], in [place], [place] [address] [place] [address] Phuc Torres M.D. [address] [place] [phone] 08/14/2024 3:30 PM CREATIVE PRODUCER Office Visit Division of Endocrinology in [place], [place] [address] [place] [address] Phuc Torres M.D. [address] [place] [phone] Medical Devices Implanted Type Area Tip Banding Machine Operator Device Identifier Shelf Expiration Date Model / Serial / Lot Clp Hrzn Ti 6 Clp Sm Red - [id number] Implanted:Qty: 1 on 02/03/2024 by Dakota Morrow M.D. at [facility] Hardware e.g. pins/screws/r ods Neck Teleflex Silver Push [id number] / / Procedures Procedure Name Priority Date/Time Associated Diagnosis Comments THYROID-STIMULATING HORMONE-SENSITIVE (S-TSH) Routine 01/27/2024 6:47 AM CDT Malignant Neoplasm Of Thyroid Medullary (HCC) from Last 3 Months or Most Recently Relevant to Health Maintenance Results * S-TSH (Thyroid-Stimulating Hormone - Sensitive) (01/27/2024 6:47 AM CDT) TSH, Sensitive 2.3 0.3 - 4.2 mIU/L 01/27/2024 8:08 AM CDT DTL Blood (Blood, Venous) 01/27/2024 6:47 AM CDT 01/27/2024 7:31 AM CDT Phuc Torres M.D. LAB BLOOD ADD-ON Final Res ult [facility] [address] [place] [address], [place] DTL [facility] [address] [place] [address] from Last 3 Months or Most Recently Relevant to Health Maintenance Insurance [facility] Advance Directives For more information, please contact: [phone] * Full Code (Latest Code Status on File) Date Activated Date Inactivated Comments 02/03/2024 10:45 AM 02/04/2024 2:49 PM Question Answer Comments Full Code: Not Discussed Due to: Patient not available Care Teams Edging Machine Feeder Relationship Specialty Start Date End Date Elsewhere, Pcp PCP - General Internal Medicine 01/27/24
--- OUTSIDE RECORDS SUMMARY | 2024-05-25 09:46 | XMS_ITS | Clinical Summary ---
Author Organization [facility] Address [address] [place] [address] Care Team Providers Care Interventional Physiatrist Name Role Phone Elsewhere, Pcp Primary Care Provider Unavailabl e Source Comments Patient records contain information from all sites at [facility]. For routine questions regarding patient records, call [phone] during business hours, M-F 8:00 AM - 5:00 PM Central Time. Record requests for emergency care only can be directed to [phone] at any time.[facility] Allergies Active Allergy Reactions Criticality [...] drink = 0.6 oz pur e alcohol) [facility] Utilities Answer Date Recorded In the past 12 months has [employer], [employer], or water [employer] threatened to shut off services in your [...] your living situation today? I have a [facility] place to live 01/23/2024 Sex and [...] st Contact Info) Description 06/16/2024 10:30 AM MEDICAL PHOTOGRAPHER Appointment Department of Laboratory Medicine and Pathology, [facility], in [place], [place] [address] [place] [address] Phuc Torres M.D. [address] [place] [address] 06/16/2024 11:00 AM MEDICAL PHOTOGRAPHER Appointment Department of Radiology, [facility], in [place], [place] [address] [place] [address] Phuc Torres M.D. [address] [place] [address] 08/14/2024 3:30 PM MEDICAL PHOTOGRAPHER Office Visit Division of Endocrinology in [place], [place] [address] [place] [address] Phuc Torres M.D. [address] [place] [phone] Health Maintenance Due Date Last Done Comments CT Colonography 1961 Cologuard 1961 Colonoscopy 1961 Colorectal Cancer Screening 1961 FIT 1961 HIV Screening 1961 Hepatitis C Screening 1961 Zoster Vaccines (1 of 2) 2011 Depression Screening (Annual PHQ-2) 07/12/2023 COVID-19 Vaccine (4 - 2023-2 5 season) 2024 06/10/2021, 11/01/2020, 10/01/2020 Influenza Vaccine (#1) 2024 08/10/2009 Office Visit for Blood Pressure Check / Re-check 04/28/2024 01/27/2024 Thyroid Stimulating Hormone (TSH) test for thyroid function 01/26/2025 01/27/2024 Fasting Glucose for Diabetes Screening 10/05/2026 10/06/2023, 04/02/2023 Lipid (Cholesterol) Screening 04/02/2028 04/02/2023 DTaP,Tdap,and Td Vaccines (3 - Td or Tdap) 04/02/2033 04/02/2023, 02/16/2007 IPV Vaccines Aged Out No longer eligi ble based on patient's age to complete this topic Pneumococcal vaccine (0-64 years) Aged Out No longer eligible b ased on patient's age to complete this topic Medical Devices Implanted Type Area [place] Mold Maker Device Identifier Shelf Expiration Date Model / Serial / Lot Clp Hrzn Ti 6 Clp Sm Red - [id number] Implanted:Qty: 1 on 02/03/2024 by Dakota Morrow M.D. at [facility] Hardware e.g. pins/screws/r ods Neck Teleflex Pulselocker / / Procedures Procedure Name Priority Date/Time [...] M.D. LAB BLOOD ADD-ON Final Res ult [facility] [address] [place] [address], [facility] [address] [place] [address] from Last 3 Months or Most Recently Relevant to Health Maintenance Insurance [facility] Advance Directives For more information, please contact: [phone] * Full Code (Latest Code Status on File) Date Activated Date Inactivated Comments 02/03/2024 10:45 AM 02/04/2024 2:49 PM Question Answer Comments Full Code: Not Discussed Due to: Patient not available Care Teams Interventional Physiatrist Relationship Specialty Start Date End Date Elsewhere, Pcp PCP - General Internal Medicine 01/27/24
--- OUTSIDE RECORDS SUMMARY | 2024-05-25 09:46 | XMS_ITS | Clinical Summary ---
Author Organization [facility] Address [place], [place] [address] Care Team Providers Care Bilingual Secretary Name Role Phone Pcp, No Primary Care [...] age to complete this topic Care Teams Bilingual Secretary Relationship Specialty Start Date End Date Pcp, No . PCP - General 06/10/23
--- OUTSIDE RECORDS SUMMARY | 2024-05-25 09:46 | XMS_ITS | Referral Summary ---
Author Organization [place] Address [address] [place] [address] Care Team Providers Care District Resource Officer Name Role Phone No Ref-Primary, Physician Primary Care Provider [facility] Unavailabl e Allergies Active Allergy Reactions Criticality Noted Date Comments Seasonal Allergies 04/02/2023 Medications loratadine (CLARITIN) 10 MG tablet Take 10 mg by mouth daily as needed (Takes daily during Spring and Summer) Active aspirin-acetami nophen-caffeine (EXCEDRIN MIGRAINE) 250-250-65 MG per tablet Take 1-2 tablets by mouth every 6 hours as needed for headaches Active albuterol (PROAIR HFA/PROVENTIL HFA/VENTOLIN HFA) 108 (90 Base) MCG/ACT inhaler Inhale 1-2 puffs into the lungs every 4 hours as needed for shortness of breath, wheezing or cough 2 Active Active Problems Problem Noted Date Diagnosed Date 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 1 to 4 times per year [...] Date Recorded PHQ-2 Score 0 04/02/2023 [facility] - [...] Recorded Sex Assigned at Not on file Legal Sex Male 4:32 AM DIRECTOR OF ENTERPRISE ARCHITECTURE Gender Identity Not on file Sexual Orientation [...] Glucose (External) 90 60 - 115 mg/dL [facility] Blood 10/06/2023 9:55 AM CDT Narrative [facility] - 10/06/2023 9:55 AM CDT OUTSIDE RECORDS - External Lab Results us Provider Outside LAB - HIM EXTERNAL RESULT Final Result [facility] [address] [phone] * HIV Antigen Antibody Combo (04/02/2023 9:11 AM CDT) HIV Antigen Antibody Combo Nonreactive Nonreactive 04/03/2023 12:48 PM CDT [facility] DO Comment:HIV-1 p24 Ag & HIV-1 /HIV-2 Ab Not Detected Blood BLOOD SPECIMEN / Unknown Venipuncture / Unknown 04/02/2023 9:11 AM CDT 04/02/2023 9:11 AM CDT us Cassandra Rojas NP LAB - BLOOD ORDERABLES Final Result [facility]Endo [address] [place] [address], [facility] [phone] * Hepatitis C Screen Reflex to HCV RNA Quant and Genotype (04/02/2023 9:11 AM CDT) Hepatitis C Antibody Nonreactive Nonreactive 04/03/2023 10:46 AM CDT [facility] DO Blood BLOOD SPECIMEN / Unknown Venipuncture / Unknown 04/02/2023 9:11 AM CDT 04/02/2023 9:11 AM CDT Narrative SPECIALTY CORE/PROT/ENDO - 04/03/2023 10:46 AM CDT Assay performance characteristics have not been established for newborns, infants, and children. Cassandra Rojas NP LAB - BLOOD ORDERABLES Final Result [facility]ENDO Specialty Core/Prot/Endo 500 [facility] [address] [facility], [address] [place] [address], [facility] [phone] * (ABNORMAL) Lipid panel reflex to direct [...] or equal to 220 mg/dL Cassandra Rojas SOLAR SYSTEM DESIGNER LAB - BLOOD ORDERABLES Final Result [facility] 500 [facility], [address] [place] [address], [facility] [phone] from Last 3 Months or Most Recently Relevant to Health Maintenance Insurance [address] [place] [id number] [place] [employer] Advance Directives For more information, please contact: [phone] * Full Code (Latest Code Status on File) Date Activated Date Inactivated Comments 08/24/2016 12:28 PM * Full Code Date Activated Date Inactivated Comments 08/23/2016 5:10 PM 08/24/2016 12:28 PM Care Teams District Resource Officer Relationship Specialty Start Date End Date No Ref-Primary, Physician PCP - General 04/05/23 [facility] [address] [place] [address] Assigned PCP 11/02/23
--- OUTSIDE RECORDS SUMMARY | 2024-05-25 09:46 | XMS_ITS | Encounter Summary ---
Author Organization [facility] Address [address] [place] [address] Care Team Providers Care Editing Intern Name Role Phone Elsewhere, Pcp Primary Care Provider Unavailabl e Encounter Details Date Type Department Care Team (Latest Contact Info) Description 02/05/2024 Intake [facility] Social History Tobacco Use Types Packs/Day Years Used Date Smoking Tobacco: Never Smokeless Tobacco: Never Alcohol Use Standard Drinks/Week Comments Not Currently 0 (1 standard drink = 0.6 oz pur e alcohol) [facility] Utilities Answer Date [...] your living situation today? I have a [facility] place to live 01/23/2024 Sex and Gender Information Value Date Recorded Sex Assigned at Male 01/23/2024 9:14 PM CDT Legal Sex Male 12:06 PM CDT Gender Identity Male 01/23/2024 9:14 PM CDT Sexual Orientation Straight 01/23/2024 9: 14 PM CDT documented as of this encounter Plan of Treatment Upcoming Encounters Date Type Department Care Team (Late st Contact Info) Description 06/16/2024 10:30 AM EARTH BURNER Appointment Department of Laboratory Medicine and Pathology, [facility] in [place], [place] [address] [place] [phone] Phuc Torres M.D. [address] [place] [phone] 06/16/2024 11:00 AM EARTH BURNER Appointment Department of Radiology, [place], [place] [address] [place] [address] Phuc Torres M.D. [address] [place] [phone] 08/14/2024 3:30 PM EARTH BURNER Office Visit Division of Endocrinology in [place], [place] [address] [place] [phone] Phuc Torres M.D. [address] [place] [phone] documented as of this encounter Visit Diagnoses Not on filedocumented in this encounter Care Teams Editing Intern Relationship Specialty Start Date End Date Elsewhere, Pcp PCP - General Internal Medicine 01/27/24 documented as of this encounter
--- OUTSIDE RECORDS SUMMARY | 2024-05-25 09:46 | XMS_ITS | Encounter Summary ---
Author Organization [facility] Address [address] [place] [address] Care Team Providers Care Rn Social Services Name Role Phone Elsewhere, Pcp Primary Care Provider Unavailabl e Reason for Referral * Outpatient (Routine) - Authorized Specialty Diagnoses / Procedures Referred By Vinicius reid Referred To Contact Endocrinology Diagnoses Malignant Neoplasm Of Thyroid Medullary (HCC) Phuc Torres M.D. 200 [place] [address] Phone: tel: fax: [facility] Referral ID Status Reason Start Date Expiration Date V isits Requested Visits Authorized [id number] Authorized 02/14/2024 08/15/2025 1 1 Scheduling Instructions Please prioritize and do not delay this patient's return appointment. * Outpatient (Routine) - Authorized Specialty Diagnoses / Procedures Referred By Vinicius reid Referred To Contact Diagnoses Malignant Neoplasm Of Thyroid Medullary (HCC) Procedures US Head Neck Soft Tissue Phuc Torres M.D. 200 [place] [address] Phone: tel: fax: [facility] Referral ID Status Reason Start Date Expiration Date V isits Requested Visits Authorized [id number] Authorized 02/14/2024 02/13/2025 1 1 Encounter Details Date Type Department Care Team ([facility] st Contact Info) Description 02/14/2024 Orders Only Division of Endocrinology in [place], [place] [address] [place] [address] Phuc Torres M.D. [address] [place] [address] Malignant Neoplasm Of Thyroid Medullary (HCC) (Primary Dx) Social History Tobacco Use Types Packs/Day Years Used Date Smoking Tobacco: Never Smokeless Tobacco: Never Alcohol Use Standard Drinks/Week Comments Not Currently 0 (1 standard drink = 0.6 oz pur e alcohol) [facility] Utilities Answer Date Recorded [...] your living situation today? I have a [facility] place to live 01/23/2024 Sex and [...] st Contact Info) Description 06/16/2024 10:30 AM DELIVERY REP Appointment Department of Laboratory Medicine and Pathology, [facility] in [place], [place] [address] [place] [phone] Phuc Torres M.D. [address] [place] [phone] 06/16/2024 11:00 AM DELIVERY REP Appointment Department of Radiology, [place], [place] [address] [place] [phone] Phuc Torres M.D. [address] [place] [phone] 08/14/2024 3:30 PM DELIVERY REP Office Visit Division of Endocrinology in [address] [phone] Phuc Torres M.D. [address] [place] [phone] Scheduled Orders Name Type Priority Associated Diagnoses [...] Primary documented in this encounter Care Teams Rn Social Services Relationship Specialty Start Date End Date Elsewhere, Pcp PCP - General Internal Medicine 01/27/24 documented as of this encounter
--- OUTSIDE RECORDS SUMMARY | 2024-05-25 09:46 | XMS_ITS | Encounter Summary ---
Author Organization [place] Address [address] [place] [address] Care Team Providers Care Vineyardist Name Role Phone No Ref-Primary, Physician Primary Care Provider [facility] Unavailabl e Encounter Details Date Type Department Care Team (Late st Contact Info) Description 11/18/2023 MyC Medical Advice [facility] [address] [place] [phone] Caitlyn Alfred, INORGANIC CHEMISTRY PROFESSOR Social History Tobacco Use Types Packs/Day Years Used Date Smoking Tobacco: Never Smokeless Tobacco: Never Social Connection and Isolat ion Panel [NHANES] Answer Date Recorded Frequency of Communication w ith Friends and Family Not on file 04/02/2023 How often do you get togethe r with friends or relatives? Twice a week 04/02/2023 How often do you attend [facility] or religion services? 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
--- OUTSIDE RECORDS SUMMARY | 2024-05-25 09:46 | XMS_ITS | Encounter Summary ---
Author Organization [facility] Address [address] [place] [address] Care Team Providers Care Animation Camera Operator Name Role Phone No Primary/Referring, Phy [...] on filedocumented in this encounter Care Teams Animation Camera Operator Relationship Specialty Start Date End Date No Primary/Referring, Phy PCP - General 11/04/18 documented as of this encounter
--- OUTSIDE RECORDS SUMMARY | 2024-05-25 09:46 | XMS_ITS | Clinical Summary ---
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 Gender Identity Not on file Sexual Orientation [...] Glucose (External) 90 60 - 115 mg/dL [facility] Blood 10/06/2023 9:55 AM CDT Narrative [facility] - 10/06/2023 9:55 AM CDT OUTSIDE RECORDS - External Lab Results us Provider Outside LAB - HIM EXTERNAL RESULT Final Result [facility] [address] [phone] * HIV Antigen Antibody Combo (04/02/2023 9:11 AM CDT) HIV Antigen Antibody Combo Nonreactive Nonreactive 04/03/2023 12:48 PM CDT [facility] DO Comment:HIV-1 p24 Ag & HIV-1 /HIV-2 Ab Not Detected Blood BLOOD SPECIMEN / Unknown Venipuncture / Unknown 04/02/2023 9:11 AM CDT 04/02/2023 9:11 AM CDT Cassandra Rojas NP LAB - BLOOD ORDERABLES Final Result [facility]/Prot/Endo 500 [facility], [address] [phone] * Hepatitis C Screen Reflex to HCV [...] [facility]PROT/ENDO [facility]/Prot/Endo 500 [facility], [address] [phone] * (ABNORMAL) Lipid panel reflex to direct [...] than or equal to 220 mg/dL Cassandra Crystal MOTORCYCLE TESTER LAB - BLOOD ORDERABLES Final Result [facility] [place] [facility] 500 [facility] [address] Building, [address] [place] [address], [place] [phone] from Last 3 Months or Most Recently Relevant to Health Maintenance Insurance [employer] Advance Directives For more information, please contact: [phone] * Full Code (Latest Code Status on File) Date Activated Date Inactivated Comments 08/24/2016 12:28 PM * Full Code Date Activated Date Inactivated Comments 08/23/2016 5:10 PM 08/24/2016 12:28 PM Care Teams Thermal Molder Relationship Specialty Start Date End Date No Ref-Primary, Physician PCP - General 04/05/23 [facility] [address] [place] [address] Assigned PCP 11/02/23
--- OUTSIDE RECORDS SUMMARY | 2024-05-25 09:46 | XMS_ITS | Encounter Summary ---
Author Organization [facility] Address [address] [place] [address] Care Team Providers Care Ceramic Engineering Professor Name Role Phone No Primary/Referring, Phy Primary [...] on filedocumented in this encounter Care Teams Ceramic Engineering Professor Relationship Specialty Start Date End Date No Primary/Referring, Phy PCP - General 11/04/18 documented as of this encounter
--- OUTSIDE RECORDS SUMMARY | 2024-05-25 09:46 | XMS_ITS ---
Author Organization [facility] Address [address] [place] [address] Care Team Providers Care Perishable Freight Inspector Name Role Phone Unavailable Unavailable Unavailable Surgery Details Not on file Complications Check Surgery Details section. Procedure Estimated Blood Loss Check Surgery Details section. Procedure Findings Check Surgery Details section. Procedure Specimens Taken Check Surgery Details section.
--- OUTSIDE RECORDS SUMMARY | 2024-05-25 09:46 | XMS_ITS | Encounter Summary ---
Author Organization [facility] Address [address] [place] [address] Care Team Providers Care Latex Ribbon Machine Operator Name Role Phone Elsewhere, Pcp Primary Care Provider Unavailabl e Encounter Details Date Type Department Care Team (Late st Contact Info) Description 01/31/2024 Orders Only Division of Endocrinology in [place], [place] [address] [place] [phone] Phuc Torres M.D. [address] [place] [address] Social History Tobacco Use Types Packs/Day Years Used Date Smoking Tobacco: Never Ass[facility] Utilities Answer Date Recorded In [...] living situation today? I have a [facility] place to live 01/23/2024 Sex and [...] st Contact Info) Description 06/16/2024 10:30 AM BIOPROCESS ENGINEER Appointment Department of Laboratory Medicine and Pathology, [facility] in [place], [place] [address] [place] [phone] Phuc Torres M.D. [address] [place] [phone] 06/16/2024 11:00 AM BIOPROCESS ENGINEER Appointment Department of Radiology, [facility] in [place], [place] [address] [place] [phone] Phuc Torres M.D. [address] [place] [phone] 08/14/2024 3:30 PM BIOPROCESS ENGINEER Office Visit Division of Endocrinology in [place], [place] [address] [place] [phone] Phuc Torres M.D. [address] [place] [phone] documented as of this encounter Visit Diagnoses Not on filedocumented in this encounter Care Teams Latex Ribbon Machine Operator Relationship Specialty Start Date End Date Elsewhere, Pcp PCP - General Internal Medicine 01/27/24 documented as of this encounter
--- OUTSIDE RECORDS SUMMARY | 2024-05-25 09:46 | XMS_ITS | Encounter Summary ---
Author Organization [facility] Address [address] [place] [address] Care Team Providers Care Guidance Counselor Name Role Phone No Primary/Referring, Phy Primary [...] on filedocumented in this encounter Care Teams Guidance Counselor Relationship Specialty Start Date End Date No Primary/Referring, Phy PCP - General 11/04/18 documented as of this encounter
== END 2024-05-22 16:23 | disposition home or self-care (01) ==
PROVIDERS: PCP Family Medicine; Referring Provider Family Medicine; Visit Provider Family Medicine
DX: E03.9 Hypothyroidism, unspecified (principal); R73.03 Prediabetes; R97.0 Elevated carcinoembryonic antigen [CEA]; E55.9 Vitamin D deficiency, unspecified; E88.810 Metabolic syndrome; I10 Essential (primary) hypertension; C73 Malignant neoplasm of thyroid gland; Z83.3 Family history of diabetes mellitus; Z13.6 Encounter for screening for cardiovascular disorders
CPT/HCPCS: 80061; 82306; 82378; 84439; 84443; 84480

== ENCOUNTER 2025-01-08 15:51 | Outpatient (CLI) | payer OTHER, SELFPAY | END 2025-01-08 15:52 | disposition home or self-care (01) | LOC: LKVREF 15:52 | PROVIDERS: PCP Family Medicine; Visit Provider Family Medicine | DX: I10 Essential (primary) hypertension (principal); E03.9 Hypothyroidism, unspecified | CPT/HCPCS: 80048 ==